=== PATIENT | female | born 1945 | race Caucasian/White ===

== ENCOUNTER 2024-06-22 12:31 | Emergency (ER) | payer MEDICARE, OTHER, SELFPAY ==
--- NOTE | 2024-06-22 12:54 | ECG_ITS ---
[facility] Test Date: 2024-06-22 Pat Name: Renee Atkins Department: Room: Gender: Female Design Engineering Manager: : 1945 Requested By: Ryan Mac Order Number: [id number] Zoe MD: Rikki Somers M.D. Measurements Intervals [place] Rate: 62 P: 73 WI: 129 QRS: 67 QRSD: 87 T: 76 QT: 397 QTc: 403 Interpretive Statements SINUS RHYTHM LOW QRS VOLTAGE IN PRECORDIAL LEADS [QRS DEFLECTION < 1.0 mV IN CHEST LEADS] No previous ECG available for comparison Electronically Signed On 06-23-2024 10:26:58 [employer] TECHNOLOGY TEACHER by Rikki Somers M.D. [email or web address]
[2024-06-22 12:55] VITALS: BP 141/78; PULSE 65; RESP 17; TEMP 36.4; O2SAT 100; BMI 37.9
--- NOTE | 2024-06-22 13:04 | XRR_ITS ---
PROCEDURE INFORMATION: Exam: XR Chest Exam date and time: 06/22/2024 1:17 PM Age: 79 years old Clinical indication: Chest wall pain; Prior surgery; Surgery date: 6+ months; Surgery type: Breast implants; Additional info: Chest pain TECHNIQUE: Imaging protocol: Radiologic exam of the chest. Views: 1 view. COMPARISON: No relevant prior studies available. FINDINGS: Lungs: Unremarkable. No consolidation or mass. Pleural spaces: Unremarkable. No pleural effusion. No pneumothorax. Heart/Mediastinum: Unremarkable. No cardiomegaly. Bones/joints: Unremarkable. XR/XR chest 1V portable [id number] IMPRESSION: No acute findings.
--- NOTE | 2024-06-22 13:22 | ED_ITS ---
HPI - Back Pain/Injury 2 General: Chief Complaint: Back Pain/Injury Stated Complaint: back pain UC sent Time Seen by Provider: 06/22/24 13:22 History of Present Illness: Patient presents to the ER with complaints of upper back pain and chest pain. She states she has been caring her home oxygen around on her side she thinks she may have strained something and this is causing her chest and back to hurt. She only experiences pain when she moving. She is chronically short of breath and chronically wears 2 L of oxygen at all times. She is not requiring any more oxygen now than she does at her baseline. Patient denies any nausea vomiting or diaphoresis. Related Data Home Medications Medication Instructions Recorded Confirmed alprazolam 0.5 mg tablet (Xanax) 0.5 mg PO BID 06/22/24 06/22/24 apixaban 5 mg tablet (Eliquis) 5 mg PO BID 06/22/24 06/22/24 citalopram 20 mg tablet 20 mg PO DAILY 06/22/24 06/22/24 cyclobenzaprine 10 mg tablet 10 mg PO TID 06/22/24 06/22/24 fluticasone fur. 100 mcg-umeclid 1 inh inhalation DAILY 06/22/24 06/22/24 62.5 mcg-vilant 25 mcg inhalat.powder (Trelegy Ellipta) furosemide 20 mg tablet (Lasix) 20 mg PO DAILY 06/22/24 06/22/24 metoprolol succinate 25 mg 25 mg PO BID 06/22/24 06/22/24 tablet,extended release 24 hr prednisone 10 mg tablet 10 mg PO BID 06/22/24 06/22/24 Allergies Allergy/AdvReac Type Severity Reaction Status Date / Time codeine Allergy ALGY-Hives Verified 06/22/24 12:59 Penicillins Allergy ALGY-Hives Verified 06/22/24 12:59 Sulfa (Sulfonamide Allergy hives Verified 06/22/24 11:43 Antibiotics) zolpidem [From Ambien] Allergy Unknown Verified 06/22/24 12:59 Review of Systems 2 General: Reports: 10 or more systems reviewed and unremarkable except in HPI and below PFSH ED 2 PFSH: Social History Smoking and tobacco/nicotine status: unknown if used tobacco/nicotine Physical Exam 2 Const: COMMON NORMALS: no acute distress, average body habitus, patient oriented x3, no limitations, healthy appearing, alert and well nourished HENMT: COMMON NORMALS: normocephalic, atraumatic, hearing grossly normal bilaterally, external ears normal, Normal external nose present and moist oral mucous membranes HEAD & SCALP: normocephalic and atraumatic NOSE: Normal external nose present EXTERNAL EAR: Yes external ears normal Neck/C-Spine: COMMON NORMALS: no JVD Chest: COMMONS NORMALS: normal inspection of the chest and normal palpation of entire chest wall Resp: COMMON NORMALS: normal respiratory effort, No retractions, No use of accessory muscles and clear to auscultation bilaterally AUSCULTATION: clear to auscultation bilaterally Cardio: COMMON NORMALS: no JVD, regular rate, regular rhythm, S1 normal heart sound present, S2 normal heart sound present, No gallops present (Cardio), No clicks present (Cardio), No murmurs present (Cardio) and No rub (Cardio) R ATE: regular rate RHYTHM: regular rhythm HEART SOUNDS: S1 normal heart sound present and S2 normal heart sound present GI: COMMON NORMALS: Normal to inspection, nondistended, normoactive bowel sounds present, Soft to palpation, non-tender, No hepatosplenomegaly present and no masses PALPATION: Yes Soft to palpation and Yes No hepatosplenomegaly present Neuro: COMMON NORMALS: patient oriented x3 SENSORIUM/ORIENTATION: Yes alert Course 2 Vital Signs: Vital signs: Vital Signs Temperature 97.5 F L 06/22/24 12:55 Pulse Rate 65 06/22/24 16:36 Respiratory Rate 17 06/22/24 12:55 Blood Pressure 147/89 06/22/24 16:36 Pulse Oximetry 99 06/22/24 16:36 Oxygen Delivery Me thod Room Air 06/22/24 15:35 Oxygen Flow Rate 2 06/22/24 12:55 MDM - Back Pain/Injury Medical Decision Making Patient had serial EKGs, serial cardiac enzymes, chest x-ray all of which was essentially benign. Patient will be discharged home. Medical Records I reviewed the patient's medical records. Labs I reviewed the patient's lab results. 06/22/24 13:20 06/22/24 13:20 Radiology Impressions Chest X-Ray 06/22/24 13:04 IMPRESSION: No acute findings. Laboratory Results WBC 12.26 10^3/uL (3.29-11.43) H 06/22/24 13:20 RBC 4.79 10^6/uL (3.85-5.65) 06/22/24 13:20 Hgb 16.20 g/dL (11.27-16.99) 06/22/24 13:20 Hct 50.9 % (36-47) H 06/22/24 13:20 MCV 106.3 fl (85-98) H 06/22/24 13:20 MCH 33.8 pg (27-33) H 06/22/24 13:20 MCHC 31.8 g/dL (30-55) 06/22/24 13:20 RDW 13.2 % (12.1-15.1) 06/22/24 13:20 Plt Count 308 10^3/cmm (157-399) 06/22/24 13:20 MPV 8.9 fL (7.4-10.4) 06/22/24 13:20 Neut % (Auto) 71.6 % 06/22/24 13:20 Lymph % (Auto) 15.2 % 06/22/24 13:20 [place] % (Auto) 6.3 % 06/22/24 13:20 Eos % (Auto) 0.2 % 06/22/24 13:20 Baso % (Auto) 0.3 % 06/22/24 13:20 Neut # (Auto) 8.77 10^3/uL (1.8-7.7) H 06/22/24 13:20 Lymph # (Auto) 1.9 10^3/uL (0.8-4.8) 06/22/24 13:20 [place] # (Auto) 0.8 10^3/uL (0.2-0.9) 06/22/24 13:20 Eos # (Auto) 0.0 10^3/uL (0.0-0.8) 06/22/24 13:20 Baso # (Auto) 0.0 10^3/uL (0.0-0.1) 06/22/24 13:20 Nucleated RBC % (auto) 0.3 % 06/22/24 13:20 Nucleated RBCs # 0.0 /100WBC 06/22/24 13:20 Sodium 140 mmol/L (136-145) 06/22/24 13:20 Potassium 4.8 mmol/L (3.5-5.1) 06/22/24 13:20 Chloride 101 mmol/L (98-107) 06/22/24 13:20 Carbon Dioxide 26 mmol/L (22-29) 06/22/24 13:20 Anion Gap 17.8 (5-19) 06/22/24 13:20 BUN 14 mg/dL (8-23) 06/22/24 13:20 Creatinine 0.8 mg/dL (0.5-0.9) 06/22/24 13:20 GFR Calculation Not Reportable 06/22/24 13:20 Glucose 126 mg/dL (65-115) H 06/22/24 13:20 Calculated Osmolality 292 mOsm/kg (285-295) 06/22/24 13:20 Calcium 9.6 mg/dL (8.5-10.5) 06/22/24 13:20 Total Bilirubin 0.5 mg/dL (0.15-1.2) 06/22/24 13:20 AST 81 U/L (0-32) H 06/22/24 13:20 ALT 145 U/L (0-33) H 06/22/24 13:20 Alkaline Phosphatase 123 U/L (35-105) H 06/22/24 13:20 Troponin T Baseline 13 ng/L (0-10) H 06/22/24 13:20 Troponin T 120 Minute 10.98 ng/L (0-10) H 06/22/24 15:43 Delta Troponin T -2.02 ABS# (0-10) L 06/22/24 15:43 NT-Pro-B Natriuret Pep 145 pg/mL (0-450) 06/22/24 13:20 Total Protein 6.6 g/dL (6.6-8.7) 06/22/24 13:20 Albumin 4.1 g/dL (3.5-5.2) 06/22/24 13:20 Globulin 2.5 g/dL (1.3-4.6) 06/22/24 13:20 All radiology interpretation(s) finalized by discharge Discharge Plan Discharge Patient Disposition: Home Clinical Impression: Thoracic back pain Qualifiers: Chronicity: acute Back pain laterality: left Qualified Code(s): M54.6 - Pain in thoracic spine Chest pain Qualifiers: Chest pain type: unspecified Qualified Code(s): R07.9 - Chest pain, unspecified Condition: Stable Prescriptions: No Action alprazolam [Xanax] 0.5 mg tablet 0.5 mg PO BID metoprolol succinate 25 mg tablet extended release 24 hr 25 mg PO BID cyclobenzaprine 10 mg tablet 10 mg PO TID citalopram 20 mg tablet 20 mg PO DAILY Trelegy Ellipta 100-62.5-25 mcg blister with device 1 inh inhalation DAILY Eliquis 5 mg tablet 5 mg PO BID furosemide [Lasix] 20 mg tablet 20 mg PO DAILY prednisone 10 mg tablet 10 mg PO BID Discharge Orders: Discharge ED (Routine); Ordered 06/22/24 Ordered By: Rodrigue Richards Referrals: Farhad Marquez MD [Primary Care Provider] - 1 week Patient Instructions: Musculoskeletal Pain (ED) Activity Restrictions/Additional Instructions: All of your evaluation in the ER was negative for any acute cardiac cause of your pain. It is thought to be musculoskeletal in nature. Please follow-up with your family practice physician in the next 7 days as needed. If your pain worsens or changes please feel free to return to the ER. Coding Level of Care Code ED Work Order Clerk for Alee Weaver
--- NOTE | 2024-06-22 13:29 | PC.PHAR ---
patient was seen at walk in earlier this morning and was told to come here last reconciled then.. patient confirms everything is the same
[2024-06-22 13:40] VITALS: BP 147/80; PULSE 67; O2SAT 98
[2024-06-22 13:47] LABS: Basophils % 0.3 %; Eosinophils % 0.2 %; Hematocrit 50.9 % (36-47); Lymphocytes # 1.9 10^3/uL (0.8-4.8); Lymphocytes % 15.2 %; Mean Corpuscular HGB Conc 31.8 g/dL (30-55); Mean Corpuscular Hemoglobin 33.8 pg (27-33); Mean Corpuscular Volume 106.3 fl (85-98); Mean Platelet Volume 8.9 fL (7.4-10.4); Monocytes # 0.8 10^3/uL (0.2-0.9); Monocytes % 6.3 %; Neutrophils # 8.77 10^3/uL (1.8-7.7); Neutrophils % 71.6 %; Nucleated Red Blood Cells % 0.3 %; Platelet Count 308 10^3/cmm (157-399); Red Blood Count 4.79 10^6/uL (3.85-5.65); Red Cell Distribution Width 13.2 % (12.1-15.1); White Blood Count 12.26 10^3/uL (3.29-11.43)
[2024-06-22 14:06] LABS: Troponin(5th) Baseline 13 ng/L (0-10)
[2024-06-22 14:14] LABS: NT Pro B Type Natriuretic Pept 145 pg/mL (0-450)
[2024-06-22 14:22] LABS: Anion Gap 17.8 (5-19); Blood Urea Nitrogen 14 mg/dL (8-23); Carbon Dioxide 26 mmol/L (22-29); Chloride 101 mmol/L (98-107); Potassium 4.8 mmol/L (3.5-5.1); Sodium 140 mmol/L (136-145)
[2024-06-22 14:23] LABS: Alanine Aminotransferase 145 U/L (0-33); Albumin Level 4.1 g/dL (3.5-5.2); Alkaline Phosphatase 123 U/L (35-105); Aspartate Amino Transferase 81 U/L (0-32); Calcium 9.6 mg/dL (8.5-10.5); Creatinine Clr Calc Pharmacy 70.2543; Globulin 2.5 g/dL (1.3-4.6); Glucose 126 mg/dL (65-115); Osmolality Calculated 292 mOsm/kg (285-295); Total Bilirubin 0.5 mg/dL (0.15-1.2); Total Protein 6.6 g/dL (6.6-8.7)
[2024-06-22 15:35] VITALS: BP 147/89; PULSE 67; O2SAT 98
[2024-06-22 16:09] LABS: Troponin 5 2HR 10.98 ng/L (0-10)
[2024-06-22 16:10] LABS: Troponin 5 2HR Delta -2.02 ABS# (0-10)
--- NOTE | 2024-06-22 16:12 | ECG_ITS ---
[facility] Date: 2024-06-22 Pat Name: Renee Atkins Department: Room: Gender: Female Meter Supervisor: : 1945 Requested By: Libertad Parham Order Number: [id number] Enriquez MD: Rikki Somers M.D. Measurements Intervals [place] Rate: 65 P: 68 NE: 134 QRS: 60 QRSD: 86 T: 95 QT: 404 QTc: 423 Interpretive Statements SINUS RHYTHM LOW QRS VOLTAGE IN PRECORDIAL LEADS [QRS DEFLECTION < 1.0 mV IN CHEST LEADS] MODERATE ST DEPRESSION [0.05+ mV ST DEPRESSION] Compared to ECG 06/22/2024 12:54:12 ST (T wave) deviation now present Electronically Signed On 06-24-2024 19:10:09 ORE ROASTER by Rikki Somers M.D. [id number]
[2024-06-22 16:36] VITALS: BP 147/89; PULSE 65; O2SAT 99
== END 2024-06-22 16:45 | disposition home or self-care (01) ==
PROVIDERS: Physician Assistant; Emergency Provider Emergency Medicine; PCP Family Medicine
DX: M54.6 Pain in thoracic spine (principal); R07.9 Chest pain, unspecified; Z79.01 Long term (current) use of anticoagulants; Z99.81 Dependence on supplemental oxygen
CPT/HCPCS: 36415; 71045; 80053; 83880; 84484; 85025; 93005; 99285

== ENCOUNTER → 2024-08-13 14:56 | Outpatient (BNVA) | payer MEDICARE, OTHER, SELFPAY | PROVIDERS: PCP Family Medicine; Visit Provider Family Medicine | DX: Z13.6 Encounter for screening for cardiovascular disorders (principal); R00.0 Tachycardia, unspecified; Z90.710 Acquired absence of both cervix and uterus; Z90.49 Acquired absence of other specified parts of digestive tract; Z90.13 Acquired absence of bilateral breasts and nipples; Z98.890 Other specified postprocedural states | CPT/HCPCS: 80053; 80061; 84439; 84443; 85007; 85025 ==

== ENCOUNTER → 2024-09-14 13:45 | Outpatient (BNVA) | payer MEDICARE, OTHER, SELFPAY | PROVIDERS: PCP Family Medicine; Visit Provider Emergency Medicine | DX: Z13.6 Encounter for screening for cardiovascular disorders (principal); R00.0 Tachycardia, unspecified; R60.0 Localized edema | CPT/HCPCS: 71046; 80053; 85025 ==

== ENCOUNTER 2024-09-18 19:23 | Inpatient (IN) | payer MEDICARE, OTHER, SELFPAY ==
[2024-09-18 19:26] VITALS: BP 142/65; PULSE 127; RESP 20; TEMP 36.7; O2SAT 94; BMI 40.4
--- NOTE | 2024-09-18 19:27 | CTR_ITS ---
PROCEDURE INFORMATION: Exam: CT Chest Without Contrast; Diagnostic Exam date and time: 09/18/2024 8:44 PM Age: 79 years old Clinical indication: Injury or trauma; Fall; Blunt trauma (contusions or hematomas); Additional info: Traumatic chest pain TECHNIQUE: Imaging protocol: Diagnostic computed tomography of the chest without contrast. Radiation optimization: All CT scans at this facility use at least one of these dose optimization techniques: automated exposure control; mA and/or kV adjustment per patient size (includes targeted exams where dose is matched to clinical indication); or iterative reconstruction. COMPARISON: CR (CHEST, ) 09/18/2024 8:27 PM RADIATION DOSE METRICS: Total DLP (mGy-cm): 622.3 FINDINGS: Lungs: Emphysema. Calcified granuloma within left lower lobe. Mild bibasilar reticular opacities. Pleural spaces: Unremarkable. No pneumothorax. No pleural effusion. Heart: Unremarkable. No cardiomegaly. No pericardial effusion. Lymph nodes: Calcified mediastinal lymph nodes. Vasculature: Unremarkable. No aortic aneurysm. Diaphragm: Small hiatal hernia. Liver: Diffusely hypodense hepatic parenchyma. Gallbladder and biliary ducts: Status post cholecystectomy. Spleen: Calcified granulomas within the spleen. Bones/joints: Unremarkable. No acute fracture. Soft tissues: Unremarkable. CT/CT chest wo con [id number] IMPRESSION: 1. No acute intrathoracic findings. No fracture. 2. Emphysema. 3. Small hiatal hernia. 4. Hepatic steatosis. 5. Sequela of prior healed granulomatous disease. 6. Status post cholecystectomy. COMMENTS: The presence of pulmonary emphysema on CT is an independent risk factor for lung cancer. In the absence of a history or active diagnosis of lung cancer, it is recommended that this patient with emphysema be evaluated for enrollment in a low dose CT lung cancer screening program.
--- NOTE | 2024-09-18 19:27 | CTR_ITS ---
PROCEDURE INFORMATION: Exam: CT Cervical Spine Without Contrast Exam date and time: 09/18/2024 8:44 PM Age: 79 years old Clinical indication: Injury or trauma; Fall; Blunt trauma; Additional info: Fall, neck pain TECHNIQUE: Imaging protocol: Computed tomography of the cervical spine without contrast. Radiation optimization: All CT scans at this facility use at least one of these dose optimization techniques: automated exposure control; mA and/or kV adjustment per patient size (includes targeted exams where dose is matched to clinical indication); or iterative reconstruction. COMPARISON: CR (CHEST, ) 09/18/2024 8:27 PM RADIATION DOSE METRICS: Total DLP (mGy-cm): 302.1 FINDINGS: Bones/joints: Mid to lower cervical spine moderate severe disc space narrowing and productive degenerative endplate changes throughout the spine. C2-C3: No significant disc bulge or herniation. No severe spinal canal stenosis. No significant neural foraminal narrowing. C3-C4: No significant disc bulge or herniation. No severe spinal canal stenosis. No significant neural foraminal narrowing. C4-C5: No significant disc bulge or herniation. No severe spinal canal stenosis. No significant neural foraminal narrowing. C5-C6: No significant disc bulge or herniation. No severe spinal canal stenosis. No significant neural foraminal narrowing. C6-C7: No significant disc bulge or herniation. No severe spinal canal stenosis. No significant neural foraminal narrowing. C7-T1: No significant disc bulge or herniation. No severe spinal canal stenosis. No significant neural foraminal narrowing. Lungs: Emphysematous changes. Biapical pleural-parenchymal fibrosis. Vasculature: Carotid artery atherosclerotic calcification. Soft tissues: Unremarkable. CT/CT cervical spin wo con* [id number] IMPRESSION: 1. Negative for fracture or dislocation. 2. Mid to lower cervical spine moderate severe disc space narrowing and productive degenerative endplate changes throughout the spine. 3. Carotid artery atherosclerotic calcification. 4. Emphysematous changes. 5. Biapical pleural-parenchymal fibrosis.
--- NOTE | 2024-09-18 19:27 | CTR_ITS ---
PROCEDURE INFORMATION: Exam: CT Thoracic Spine Without Contrast Exam date and time: 09/18/2024 8:44 PM Age: 79 years old Clinical indication: Injury or trauma; Fall; Blunt trauma (contusions or hematomas); Additional info: Traumatic upper back pain TECHNIQUE: Imaging protocol: Computed tomography of the thoracic spine without contrast. Radiation optimization: All CT scans at this facility use at least one of these dose optimization techniques: automated exposure control; mA and/or kV adjustment per patient size (includes targeted exams where dose is matched to clinical indication); or iterative reconstruction. COMPARISON: CR (CHEST, ) 09/18/2024 8:27 PM RADIATION DOSE METRICS: Total DLP (mGy-cm): 1290.1 FINDINGS: Bones/joints: No compression deformity or traumatic subluxation. Mild multilevel degenerative changes with mild anterior osteophyte formation. No aggressive osseous lesions. Soft tissues: Unremarkable. Lungs: Partially included lungs demonstrate advanced emphysema. Other findings: Hiatal hernia. CT/CT thoracic spin wo con* [id number] IMPRESSION: 1. No compression deformity or traumatic subluxation within thoracic spine. 2. Emphysema. Hiatal hernia.
--- NOTE | 2024-09-18 19:27 | CTR_ITS ---
PROCEDURE INFORMATION: Exam: CT Head Without Contrast Exam date and time: 09/18/2024 8:44 PM Age: 79 years old Clinical indication: Injury or trauma; Fall; Blunt trauma (contusions or hematomas); Consciousness not specified; Additional info: Fall, head injury TECHNIQUE: Imaging protocol: Computed tomography of the head without contrast. Radiation optimization: All CT scans at this facility use at least one of these dose optimization techniques: automated exposure control; mA and/or kV adjustment per patient size (includes targeted exams where dose is matched to clinical indication); or iterative reconstruction. COMPARISON: CT cervical spin wo con* [id number] 09/18/2024 8:44 PM RADIATION DOSE METRICS: Total DLP (mGy-cm): 1143.2 FINDINGS: Brain: Moderate diffuse white matter disease likely reflecting chronic microvascular ischemic changes. Cerebral ventricles: No ventriculomegaly. Paranasal sinuses: Visualized sinuses are unremarkable. No fluid levels. Mastoid air cells: Visualized mastoid air cells are well aerated. Bones: Unremarkable. No acute fracture. Soft tissues: Unremarkable. CT/CT head wo con* [id number] IMPRESSION: Negative for intracranial hemorrhage or mass effect.
--- NOTE | 2024-09-18 19:28 | XRR_ITS ---
PROCEDURE INFORMATION: Exam: XR Chest Exam date and time: 09/18/2024 8:27 PM Age: 79 years old Clinical indication: Shortness of breath TECHNIQUE: Imaging protocol: Radiologic exam of the chest. Views: 1 view. COMPARISON: CR XR chest 2V* [id number] 09/14/2024 1:48 PM FINDINGS: Lungs: Unremarkable. No consolidation. Pleural spaces: Unremarkable. No pleural effusion. No pneumothorax. Heart/Mediastinum: Unremarkable. No cardiomegaly. Bones/joints: Unremarkable. XR/XR chest 1V portable [id number] IMPRESSION: No acute findings.
--- NOTE | 2024-09-18 19:33 | W.ED.SOB ---
HPI - SOB/Dyspnea General: Chief Complaint: Shortness of Breath/Dyspnea Stated Complaint: resp distress Time Seen by Provider: 09/18/24 19:24 History of Present Illness: HPI Narrative: 79-year-old female with a history of COPD, chronic hypoxemic respiratory failure on 2 L nasal cannula at all times, tobacco dependence in remission for 8 years, history of pulmonary embolism on chronic anticoagulation with Eliquis, anxiety, who presents to the emergency room with worsening shortness of breath. This been going on for few days now. She has had increased oxygen requirements currently requiring 4 L nasal cannula. She says she has not had any cough. She has swelling in her legs but this is baseline she says. She has had multiple recent falls. She said she lost her balance and fell backwards and hit her head. She then fell while she was on her walker. She is having some right rib pain. No loss of consciousness. These falls were couple of days ago. She did not seek medical attention even though she is on Eliquis. Related Data Previous Rx's ?Medication ?Instructions ?Recorded Supplemental Oxygen @ 2-4l/m via #1 ea 07/12/24 nasal canula alprazolam 0.5 mg tablet (Xanax) 0.5 mg PO BID #60 tabs 08/13/24 citalopram 20 mg tablet 20 mg PO DAILY #90 tabs 08/13/24 cyclobenzaprine 10 mg tablet 10 mg PO DAILY #90 tabs 08/13/24 fluticasone fur. 100 mcg-umeclid 1 inh inhalation DAILY #60 ea 08/13/24 62.5 mcg-vilant 25 mcg inhalat.powder (Trelegy Ellipta) furosemide 20 mg tablet (Lasix) 20 mg PO DAILY #90 tabs 08/13/24 metoprolol tartrate 25 mg tablet 25 mg PO BID #90 tabs 08/13/24 potassium chloride 10 mEq 10 meq PO DAILY #90 tabs 08/13/24 tablet,extended release prednisone 5 mg tablet See Rx Instructions PO BID #77 tabs 08/13/24 albuterol sulfate 90 mcg/actuation 1 inh inhalation QID PRN shortness 09/14/24 aerosol inhaler of breath or wheezing #8.5 grams apixaban 5 mg tablet 5 mg PO BID #180 tabs 09/14/24 Allergies Allergy/AdvReac Type Severity Reaction Status Date / Time codeine Allergy ALGY-Hives Verified 09/18/24 19:33 Penicillins Allergy ALGY-Hives Verified 09/18/24 19:33 Sulfa (Sulfonamide Allergy hives Verified 09/18/24 19:33 Antibiotics) zolpidem (From Ambien) Allergy Unknown Verified 09/18/24 19:33 Review of Systems Narrative: Constitutional symptoms: Negative except as documented in HPI. Skin symptoms: Negative except as documented in HPI. Eye symptoms: Negative except as documented in HPI. ENMT symptoms: Negative except as documented in HPI. Respiratory symptoms: Negative except as documented in HPI. Cardiovascular symptoms: Negative except as documented in HPI. Gastrointestinal symptoms: Negative except as documented in HPI. Genitourinary symptoms: Negative except as documented in HPI. Musculoskeletal symptoms: Negative except as documented in HPI. Neurologic symptoms: Negative except as documented in HPI. Psychiatric symptoms: Negative except as documented in HPI. Endocrine symptoms: Negative except as documented in HPI. PFSH ED PFSH: Medical History (Updated 09/18/24 @ 21:47 by Liset Torrez MD) Anxiety Chronic steroid use Hx of pulmonary embolus Tachyarrhythmia COPD (chronic obstructive pulmonary disease) Surgical History (Updated 08/13/24 @ 14:50 by Farhad Marquez MD) History of bilateral mastectomy History of breast reconstruction History of cholecystectomy History of appendectomy History of hysterectomy History of back surgery History of repair of rectocele History of bladder repair surgery History of foot surgery Family History Grandfather Arrhythmia Father Colon cancer Grandmother Breast cancer Mother Diabetes mellitus, type 2 Social History (Updated 08/13/24 @ 14:14 by Breann Gomez LPN) Smoking and tobacco/nicotine status: former use of tobacco/nicotine Alcohol intake: never Substance/Drug Use: never Physical Exam Narrative: EXAM NARRATIVE: General: Alert, no acute distress. Skin: Warm, dry. Head: Normocephalic, atraumatic. Neck: Supple, trachea midline. Eye: Extraocular movements are intact. Ears, nose, mouth and throat: Oral mucosa moist. Cardiovascular: Regular rate and rhythm, Normal peripheral perfusion. Respiratory: coarse, scattered wheeze, mild increased wob. tachypnea, breath sounds are equal, Symmetrical chest wall expansion. Gastrointestinal: Soft, Nontender, Non distended, Normal bowel sounds. Musculoskeletal: Normal ROM, no deformity. Neurological: Alert and oriented to person, place, time, and situation, No focal neurological deficit observed. Psychiatric: Cooperative, appropriate mood & affect. Course Vital Signs: Vital signs: Vital Signs Temperature 98.0 F 09/18/24 19:26 Pulse Rate 118 H 09/18/24 20:58 Respiratory Rate 22 H 09/18/24 20:58 Blood Pressure 142/65 09/18/24 20:30 Pulse Oximetry 95 09/18/24 20:58 Oxygen Delivery Me thod Nasal Cannula 09/18/24 20:58 Oxygen Flow Rate 4 09/18/24 20:58 MDM - SOB/Dyspnea Medical Decision Making Differential diagnosis for patient with shortness of breath includes but is not limited to and based on the above HPI, review of systems and physical exam: Pneumonia. Bronchitis. Asthma or COPD with acute exacerbation. Acute coronary syndrome / LA. Pulmonary embolism. Anxiety. Congestive heart failure. Viral infections including influenza and Covid-19. Atrial fibrillation. Anxiety. Pleural effusion. Pneumothorax. Orders placed to evaluate differential diagnosis based on the above differential, HPI and physical exam EKG: Time 2000. Rate 119. Sinus tachycardia, No ST-T changes, no ectopy, normal SD & QRS intervals, This was reviewed and interpreted by myself the ER physician at 2004 Chest x-ray: No acute process. No infiltrate. No pneumothorax. This was reviewed and interpreted by myself the emergency room physician. I also reviewed the radiology report. CT of the chest without contrast: No acute findings. No fractures. She has emphysema. A hiatal hernia. Granulomatous disease. This was reviewed and interpreted by myself the emergency room physician. I also reviewed the radiology report. CT of the abdomen without contrast: No acute process. This was reviewed and interpreted by myself the emergency room physician. I also reviewed the radiology report. CT head: No acute intracranial process. no intracranial hemorrhage, no evidence of infarct. no evidence of acute fracture.This was reviewed and interpreted by myself the ER physician. CT of the cervical spine: No fracture. Good alignment. No step-offs. This was reviewed and interpreted by myself the emergency room physician. I also reviewed the radiologist report. Lab Review: Laboratory results were reviewed and interpreted by myself the emergency room physician. No leukocytosis. No anemia. No renal failure. Patient is COVID-positive. With her swelling and matting of proBNP. She is tachycardic and has increased hypoxemia. Chest x-ray and CT do not show any causes. She has been taking her Eliquis so this is unlikely recurrent pulmonary embolism. I reviewed the patient's medical record. Reexamination: Patient still with quite a bit of wheeze and mild increased work of breathing. Increased oxygen requirements. Balance issues. Also of note she has a large skin tear on her right elbow. Some redness around this. Could be a possible source of sepsis. Consultation: I spoke with Dr. Dos Santos who is on-call for the hospitalist service who agrees to admission. Assessment and plan: COVID-19 COPD with acute exacerbation Acute on chronic hypoxemic respiratory failure Possible sepsis Chronic anticoagulation on Eliquis Multiple falls Head injury Skin tears to arm ?Increased oxygen requirements. 4 to 5 L over her home 2 L. Sats are in the low 90s on this. ?IV steroids. Multiple updrafts. ?Patient has COVID but have concern for secondary infection. She has a Pro-Don of 95 and a lactate of 3.5. Also a bit tachycardic which may be secondary to albuterol. -1 L normal saline bolus. Limited fluid resuscitation secondary to worsening lower extremity swelling and concern for heart failure. -Broad-spectrum antibiotics were administered. Zyvox and cefepime -Sepsis quality measures. -Lactic acid with a reflex was ordered. -Blood cultures were ordered. -I discussed the patient with the hospitalist on-call who is admitting the patient. - Discussed findings and plan with patient. Answered any questions. - All laboratory values were reviewed and interpreted personally by myself, the ER physician - All imaging was reviewed and interpreted personally by myself, the ER physician. - Evaluation and treatment of this problem were appropriate in the emergency setting Critical care -I spent a total of >35 minutes of critical care time managing the patient, independent of any other practitioner. -The time involved in the performance of separately reportable procedures was not counted towards critical care time. Lab Data 09/18/24 19:22 09/18/24 19:22 Labs/Radiology: Radiology Impressions Cervical Spine CT 09/18/24 19:27 IMPRESSION: 1. Negative for fracture or dislocation. 2. Mid to lower cervical spine moderate severe disc space narrowing and productive degenerative endplate changes throughout the spine. 3. Carotid artery atherosclerotic calcification. 4. Emphysematous changes. 5. Biapical pleural-parenchymal fibrosis. Chest CT 09/18/24 19: IMPRESSION: 1. No acute intrathoracic findings. No fracture. 2. Emphysema. 3. Small hiatal hernia. 4. Hepatic steatosis. 5. Sequela of prior healed granulomatous disease. 6. Status post cholecystectomy. COMMENTS: The presence of pulmonary emphysema on CT is an independent risk factor for lung cancer. In the absence of a history or active diagnosis of lung cancer, it is recommended that this patient with emphysema be evaluated for enrollment in a low dose CT lung cancer screening program. Head CT 09/18/24 19: IMPRESSION: Negative for intracranial hemorrhage or mass effect. Thoracic Spine CT 09/18/24: IMPRESSION: 1. No compression deformity or traumatic subluxation within thoracic spine. 2. Emphysema. Hiatal hernia. Chest X-Ray 09/18/24 19: IMPRESSION: No acute findings. Laboratory Results WBC 7.50 10^3/uL (3.29-11.43) 09/18/24 19:22 RBC 4.46 10^6/uL (3.85-5.65) 09/18/24 19:22 Hgb 15.20 g/dL (11.27-16.99) 09/18/24 19:22 Hct 45.8 % (36-47) 09/18/24 19:22 MCV 102.7 fl (85-98) H 09/18/24 19:22 MCH 34.1 pg (27-33) H 09/18/24 19:22 MCHC 33.2 g/dL (30-55) 09/18/24 19:22 RDW 13.6 % (12.1-15.1) 09/18/24 19:22 Plt Count 255 10^3/cmm (157-399) 09/18/24 19:22 MPV 9.2 fL (7.4-10.4) 09/18/24 19:22 Neut % (Auto) 69.0 % 09/18/24 19:22 Lymph % (Auto) 21.3 % 09/18/24 19:22 [place] % (Auto) 7.6 % 09/18/24 19:22 Eos % (Auto) 0.1 % 02/25/25 19:22 Baso % (Auto) 0.3 % 09/18/24 19:22 Neut # (Auto) 5.17 10^3/uL (1.8-7.7) 09/18/24 19:22 Lymph # (Auto) 1.6 10^3/uL (0.8-4.8) 09/18/24 19:22 [place] # (Auto) 0.6 10^3/uL (0.2-0.9) 09/18/24 19:22 Eos # (Auto) 0.0 10^3/uL (0.0-0.8) 09/18/24 19:22 Baso # (Auto) 0.0 10^3/uL (0.0-0.1) 09/18/24 19: Nucleated RBC % (auto) 0.3 % 09/18/24: Nucleated RBCs # 0.0 /100WBC 09/18/24 19:22 Specimen Type Arterial 09/18/24 21:02 Sample Site Radial, right 09/18/24 21:02 ABG pH 7.39 (7.35-7.45) 09/18/24 21:02 ABG pCO2 35.7 mmHg (35-45) 09/18/24 21:02 ABG pO2 81.1 mmHg (80.0-100.0) 09/18/24 21:02 ABG HCO3 21.5 mmol/L (22-26) L 09/18/24 21:02 ABG O2 Saturation 96.2 09/18/24 21:02 ABG Base Excess -2.9 mmol/L (-2.0-2.0) L 09/18/24 21:02 Nathaniel Test Pos 09/18/24 21:02 A-a O2 Gradient 2.9 mmHg (5-10) L 09/18/24 21:02 Hematocrit 47.8 % (37-47) H 09/18/24 21:02 Hgb O2 Saturation 94.4 % (95-100) L 09/18/24 21:02 Carboxyhemoglobin 1.0 %THgb (0.4-20.1) 09/18/24 21:02 Methemoglobin 0.9 % (0.4-1.5) 09/18/24 21:02 Total Hemoglobin 15.6 g/dL (12-16) 09/18/24 21:02 Sodium 136.0 mmol/L (131-143) 09/18/24 21:02 Potassium 3.1 mmol/L (3.5-5.0) L 09/18/24 21:02 Glucose 166.0 mg/dL (70-115) H 09/18/24 21:02 Ionized Calcium 1.1 mmol/L (1.1-1.4) 09/18/24 21:02 O2 Delivery Device Nc 09/18/24 21:02 O2 Liters/Min 4.0 % 09/18/24 21:02 Experimental Machining Lab Manager ID Busja 09/18/24 21:02 Sodium 134 mmol/L (136-145) L 09/18/24 19:22 Potassium 3.3 mmol/L (3.5-5.1) L 09/18/24 19:22 Chloride 96 mmol/L (98-107) L 09/18/24 19:22 Carbon Dioxide 20 mmol/L (22-29) L 09/18/24 19:22 Anion Gap 21.3 (5-19) H 09/18/24 19:22 BUN 10 mg/dL (8-23) 09/18/24 19:22 Creatinine 0.9 mg/dL (0.5-0.9) 09/18/24 19:22 GFR Calculation Not Reportable 09/18/24 19:22 Glucose 138 mg/dL (65-115) H 09/18/24 19:22 Calculated Osmolality 279 mOsm/kg (285-295) L 09/18/24 19:22 Lactic Acid 3.5 mmol/L (0.5-2.2) H 09/18/24 19:22 Calcium 8.7 mg/dL (8.5-10.5) 09/18/24 19:22 Total Bilirubin 0.8 mg/dL (0.15-1.2) 09/18/24 19:22 AST 294 U/L (0-32) H 09/18/24 19:22 ALT 198 U/L (0-33) H 09/18/24 19:22 Alkaline Phosphatase 261 U/L (35-105) H 09/18/24 19:22 Troponin T Baseline 28 ng/L (0-10) H 09/18/24 19:22 C-Reactive Protein 162.9 mg/L (0.0-4.9) H 09/18/24 19: Total Protein 5.9 g/dL (6.6-8.7) L 09/18/24: Albumin 3.6 g/dL (3.5-5.2) 09/18/24: Globulin 2.3 g/dL (1.3-4.6) 09/18/24: Procalcitonin 97.35 ng/mL (0-0.5) H 09/18/24 19: Urine Color Yellow (Yellow) 09/18/24: Urine Appearance Clear (CLEAR) 09/18/24: Urine pH 6.5 (5-7) 09/18/24: Ur Specific [place] 1.022 (1.005-1.030) 09/18/24: Urine Protein 1+ (Negative) A 09/18/24 Urine Glucose (UA) Negative (Normal) 09/18/24 Urine Ketones 2+ (Negative) H 09/18/24: Urine Blood Negative (Negative) 09/18/24: Urine Nitrate Negative (Negative) 09/18/24: Urine Bilirubin Negative (Negative) 09/18/24: Urine Urobilinogen 1.0 mg/dL (Negative) 09/18/24: Ur Leukocyte Esterase 1+ (Negative) A 09/18/24 20: Urine RBC 0-4 /hpf (0-2) H 09/18/24 20: Urine WBC 5-10 /hpf (0-5) H 09/18/24 20: Ur Squamous Epith Cells 15-25 /hpf (0-5) H 09/18/24 20: Amorphous Sediment Not Reportable 09/18/24: Urine Bacteria Trace /hpf (NONE) 09/18/24 20: Influenza A (PCR) Negative (Negative) 09/18/24: Influenza Type B (PCR) Negative (Negative) 09/18/24: RSV (PCR) Negative (Negative) 09/18/24 SARS-CoV-2 (PCR) Positive (Negative) A 09/18/24 All radiology interpretation(s) finalized by discharge Discharge Plan Discharge Patient Disposition: Admitted As Inpatient Clinical Impression: COVID-19, COPD with acute exacerbation, Acute on chronic hypoxic respiratory failure, Multiple falls, Sinus tachycardia, Edema, Sepsis Condition: Stable Coding Level of Care Code ED Rod Greaser for Alee Weaver
[2024-09-18] MEDS: methylPREDNISolone sod succ 125 mg/2 mL INJ IVP (19:37)
[2024-09-18 19:38] VITALS: BP 142/65; PULSE 126; RESP 20; O2SAT 95
--- NOTE | 2024-09-18 20:01 | ECG_ITS ---
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
[2024-09-18 20:08] LABS: Basophils % 0.3 %; Eosinophils % 0.1 %; Hematocrit 45.8 % (36-47); Lymphocytes # 1.6 10^3/uL (0.8-4.8); Lymphocytes % 21.3 %; Mean Corpuscular HGB Conc 33.2 g/dL (30-55); Mean Corpuscular Hemoglobin 34.1 pg (27-33); Mean Corpuscular Volume 102.7 fl (85-98); Mean Platelet Volume 9.2 fL (7.4-10.4); Monocytes # 0.6 10^3/uL (0.2-0.9); Monocytes % 7.6 %; Neutrophils # 5.17 10^3/uL (1.8-7.7); Nucleated Red Blood Cells % 0.3 %; Platelet Count 255 10^3/cmm (157-399); Red Blood Count 4.46 10^6/uL (3.85-5.65); Red Cell Distribution Width 13.6 % (12.1-15.1)
[2024-09-18 20:15] LABS: Lactic Sepsis W/Reflex 3.5 mmol/L (0.5-2.2); Troponin(5th) Baseline 28 ng/L (0-10)
[2024-09-18 20:21] LABS: Alanine Aminotransferase 198 U/L (0-33); Albumin Level 3.6 g/dL (3.5-5.2); Alkaline Phosphatase 261 U/L (35-105); Anion Gap 21.3 (5-19); Aspartate Amino Transferase 294 U/L (0-32); Blood Urea Nitrogen 10 mg/dL (8-23); C Reactive Protein 162.9 mg/L (0.0-4.9); Calcium 8.7 mg/dL (8.5-10.5); Carbon Dioxide 20 mmol/L (22-29); Chloride 96 mmol/L (98-107); Creatinine Clr Calc Pharmacy 64.6973; Globulin 2.3 g/dL (1.3-4.6); Glucose 138 mg/dL (65-115); Osmolality Calculated 279 mOsm/kg (285-295); Potassium 3.3 mmol/L (3.5-5.1); Sodium 134 mmol/L (136-145); Total Bilirubin 0.8 mg/dL (0.15-1.2); Total Protein 5.9 g/dL (6.6-8.7)
[2024-09-18 20:27] LABS: Procalcitonin 97.35 ng/mL (0-0.5)
[2024-09-18 20:30] VITALS: BP 142/65; RESP 22; O2SAT 91
[2024-09-18 20:36] LABS: Bilirubin Urine Negative (Negative); Blood Urine Negative (Negative); Glucose Urine UA Negative (Normal); Ketones Urine 2+ (Negative); Leukocyte Esterase Urine 1+ (Negative); Nitrate Urine Negative (Negative); Protein Urine 1+ (Negative); Specific Gravity, Urine 1.022 (1.005-1.030); Urine Appearance Clear (CLEAR); Urine Color Yellow (Yellow); pH Urine 6.5 (5-7)
[2024-09-18 20:36] LABS: Influenza A NEGATIVE (Negative); Influenza B NEGATIVE (Negative); Respiratory Syncytial Virus Ce NEGATIVE (Negative)
[2024-09-18 20:44] LABS: SARS-CoV-2 PCR Positive (Negative)
[2024-09-18] MEDS: albuterol 2.5 mg/3 mL Neb INHALATION (20:57)
[2024-09-18 20:58] VITALS: PULSE 118; RESP 22; O2SAT 95
[2024-09-18 20:58] LABS: RBC Urine 0-4 /hpf (0-2); Squamous Epithelial Cell Urine 15-25 /hpf (0-5)
[2024-09-18 20:59] LABS: Add Urine Culture? No; Bacteria Urine TRACE /hpf
[2024-09-18 21:14] LABS: ABG PCO2 35.7 mmHg (35-45); ABG PH Result 7.39 (7.35-7.45); Alveolar-Arterial Oxygen Gradi 2.9 mmHg (5-10); Arterial Blood Gas Hematocrit 47.8 % (37-47); Base Excess ABG -2.9 mmol/L (-2.0-2.0); Blood Gas Allen Test Pos; Blood Gas Operator Identificat BUSJA; Blood Gas Sample Site Radial, right; Blood Gas Sample Type Arterial; HCO3 ABG 21.5 mmol/L (22-26); HGB O2 Sat 94.4 % (95-100); Ionized Calcium Level - ABG 1.1 mmol/L (1.1-1.4); Methemoglobin 0.9 % (0.4-1.5); Oxygen Device NC; Oxygen Saturation ABG 96.2; PO2 ABG 81.1 mmHg (80.0-100.0); Potassium Level - ABG 3.1 mmol/L (3.5-5.0); Total Hemoglobin 15.6 g/dL (12-16)
[2024-09-18 21:37] LABS: Reflex Lactate Order REFLEX LACTIC ORDERD
--- NOTE | 2024-09-18 21:59 | P.HP_ITS ---
Providers/Chief Complaint 2 Primary Care Provider: Farhad Marquez MD Chief Complaint: resp distress History of Present Illness Renee Atkins is a 79 year old female with chronic hypoxia uses 2 L at baseline, lives alone, uses a walker occasionally, presented with recurrent falls and syncope. In the ER workup consistent with COVID-19, concern for sepsis with superimposed bacterial pneumonia patient has been given antibiotics, not a candidate for septic bolus secondary to active congestive heart failure signs and symptoms. Currently patient is on 4 L nasal cannula, patient is not endorsing any signs of chest pain nausea, vomiting but endorsing diarrhea for last few days with shortness of breath. Patient is stating that she is on Lasix but she has never been told about her congestive heart failure in the past. I do not have any previous echo to look for her EF. Patient denies previous history of AK or coronary disease. She does have history of COPD uses oxygen at baseline. Patient is stating that she has gained significant amount of weight and recently stopped taking her prednisone. Patient is stating that she had syncopal event on Tuesday, she regained consciousness quickly after falling on the ground, on Tuesday she had a fall secondary to extreme weakness and lethargy, she is presented today to get evaluated for worsening of her symptoms, she is endorsing subjective fevers, chills and rigors. She is denying signs of UTI. Endorsing diarrhea Patient takes Eliquis for history of PE/DVT Patient not a candidate for septic bolus secondary to acute CHF exacerbation/anasarca Review of Systems 2 Const: Reports: fever(s) and chills Eyes: Denies: change in vision ENMT: Denies: throat pain Card: Reports: swelling of feet/ankles; Denies: chest pain Resp: Reports: dyspnea GI: Reports: nausea and diarrhea : Denies: flank pain Musc: Denies: neck pain Medications/Allergies Home Medications ?Medication ?Instructions ?Recorded ?Confirmed ?Last Taken ?Type Supplemental Oxygen @ 2-4l/m via #1 ea 07/12/24 Unknown Rx nasal canula alprazolam 0.5 mg tablet (Xanax) 0.5 mg PO BID #60 tab s 08/13/24 09/14/24 Unknown Rx citalopram 20 mg tablet 20 mg PO DAILY #90 tabs 07/2609/14/24 Unknown Rx cyclobenzaprine 10 mg tablet 10 mg PO DAILY #90 tabs 0 08/13/24 09/14/24 Unknown Rx fluticasone fur. 100 mcg-umeclid 1 inh inhalation COOKIE Y #60 ea 08/13/24 09/14/24 Unknown Rx 62.5 mcg-vilant 25 mcg inhalat.powder (Trelegy Ellipta) furosemide 20 mg tablet (Lasix) 20 mg PO DAILY #90 tab s 08/13/24 09/14/24 Unknown Rx metoprolol tartrate 25 mg tablet 25 mg PO BID #90 tabs 08/13/24 09/14/24 Unknown Rx potassium chloride 10 mEq 10 meq PO DAILY #90 tabs 09/14/24 Unknown Rx tablet,extended release prednisone 5 mg tablet See Rx Instructions PO BID # 77 tabs 08/13/24 09/14/24 Unknown Rx albuterol sulfate 90 mcg/actuation 1 inh inhalation QI D PRN shortness 09/14/24 Unknown Rx aerosol inhaler of breath or wheezing #8.5 g zackary apixaban 5 mg tablet 5 mg PO BID #180 tabs Unknown Rx Allergies Allergy/AdvReac Type Severity Reaction Status Date / Time codeine Allergy ALGY-Hives Verified 09/18/24 19:33 Penicillins Allergy ALGY-Hives Verified 09/18/24 19:33 Sulfa (Sulfonamide Allergy hives Verified 09/18/24 19:33 Antibiotics) zolpidem (From Ambien) Allergy Unknown Verified 09/18/24 19:33 PFSH Acute 2 PFSH: Medical History (Updated 09/18/24 @ 23:16 by Terri Dos Santos MD) Anxiety Chronic steroid use Recently tapered off 09/16 Hx of pulmonary embolus Tachyarrhythmia COPD (chronic obstructive pulmonary disease) Surgical History History of bilateral mastectomy History of breast reconstruction History of cholecystectomy History of appendectomy History of hysterectomy History of back surgery History of repair of rectocele History of bladder repair surgery History of foot surgery Family History Grandfather Arrhythmia Father Colon cancer Grandmother Breast cancer Mother Diabetes mellitus, type 2 Social History Smoking and tobacco/nicotine status: former use of tobacco/nicotine Alcohol intake: never Substance/Drug Use: never Vitals/I&O/Wt Last Vital Signs Temp 98.0 F 09/18/24 19:26 Pulse 118 H 09/18/24 20:58 Resp 22 H 09/18/24 20:58 BP 142/65 09/18/24 20:30 Pulse Ox 95 09/18/24 20:58 O2 Del Method Nasal Cannula 09/18/24 20:58 O2 Flow Rate 4 09/18/24 20:58 09/18/24 09/18/24 09/18/24 06:59 14:59 22:59 Intake Total 0 / 0 Balance 0 / 0 Weight last 48 hrs Weight 110.223 kg Physical Exam 2 Narrative: Signs of fluid overload Morbidly obese Anasarca Currently on 4 L Bilateral breath sounds with rhonchi Diminished breath sound bilaterally at the bases No active chest pain GCS 15 3+ edema of legs Abdomen distended nontender Pleasant and cooperative NIH 0 Nonfocal neuroexam S1, S2 tachycardia Sepsis: Is patient septic: Yes Focused sepsis exam performed: Yes F ocused sepsis exam: No skin mottling Awake and alert Peripheral pulses intact Tachycardia heart rate 118 Saturating well 95% on 4 L Date exam was performed: 09/18/24 Time exam was performed: 23:17 Data 09/18/24 19:22 09/18/24 19:22 Micro: Microbiology 09/18/24 20:20 Blood Culture - Preliminary Blood SPECIMEN COLLECTED 09/18/24 20:15 Blood Culture - Preliminary Blood SPECIMEN COLLECTED A&P Assessment and plan (1) Sepsis: (2) COVID-19: (3) COPD (chronic obstructive pulmonary disease): (4) Acute on chronic hypoxic respiratory failure: (5) Lower extremity edema: (6) Multiple falls: (7) Edema: (8) New onset of congestive heart failure: (9) Sinus tachycardia: Plan Sepsis with acute on chronic hypoxia COVID-19 Patient started getting sick around Tuesday with diarrhea COPD exacerbation Currently on 4 L, at baseline uses 2 L at home Procalcitonin extremely high Tachycardia tachypnea high lactic acid with endorgan damage meet sepsis criteria Not a candidate for septic bolus secondary to anasarca I will keep patient on ceftriaxone and azithromycin Concern for superimposed bacterial pneumonia Check MRSA PCR For COVID-19 will keep patient on Decadron and remdesivir New onset CHF Request BNP Patient has anasarca I do not have previous echo to compare her EF however patient is endorsing taking Lasix No history of AK or CHF as per the patient EKG is showing ST depression V3 V4 with sinus tachycardia Delta troponin not significant requested echo Echo requested Patient recently finished steroid taper History of PE/DVT: Continue Eliquis for now If creatinine worsens Eliquis dose needs to be readjusted Patient endorsing history of sinus tachycardia that is why she is on metoprolol She is not endorsing history of A-fib DNR/DNI discussed with the patient goals of care in detail Cardiac diet DVT prophylaxis covered with Eliquis Will request physical therapy PDMP PDMP Reviewed: Not Reviewed Attestations 2 Medical Necessity Statement*: More than 2 midnights anticipated Coding Level of Care Code Acute Code for [facility] Fwd Diagnoses Sepsis A41.9 COVID-19 U07.1 COPD (chronic obstructive pulmonary disease) J44.9 Acute on chronic hypoxic respiratory failure J96.21 Lower extremity edema R60.0 Multiple falls R29.6 Edema R60.9 New onset of congestive heart failure I50.9 Sinus tachycardia R00.0
[2024-09-18 22:14] LABS: Troponin 5 2HR 28.05 ng/L (0-10); Troponin 5 2HR Delta 0.05 ABS# (0-10)
[2024-09-18 22:15] LABS: Lactic Acid level (Lactate) 3.2 mmol/L (0.5-2.2)
[2024-09-18 22:26] LABS: NT Pro B Type Natriuretic Pept 102 pg/mL (0-450)
[2024-09-18] MEDS: FUROsemide 10 mg/mL SDV 10mL 40 MG IVP (22:47)
[2024-09-18] MEDS: cefepime 2,000 mg SDV 2000 MG IVP (22:51)
[2024-09-18 22:55] VITALS: BP 153/84; PULSE 114; RESP 20; O2SAT 93
[2024-09-18] MEDS: linezolid premix 600 MG/300 ML PREMIX 300 MG IV (22:55)
[2024-09-19] VITALS (13 sets, daily range): BP systolic 120–165; BP diastolic 56–100; PULSE 96–116; RESP 15–20; TEMP 36.6–36.7; O2SAT 89–94; BMI 38.9
[2024-09-19 00:13] LABS: Vitamin B12 > 2000 pg/mL (232-1245)
[2024-09-19] MEDS: remdesivir 200 MG in sodium chloride 0.9% (100 ml) 60 ML 100 MG IV (01:04)
--- NOTE | 2024-09-19 01:28 | ECG_ITS ---
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 Measurements Intervals [place] Rate: 101 P: 77 TX: 140 QRS: 38 QRSD: 88 T: 50 QT: 384 QTc: 499 Interpretive Statements SINUS TACHYCARDIA LOW QRS VOLTAGE IN PRECORDIAL LEADS [QRS DEFLECTION < 1.0 mV IN CHEST LEADS] NONSPECIFIC ST & T-WAVE ABNORMALITY ABNORMAL RHYTHM ECG Compared to ECG 09/18/2024 20:01:55 T-wave abnormality now present ST (T wave) deviation no longer present Electronically Signed On 09-22-2024 08:29:46 LINDERMAN OPERATOR by Rikki Somers M.D. [email or web address] [id number]
[2024-09-19 02:24] LABS: Basophils % 0.2 %; Eosinophils % 0.2 %; Hematocrit 42.9 % (36-47); Lymphocytes # 0.5 10^3/uL (0.8-4.8); Lymphocytes % 9.8 %; Mean Corpuscular HGB Conc 32.9 g/dL (30-55); Mean Corpuscular Hemoglobin 34.1 pg (27-33); Mean Corpuscular Volume 103.9 fl (85-98); Monocytes # 0.1 10^3/uL (0.2-0.9); Monocytes % 1.8 %; Neutrophils # 4.77 10^3/uL (1.8-7.7); Neutrophils % 86.2 %; Nucleated Red Blood Cells % 0.4 %; Platelet Count 220 10^3/cmm (157-399); Red Blood Count 4.13 10^6/uL (3.85-5.65); Red Cell Distribution Width 13.8 % (12.1-15.1); White Blood Count 5.53 10^3/uL (3.29-11.43)
[2024-09-19 02:44] LABS: Troponin 5 6HR 20.78 ng/L (0-10)
[2024-09-19 02:46] LABS: Blood Urea Nitrogen 12 mg/dL (8-23); C Reactive Protein 164.8 mg/L (0.0-4.9); Calcium 8.1 mg/dL (8.5-10.5); Carbon Dioxide 17 mmol/L (22-29); Chloride 94 mmol/L (98-107); Creatinine Clr Calc Pharmacy 58.2276; Glucose 397 mg/dL (65-115); Magnesium 1.7 mg/dL (1.7-2.3); Osmolality Calculated 300 mOsm/kg (285-295); Phosphorus 4.3 mg/dL (2.5-4.5); Sodium 137 mmol/L (136-145); Troponin 5 6HR Delta -7.22 ng/L (0-12)
[2024-09-19 02:50] LABS: Anion Gap 29.8 (5-19); Potassium 3.8 mmol/L (3.5-5.1)
[2024-09-19 06:29] LABS: MRSA PCR OZH (swab) NOT DETECTED (Not Detecte)
[2024-09-19] MEDS: ipratropium-albuterol 3 mL Neb INHALATION (08:54)
[2024-09-19] MEDS: dexamethasone 4 mg Tablet 6 MG PO (10:32)
[2024-09-19] MEDS: potassium chloride ER 10 mEq Tablet PO (10:32)
[2024-09-19] MEDS: metoprolol tartrate 25 mg Tablet PO ×2 (10:32→17:07)
[2024-09-19] MEDS: apixaban 5 mg Tablet PO ×2 (10:33→17:07)
[2024-09-19] MEDS: azithromycin 250 mg Tablet 500 MG PO (10:33)
[2024-09-19] MEDS: cefTRIAXone 2,000 mg SDV 1000 MG IVP (10:33)
--- NOTE | 2024-09-19 12:09 | P.PN_ITS ---
Subjective 2 Subjective: Patient reports ongoing shortness of breath, fatigue and malaise. We discussed plan of care and patient is in agreement. Medications: Reviewed: Yes Vitals/I&O/Wt Last Vital Signs Temp 98.0 F 09/18/24 19:26 Pulse 116 H 09/19/24 10:55 Resp 20 H 09/19/24 08:53 BP 151/78 09/19/24 10:55 Pulse Ox 92 09/19/24 10:55 O2 Del Method Nasal Cannula 09/19/24 10:55 O2 Flow Rate 3 09/19/24 10:55 09/18/24 09/19/24 09/19/24 22:59 06:59 14:59 Intake Total 0 / 0 400 / 400 Output Total 1200 / 1200 Balance 0 / 0 -800 / -800 Weight last 48 hrs Weight 110.223 kg Physical Exam 2 Narrative: General: Patient is awake. Ill appearing. Head: Normocephalic. Atraumatic. Neck: No JVD. Cardiovascular: RRR. No gallops. No murmurs. 2+ bilateral lower extremity edema. Lungs: Breath sounds are diminished in bases. Dependent crackles. Increased work of breathing. Conversational dyspnea. Skin: No jaundice. No rashes. Abdomen: Normal bowel sounds, abdomen soft and nontender. Extremities: No cyanosis or clubbing. Musculoskeletal: No swollen or erythematous joints. Neurological: Moves all 4 extremities. No myoclonus. Data 09/19/24 02:13 09/19/24 02:13 Micro: Microbiology 09/18/24 20:20 Blood Culture - Preliminary Blood SPECIMEN COLLECTED 09/18/24 20:15 Blood Culture - Preliminary Blood SPECIMEN COLLECTED A&P Assessment and plan (1) Sepsis: (2) COVID-19: (3) COPD (chronic obstructive pulmonary disease): (4) Acute on chronic hypoxic respiratory failure: (5) Lower extremity edema: (6) Multiple falls: (7) Edema: (8) New onset of congestive heart failure: (9) Sinus tachycardia: Plan Sepsis Metabolic acidosis Following cultures Fluid overloaded, avoid further IV fluids if possible Continue ceftriaxone and azithromycin (09/18-p) Acute on chronic hypoxic respiratory failure Baseline oxygen requirement of 2L Continue treating underlying sepsis, COVID, and CHF Wean oxygen as tolerated Encourage pulmonary toilet New onset acute CHF, unspecified type w/ anasarca Echo pending Strict I&O Daily weights Acute COPD exacerbation Continue systemic steroids Breathing treatments COVID 19 infection Continue dexamethasone History of PE/DVT Continue Eliquis Hx of sinus tach Continue home BB Hyperglycemia May be steroid induced Monitor glucose level, may need ssi DNR/DNI DVT ppx: Apixaban PDMP PDMP Reviewed: Not Reviewed Attestations 2 Medical Necessity Statement*: Pt requires ongoing hospitalization for IV antibiotics, sepsis treatment, culture following, echocardiogram, cardiac work up and supportive care. Coding Level of Care Code Acute Code for Chg Fwd Diagnoses Sepsis A41.9 COVID-19 U07.1 COPD (chronic obstructive pulmonary disease) J44.9 Acute on chronic hypoxic respiratory failure J96.21 Lower extremity edema R60.0 Multiple falls R29.6 Edema R60.9 New onset of congestive heart failure I50.9 Sinus tachycardia R00.0
[2024-09-19] MEDS: FUROsemide 10 mg/mL SDV 4mL 40 MG IVP (17:07)
[2024-09-19] MEDS: ALPRAZolam 0.5 mg Tablet PO (20:53)
--- NOTE | 2024-09-19 22:03 | USCV_ITS ---
Renee Atkins Age: 79 Gender: F : 1945 Exam Date: 09/19/2024 04:07 Ordering Phys: Terri Dos Santos MD Technologist: ALBERT [place] [facility] [place]ication: chf ex, tobacco dependence, COPD, chronic hypoxia O2-dependent 4L, chronic BLE edema. COVID POSITIVE isolation BP: 142 / 65 HR: 102 Rhythm: Sinus implants MEASUREMENTS (Male / Female) Normal Values 2D ECHO LV Diastolic Diameter PLAX 3.8 cm 4.2 - 5.9 / 3.9 - 5.3 cm IVS Diastolic Thickness 1.3 cm 0.6 - 1.0 / 0.6 - 0.9 cm IVS Systolic Thickness 1.6 cm LVPW Diastolic Thickness 1.2 cm 0.6 - 1.0 / 0.6 - 0.9 cm LVPW Systolic Thickness 1.7 cm LVOT Diameter 1.4 cm LV Ejection Fraction 2D Teich 60.8 % LV Ejection Fraction MOD 4C 35.1 % LV Ejection Fraction MOD 2C 65.5 % LV Ejection Fraction 2C AL 65.2 % LA Diameter 2.0 cm Aorta at Sinotubular Diameter 2.0 cm IVC Diameter 1.5 cm DOPPLER AV Peak Velocity 121.0 cm/s LVOT Peak Velocity 137.0 cm/s AV Area Cont Eq vti 1.6 cm squared AV Area Cont Eq pk 1.8 cm squared TV Peak E Velocity 46.0 cm/s FINDINGS Left Ventricle Technically limited quality echocardiogram because of poor ultrasonic windows. LV systolic function is normal with EF 55 to 60%. No regional wall motion abnormalities are seen. Right Ventricle Normal in size and function Right Atrium Normal in size Left Atrium Normal in size Mitral Valve Grossly normal. Aortic Valve Grossly normal. No significant stenosis. Tricuspid Valve Grossly normal Pulmonic Valve Not visualized Pericardium Normal Aorta Normal in size IVC Grossly normal CONCLUSIONS Technically limited quality echocardiogram because of poor ultrasonic windows. LV systolic function is normal with EF 55 to 60%. No gross valvular abnormalities. Rikki Somers MD (Electronically Signed) Final Date: 20 September 2024 09:08 S
[2024-09-20] VITALS (7 sets, daily range): BP systolic 122–144; BP diastolic 70–85; PULSE 83–109; RESP 15–18; TEMP 36.4–37.2; O2SAT 90–96
[2024-09-20] MEDS: ALPRAZolam 0.5 mg Tablet 0.25 MG PO ×2 (00:35→22:07)
[2024-09-20 04:41] LABS: Basophils % 0.1 %; Eosinophils % 0.1 %; Hematocrit 39.2 % (36-47); Lymphocytes # 1.3 10^3/uL (0.8-4.8); Lymphocytes % 9.7 %; Mean Corpuscular HGB Conc 33.7 g/dL (30-55); Mean Corpuscular Hemoglobin 34.2 pg (27-33); Mean Corpuscular Volume 101.6 fl (85-98); Monocytes # 0.8 10^3/uL (0.2-0.9); Monocytes % 5.8 %; Neutrophils # 11.48 10^3/uL (1.8-7.7); Neutrophils % 83.3 %; Nucleated Red Blood Cells % 0.1 %; Platelet Count 270 10^3/cmm (157-399); Red Blood Count 3.86 10^6/uL (3.85-5.65); Red Cell Distribution Width 13.3 % (12.1-15.1); White Blood Count 13.78 10^3/uL (3.29-11.43)
[2024-09-20 05:00] LABS: Alanine Aminotransferase 124 U/L (0-33); Albumin Level 2.9 g/dL (3.5-5.2); Alkaline Phosphatase 221 U/L (35-105); Anion Gap 15.5 (5-19); Aspartate Amino Transferase 93 U/L (0-32); Blood Urea Nitrogen 26 mg/dL (8-23); Calcium 8.8 mg/dL (8.5-10.5); Carbon Dioxide 27 mmol/L (22-29); Chloride 101 mmol/L (98-107); Creatinine Clr Calc Pharmacy 51.1581; Glucose 258 mg/dL (65-115); Magnesium 2.2 mg/dL (1.7-2.3); Osmolality Calculated 304 mOsm/kg (285-295); Phosphorus 2.6 mg/dL (2.5-4.5); Potassium 3.5 mmol/L (3.5-5.1); Sodium 140 mmol/L (136-145); Total Bilirubin 0.4 mg/dL (0.15-1.2); Total Protein 5.9 g/dL (6.6-8.7)
[2024-09-20 05:11] LABS: Procalcitonin 48.07 ng/mL (0-0.5)
[2024-09-20] MEDS: citalopram 20 mg Tablet PO (09:31)
[2024-09-20] MEDS: cyclobenzaprine 10 mg Tablet PO (09:31)
[2024-09-20] MEDS: potassium chloride ER 10 mEq Tablet PO (09:31)
[2024-09-20] MEDS: apixaban 5 mg Tablet PO ×2 (09:31→16:58)
[2024-09-20] MEDS: metoprolol tartrate 25 mg Tablet PO ×2 (09:31→16:58)
[2024-09-20] MEDS: dexamethasone 4 mg Tablet 6 MG PO (09:32)
[2024-09-20] MEDS: cefTRIAXone 2,000 mg SDV 1000 MG IVP (09:32)
[2024-09-20] MEDS: azithromycin 250 mg Tablet 500 MG PO (09:48)
--- NOTE | 2024-09-20 11:43 | PM.PN ---
Subjective Subjective: Patient reports overall she is feeling better today. Breathing is improved. She is on 0.5 L of oxygen beginning assessment. Her baseline is 2 L. She endorses generalized malaise and fatigue. She states that she had a horrible night last night. She attributes her poor night secondary to her Xanax dose not matching her home dose. She otherwise denies other new complaints. Discussed plan of care. Medications: Reviewed: Yes Vitals/I&O/Wt Last Vital Signs Temp 97.6 F 09/20/24 11:32 Pulse 109 H 09/20/24 11:32 Resp 17 09/20/24 11:32 BP 141/73 09/20/24 11:32 Pulse Ox 94 09/20/24 11:32 O2 Del Method Nasal Cannula 09/20/24 11:32 O2 Flow Rate 1 09/20/24 07:41 09/19/24 09/20/24 09/20/24 22:59 06:59 14:59 Intake Total 240 / 240 360 / 600 360 / 360 Balance 240 / 240 360 / 600 360 / 360 Weight last 48 hrs Weight 69.264 kg Weight 106.141 kg Weight 110.223 kg Physical Exam Narrative: General: Patient is awake. Alert. Less ill-appearing than yesterday. Pleasant. Head: Normocephalic. Atraumatic. Neck: No JVD. Cardiovascular: RRR. No gallops. No murmurs. Persistent lower extremity edema. Lungs: Breath sounds are diminished in bases. Better air movement than yesterday's exam. On supplemental oxygen support. Skin: No jaundice. No rashes. Abdomen: Normal bowel sounds, abdomen soft and nontender. Extremities: No cyanosis or clubbing. Musculoskeletal: No swollen or erythematous joints. Neurological: Moves all 4 extremities. No myoclonus. Data 09/20/24 04:12 09/20/24 04:12 Micro: Microbiology 09/18/24 20:20 Blood Culture - Preliminary Blood NEGATIVE TO DATE 09/18/24 20:15 Blood Culture - Preliminary Blood NEGATIVE TO DATE A&P Assessment and plan (1) Sepsis: (2) COVID-19: (3) COPD (chronic obstructive pulmonary disease): (4) Acute on chronic hypoxic respiratory failure: (5) Lower extremity edema: (6) Multiple falls: (7) Edema: (8) New onset of congestive heart failure: (9) Sinus tachycardia: Plan Sepsis Following cultures Continue ceftriaxone and azithromycin (09/18-p) Acute on chronic hypoxic respiratory failure Baseline oxygen requirement of 2L, patient is now at baseline requirements Continue treating underlying sepsis, COVID, and CHF Wean oxygen as tolerated Encourage pulmonary toilet Heart failure with preserved EF exacerbation Lasix IV once today Strict I&O Daily weights Acute COPD exacerbation Continue systemic steroids Breathing treatments COVID 19 infection Continue dexamethasone History of PE/DVT Continue Eliquis Hx of sinus tach Continue home BB Hyperglycemia May be steroid induced Monitor glucose level, may need ssi Metabolic acidosis, resolved Code status: DNR/DNI DVT ppx: Apixaban PDMP PDMP Reviewed: Not Reviewed Attestations Medical Necessity Statement*: Pt requires ongoing hospitalization for IV antibiotics, sepsis treatment, culture following, IV diuresis, and supportive care. Coding Level of Care Code Acute Code for [facility] Fwd Diagnoses Sepsis A41.9 COVID-19 U07.1 COPD (chronic obstructive pulmonary disease) J44.9 Acute on chronic hypoxic respiratory failure J96.21 Lower extremity edema R60.0 Multiple falls R29.6 Edema R60.9 New onset of congestive heart failure I50.9 Sinus tachycardia R00.0
[2024-09-20] MEDS: FUROsemide 10 mg/mL SDV 2mL 20 MG IVP (12:49)
[2024-09-20] MEDS: ALPRAZolam 0.5 mg Tablet PO (22:07)
[2024-09-21] VITALS: BP 144/79; PULSE 118; RESP 22; TEMP 36.4; O2SAT 94
[2024-09-21 04:00] VITALS: BP 140/63; PULSE 86; RESP 14; TEMP 36.6; O2SAT 95
[2024-09-21 05:45] LABS: Basophils # 0.1 10^3/uL (0.0-0.1); Basophils % 0.5 %; Eosinophils % 0.1 %; Hematocrit 41.5 % (36-47); Lymphocytes # 1.1 10^3/uL (0.8-4.8); Lymphocytes % 9.7 %; Mean Corpuscular Hemoglobin 33.9 pg (27-33); Mean Corpuscular Volume 102.7 fl (85-98); Monocytes # 0.9 10^3/uL (0.2-0.9); Monocytes % 7.4 %; Neutrophils # 9.07 10^3/uL (1.8-7.7); Neutrophils % 78.2 %; Nucleated Red Blood Cells % 0.2 %; Platelet Count 292 10^3/cmm (157-399); Red Blood Count 4.04 10^6/uL (3.85-5.65); Red Cell Distribution Width 13.3 % (12.1-15.1)
[2024-09-21 06:00] VITALS: BMI 25.4
[2024-09-21 06:18] LABS: Anion Gap 16.6 (5-19); Blood Urea Nitrogen 27 mg/dL (8-23); Calcium 9.5 mg/dL (8.5-10.5); Carbon Dioxide 25 mmol/L (22-29); Chloride 99 mmol/L (98-107); Creatinine Clr Calc Pharmacy 57.6139; Glucose 277 mg/dL (65-115); Magnesium 2.2 mg/dL (1.7-2.3); Phosphorus 2.7 mg/dL (2.5-4.5); Potassium 3.6 mmol/L (3.5-5.1); Sodium 137 mmol/L (136-145)
[2024-09-21 06:25] LABS: Procalcitonin 19.08 ng/mL (0-0.5)
[2024-09-21 08:07] VITALS: BP 132/81; PULSE 93; RESP 18; TEMP 36.6; O2SAT 95
--- NOTE | 2024-09-21 08:55 | PM.DCS ---
Discharge Providers Date of Admission: 09/18/24 22:54 Date of Discharge: September 21, 2024 Attending Provider at Admission: Terri Dos Santos MD Attending Provider at Discharge: Sanju Tavera MD Primary Care Provider: Farhad Marquez MD Diagnoses at Discharge Discharge Diagnosis (1) Sepsis: Status: Acute (2) COVID-19: Status: Acute (3) COPD (chronic obstructive pulmonary disease): Status: Acute (4) Acute on chronic hypoxic respiratory failure: Status: Acute (5) Lower extremity edema: Status: Acute (6) Multiple falls: Status: Acute (7) Edema: Status: Acute (8) New onset of congestive heart failure: Status: Acute (9) Sinus tachycardia: Status: Acute Reason for Visit Reason for Visit: resp distress Hospital Course Hospital Course Renee Atkins is a 79-year-old female with a past medical history significant for chronic hypoxic respiratory failure was on 2 L baseline oxygen, anxiety, pulmonary embolism on DOAC, COPD, and multiple other comorbidities who presented the emergency department with generalized weakness, found to have severe sepsis with endorgan damage being acute on chronic hypoxic respiratory failure with source being COVID-19 and suspected bacterial infection due to severely elevated procalcitonin. Pneumonia was considered but not observed on CT scan. Patient also found to have acute COPD exacerbation secondary to acute infection. Suspect bacterial component of the sepsis is from bronchitis given her shortness of breath and cough. Presentation was concerning for fluid overloaded state consistent with newly diagnosed heart failure with preserved ejection fraction. Echo showed preserved EF without other acute findings although the quality of the echo was very poor. She will see cardiology to establish care next week from referral through her PCP. She was ultimately treated with broad-spectrum antibiotics with ceftriaxone and azithromycin. Her procalcitonin appropriately responded. Sepsis resolved. Her oxygen status returned to baseline. COVID-19 infection was treated with dexamethasone. Overall, her symptoms improved. She was noted to have hyperglycemia although patient is on steroids. Recommend PCP obtain routine A1c at follow-up. Her symptomatology significantly proved. She discharged home in stable condition on oral dexamethasone, cefdinir and azithromycin. She is to follow-up with PCP within 1 week. She will also see cardiology as scheduled next week. Physical Exam Narrative: General: Patient is awake. Alert. Pleasant. No acute distress. Head: Normocephalic. Atraumatic. Neck: No JVD. Cardiovascular: RRR. No gallops. No murmurs. Lungs: Breath sounds are mildly diminished in bases. Adequate air movement. On supplemental oxygen support. Skin: No jaundice. No rashes. Abdomen: Normal bowel sounds, abdomen soft and nontender. Extremities: No cyanosis or clubbing. Musculoskeletal: No swollen or erythematous joints. Neurological: Moves all 4 extremities. No myoclonus. Discharge Data Studies Completed and Pending Completed Studies During Hospitalization Category Date Time Status CT cervical spin wo con* [id number] Stat Cat Scan 09/18/24 19:[address] chest wo con [id number] Stat Cat Scan 09/18/24 19:[address] head wo con* [id number] Stat Cat Scan 09/18/24 19:[address] thoracic spin wo con* [id number] Stat Cat Scan 09/18/24 19:27 Completed XR chest 1V portable [id number] Stat Exams 09/18/24 19:28 Completed CV. echo complete* [id number] Routine Ultrasound 09/19/24 22:03 Completed Pending at discharge Category Date Time Status Blood Culture Stat Lab 09/18/24 20:20 Results Radiology Impressions Cervical Spine CT 09/18/24 19:27 IMPRESSION: 1. Negative for fracture or dislocation. 2. Mid to lower cervical spine moderate severe disc space narrowing and productive degenerative endplate changes throughout the spine. 3. Carotid artery atherosclerotic calcification. 4. Emphysematous changes. 5. Biapical pleural-parenchymal fibrosis. Chest CT 09/18/24 19:27 IMPRESSION: 1. No acute intrathoracic findings. No fracture. 2. Emphysema. 3. Small hiatal hernia. 4. Hepatic steatosis. 5. Sequela of prior healed granulomatous disease. 6. Status post cholecystectomy. COMMENTS: The presence of pulmonary emphysema on CT is an independent risk factor for lung cancer. In the absence of a history or active diagnosis of lung cancer, it is recommended that this patient with emphysema be evaluated for enrollment in a low dose CT lung cancer screening program. Head CT 09/18/24 19:27 IMPRESSION: Negative for intracranial hemorrhage or mass effect. Thoracic Spine CT 09/18/24 19:27 IMPRESSION: 1. No compression deformity or traumatic subluxation within thoracic spine. 2. Emphysema. Hiatal hernia. Chest X-Ray 09/18/24 19:28 IMPRESSION: No acute findings. Laboratory Results WBC 11.60 10^3/uL (3.29-11.43) H 09/21/24 05:37 RBC 4.04 10^6/uL (3.85-5.65) 09/21/24 05:37 Hgb 13.70 g/dL (11.27-16.99) 09/21/24 05:37 Hct 41.5 % (36-47) 09/21/24 05:37 MCV 102.7 fl (85-98) H 09/21/24 05:37 MCH 33.9 pg (27-33) H 09/21/24 05:37 MCHC 33.0 g/dL (30-55) 09/21/24 05:37 RDW 13.3 % (12.1-15.1) 09/21/24 05:37 Plt Count 292 10^3/cmm (157-399) 09/21/24 05:37 MPV 9.0 fL (7.4-10.4) 09/21/24 05:37 Neut % (Auto) 78.2 % 09/21/24 05:37 Lymph % (Auto) 9.7 % 09/21/24 05:37 Hanson % (Auto) 7.4 % 09/21/24 05:37 Eos % (Auto) 0.1 % 09/21/24 05:37 Baso % (Auto) 0.5 % 09/21/24 05:37 Neut # (Auto) 9.07 10^3/uL (1.8-7.7) H 09/21/24 05:37 Lymph # (Auto) 1.1 10^3/uL (0.8-4.8) 09/21/24 05:37 Hanson # (Auto) 0.9 10^3/uL (0.2-0.9) 09/21/24 05:37 Eos # (Auto) 0.0 10^3/uL (0.0-0.8) 09/21/24 05:37 Baso # (Auto) 0.1 10^3/uL (0.0-0.1) 09/21/24 05:37 Nucleated RBC % (auto) 0.2 % 09/21/24 05:37 Nucleated RBCs # 0.0 /100WBC 09/21/24 05:37 Specimen Type Arterial 09/18/24 21:02 Sample Site Radial, right 09/18/24 21:02 ABG pH 7.39 (7.35-7.45) 09/18/24 21:02 ABG pCO2 35.7 mmHg (35-45) 09/18/24 21:02 ABG pO2 81.1 mmHg (80.0-100.0) 09/18/24 21:02 ABG HCO3 21.5 mmol/L (22-26) L 09/18/24 21:02 ABG O2 Saturation 96.2 09/18/24 21:02 ABG Base Excess -2.9 mmol/L (-2.0-2.0) L 09/18/24 21:02 Nathaniel Test Pos 09/18/24 21:02 A-a O2 Gradient 2.9 mmHg (5-10) L 09/18/24 21:02 Hematocrit 47.8 % (37-47) H 09/18/24 21:02 Hgb O2 Saturation 94.4 % (95-100) L 09/18/24 21:02 Carboxyhemoglobin 1.0 %THgb (0.4-20.1) 09/18/24 21:02 Methemoglobin 0.9 % (0.4-1.5) 09/18/24 21:02 Total Hemoglobin 15.6 g/dL (12-16) 09/18/24 21:02 Sodium 136.0 mmol/L (131-143) 09/18/24 21:02 Potassium 3.1 mmol/L (3.5-5.0) L 09/18/24 21:02 Glucose 166.0 mg/dL (70-115) H 09/18/24 21:02 Ionized Calcium 1.1 mmol/L (1.1-1.4) 09/18/24 21:02 O2 Delivery Device Nc 09/18/24 21:02 O2 Liters/Min 4.0 % 09/18/24 21:02 Lithographic Retoucher Apprentice ID Busja 09/18/24 21:02 Sodium 137 mmol/L (136-145) 09/21/24 05:37 Potassium 3.6 mmol/L (3.5-5.1) 09/21/24 05:37 Chloride 99 mmol/L (98-107) 09/21/24 05:37 Carbon Dioxide 25 mmol/L (22-29) 09/21/24 05:37 Anion Gap 16.6 (5-19) 09/21/24 05:37 BUN 27 mg/dL (8-23) H 09/21/24 05:37 Creatinine 0.8 mg/dL (0.5-0.9) 09/21/24 05:37 GFR Calculation Not Reportable 09/21/24 05:37 Glucose 277 mg/dL (65-115) H 09/21/24 05:37 Calculated Osmolality 304 mOsm/kg (285-295) H 09/20/24 04:12 Lactic Acid 3.5 mmol/L (0.5-2.2) H 09/18/24 19:22 Lactic Acid (Sepsis) 3.2 mmol/L (0.5-2.2) H 09/18/24 21:40 Calcium 9.5 mg/dL (8.5-10.5) 09/21/24 05:37 Phosphorus 2.7 mg/dL (2.5-4.5) 09/21/24 05:37 Magnesium 2.2 mg/dL (1.7-2.3) 09/21/24 05:37 Total Bilirubin 0.4 mg/dL (0.15-1.2) 09/20/24 04:12 AST 93 U/L (0-32) H 09/20/24 04:12 ALT 124 U/L (0-33) H 09/20/24 04:12 Alkaline Phosphatase 221 U/L (35-105) H 09/20/24 04:12 Troponin T Baseline 28 ng/L (0-10) H 09/18/24 19:22 Troponin T 120 Minute 28.05 ng/L (0-10) H 09/18/24 21:40 Delta Troponin T 0.05 ABS# (0-10) 09/18/24 21:40 Troponin T Hi Sens 6Hr 20.78 ng/L (0-10) H 09/19/24 02:13 Troponin T Hi Sens 6Hr Delta -7.22 ng/L (0-12) L 09/19/24 02:13 C-Reactive Protein 164.8 mg/L (0.0-4.9) H 09/19/24 02:13 NT-Pro-B Natriuret Pep 102 pg/mL (0-450) 09/18/24 21:40 Total Protein 5.9 g/dL (6.6-8.7) L 09/20/24 04:12 Albumin 3.0 g/dL (3.5-5.2) L 09/21/24 05:37 Globulin 3.0 g/dL (1.3-4.6) 09/20/24 04:12 Vitamin B12 > 2000 pg/mL (232-1245) H 09/18/24 19:22 Procalcitonin 19.08 ng/mL (0-0.5) H 09/21/24 05:37 Urine Color Yellow (Yellow) 09/18/24 20: Urine Appearance Clear (CLEAR) 09/18/24 20: Urine pH 6.5 (5-7) 09/18/24 20: Ur Specific [place] 1.022 (1.005-1.030) 09/18/24 20: Urine Protein 1+ (Negative) A 09/18/24 20: Urine Glucose (UA) Negative (Normal) 09/18/24 20: Urine Ketones 2+ (Negative) H 09/18/24 20: Urine Blood Negative (Negative) 09/18/24 20: Urine Nitrate Negative (Negative) 09/18/24 20: Urine Bilirubin Negative (Negative) 09/18/24 20: Urine Urobilinogen 1.0 mg/dL (Negative) 09/18/24 20: Ur Leukocyte Esterase 1+ (Negative) A 09/18/24 20:26 Urine RBC 0-4 /hpf (0-2) H 09/18/24 20:26 Urine WBC 5-10 /hpf (0-5) H 09/18/24 20:26 Ur Squamous Epith Cells 15-25 /hpf (0-5) H 09/18/24 20: Amorphous Sediment Not Reportable 09/18/24 20: Urine Bacteria Trace /hpf (NONE) 09/18/24 20: Nasal MRSA (PCR) Not detected (Not Detecte) 09/19/24 04:58 Influenza A (PCR) Negative (Negative) 09/18/24 19: Influenza Type B (PCR) Negative (Negative) 09/18/24 19: RSV (PCR) Negative (Negative) 09/18/24: SARS-CoV-2 (PCR) Positive (Negative) A 09/18/24 19:27 Vitals Last Vital Signs Temp 98 F 09/21/24 08:07 Pulse 93 09/21/24 08:07 Resp 18 09/21/24 08:07 BP 132/81 09/21/24 08:07 Pulse Ox 95 09/21/24 08:07 O2 Del Method Nasal Cannula 09/21/24 08:07 O2 Flow Rate 2 09/20/24 20:00 Discharge Plan Discharge Patient Disposition: Home Health Service Condition: Stable Prescriptions: New spironolactone [Aldactone] 25 mg tablet 25 mg PO DAILY Qty: 30 0RF dexamethasone 6 mg tablet 6 mg PO DAILY Qty: 5 0RF cefdinir 300 mg capsule 300 mg PO BID 7 Days Qty: 14 0RF azithromycin 250 mg Tablet 500 mg PO DAILY 3 Days Qty: 3 0RF Continued furosemide [Lasix] 20 mg tablet 20 mg PO DAILY Qty: 90 1RF potassium chloride 10 mEq tablet extended release 10 meq PO DAILY Qty: 90 1RF alprazolam [Xanax] 0.5 mg tablet 0.5 mg PO BID Qty: 60 3RF citalopram 20 mg tablet 20 mg PO DAILY Qty: 90 2RF metoprolol tartrate 25 mg tablet 25 mg PO BID Qty: 90 2RF Trelegy Ellipta 100-62.5-25 mcg blister with device 1 inh inhalation DAILY Qty: 60 2RF cyclobenzaprine 10 mg tablet 10 mg PO DAILY Qty: 90 0RF (DME) Supplemental Oxygen @ 2-4l/m via nasal canula See Rx Instructions .Route .MEDSUPPLY Qty: 1 0RF Rx Instructions: As directed apixaban 5 mg tablet 5 mg PO BID Qty: 180 0RF albuterol sulfate 90 mcg/actuation HFA aerosol inhaler 1 inh inhalation QID PRN (Reason: shortness of breath or wheezing) Qty: 8.5 0RF Discharge Orders: Discharge Order (Routine); Ordered 09/21/24 Ordered By: Sanju Tavera Other Ambulatory Orders: DME: Oxygen (Order) Location: None Selected Ordered By: Sanju Tavera DME: Walker (Order) Location: None Selected Ordered By: Sanju Tavera Referrals: [facility] ([facility]) [Outside] Farhad Marquez MD [Primary Care Provider] - 10/10/24 1:45 pm (ALSO HAS APPOINTMENT OCTOBER 23 AT 9:30) Discharge Diet: Advance as tolerated and Usual diet Discharge Activity: Resume usual activity and Increase activity as tolerated Patient Instructions: Spironolactone (By mouth), Azithromycin (By mouth), Dexamethasone (By mouth), Cefdinir (By mouth), Heart Failure (DC), COPD (Chronic Obstructive Pulmonary Disease) (DC), CHF Stoplight, COPD Stoplight, Opioid Safety Discharge Attestations Time Spent in Discharge Care*: greater than 30 min Quality Metrics Clinical Quality Measures [ No reported AMI, CVA or VTE this stay] Coding Level of Care Code Acute Code for Chg Fwd Diagnoses Sepsis A41.9 COVID-19 U07.1 COPD (chronic obstructive pulmonary disease) J44.9 Acute on chronic hypoxic respiratory failure J96.21 Lower extremity edema R60.0 Multiple falls R29.6 Edema R60.9 New onset of congestive heart failure I50.9 Sinus tachycardia R00.0
[2024-09-21 09:17] VITALS: PULSE 113; RESP 20; O2SAT 88; O2SAT 93
--- NOTE | 2024-09-21 10:19 | PC.SOCIAL ---
IMM Update pg 2 of IMM Updated and reviewed w/ patient. Copy provided and copy dated, initialed and placed in chart.
[2024-09-21] MEDS: citalopram 20 mg Tablet PO (10:20)
[2024-09-21] MEDS: apixaban 5 mg Tablet PO (10:20)
[2024-09-21] MEDS: potassium chloride ER 10 mEq Tablet PO (10:20)
[2024-09-21] MEDS: cyclobenzaprine 10 mg Tablet PO (10:20)
[2024-09-21] MEDS: metoprolol tartrate 25 mg Tablet PO (10:20)
[2024-09-21] MEDS: azithromycin 250 mg Tablet 500 MG PO (10:21)
[2024-09-21 11:52] VITALS: BP 141/68; PULSE 111; RESP 16; TEMP 36.7; O2SAT 92
== END 2024-09-21 13:40 | disposition home health service (06) | DRG 871 ==
LOC: ER 23:35 → ER IP 23:39 → MEDSURG 09-19 12:23
PROVIDERS: Admitting Provider Internal Medicine; Emergency Provider Emergency Medicine; PCP Family Medicine; Visit Provider Internal Medicine
DX: A41.9 Sepsis, unspecified organism (principal); I50.33 Acute on chronic diastolic (congestive) heart failure; J96.21 Acute and chronic respiratory failure with hypoxia; U07.1 COVID-19; J44.1 Chronic obstructive pulmonary disease with (acute) exacerbation; E87.20 Acidosis, unspecified; R29.6 Repeated falls; R19.7 Diarrhea, unspecified; R00.0 Tachycardia, unspecified; R65.20 Severe sepsis without septic shock; Z66 Do not resuscitate; F41.9 Anxiety disorder, unspecified; R73.9 Hyperglycemia, unspecified; F17.201 Nicotine dependence, unspecified, in remission; Z79.01 Long term (current) use of anticoagulants; Z79.899 Other long term (current) drug therapy; Z88.5 Allergy status to narcotic agent; Z88.2 Allergy status to sulfonamides; Z88.8 Allergy status to other drugs, medicaments and biological substances; Z88.0 Allergy status to penicillin; Z90.13 Acquired absence of bilateral breasts and nipples; Z90.710 Acquired absence of both cervix and uterus; Z90.49 Acquired absence of other specified parts of digestive tract; Z99.81 Dependence on supplemental oxygen; Z86.711 Personal history of pulmonary embolism; Z86.718 Personal history of other venous thrombosis and embolism
CPT/HCPCS: 36415; 36600; 70450; 71045; 71250; 72125; 72128; 80048; 80051; 80053; 80069; 81001; 82330; 82607; 82805; 83605; 83735; 83880; 84100; 84145; 84484; 85025; 86140; 87040; 87637; 93005; 93306; 94640; 94760; 96365; 96367; 96375; 97110; 97116; 97161; 99285; J0248; J0692; J0696; J1940; J2020; J2919; J7613; J8540; Q0144

== ENCOUNTER 2024-09-24 11:03 | Inpatient (IN) | payer MEDICARE, OTHER, SELFPAY ==
[2024-09-24] VITALS (9 sets, daily range): BP systolic 152–189; BP diastolic 76–108; PULSE 80–126; RESP 18–20; TEMP 36.6; O2SAT 91–98; BMI 36.5
--- NOTE | 2024-09-24 11:07 | CT_ITS ---
WS: [id number] CT HEAD NONCONTRAST HISTORY: trauma TECHNIQUE: Contiguous axial imaging performed through the brain. Bone and soft tissue windows. Sagittal and coronal reformats reviewed. All CT scans at [facility] use at least one of these dose optimization techniques: automated exposure control; mA and/or kV adjustment per patient size (includes targeted exams where dose is matched to clinical indication); or iterative reconstruction. DLP: 1415.61 mGy.cm COMPARISON: 09/18/2024 Mild bilateral frontal lobe atrophy with moderate small vessel disease. No prior infarct. No hemorrhage or mass effect. No edema. No inferior displacement of the cerebellar tonsils. Ventricles: Normal size with no hydrocephalus. Paranasal sinuses: As visualized are clear. Mastoid air cells: Well pneumatized. Calvarium and scalp: Skull is intact with no soft tissue edema or swelling. CT/CT head wo con* [id number] IMPRESSION: 1. No acute intracranial hemorrhage or edema. 2. Mild bilateral frontal lobe atrophy with moderate small vessel disease. 3. No fracture.
--- NOTE | 2024-09-24 11:07 | CT_ITS ---
WS: [id number] CT CERVICAL SPINE HISTORY: trauma TECHNIQUE: Contiguous 2.0 mm axial imaging performed through the entire cervical spine. Sagittal and coronal reformats also performed. All CT scans at [facility] use at least one of these dose optimization techniques: automated exposure control; mA and/or kV adjustment per patient size (includes targeted exams where dose is matched to clinical indication); or iterative reconstruction. DLP: 1415.61 mGy.cm COMPARISON: 09/18/2024 Straightening of the normal cervical lordosis. Quality of imaging is degraded by motion artifact and body habitus. Disc spaces are narrowed. No acute fracture. Lateral masses of C1 and C2 are aligned. Normal craniocervical junction. Facet joint alignment is similar to 09/18/2024. C2-C3: Marked RIGHT facet arthritis and RIGHT vertebral osteophyte resulting in moderate RIGHT foraminal stenosis. C3-C4: Bilateral osteophytic ridging and facet arthritis. Mild RIGHT foraminal stenosis. C4-C5: Mild facet arthritis, LEFT greater than RIGHT. Mild LEFT foraminal stenosis. C5-C6: Osteophytic ridging and facet arthritis. Mild central with moderate foraminal stenosis. C6-C7: Osteophytic ridging. Moderate bilateral foraminal stenosis. C7-T1: No stenosis. Biapical pleural thickening and scarring. CT/CT cervical spin wo con* [id number] IMPRESSION: 1. No acute cervical spine fracture identified. Image quality is degraded by b delmi habitus. 2. Multilevel areas of foraminal stenosis and facet arthritis as above.
--- NOTE | 2024-09-24 11:07 | ECG_ITS ---
[employer] Test Date: 2024-09-24 Pat Name: Renee Atkins Department: Room: Gender: Female Chief Of Field Operations: : 1945 Requested By: Ryan Mac Order Number: [id number] Zoe MD: Rikki Somers M.D. Measurements Intervals [place] Rate: 98 P: -15 [place]: 132 QRS: -7 QRSD: 97 T: 239 QT: 370 QTc: 474 Interpretive Statements SINUS RHYTHM NONSPECIFIC ST & T-WAVE ABNORMALITY Compared to ECG 09/19/2024 03:32:42 Sinus tachycardia no longer present T-wave abnormality still present Electronically Signed On 09-29-2024 18:17:38 [employer]ILROAD TRACK REPAIR SUPERVISOR by Rikki Somers M.D. [email or web address]
--- NOTE | 2024-09-24 11:07 | XR_ITS ---
WS: [id number] XR chest 1V portable [id number] REASON FOR EXAM: dyspnea/cough FINDINGS: No acute or subacute chest abnormality is identified on this examination. Retrospectively on the previous examination of 09/18/2024 there were interstitial lung opacities in both lower lungs which essentially have resolved. There are no new findings. XR/XR chest 1V portable [id number] IMPRESSION: Probable radiographically resolved pneumonitis.
--- NOTE | 2024-09-24 11:21 | W.ED.FALL ---
HPI - Fall General: Chief Complaint: ER Hold Stated Complaint: fall, swelling to C spine Time Seen by Provider: 09/24/24 11:07 History of Present Illness: 79-year-old female presents emergency room after a fall at home. She was recently hospitalized and discharged home for pneumonia she is on cefdinir and dexamethasone. Medicine seem to have made her little dizzy. She had gotten up using her walker low to the bathroom she slipped and fell and hit her head on the edge of the toilet no loss of consciousness. Associated symptoms-after fall: Denies abdominal pain, chest pain or neck pain Related Data Home Medications ?Medication ?Instructions ?Recorded ?Confirmed alprazolam 0.5 mg tablet (Xanax) See Rx Instructions .Route .COMPLEX 09/24/24 09/24/24 apixaban 5 mg tablet 2.5 mg PO BID 09/24/24 09/24/24 furosemide 20 mg tablet (Lasix) 20 mg PO QAM 09/24/24 09/24/24 Previous Rx's ?Medication ?Instructions ?Recorded Supplemental Oxygen @ 2-4l/m via #1 ea 07/12/24 nasal canula citalopram 20 mg tablet 20 mg PO DAILY #90 tabs 08/13/24 cyclobenzaprine 10 mg tablet 10 mg PO DAILY #90 tabs 08/13/24 fluticasone fur. 100 mcg-umeclid 1 inh inhalation DAILY #60 ea 08/13/24 62.5 mcg-vilant 25 mcg inhalat.powder (Trelegy Ellipta) metoprolol tartrate 25 mg tablet 25 mg PO BID #90 tabs 08/13/24 potassium chloride 10 mEq 10 meq PO DAILY #90 tabs 08/13/24 tablet,extended release albuterol sulfate 90 mcg/actuation 1 inh inhalation QID PRN shortness 09/14/24 aerosol inhaler of breath or wheezing #8.5 grams cefdinir 300 mg capsule 300 mg PO BID 7 days #14 caps 09/21/24 dexamethasone 6 mg tablet 6 mg PO DAILY #5 tabs 09/21/24 spironolactone 25 mg tablet 25 mg PO DAILY #30 tabs 09/21/24 (Aldactone) Allergies Allergy/AdvReac Type Severity Reaction Status Date / Time codeine Allergy ALGY-Hives Verified 02/25/25 19:33 Penicillins Allergy ALGY-Hives Verified 09/18/24 19:33 Sulfa (Sulfonamide Allergy hives Verified 09/18/24 19:33 Antibiotics) zolpidem (From Ambien) Allergy Unknown Verified 09/18/24 19:33 Review of Systems Const: Denies: fever(s) or chills Card: Denies: chest pain Resp: Denies: dyspnea GI: Denies: abdominal pain : Denies: dysuria, urinary frequency or urinary urgency Musc: Denies: neck pain or back pain Skin/Breast: Denies: rash PFSH ED PFSH: Medical History Sinus tachycardia New onset of congestive heart failure Edema Multiple falls Anxiety Chronic steroid use Recently tapered off 09/16 Hx of pulmonary embolus Tachyarrhythmia COPD (chronic obstructive pulmonary disease) Surgical History History of bilateral mastectomy History of breast reconstruction History of cholecystectomy History of appendectomy History of hysterectomy History of back surgery History of repair of rectocele History of bladder repair surgery History of foot surgery Family History Grandfather Arrhythmia Father Colon cancer Grandmother Breast cancer Mother Diabetes mellitus, type 2 Social History Smoking and tobacco/nicotine status: unknown if used tobacco/nicotine Alcohol intake: never Substance/Drug Use: never Physical Exam Const: GENERAL APPEARANCE: cooperative ORIENTATION/CONSCIOUSNESS: Yes awake, Yes oriented to person, Yes oriented to place and Yes oriented to time HENMT: COMMON NORMALS: normocephalic, atraumatic and hearing grossly normal bilaterally HEAD & SCALP: normocephalic and atraumatic Resp: AUSCULTATION: rhonchi and wheezes Cardio: COMMON NORMALS: regular rate, regular rhythm and No murmurs present (Cardio) RATE: regular rate RHYTHM: regular rhythm GI: COMMON NORMALS: Soft to palpation and No hepatosplenomegaly present AUSCULTATION: Yes normoactive bowel sounds PALPATION: Yes Soft to palpation, No Tenderness to palpation present (GI), No Guarding due to palpation present (GI) and Yes No hepatosplenomegaly present Extremity: COMMON NORMALS: normal to inspection, capillary refill normal, no clubbing, cyanosis or edema, no calf tenderness and no pedal edema Neuro: SENSORIUM/ORIENTATION: Yes oriented to person, Yes oriented to place and Yes oriented to time Skin: COMMON NORMALS: no rashes or lesions noted GENERAL SKIN EXAM: no rashes or lesions noted Course Vital Signs: Vital signs: Vital Signs Temperature 97.9 F 09/28/24 05:16 Pulse Rate 105 H 09/28/24 11:14 Respiratory Rate 20 H 09/28/24 11:14 Blood Pressure 154/77 09/28/24 10:00 Pulse Oximetry 89 L 09/28/24 11:14 Oxygen Delivery Me thod Heated High Flow 09/28/24 11:14 Oxygen Flow Rate 30 09/28/24 11:14 Fraction of Inspir ed Oxygen 42 09/28/24 11:14 MDM - Fall Medical Decision Making No findings from trauma however patient does have COVID pneumonitis reviewed with Dr. Cornejo will admit to the hospitalist service. Orders written. Imaging from fall knees elbows neck head all negative. Lab Data 09/28/24 05:12 09/28/24 05:12 Radiology Impressions Cervical Spine CT 09/24/24 11:07 IMPRESSION: 1. No acute cervical spine fracture identified. Image quality is degraded by body habitus. 2. Multilevel areas of foraminal stenosis and facet arthritis as above. Head CT 09/24/24 11:07 IMPRESSION: 1. No acute intracranial hemorrhage or edema. 2. Mild bilateral frontal lobe atrophy with moderate small vessel disease. 3. No fracture. Neck CT 09/24/24 13:14 IMPRESSION: Unremarkable neck CT. No mass or edema along the posterior neck. Knee X-Ray 09/24/24 14:31 IMPRESSION: No acute abnormality. Chest CTA 09/24/24 17:06 IMPRESSION: 1. No acute central or segmental pulmonary embolism. No acute findings. 2. Severe emphysema. 3. Hepatic steatosis. COMMENTS: The presence of pulmonary emphysema on CT is an independent risk factor for lung cancer. In the absence of a history or active diagnosis of lung cancer, it is recommended that this patient with emphysema be evaluated for enrollment in a low dose CT lung cancer screening program. Abdomen Ultrasound 09/24/24 17:25 IMPRESSION: 1. Limited assessment due to habitus. 2. Hepatic steatosis. 3. Cholecystectomy. KUB X-Ray 09/27/24 14:10 IMPRESSION: No acute pathology evident. Chest X-Ray 09/28/24 07:00 IMPRESSION: Mild cardiomegaly with vascular congestion. Laboratory Results WBC 16.35 10^3/uL (3.29-11.43) H 09/24/24 11:15 Corrected WBC 15.4 10^3/cmm (4.8-10.8) H 09/24/24 11:15 RBC 4.07 10^6/uL (3.85-5.65) 09/24/24 11:15 Hgb 13.80 g/dL (11.27-16.99) 09/24/24 11:15 Hct 42.0 % (36-47) 09/24/24 11:15 MCV 103.2 fl (85-98) H 09/24/24 11:15 MCH 33.9 pg (27-33) H 09/24/24 11:15 MCHC 32.9 g/dL (30-55) 09/24/24 11:15 RDW 13.1 % (12.1-15.1) 09/24/24 11:15 Plt Count 617 10^3/cmm (157-399) H 09/24/24 11:15 MPV 8.9 fL (7.4-10.4) 09/24/24 11:15 Lymph % (Auto) Not Reportable 09/24/24 11:15 [place] % (Auto) Not Reportable 09/24/24 11:15 Lymph # (Auto) Not Reportable 09/24/24 11:15 [place] # (Auto) Not Reportable 09/24/24 11:15 Total Counted 100 (0-100) 09/24/24 11:15 Atypical Lymphs % 0.0 % (0-5) 09/24/24 11:15 Absolute Neutrophils 14.4 10^3/cmm (1.4-6.5) H 09/24/24 11:15 Segmented Neutrophils 80 % 09/24/24 11:15 Band Neutrophils 8.0 % 09/24/24 11:15 Absolute Lymphocytes 0.8 10^3/cmm (1.2-3.4) L 09/24/24 11:15 Lymphocytes (Manual) 5 % 09/24/24 11:15 Monocytes (Manual) 4.0 % 09/24/24 11:15 Absolute Monocytes 0.7 10^3/cmm (0.1-0.6) H 09/24/24 11:15 Eosinophils (Manual) 0 % 09/24/24 11:15 Absolute Eosinophils 0.0 10^3/cmm (0.0-0.7) 09/24/24 11:15 Basophils (Manual) 0.0 % 09/24/24 11:15 Absolute Basophils 0.0 10^3/cmm (0.0-0.2) 09/24/24 11:15 Metamyelocytes 2.0 % 09/24/24 11:15 Myelocytes 1.0 % 09/24/24 11:15 Nucleated RBCs 6.0 /100WBC (0-1) H 09/24/24 11:15 Platelet Estimate Increased (Normal) H 09/24/24 11:15 Polychromasia Trace 09/24/24 11:15 Macrocytosis 1+ H 09/24/24 11:15 Sodium 137 mmol/L (136-145) 09/24/24 11:15 Potassium 3.8 mmol/L (3.5-5.1) 09/24/24 11:15 Chloride 97 mmol/L (98-107) L 09/24/24 11:15 Carbon Dioxide 24 mmol/L (22-29) 09/24/24 11:15 Anion Gap 19.8 (5-19) H 09/24/24 11:15 BUN 17 mg/dL (8-23) 09/24/24 11:15 Creatinine 1.0 mg/dL (0.5-0.9) H 09/24/24 11:15 GFR Calculation Not Reportable 09/24/24 11:15 Glucose 400 mg/dL (65-115) H 09/24/24 11:15 Calculated Osmolality 302 mOsm/kg (285-295) H 09/24/24 11:15 Calcium 9.8 mg/dL (8.5-10.5) 09/24/24 11:15 Total Bilirubin 0.9 mg/dL (0.15-1.2) 09/24/24 11:15 AST 100 U/L (0-32) H 09/24/24 11:15 ALT 131 U/L (0-33) H 09/24/24 11:15 Alkaline Phosphatase 277 U/L (35-105) H 09/24/24 11:15 Total Protein 6.3 g/dL (6.6-8.7) L 09/24/24 11:15 Albumin 3.4 g/dL (3.5-5.2) L 09/24/24 11:15 Globulin 2.9 g/dL (1.3-4.6) 09/24/24 11:15 Urine Color Yellow (Yellow) 09/24/24 12:00 Urine Appearance Clear (CLEAR) 09/24/24 12:00 Urine pH 5.5 (5-7) 09/24/24 12:00 Ur Specific [place] 1.041 (1.005-1.030) H 09/24/24 12:00 Urine Protein Trace (Negative) A 09/24/24 12:00 Urine Glucose (UA) 3+ (Normal) H 09/24/24 12:00 Urine Ketones Trace (Negative) 09/24/24 12:00 Urine Blood Negative (Negative) 09/24/24 12:00 Urine Nitrate Negative (Negative) 09/24/24 12:00 Urine Bilirubin Negative (Negative) 09/24/24 12:00 Urine Urobilinogen 0.2 mg/dL (Negative) 09/24/24 12:00 Ur Leukocyte Esterase Negative (Negative) 09/24/24 12:00 Urine RBC None /hpf (0-2) 09/24/24 12:00 Urine WBC 0-4 /hpf (0-5) H 09/24/24 12:00 Ur Squamous Epith Cells 5-10 /hpf (0-5) H 09/24/24 12:00 Amorphous Sediment Not Reportable 09/24/24 12:00 Urine Bacteria Trace /hpf (NONE) 09/24/24 12:00 Urine Yeast Trace /hpf 09/24/24 12:00 All radiology interpretation(s) finalized by discharge Discharge Plan Discharge Patient Disposition: Admitted As Inpatient Admit Provider: Nico Milligan Clinical Impression: Fall, COVID-19, COPD (chronic obstructive pulmonary disease), Weakness Condition: Stable Coding Level of Care Code ED Lighthouse Keeper for Alee Weaver
[2024-09-24 11:23] LABS: Mean Corpuscular HGB Conc 32.9 g/dL (30-55); Mean Corpuscular Hemoglobin 33.9 pg (27-33); Mean Corpuscular Volume 103.2 fl (85-98); Mean Platelet Volume 8.9 fL (7.4-10.4); Platelet Count 617 10^3/cmm (157-399); Red Blood Count 4.07 10^6/uL (3.85-5.65); Red Cell Distribution Width 13.1 % (12.1-15.1); White Blood Count 16.35 10^3/uL (3.29-11.43)
[2024-09-24 11:36] LABS: Alanine Aminotransferase 131 U/L (0-33); Albumin Level 3.4 g/dL (3.5-5.2); Alkaline Phosphatase 277 U/L (35-105); Anion Gap 19.8 (5-19); Aspartate Amino Transferase 100 U/L (0-32); Blood Urea Nitrogen 17 mg/dL (8-23); Calcium 9.8 mg/dL (8.5-10.5); Carbon Dioxide 24 mmol/L (22-29); Chloride 97 mmol/L (98-107); Creatinine Clr Calc Pharmacy 58.9309; Globulin 2.9 g/dL (1.3-4.6); Glucose 400 mg/dL (65-115); Osmolality Calculated 302 mOsm/kg (285-295); Potassium 3.8 mmol/L (3.5-5.1); Sodium 137 mmol/L (136-145); Total Bilirubin 0.9 mg/dL (0.15-1.2); Total Protein 6.3 g/dL (6.6-8.7)
[2024-09-24 11:37] LABS: Slide Review Slide Review Perform
[2024-09-24 11:40] LABS: Absolute Segmented Neutrophil 13.1 10/cmm (1.6-7.1); Band Neutrophils Absolute 1.3 10^3/cmm (0.0-1.2); Corrected White Blood Count 15.4 10^3/cmm (4.8-10.8); Lymphocytes 5 %; Monocytes Absolute 0.7 10^3/cmm (0.1-0.6); Segmented Neutrophils 80 %; Total Cells Counted 100 (0-100)
[2024-09-24 11:41] LABS: Absolute Neutrophil 14.4 10^3/cmm (1.4-6.5); Macrocytosis 1+; Platelet Estimate Increased (Normal); Polychromasia Trace
[2024-09-24 11:42] LABS: Eosinophils 0 %; Lymphocytes Absolute 0.8 10^3/cmm (1.2-3.4)
[2024-09-24 12:23] LABS: Bilirubin Urine Negative (Negative); Blood Urine Negative (Negative); Glucose Urine UA 3+ (Normal); Ketones Urine Trace (Negative); Leukocyte Esterase Urine Negative (Negative); Nitrate Urine Negative (Negative); Protein Urine Trace (Negative); Urine Appearance Clear (CLEAR); Urine Color Yellow (Yellow); Urobilinogen Urine 0.2 mg/dL (Negative); pH Urine 5.5 (5-7)
[2024-09-24 12:37] LABS: Specific Gravity, Urine 1.041 (1.005-1.030); UA Manual Slide Review YES
[2024-09-24 12:42] LABS: Add Urine Culture? No; Add Urine Microscopic? YES; Bacteria Urine TRACE /hpf; WBC Urine 0-4 /hpf (0-5)
--- NOTE | 2024-09-24 13:14 | CT_ITS ---
WS: [id number] CT NECK WITH CONTRAST HISTORY: Swelling TECHNIQUE: Contiguous 2 mm axial images are performed through the neck with intravenous contrast. Sagittal and coronal reformats are also submitted. All CT scans at [facility] use at least one of these dose optimization techniques: automated exposure control; mA and/or kV adjustment per patient size (includes targeted exams where dose is matched to clinical indication); or iterative reconstruction. CONTRAST: CONTRAST: Omnipaque 350; 100 mL IV. DLP: 421.55 mGy.cm COMPARISON: Cervical spine CT 09/24/2024 Nasopharynx, oropharynx, hypopharynx and larynx are unremarkable. No soft tissue masses or abnormal enhancement. Torus tubarius and fossa of Rosenmuller and parapharyngeal fat are normal. No significant lymphadenopathy is identified. Thyroid gland and salivary glands are normally enhancing with no masses. No osseous abnormalities. Visualized portions of the skull base demonstrate no abnormalities. Orbits and globes are within normal limits. No soft tissue masses. Visualized paranasal sinuses and mastoid air cells are normal. Severe emphysematous changes at the lung apices. Atherosclerosis within the visualized aortic arch. Carotid arteries are patent. Vertebral arteries are patent. No hematoma or fluid collection along the posterior neck. CT/CT neck w con* [id number] IMPRESSION: Unremarkable neck CT. No mass or edema along the posterior neck.
--- NOTE | 2024-09-24 14:31 | XR_ITS ---
WS: [id number] XR knee RT 3V* [id number] REASON FOR EXAM: Pain FINDINGS: No fracture identified. Patella and tibial plateaus intact. Mild narrowing of the medial knee joint space with mild subchondral sclerosis. No focal soft tissue abnormality. XR/XR knee RT 3V* [id number] IMPRESSION: No acute abnormality.
--- NOTE | 2024-09-24 14:31 | XR_ITS ---
WS: [id number] XR knee LT 3V* [id number] REASON FOR EXAM: Pain FINDINGS: No fracture identified. Patella and tibial plateaus intact. There is mild narrowing of the medial knee joint space with mild subchondral sclerosis. No focal soft tissue abnormality. XR/XR knee LT 3V* [id number] IMPRESSION: No acute abnormality identified.
--- NOTE | 2024-09-24 15:49 | PC.SOCIAL ---
Pt needs a SNF Pt lives at home alone. She is seen by Dr Marquez & fills her meds at [facility]. She drives to her appointments. She wears 2lnc of O2 from HOME. She has a w/c & 2 canes at home if needed. She was just started on HH & they were supposed to come out today for the 1st time., but pt was here. Pt has a HCD. Copy requested. Pt said she needs rehab at a snf for multiple falls. 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 She said she prefers 1) [facility], 2) [facility] & 3) [facility]. A choice letter signed & placed in chart. Discussed with pt that since she was Covid positive on 09/18, [facility] may be the only option, that [facility] & [facility] will only take pt's once they are 10 days post positive covid test. She said okay. Faxed referral to all three facilities. [id number] completed & signed by Dr Galeas. CODE # [id number]
--- NOTE | 2024-09-24 16:59 | PC.NURSE ---
Spoke with Case Management. Pt has been accepted at [facility] first thing tomorrow morning. Will contact family to care for pt tonight.
--- NOTE | 2024-09-24 17:06 | CTR_ITS ---
PROCEDURE INFORMATION: Exam: CTA Chest With Contrast Exam date and time: 09/24/2024 6:27 PM Age: 79 years old Clinical indication: Other: Hypoxia; Additional info: Hypoxia post covid TECHNIQUE: Imaging protocol: Computed tomographic angiography of the chest with contrast. Exam focused on the arteries. 3D rendering (Not supervised by radiologist): MIP and/or 3D reconstructed images were created by the technologist. Radiation optimization: All CT scans at this facility use at least one of these dose optimization techniques: automated exposure control; mA and/or kV adjustment per patient size (includes targeted exams where dose is matched to clinical indication); or iterative reconstruction. Contrast material: OMNIPAQUE 350; Contrast volume: 100 ml; Contrast route: INTRAVENOUS (IV); COMPARISON: CT chest [facility] [id number] 09/18/2024 8:44 PM RADIATION DOSE METRICS: Total DLP (mGy-cm): 803.73 FINDINGS: Limitations: The superior most aspect of the lung apices are cut off/not included within the field of view. Pulmonary arteries: No acute central or segmental pulmonary embolism. Aorta: No aortic aneurysm. Mild aortic atherosclerosis. Lungs: Severe centrilobular emphysema. No pulmonary mass or consolidation. Minimal dependent right lower lobe atelectasis. Pleural spaces: Biapical pleural-parenchymal scarring. No pleural effusion or pneumothorax. Heart: No cardiomegaly. No pericardial effusion. Coronary arteries: Mild multivessel coronary artery calcification. Lymph nodes: Calcified lymph nodes are present, consistent with sequela of prior granulomatous disease. Liver: Hepatic steatosis. Gallbladder and biliary ducts: Cholecystectomy. Kidneys: Small right superior renal pole calculus. Bones/joints: No acute fracture. No aggressive osseous lesions. Soft tissues: Bilateral breast implants. CT/CT angio chest PE protcl [id number] IMPRESSION: 1. No acute central or segmental pulmonary embolism. No acute findings. 2. Severe emphysema. 3. Hepatic steatosis. COMMENTS: The presence of pulmonary emphysema on CT is an independent risk factor for lung cancer. In the absence of a history or active diagnosis of lung cancer, it is recommended that this patient with emphysema be evaluated for enrollment in a low dose CT lung cancer screening program.
--- NOTE | 2024-09-24 17:11 | ECG_ITS ---
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 Measurements Intervals [place] Rate: 112 P: 74 [place]: 129 QRS: 65 QRSD: 85 T: 123 QT: 286 QTc: 392 Interpretive Statements SINUS TACHYCARDIA WITH FREQUENT VENTRICULAR PREMATURE COMPLEXES ST DEVIATION AND MODERATE T-WAVE ABNORMALITY, CONSIDER LATERAL ISCHEMIA [-0.1+ mV T-WAVE IN I/aVL/V5/V6] ST DEVIATION AND MODERATE T-WAVE ABNORMALITY, CONSIDER INFERIOR ISCHEMIA [-0.1+ mV T-WAVE IN II/aVF] Compared to ECG 09/24/2024 11:24:29 Ventricular premature complex(es) now present Possible ischemia now present Sinus rhythm no longer present T-wave abnormality still present Electronically Signed On 09-29-2024 18:15:56 GUITAR REPAIRER by Rikki Somers M.D. [email or web address]
--- NOTE | 2024-09-24 17:13 | PM.HP ---
Providers/Chief Complaint Primary Care Provider: Farhad Marquez MD Chief Complaint: fall, swelling to C spine History of Present Illness Renee Atkins is a 79 year old with a past medical history of COPD, obesity, CHF, chronic respiratory failure, on 2 L, pulm embolism on DOAC, COPD, who presents [facility] due to weakness, fatigue, dizziness, fall. Currently patient alert oriented x 3, following all commands, does report diffuse muscle aches and pains, she tells me that today she was getting up going to the bathroom when she turned her wheeled walker was locked but she lost her balance and fell. Does report hitting her head and denies loss of consciousness, she does report intermittent weakness, fatigue, dizziness, since being discharged from the hospital. She is taking all her medications as prescribed, she is also been worried about her blood pressure has been high, her blood sugars have been high, she has been really thirsty she tells me. Denies any urinary continence no bowel incontinence no saddle anesthesia. Denies any any facial droop, slurring of words, no focal weakness reports more generalized weakness, does report intermittent dizziness, intermittent blurry vision but she thinks it is associate with her elevated blood sugars. She also reports bilateral extremity edema increased shortness of breath with exertion, no chest pain, palpitations Review of Systems Const: Reports: fatigue and malaise Card: Reports: palpitations; Denies: chest pain Resp: Reports: dyspnea GI: Denies: abdominal pain : Denies: flank pain Skin/Breast: Denies: rash Neuro: Denies: headache(s) Medications/Allergies Home Medications ?Medication ?Instructions ?Recorded ?Confirmed ?Last Taken ?Type Supplemental Oxygen @ 2-4l/m via #1 ea 07/12/24 09/24/24 Unknown Rx nasal canula citalopram 20 mg tablet 20 mg PO DAILY #90 tabs 08/13/24 09/24/24 09/23/24 Rx cyclobenzaprine 10 mg tablet 10 mg PO DAILY #90 tabs 08/13/24 09/24/24 09/23/24 Rx fluticasone fur. 100 mcg-umeclid 1 inh inhalation DAILY #60 ea 08/13/24 09/24/24 09/23/24 Rx 62.5 mcg-vilant 25 mcg inhalat.powder (Trelegy Ellipta) metoprolol tartrate 25 mg tablet 25 mg PO BID #90 tabs 08/13/24 09/24/24 09/23/24 Rx potassium chloride 10 mEq 10 meq PO DAILY #90 tabs 08/13/24 09/24/24 09/23/24 Rx tablet,extended release albuterol sulfate 90 mcg/actuation 1 inh inhalation QID PRN shortness 09/14/24 09/24/24 Unknown Rx aerosol inhaler of breath or wheezing #8.5 grams cefdinir 300 mg capsule 300 mg PO BID 7 days #14 caps 09/21/24 09/24/24 09/23/24 Rx dexamethasone 6 mg tablet 6 mg PO DAILY #5 tabs 09/21/24 09/24/24 09/23/24 Rx spironolactone 25 mg tablet 25 mg PO DAILY #30 tabs 09/21/24 09/24/24 09/23/24 Rx (Aldactone) alprazolam 0.5 mg tablet (Xanax) See Rx Instructions .Route .COMPLEX 09/24/24 09/24/24 09/23/24 History apixaban 5 mg tablet 2.5 mg PO BID 09/24/24 09/24/24 09/23/24 History furosemide 20 mg tablet (Lasix) 20 mg PO QAM 09/24/24 09/24/24 09/23/24 History Allergies Allergy/AdvReac Type Severity Reaction Status Date / Time codeine Allergy ALGY-Hives Verified 09/18/24 19:33 Penicillins Allergy ALGY-Hives Verified 09/18/24 19:33 Sulfa (Sulfonamide Allergy hives Verified 09/18/24 19:33 Antibiotics) zolpidem (From Ambien) Allergy Unknown Verified 09/18/24 19:33 PFSH Acute PFSH: Medical History (Updated 09/24/24 @ 17:56 by Nico Milligan MD) Sinus tachycardia New onset of congestive heart failure Edema Multiple falls Anxiety Chronic steroid use Recently tapered off 09/16 Hx of pulmonary embolus Tachyarrhythmia COPD (chronic obstructive pulmonary disease) Surgical History History of bilateral mastectomy History of breast reconstruction History of cholecystectomy History of appendectomy History of hysterectomy History of back surgery History of repair of rectocele History of bladder repair surgery History of foot surgery Family History Grandfather Arrhythmia Father Colon cancer Grandmother Breast cancer Mother Diabetes mellitus, type 2 Social History Smoking and tobacco/nicotine status: former use of tobacco/nicotine Alcohol intake: never Substance/Drug Use: never Vitals/I&O/Wt Last Vital Signs Temp 97.9 F 09/24/24 11:03 Pulse 87 09/24/24 15:11 Resp 20 H 09/24/24 12:32 BP 189/97 09/24/24 15:11 Pulse Ox 91 09/24/24 15:10 O2 Del Method Nasal Cannula 09/24/24 12:32 O2 Flow Rate 4 09/24/24 12:32 Weight last 48 hrs Weight 105.687 kg Physical Exam Const: COMMON NORMALS: no acute distress and patient oriented x3 HENMT: COMMON NORMALS: normocephalic Eye: COMMON NORMALS: Equal, round and reactive pupils present Resp: COMMON NORMALS: normal respiratory effort, No retractions, No use of accessory muscles and clear to auscultation bilaterally AUSCULTATION: crackles Cardio: COMMON NORMALS: no JVD, regular rate, regular rhythm, S1 normal heart sound present and S2 normal heart sound present RATE: regular rate RHYTHM: regular rhythm HEART SOUNDS: S1 normal heart sound present and S2 normal heart sound present GI: COMMON NORMALS: Normal to inspection, nondistended, normoactive bowel sounds present, Soft to palpation and non-tender Extremity: COMMON NORMALS: no pedal edema Neuro: COMMON NORMALS: patient oriented x3, CN's II-XII intact bilaterally and moves all extremities Psych: COMMON NORMALS: mental status grossly normal Skin: NARRATIVE SKIN EXAM: Multiple bruising bilateral arms, bilateral legs Data 09/24/24 11:15 09/24/24 11:15 A&P Assessment and plan (1) Fall: (2) Shortness of breath: (3) COPD (chronic obstructive pulmonary disease): (4) CHF (congestive heart failure): (5) Dizziness: (6) Hyperglycemia: (7) Hypertensive urgency: (8) Sinus tachycardia: Plan Hyperglycemia -Potentially effective steroid -Check A1c -Low-dose sliding scale Fall -CT head no acute findings -CT neck no acute findings -PT OT Weakness -PT OT Fatigue, monitor Dizziness -PT OT -No focal neurologic deficits -Carotid ultrasound -Continue Eliquis Hypertensive urgency -Resume metoprolol -Further medications based on clinical progress Sinus tachycardia, metoprolol Shortness of breath -Does not appear to be fluid overloaded, Lasix 40 mg IV -BnP, troponin series -CT angiogram of the chest ordered -Rocephin, Zithromycin Full code Eliquis for DVT prophylaxis PDMP PDMP Reviewed: Not Reviewed Attestations Medical Necessity Statement*: Patient requires hospitalization for dizziness, fall, hyperglycemia, shortness of breath, weakness, fatigue, inpatient, greater than 2 midnights Diagnoses Fall W19.XXXA Shortness of breath R06.02 COPD (chronic obstructive pulmonary disease) J44.9 CHF (congestive heart failure) I50.9 Dizziness R42 Hyperglycemia R73.9 Hypertensive urgency I16.0 Sinus tachycardia R00.0
[2024-09-24] MEDS: insulin regular-human 100 units/1 mL 16 UNIT IVP (17:14)
--- NOTE | 2024-09-24 17:25 | USR_ITS ---
PROCEDURE INFORMATION: Exam: US Abdomen, Limited; Right Upper Quadrant Exam date and time: 09/24/2024 5:41 PM Age: 79 years old Clinical indication: Abdominal pain; Generalized; Additional info: Ruq, liver and galbladder TECHNIQUE: Imaging protocol: Real time ultrasound of the abdomen with image documentation. Limited exam focused on the right upper quadrant. COMPARISON: CT chest wo con [id number] 09/18/2024 8:44 PM FINDINGS: Liver: Hyperechoic liver. Loss of normal portal triad fat. Gallbladder: Status post cholecystectomy. Biliary ducts: Normal. No stones. No dilation. Pancreas: Visualized pancreas is unremarkable. Right kidney: Normal. No mass. No hydronephrosis. Soft tissues: Limited exam due to patient habitus. US/US abdomen limited [id number] IMPRESSION: 1. Limited assessment due to habitus. 2. Hepatic steatosis. 3. Cholecystectomy.
--- NOTE | 2024-09-24 17:55 | USCV_ITS ---
Renee Atkins Age: 79 Gender: F : 1945 Exam Date: 09/24/2024 21:13 Ordering Phys: Nico Milligan MD Technologist: ALBERT Exam Location: [facility] [place] Indication: dizziness, long-term smoker, trying to quit x 1yr. DM2 Risk Factors: dizziness, long-term smoker, trying to quit x 1yr. DM2 Previous Vascular Surgery: None Right Brachial BP: 148 / 88 Left Brachial BP: / Right Left Velocity (cm/s) Spectral Plaque Velocity (cm/s) Spectral Plaque Syst/Diast Broadening Syst/Diast Broadening 81.70/ 10.30 Min Homo Prox CCA 112.30/ 14.30 Min Homo 68.70/ 7.70 Min Homo Mid CCA 74.20 / 10.70 Min Homo 80.90/ 12.70 Min Hetro Distal CCA 85.10 / 10.70 Min Hetro 53.90/ 11.40 Min Hetro Prox ICA 65.10 / 10.70 Min Hetro 60.30/ 17.90 Min Homo Mid ICA 116.30/ 23.40 Min Homo 83.50/ 23.50 Min Homo Distal ICA 98.70 / 23.00 Min Homo 86.00 Mod Homo ECA 76.00 Min Homo 1.00 ICA/CCA 1.40 Antegrade Vertebral Antegrade 58.90/ 15.20 cm/s 37.90/ 7.10 cm/s Tri Subclavian Tri 166.9 103.2 0 0 FINDINGS Comparison: none available. No significant elevation of systolic or diastolic velocities. Waveforms are normal. Mixture of calcified and noncalcified plaque in the bifurcations. CONCLUSIONS Bilateral ICA stenosis less than 50%. Dr. Catrachita Solano DO (Electronically Signed) Final Date: 25 September 2024 14:06 S
[2024-09-24] MEDS: metoprolol tartrate 25 mg Tablet PO (18:11)
[2024-09-24] MEDS: FUROsemide 10 mg/mL SDV 4mL 40 MG IVP (18:11)
[2024-09-24] MEDS: pantoprazole 40 mg SDV IVP (18:12)
[2024-09-24] MEDS: iohexol 350 mg/mL 500 mL Btl (per mL) IV (18:35)
[2024-09-24] MEDS: AZITHROMYCIN ADD-Vantage 500 MG in 0.9% NaCl ADD-Vantage 250 ML 250 MG IV (18:43)
[2024-09-24] MEDS: cefTRIAXone 1,000 mg SDV 1000 MG IVP (18:43)
[2024-09-24 18:56] LABS: Troponin(5th) Baseline 23 ng/L (0-10)
[2024-09-24 19:01] LABS: Lactic Sepsis W/Reflex 4.6 mmol/L (0.5-2.2)
[2024-09-24 19:16] LABS: NT Pro B Type Natriuretic Pept 254 pg/mL (0-450); Procalcitonin 1.83 ng/mL (0-0.5)
[2024-09-24 19:28] LABS: C Reactive Protein 9.3 mg/L (0.0-4.9); Chol HDL Ratio 4.62 mg/dL (0.0-4.40); Cholesterol 208 mg/dL (0-200); HDL Cholesterol 45 mg/dL (60-100); LDL Cholesterol Calculated 88 mg/dL (50-129); LDL HDL Ratio 1.96 RATIO (0.00-3.22); Lipase 26 U/L (13-60); Triglycerides 374 mg/dL (0-150)
[2024-09-24 19:29] LABS: Gamma Glutamyl Transferase 2477 U/L (5-36)
[2024-09-24 20:16] LABS: Reflex Lactate Order REFLEX LACTIC ORDERD
[2024-09-24] MEDS: ipratropium-albuterol 3 mL Neb INHALATION (21:06)
[2024-09-24] MEDS: budesonide 0.5 mg/2 mL Neb INHALATION (21:06)
[2024-09-24 22:09] LABS: Estmated Average Glucose 174; Hemoglobin A1C 7.7 % (4.0-6.0)
[2024-09-24 22:15] LABS: Troponin 5 2HR 28.09 ng/L (0-10); Troponin 5 2HR Delta 5.09 ABS# (0-10)
[2024-09-24 22:17] LABS: Lactic Acid level (Lactate) 3.5 mmol/L (0.5-2.2)
[2024-09-24] MEDS: ALPRAZolam 0.5 mg Tablet 0.75 MG PO (23:00)
[2024-09-24] MEDS: apixaban 5 mg Tablet PO (23:01)
--- NOTE | 2024-09-24 23:11 | ECG_ITS ---
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 Measurements Intervals [place] Rate: 84 P: -21 AL: 133 QRS: -8 QRSD: 91 T: -7 QT: 386 QTc: 459 Interpretive Statements SINUS RHYTHM LEFT VENTRICULAR HYPERTROPHY AND ST-T CHANGE [VOLTAGE CRITERIA PLUS ST/T ABNORMALITY] Compared to ECG 09/25/2024 06:21:57 No significant changes Electronically Signed On 09-29-2024 19:46:45 SKEIN STRAIGHTENER by Rikki Somers M.D. [email or web address]
[2024-09-25] VITALS (66 sets, daily range): BP systolic 131–164; BP diastolic 67–112; PULSE 76–121; RESP 15–27; TEMP 36.5–36.8; O2SAT 86–98
[2024-09-25] MEDS: insulin lispro 100 unit/1 mL 10 UNIT SUBCUT (00:34)
[2024-09-25 01:31] LABS: Troponin 5 6HR 26.21 ng/L (0-10); Troponin 5 6HR Delta 3.21 ng/L (0-12)
[2024-09-25 03:31] LABS: Basophils # 0.2 10^3/uL (0.0-0.1); Basophils % 1.2 %; Hematocrit 40.5 % (36-47); Lymphocytes # 1.3 10^3/uL (0.8-4.8); Lymphocytes % 8.5 %; Mean Corpuscular HGB Conc 32.8 g/dL (30-55); Mean Corpuscular Hemoglobin 34.5 pg (27-33); Mean Corpuscular Volume 104.9 fl (85-98); Mean Platelet Volume 9.2 fL (7.4-10.4); Monocytes # 0.7 10^3/uL (0.2-0.9); Monocytes % 4.3 %; Neutrophils # 11.11 10^3/uL (1.8-7.7); Neutrophils % 72.9 %; Nucleated Red Blood Cells # 0.8 /100WBC; Nucleated Red Blood Cells % 5.1 %; Platelet Count 521 10^3/cmm (157-399); Red Blood Count 3.86 10^6/uL (3.85-5.65); Red Cell Distribution Width 13.4 % (12.1-15.1); White Blood Count 15.25 10^3/uL (3.29-11.43)
[2024-09-25 03:56] LABS: Slide Review Slide Review Perform
[2024-09-25 04:39] LABS: Albumin Level 3.7 g/dL (3.5-5.2); Alkaline Phosphatase 275 U/L (35-105); Anion Gap 16.6 (5-19); Aspartate Amino Transferase 165 U/L (0-32); Blood Urea Nitrogen 19 mg/dL (8-23); Carbon Dioxide 33 mmol/L (22-29); Chloride 95 mmol/L (98-107); Creatinine Clr Calc Pharmacy 53.5735; Globulin 2.7 g/dL (1.3-4.6); Glucose 225 mg/dL (65-115); Magnesium 2.4 mg/dL (1.7-2.3); Osmolality Calculated 301 mOsm/kg (285-295); Phosphorus 3.7 mg/dL (2.5-4.5); Potassium 3.6 mmol/L (3.5-5.1); Sodium 141 mmol/L (136-145); Total Bilirubin 0.7 mg/dL (0.15-1.2); Total Protein 6.4 g/dL (6.6-8.7)
[2024-09-25 04:49] LABS: Alanine Aminotransferase 160 U/L (0-33)
--- NOTE | 2024-09-25 07:24 | PC.NURSE ---
THIS NURSE ASSUMED CARE @ 0700.
[2024-09-25] MEDS: ipratropium-albuterol 3 mL Neb INHALATION ×3 (08:06→20:03)
[2024-09-25] MEDS: budesonide 0.5 mg/2 mL Neb INHALATION ×2 (08:06→20:03)
[2024-09-25] MEDS: apixaban 5 mg Tablet PO ×2 (08:36→17:53)
[2024-09-25] MEDS: citalopram 20 mg Tablet PO (08:36)
[2024-09-25] MEDS: metoprolol tartrate 25 mg Tablet PO ×2 (08:36→17:53)
[2024-09-25] MEDS: insulin lispro 100 unit/1 mL SUBCUT ×3 (08:40→17:52)
[2024-09-25] MEDS: acetaminophen 325 mg Tablet 650 MG PO (11:47)
--- NOTE | 2024-09-25 14:25 | PC.NURSE ---
this rn assumes care of pt at 8415
--- NOTE | 2024-09-25 15:38 | P.PN_ITS ---
Vitals/I&O/Wt Last Vital Signs Temp 98.2 F 09/25/24 14:00 Pulse 103 H 09/25/24 14:00 Resp 20 H 09/25/24 14:00 BP 147/81 09/25/24 14:00 Pulse Ox 92 09/25/24 14:00 O2 Del Method Nasal Cannula 09/25/24 14:00 O2 Flow Rate 4 09/25/24 11:05 09/25/24 09/25/24 09/25/24 06:59 14:59 22:59 Intake Total 250 / 250 120 / 120 Output Total 200 / 200 Balance 250 / 250 -80 / -80 Weight last 48 hrs Weight 105.687 kg Weight 105.687 kg Physical Exam 2 Const: COMMON NORMALS: no acute distress and patient oriented x3 Resp: COMMON NORMALS: normal respiratory effort, No retractions, No use of accessory muscles and clear to auscultation bilaterally AUSCULTATION: clear to auscultation bilaterally Cardio: COMMON NORMALS: regular rate, regular rhythm, S1 normal heart sound present and S2 normal heart sound present RATE: regular rate RHYTHM: r egular rhythm HEART SOUNDS: S1 normal heart sound present and S2 normal heart sound present GI: COMMON NORMALS: Normal to inspection, nondistended, normoactive bowel sounds present and non-tender Extremity: COMMON NORMALS: no pedal edema Neuro: COMMON NORMALS: patient oriented x3 Psych: COMMON NORMALS: mental status grossly normal Data 09/25/24 03:07 09/25/24 04:12 Micro: Microbiology 09/24/24 18:14 Blood Culture - Preliminary Blood SPECIMEN COLLECTED 09/24/24 18:10 Blood Culture - Preliminary Blood SPECIMEN COLLECTED A&P Assessment and plan (1) Fall: (2) Shortness of breath: (3) COPD (chronic obstructive pulmonary disease): (4) CHF (congestive heart failure): (5) Dizziness: (6) Hyperglycemia: (7) Hypertensive urgency: (8) Sinus tachycardia: (9) Transaminitis: Plan Hyperglycemia, type 2 diabetes -Potentially effective steroid -Check A1c 7.7 -Low-dose sliding scale Transaminitis -Right upper quadrant ultrasound -GGT is over 2000 -Acute hep panel Fall -CT head no acute findings -CT neck no acute findings -PT OT Weakness -PT OT Fatigue, monitor Dizziness -PT OT -No focal neurologic deficits -Carotid ultrasound WNL -Continue Eliquis Hypertensive urgency -Resume metoprolol -Further medications based on clinical progress Sinus tachycardia, metoprolol Shortness of breath -Does have 1+ pitting edema, 40 mg IV push Lasix -BnP, troponin series -CT angiogram of the chest Pulmonary arteries: No acute central or segmental pulmonary embolism. Aorta: No aortic aneurysm. Mild aortic atherosclerosis. Lungs: Severe centrilobular emphysema. No pulmonary mass or consolidation. Minimal dependent right lower lobe atelectasis. Pleural spaces: Biapical pleural-parenchymal scarring. No pleural effusion or pneumothorax. Heart: No cardiomegaly. No pericardial effusion. Coronary arteries: Mild multivessel coronary artery calcification. Lymph nodes: Calcified lymph nodes are present, consistent with sequela of prior granulomatous disease. Liver: Hepatic steatosis. Gallbladder and biliary ducts: Cholecystectomy. Kidneys: Small right superior renal pole calculus. Bones/joints: No acute fracture. No aggressive osseous lesions. -Given leukocytosis, cough, we will treat her for pneumonia -Rocephin, Zithromycin Full code Eliquis for DVT prophylaxis PDMP PDMP Reviewed: Not Reviewed Attestations 2 Medical Necessity Statement*: Patient requires hospitalization for shortness of breath, lower extremity edema, hyperglycemia, hypertensive urgency, transaminitis Diagnoses Fall W19.XXXA Shortness of breath R06.02 COPD (chronic obstructive pulmonary disease) J44.9 CHF (congestive heart failure) I50.9 Dizziness R42 Hyperglycemia R73.9 Hypertensive urgency I16.0 Sinus tachycardia R00.0 Transaminitis R74.01
[2024-09-25 16:22] LABS: Hepatitis A Antibody IgM Non-Reactive (Nonreactive); Hepatitis B Core IgM Non-Reactive (Nonreactive); Hepatitis B Surface Antigen Non-Reactive (Nonreactive); Hepatitis C Virus Antibody Non-Reactive (Nonreactive)
[2024-09-25] MEDS: ALPRAZolam 0.5 mg Tablet 0.75 MG PO (17:52)
[2024-09-25] MEDS: pantoprazole 40 mg SDV IVP (17:52)
[2024-09-25] MEDS: cefTRIAXone 1,000 mg SDV 1000 MG IVP (17:52)
[2024-09-25] MEDS: FUROsemide 10 mg/mL SDV 4mL 40 MG IVP (17:52)
[2024-09-25] MEDS: AZITHROMYCIN ADD-Vantage 500 MG in 0.9% NaCl ADD-Vantage 250 ML 250 MG IV (17:54)
[2024-09-25 18:00] LABS: HIV 1 & 2 Antibody Non-Reactive (Non-Reactiv); HIV 1 & 2 Antigen Non-Reactive (Non-Reactiv)
--- NOTE | 2024-09-25 18:16 | PC.NURSE ---
Pt anxious. Tachypnea noted. Oxygenation wnl. Dr. Milligan ok'd to give bedtime dose of Xanax now.
[2024-09-25] MEDS: morphine 4 mg/mL SDV 1 mL 2 MG IVP (23:51)
--- NOTE | 2024-09-25 23:58 | PC.NURSE ---
This RN noticed pt HR on tele was in the 140s. This RN went to assess the pt and found the pt to be scooting towards the edge of the bed and stating I can't breathe This RN helped the pt into the chair and obtained the pt vitals. O2 was noted to be at 75%, this RN placed the pt on a simple mask and turned the oxygen to 8 L and instructed the pt to take deep breaths in through the nose and out the mouth. Pt oxygenation improved and this RN titrated the oxygen to 5L where pt was at 94%. This RN got the pt cleaned up and back in the bed. Pt requested IV morphine to help with her pain and to help her relax. RN gave morphine as ordered and placed the pt on continuous pulse ox. Pt was resting in bed comfortably when this RN left the room. Pt HR is now 109 and O2 is 94% on 5L simple mask.
[2024-09-26] VITALS (13 sets, daily range): BP systolic 124–156; BP diastolic 76–95; PULSE 88–127; RESP 14–20; TEMP 36.1–37.2; O2SAT 89–98
--- OUTSIDE RECORDS SUMMARY | 2024-09-26 05:38 | XMS_ITS | Encounter Summary ---
Author Organization [facility] Address [address] [place] [address] Care Team Providers Care Compliance Nurse Name Role Phone Unavailable Primary Care Provider Unavailabl e Encounter Details Date Type Department Care Team (Latest Contact Info) Description 02/23/2001 Outpatient Historical [facility] Pepe Ellison MD [address] [place] [phone] Urinary tract infection, site not specified (Primary Dx); Unspecified urinary incontinence Social History Tobacco Use Types Packs/Day Years Used Date Smoking Tobacco: Never Assessed Comments Unknown Sex and Gender Information Value Date Recorded Sex Assigned at Not on file Legal Sex Female 4:23 AM FUND 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
--- OUTSIDE RECORDS SUMMARY | 2024-09-26 05:38 | XMS_ITS | Encounter Summary ---
Author Organization [facility] Address [address] [place] [address] Care Team Providers Care Roll Sheeting Cutter Name Role Phone Unavailable Primary Care Provider Unavailabl e Encounter Details Date Type Department Care Team (Latest Contact Info) Description 10/01/2003 Outpatient Historical [facility] Rheumatology- [facility] [place] [address] [place] [address] Milton Albright MD NO ADDRESS ON FILE RHEUMATISM NOS (Primary Dx) Social History Tobacco Use Types Packs/Day Years Used Date Smoking Tobacco: Never Assessed Comments Unknown Sex and Gender Information Value Date Recorded Sex Assigned at Not on file Legal Sex Female 4:23 AM ACTUARIAL CLERK Gender Identity Not on file Sexual Orientation Not on file documented as of this encounter Plan of Treatment Not on file documented as of this encounter Visit Diagnoses Diagnosis Rheumatism, unspecified and fibrositis- Primary documented in this encounter
--- OUTSIDE RECORDS SUMMARY | 2024-09-26 05:38 | XMS_ITS | Encounter Summary ---
Author Organization [facility] Address [address] Gao: [place] [address] Care Team Providers Care Baling Press Operator Name Role Phone Unavailable Primary Care Provider Unavailabl e Encounter Details Date Type Department Care Team (Late st Contact Info) Description 05/04/2002 Outpatient Historical Justin Valenzuela MD NO ADDRESS ON FILE Social History Tobacco Use Types Packs/Day Years Used Date Smoking Tobacco: Never Assessed Comments Unknown Sex and Gender Information Value Date Recorded Sex Assigned at Not on file Legal Sex Female 4:23 AM ROUTE CARRIER Gender Identity Not on file Sexual Orientation Not on file documented as of this encounter Plan of Treatment Not on file documented as of this encounter Visit Diagnoses Not on filedocumented in this encounter
--- OUTSIDE RECORDS SUMMARY | 2024-09-26 05:38 | XMS_ITS | Encounter Summary ---
Author Organization [facility] Address [address] [place] [address] Care Team Providers Care University Teacher Name Role Phone Unavailable Primary Care Provider Unavailabl e Encounter Details Date Type Department Care Team (Latest Contact Info) Description 10/29/2003 Outpatient Historical [facility] Rheumatology- 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
--- OUTSIDE RECORDS SUMMARY | 2024-09-26 05:38 | XMS_ITS | Encounter Summary ---
Author Organization [facility] Address [address] [place] [address] Care Team Providers Care Licensing Director Name Role Phone Unavailable Primary Care Provider Unavailabl e Encounter Details Date Type Department Care Team (Latest Contact Info) Description 03/18/1998 Outpatient Historical [facility] Dermatology- [address] [place] [address] Nathan Dye MD [address] [facility] [address] [place], [place] [id number] Lichenification (Primary Dx) Social History Tobacco Use Types Packs/Day Years Used Date Smoking Tobacco: Never Assessed Comments Unknown Sex and Gender Information Value Date Recorded Sex Assigned at Not on file Legal Sex Female 4:23 AM RN ORTHOPEDIC Gender Identity Not on file Sexual Orientation Not on file documented as of this encounter Plan of Treatment Not on file documented as of this encounter Visit Diagnoses Diagnosis Lichenification- Primary Lichenification and lichen simplex chronicus documented in this encounter
--- OUTSIDE RECORDS SUMMARY | 2024-09-26 05:38 | XMS_ITS | Encounter Summary ---
Author Organization [facility] Address [address] [place] [address] Care Team Providers Care Automobile Club Travel Counselor Name Role Phone Unavailable Primary Care Provider Unavailabl e Encounter Details Date Type Department Care Team (Late st Contact Info) Description 05/01/2002 Outpatient Historical [facility] [address] 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
--- OUTSIDE RECORDS SUMMARY | 2024-09-26 05:38 | XMS_ITS | Encounter Summary ---
Author Organization [facility] Address [address] [place] [address] Care Team Providers Care Investor Relations Manager Name Role Phone Unavailable Primary Care Provider Unavailabl e Encounter Details Date Type Department Care Team (Latest Contact Info) Description 05/23/2002 Outpatient Historical [facility] Spec S[facility] [place] [address] [place] [address] Justin Valenzuela MD NO ADDRESS ON FILE CHOLELITH W CHOLECYS NEC (Primary Dx); SURGERY FOLLOWUP, UNSPEC Social History Tobacco Use Types Packs/Day Years Used Date Smoking Tobacco: Never Assessed Comments Unknown Sex and Gender Information Value Date Recorded Sex Assigned at Not on file Legal Sex Female 4:23 AM MECHANICAL HANDYMAN Gender Identity Not on file Sexual Orientation Not on file documented as of this encounter Plan of Treatment Not on file documented as of this encounter Visit Diagnoses Diagnosis Calculus of gallbladder with other cholecystitis, without mention of obstruction- Primary Follow-up examination, following unspecified surgery documented in this encounter
--- OUTSIDE RECORDS SUMMARY | 2024-09-26 05:38 | XMS_ITS | Encounter Summary ---
Author Organization [facility] [employer] [facility] Address [address] [place] [address] Care Team Providers Care Channel Business Manager Name Role Phone Unavailable Primary Care Provider Unavailabl e Encounter Details Date Type Department Care Team (Latest Contact Info) Description 10/10/2000 Outpatient Historical [facility] Pepe Ellison MD [address] [place] [phone] Insomnia, unspecified (Primary Dx); Depressive disorder, not elsewhere classified Social History Tobacco Use Types Packs/Day Years Used Date Smoking Tobacco: Never Assessed Comments Unknown Sex and Gender Information Value Date Recorded Sex Assigned at Not on file Legal Sex Female 4:23 AM CLIENT DEVELOPMENT CONSULTANT Gender Identity Not on file Sexual Orientation Not on file documented as of this encounter Plan of Treatment Not on file documented as of this encounter Visit Diagnoses Diagnosis Insomnia, unspecified- Primary Depressive disorder, not elsewhere classified documented in this encounter
--- OUTSIDE RECORDS SUMMARY | 2024-09-26 05:38 | XMS_ITS | Encounter Summary ---
Author Organization [facility] Address [address] [place] [address] Care Team Providers Care Staff Services Manager Name Role Phone Unavailable Primary Care Provider Unavailabl e Encounter Details Date Type Department Care Team (Late st Contact Info) Description 03/02/2004 Outpatient Historical [facility] [address] [place] [address] Cyndee Wang MD NO ADDRESS ON FILE MYALGIA AND MYOSITIS NOS (Primary Dx); URIN TRACT INFECTION NOS; HYPERLIPIDEMIA NEC/NOS; OTHER MALAISE AND FATIGUE Social History Tobacco Use Types Packs/Day Years Used Date Smoking Tobacco: Never Assessed Comments Unknown Sex and Gender Information Value Date Recorded Sex Assigned at Not on file Legal Sex Female 4:23 AM FINANCIAL HEALTH COUNSELOR Gender Identity Not on file Sexual Orientation Not on file documented as of this encounter Plan of Treatment Not on file documented as of this encounter Visit Diagnoses Diagnosis Myalgia and myositis, unspecified- Primary Mylagia and myositis, unspecified Urinary tract infection, site not specified Other and unspecified hyperlipidemia Other malaise and fatigue documented in this encounter
--- OUTSIDE RECORDS SUMMARY | 2024-09-26 05:38 | XMS_ITS | Encounter Summary ---
Author Organization [facility] Address [address] [place] [address] Care Team Providers Care Research Physiologist Name Role Phone Unavailable Primary Care Provider Unavailabl e Encounter Details Date Type Department Care Team (Latest Contact Info) Description 07/28/[address] [facility] Rheumatology- [facility] [place] [address] [place] [address] Milton Albright MD NO ADDRESS ON FILE RHEUMATISM NOS (Primary Dx) Social History Tobacco Use Types Packs/Day Years Used Date Smoking Tobacco: Never Assessed Comments Unknown Sex and Gender Information Value Date Recorded Sex Assigned at Not on file Legal Sex Female 4:23 AM CASING WRINGER OPERATOR Gender Identity Not on file Sexual Orientation Not on file documented as of this encounter Plan of Treatment Not on file documented as of this encounter Visit Diagnoses Diagnosis Rheumatism, unspecified and fibrositis- Primary documented in this encounter
--- OUTSIDE RECORDS SUMMARY | 2024-09-26 05:38 | XMS_ITS | Encounter Summary ---
Author Organization [facility] Address [address] Gao: [place] [address] Care Team Providers Care Machine Cell Tuber Name Role Phone Unavailable Primary Care Provider Unavailabl e Encounter Details Date Type Department Care Team (Late st Contact Info) Description 05/15/2002 Outpatient Historical Justin Valenzuela MD NO ADDRESS ON FILE Social History Tobacco Use Types Packs/Day Years Used Date Smoking Tobacco: Never Assessed Comments Unknown Sex and Gender Information Value Date Recorded Sex Assigned at Not on file Legal Sex Female 4:23 AM COTTON CANDY MAKER Gender Identity Not on file Sexual Orientation Not on file documented as of this encounter Plan of Treatment Not on file documented as of this encounter Visit Diagnoses Not on filedocumented in this encounter
--- OUTSIDE RECORDS SUMMARY | 2024-09-26 05:38 | XMS_ITS | Encounter Summary ---
Author Organization [employer] [facility] Address [address] [place] [address] Care Team Providers Care Technical Staff Engineer Name Role Phone Unavailable Primary Care Provider Unavailabl e Encounter Details Date Type Department Care Team (Latest Contact Info) Description 04/26/2000 Outpatient Historical [facility] Pepe Ellison MD [address] [place] [phone] Acute sinusitis, unspecified (Primary Dx) Social History Tobacco Use Types Packs/Day Years Used Date Smoking Tobacco: Never Assessed Comments Unknown Sex and Gender Information Value Date Recorded Sex Assigned at Not on file Legal Sex Female 4:23 AM CONFERENCE PLANNING MANAGER Gender Identity Not on file Sexual Orientation Not on file documented as of this encounter Plan of Treatment Not on file documented as of this encounter Visit Diagnoses Diagnosis Acute sinusitis, unspecified- Primary documented in this encounter
--- OUTSIDE RECORDS SUMMARY | 2024-09-26 05:38 | XMS_ITS | Encounter Summary ---
Author Organization [facility] Address [address] [place] [address] Care Team Providers Care Library Services Dean Name Role Phone Unavailable Primary Care Provider Unavailabl e Encounter Details Date Type Department Care Team (Latest Contact Info) Description 03/31/2004 Outpatient Historical [facility] Rheumatology- [facility] [place] [address] [place] [address] Milton Albright MD NO ADDRESS ON FILE RHEUMATISM NOS (Primary Dx) Social History Tobacco Use Types Packs/Day Years Used Date Smoking Tobacco: Never Assessed Comments Unknown Sex and Gender Information Value Date Recorded Sex Assigned at Not on file Legal Sex Female 4:23 AM JOB PUTTER UP AND TICKET PREPARER Gender Identity Not on file Sexual Orientation Not on file documented as of this encounter Plan of Treatment Not on file documented as of this encounter Visit Diagnoses Diagnosis Rheumatism, unspecified and fibrositis- Primary documented in this encounter
--- OUTSIDE RECORDS SUMMARY | 2024-09-26 05:38 | XMS_ITS | Encounter Summary ---
Author Organization [facility] [employer] [facility] Address [address] [place] [address] Care Team Providers Care Tmr Teacher Name Role Phone Unavailable Primary Care Provider Unavailabl e Encounter Details Date Type Department Care Team (Latest Contact Info) Description 12/06/2000 Outpatient Historical [facility] Pepe Ellison MD [address] [place] [phone] Acute upper respiratory infections of unspecified site (Primary Dx); Acute gastritis Social History Tobacco Use Types Packs/Day Years Used Date Smoking Tobacco: Never Assessed Comments Unknown Sex and Gender Information Value Date Recorded Sex Assigned at Not on file Legal Sex Female 4:23 AM IBM BPM DEVELOPER Gender Identity Not on file Sexual Orientation Not on file documented as of this encounter Plan of Treatment Not on file documented as of this encounter Visit Diagnoses Diagnosis Acute upper respiratory infections of unspecified site- Primary Acute gastritis Acute gastritis without mention of hemorrhage documented in this encounter
--- OUTSIDE RECORDS SUMMARY | 2024-09-26 05:38 | XMS_ITS | Encounter Summary ---
Author Organization [employer] [facility] Address [address] [place] [address] Care Team Providers Care Fresh Work Inspector Name Role Phone Unavailable Primary Care Provider Unavailabl e Encounter Details Date Type Department Care Team (Latest Contact Info) Description 02/01/2000 Outpatient Historical [facility] Pepe Ellison MD [address] [place] [phone] Depressive disorder, not elsewhere classified (Primary Dx); Insomnia, unspecified; General symptoms NEC Social History Tobacco Use Types Packs/Day Years Used Date Smoking Tobacco: Never Assessed Comments Unknown Sex and Gender Information Value Date Recorded Sex Assigned at Not on file Legal Sex Female 4:23 AM SCOUT EXECUTIVE Gender Identity Not on file Sexual Orientation Not on file documented as of this encounter Plan of Treatment Not on file documented as of this encounter Visit Diagnoses Diagnosis Depressive disorder, not elsewhere classified- Primary Insomnia, unspecified General symptoms NEC Other general symptoms documented in this encounter
--- OUTSIDE RECORDS SUMMARY | 2024-09-26 05:38 | XMS_ITS | Encounter Summary ---
Author Organization [employer] [facility] Address [address] [place] [address] Care Team Providers Care Pressure Washer Name Role Phone Unavailable Primary Care Provider Unavailabl e Encounter Details Date Type Department Care Team (Latest Contact Info) Description 05/24/2000 Outpatient Historical [facility] Pepe Ellison MD [address] [place] [phone] Sciatica (Primary Dx) Social History Tobacco Use Types Packs/Day Years Used Date Smoking Tobacco: Never Assessed Comments Unknown Sex and Gender Information Value Date Recorded Sex Assigned at Not on file Legal Sex Female 4:23 AM PRINCIPAL CONSULTANT Gender Identity Not on file Sexual Orientation Not on file documented as of this encounter Plan of Treatment Not on file documented as of this encounter Visit Diagnoses Diagnosis Sciatica- Primary documented in this encounter
--- OUTSIDE RECORDS SUMMARY | 2024-09-26 05:38 | XMS_ITS | Encounter Summary ---
Author Organization [facility] Address [address] [place] [address] Care Team Providers Care Rib Matcher And Fitter Name Role Phone Unavailable Primary Care Provider Unavailabl e Encounter Details Date Type Department Care Team (Late st Contact Info) Description 03/13/2001 Outpatient Historical [facility] Social History Tobacco Use Types Packs/Day Years Used Date Smoking Tobacco: Never Assessed Comments Unknown Sex and Gender Information Value Date Recorded Sex Assigned at Not on file Legal Sex Female 4:23 AM DIRECTOR HRIS Gender Identity Not on file Sexual Orientation Not on file documented as of this encounter Plan of Treatment Not on file documented as of this encounter Visit Diagnoses Not on filedocumented in this encounter
--- OUTSIDE RECORDS SUMMARY | 2024-09-26 05:38 | XMS_ITS | Encounter Summary ---
Author Organization [facility] Address [address] [place] [address] Care Team Providers Care Road Repairer Name Role Phone Unavailable Primary Care Provider Unavailabl e Encounter Details Date Type Department Care Team (Latest Contact Info) Description 07/11/2003 Outpatient Historical [facility] Family Medicine [address] [place] [phone] Cyndee Wang MD NO ADDRESS ON FILE HYPERTENSION NOS (Primary Dx); HYPERLIPIDEMIA NEC/NOS; MYALGIA AND MYOSITIS NOS; DEPRESSIVE DISORDER NEC Social History Tobacco Use Types Packs/Day Years Used Date Smoking Tobacco: Never Assessed Comments Unknown Sex and Gender Information Value Date Recorded Sex Assigned at Not on file Legal Sex Female 4:23 AM UNIX ADMINISTRATOR Gender Identity Not on file Sexual Orientation Not on file documented as of this encounter Plan of Treatment Not on file documented as of this encounter Visit Diagnoses Diagnosis Unspecified essential hypertension- Primary Other and unspecified hyperlipidemia Myalgia and myositis, unspecified Mylagia and myositis, unspecified Depressive disorder, not elsewhere classified documented in this encounter
--- OUTSIDE RECORDS SUMMARY | 2024-09-26 05:38 | XMS_ITS | Encounter Summary ---
Author Organization [facility] Address [address] [place] [address] Care Team Providers Care Manager Asset Management Name Role Phone Unavailable Primary Care Provider Unavailabl e Encounter Details Date Type Department Care Team (Late st Contact Info) Description 10/01/2003 Outpatient Historical [facility] Family Medicine [address] [place] [phone] Cyndee Wang MD NO ADDRESS ON FILE MYALGIA AND MYOSITIS NOS (Primary Dx); URIN TRACT INFECTION NOS Social History Tobacco Use Types Packs/Day Years Used Date Smoking Tobacco: Never Assessed Comments Unknown Sex and Gender Information Value Date Recorded Sex Assigned at Not on file Legal Sex Female 4:23 AM RAIL SETTER Gender Identity Not on file Sexual Orientation Not on file documented as of this encounter Plan of Treatment Not on file documented as of this encounter Visit Diagnoses Diagnosis Myalgia and myositis, unspecified- Primary Mylagia and myositis, unspecified Urinary tract infection, site not specified documented in this encounter
--- OUTSIDE RECORDS SUMMARY | 2024-09-26 05:38 | XMS_ITS | Encounter Summary ---
Author Organization [facility] Address [address] [place] [address] Care Team Providers Care Exploration Geologist Name Role Phone Unavailable Primary Care Provider Unavailabl e Encounter Details Date Type Department Care Team (Latest Contact Info) Description 08/01/2003 Outpatient Historical [facility] Rheumatology- [facility] [address] [place] [address] Milton Albright MD NO ADDRESS ON FILE RHEUMATISM NOS (Primary Dx) Social History Tobacco Use Types Packs/Day Years Used Date Smoking Tobacco: Never Assessed Comments Unknown Sex and Gender Information Value Date Recorded Sex Assigned at Not on file Legal Sex Female 4:23 AM MEDICAL INSURANCE CLAIMS SPECIALIST Gender Identity Not on file Sexual Orientation Not on file documented as of this encounter Plan of Treatment Not on file documented as of this encounter Visit Diagnoses Diagnosis Rheumatism, unspecified and fibrositis- Primary documented in this encounter
--- OUTSIDE RECORDS SUMMARY | 2024-09-26 05:38 | XMS_ITS | Encounter Summary ---
Author Organization [facility] Address [address] [place] [address] Care Team Providers Care Lead Manufacturing Engineering Tech Name Role Phone Unavailable Primary Care Provider Unavailabl e Encounter Details Date Type Department Care Team (Latest Contact Info) Description 05/04/2002 Outpatient Historical [facility] [address] [place] [phone] Justin Valenzuela MD NO ADDRESS ON FILE CHOLELITHIASIS NOS (Primary Dx) Social History Tobacco Use Types Packs/Day Years Used Date Smoking Tobacco: Never Assessed Comments Unknown Sex and Gender Information Value Date Recorded Sex Assigned at Not on file Legal Sex Female 4:23 AM IRRIGATION FLUME LAYER Gender Identity Not on file Sexual Orientation Not on file documented as of this encounter Plan of Treatment Not on file documented as of this encounter Visit Diagnoses Diagnosis Calculus of gallbladder without mention of cholecystitis or obstruction- Primary documented in this encounter
--- OUTSIDE RECORDS SUMMARY | 2024-09-26 05:38 | XMS_ITS | Encounter Summary ---
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
--- OUTSIDE RECORDS SUMMARY | 2024-09-26 05:38 | XMS_ITS | Encounter Summary ---
Author Organization [facility] Address [address] [place] [address] Care Team Providers Care Instructor Of Sociology Name Role Phone Unavailable Primary Care Provider Unavailabl e Encounter Details Date Type Department Care Team (Late st Contact Info) Description 04/30/2003 Outpatient Historical [facility] Family [facility] [address] [place] [phone] Cyndee Wang MD NO ADDRESS ON FILE MYALGIA AND MYOSITIS NOS (Primary Dx); HYPERLIPIDEMIA NEC/NOS Social History Tobacco Use Types Packs/Day Years Used Date Smoking Tobacco: Never Assessed Comments Unknown Sex and Gender Information Value Date Recorded Sex Assigned at Not on file Legal Sex Female 4:23 AM SUPERVISOR [employer]ODU[employer] Gender Identity Not on file Sexual Orientation Not on file documented as of this encounter Plan of Treatment Not on file documented as of this encounter Visit Diagnoses Diagnosis Myalgia and myositis, unspecified- Primary Mylagia and myositis, unspecified Other and unspecified hyperlipidemia documented in this encounter
--- OUTSIDE RECORDS SUMMARY | 2024-09-26 05:38 | XMS_ITS | Encounter Summary ---
Author Organization [facility] Address [address] [place] [address] Care Team Providers Care Tax Examining Technician Name Role Phone Unavailable Primary Care Provider Unavailabl e Encounter Details Date Type Department Care Team (Late st Contact Info) Description 06/01/2002 Outpatient Historical [facility] Family Medicine [address] [place] [phone] Cyndee Wang MD NO ADDRESS ON FILE ABDOMINAL PAIN UNSPEC SITE (Primary Dx); TOBACCO USE DISORDER Social History Tobacco Use Types Packs/Day Years Used Date Smoking Tobacco: Never Assessed Comments Unknown Sex and Gender Information Value Date Recorded Sex Assigned at Not on file Legal Sex Female 4:23 AM PROFESSOR OF ENGLISH Gender Identity Not on file Sexual Orientation Not on file documented as of this encounter Plan of Treatment Not on file documented as of this encounter Visit Diagnoses Diagnosis Abdominal pain, unspecified site- Primary Tobacco use disorder documented in this encounter
--- OUTSIDE RECORDS SUMMARY | 2024-09-26 05:38 | XMS_ITS | Encounter Summary ---
Author Organization [facility] Address [address] [place] [address] Care Team Providers Care Truss Puller Helper Name Role Phone Unavailable Primary Care Provider Unavailabl e Encounter Details Date Type Department Care Team (Latest Contact Info) Description 12/26/2003 Outpatient Historical [facility] Rheumatology- [facility] [place] [address] [place] [address] Milton Albright MD NO ADDRESS ON FILE RHEUMATISM NOS (Primary Dx) Social History Tobacco Use Types Packs/Day Years Used Date Smoking Tobacco: Never Assessed Comments Unknown Sex and Gender Information Value Date Recorded Sex Assigned at Not on file Legal Sex Female 4:23 AM SPIKE MACHINE HEATER Gender Identity Not on file Sexual Orientation Not on file documented as of this encounter Plan of Treatment Not on file documented as of this encounter Visit Diagnoses Diagnosis Rheumatism, unspecified and fibrositis- Primary documented in this encounter
--- OUTSIDE RECORDS SUMMARY | 2024-09-26 05:38 | XMS_ITS | Encounter Summary ---
Author Organization [employer] [facility] Address [address] [place] [address] Care Team Providers Care Etl Informatica Architect Name Role Phone Unavailable Primary Care Provider Unavailabl e Encounter Details Date Type Department Care Team (Latest Contact Info) Description 02/08/2000 Outpatient Historical HIS [facility] Pepe Ellison MD [address] [place] [phone] Observation for unspecified suspected condition (Primary Dx) Social History Tobacco Use Types Packs/Day Years Used Date Smoking Tobacco: Never Assessed Comments Unknown Sex and Gender Information Value Date Recorded Sex Assigned at Not on file Legal Sex Female 4:23 AM CANDY MIXER Gender Identity Not on file Sexual Orientation Not on file documented as of this encounter Plan of Treatment Not on file documented as of this encounter Visit Diagnoses Diagnosis Observation for unspecified suspected condition- Primary documented in this encounter
--- OUTSIDE RECORDS SUMMARY | 2024-09-26 05:38 | XMS_ITS | Encounter Summary ---
Author Organization [email or web address] [facility] Address [address] [place] [address] Care Team Providers Care Administration Physician Name Role Phone Unavailable Primary Care Provider Unavailabl e Encounter Details Date Type Department Care Team (Late st Contact Info) Description 06/02/2006 Outpatient Historical [facility] [address], [address] [place] [phone] Mando Vergara MD [address] [place] [phone] Unspecified Myalgia and Myositis (Primary Dx) Social History Tobacco Use Types Packs/Day Years Used Date Smoking Tobacco: Never Assessed Comments Unknown Sex and Gender Information Value Date Recorded Sex Assigned at Not on file Legal Sex Female 4:23 AM OPHTHALMIC PATHOLOGIST Gender Identity Not on file Sexual Orientation Not on file documented as of this encounter Plan of Treatment Not on file documented as of this encounter Visit Diagnoses Diagnosis Myalgia and myositis, unspecified- Primary Mylagia and myositis, unspecified documented in this encounter
--- OUTSIDE RECORDS SUMMARY | 2024-09-26 05:38 | XMS_ITS | Encounter Summary ---
Author Organization [employer] [facility] Address [address] [place] [address] Care Team Providers Care Continuous Improvement Manager Name Role Phone Unavailable Primary Care Provider Unavailabl e Encounter Details Date Type Department Care Team (Latest Contact Info) Description 03/16/2001 Outpatient Historical [facility] Jon Sandoval MD NO ADDRESS ON FILE Other specified disorder of breast (Primary Dx); Mastodynia; Scar condition and fibrosis of skin Social History Tobacco Use Types Packs/Day Years Used Date Smoking Tobacco: Never Assessed Comments Unknown Sex and Gender Information Value Date Recorded Sex Assigned at Not on file Legal Sex Female 4:23 AM MEDICAID ELIGIBILITY SPECIALIST Gender Identity Not on file Sexual Orientation Not on file documented as of this encounter Plan of Treatment Not on file documented as of this encounter Visit Diagnoses Diagnosis Other specified disorder of breast- Primary Mastodynia Scar condition and fibrosis of skin documented in this encounter
--- OUTSIDE RECORDS SUMMARY | 2024-09-26 05:38 | XMS_ITS | Encounter Summary ---
Author Organization [facility] Address [address] [place] [address] Care Team Providers Care Basket Turner Name Role Phone Unavailable Primary Care Provider Unavailabl e Encounter Details Date Type Department Care Team (Latest Contact Info) Description 11/16/[address] [facility] Rheumatology- [facility] [address] [place] [address] Milton Albright MD NO ADDRESS ON FILE RHEUMATISM NOS (Primary Dx) Social History Tobacco Use Types Packs/Day Years Used Date Smoking Tobacco: Never Assessed Comments Unknown Sex and Gender Information Value Date Recorded Sex Assigned at Not on file Legal Sex Female 4:23 AM YARN COMBER Gender Identity Not on file Sexual Orientation Not on file documented as of this encounter Plan of Treatment Not on file documented as of this encounter Visit Diagnoses Diagnosis Rheumatism, unspecified and fibrositis- Primary documented in this encounter
--- OUTSIDE RECORDS SUMMARY | 2024-09-26 05:38 | XMS_ITS | Encounter Summary ---
Author Organization [employer] [facility] Address [address] [place] [address] Care Team Providers Care Sheet Metal Helper Name Role Phone Unavailable Primary Care Provider Unavailabl e Encounter Details Date Type Department Care Team (Latest Contact Info) Description 03/17/2000 Outpatient Historical HIS [facility] Pepe Ellison MD [address] [place] [phone] Nonallopathic lesion of cervical region, not elsewhere classified (Primary Dx); Nonallopathic lesion of thoracic region, not elsewhere classified; Sprain of unspecified site of back; Depressive disorder, not elsewhere classified Social History Tobacco Use Types Packs/Day Years Used Date Smoking Tobacco: Never Assessed Comments Unknown Sex and Gender Information Value Date Recorded Sex Assigned at Not on file Legal Sex Female 4:23 AM KIOSK SALES REPRESENTATIVE Gender Identity Not on file Sexual Orientation Not on file documented as of this encounter Plan of Treatment Not on file documented as of this encounter Visit Diagnoses Diagnosis Nonallopathic lesion of cervical region, not elsewhere classified- Primary Nonallopathic lesion of thoracic region, not elsewhere classified Sprain of unspecified site of back Depressive disorder, not elsewhere classified documented in this encounter
--- OUTSIDE RECORDS SUMMARY | 2024-09-26 05:38 | XMS_ITS | Encounter Summary ---
Author Organization [facility] Address [address] [place] [address] Care Team Providers Care Maintenance Porter Name Role Phone Unavailable Primary Care Provider Unavailabl e Encounter Details Date Type Department Care Team (Late st Contact Info) Description 06/02/2006 Outpatient Historical [facility] [address] [place] [address] [place] [phone] Social History Tobacco Use Types Packs/Day Years Used Date Smoking Tobacco: Never Assessed Comments Unknown Sex and Gender Information Value Date Recorded Sex Assigned at Not on file Legal Sex Female 4:23 AM ATHLETIC TEAM PHYSICIAN Gender Identity Not on file Sexual Orientation Not on file documented as of this encounter Plan of Treatment Not on file documented as of this encounter Visit Diagnoses Not on filedocumented in this encounter
--- OUTSIDE RECORDS SUMMARY | 2024-09-26 05:38 | XMS_ITS | Clinical Summary ---
Author Organization [facility] Address [address] Gao: Epic Prelude ADT [place] [address] Care Team Providers Care Ribbon Hand Name Role Phone Unavailable Primary Care Provider Unavailabl e Social History Tobacco Use Types Packs/Day Years Used Date Smoking Tobacco: Never Assessed Comments Unknown Sex and Gender Information Value Date Recorded Sex Assigned at Not on file Legal Sex Female 4:23 AM HUMAN PROJECTILE Gender Identity Not on file Sexual Orientation Not on file Plan of Treatment Health Maintenance Due Date Last Done Comments DTAP/TDAP/TD VACCINES (1 - Tdap) 1966 PNEUMOCOCCAL VACCINE 50+ YEARS (1 of 1 - PCV) 04/16/19 97 ZOSTER VACCINE (1 of 2) 1997 OSTEOPOROSIS SCREENING 2012 RSV VACCINE (60+ or ) (1 - 1-dose 75+ series) 2022 INFLUENZA VACCINE (#1) 2024
--- OUTSIDE RECORDS SUMMARY | 2024-09-26 05:38 | XMS_ITS | Encounter Summary ---
Author Organization [employer] [facility] Address [address] [place] [address] Care Team Providers Care Transportation Operations Manager Name Role Phone Unavailable Primary Care Provider Unavailabl e Encounter Details Date Type Department Care Team (Latest Contact Info) Description 06/06/2000 Outpatient Historical [facility] Pepe Ellison MD [address] [place] [phone] Lumbago (Primary Dx) Social History Tobacco Use Types Packs/Day Years Used Date Smoking Tobacco: Never Assessed Comments Unknown Sex and Gender Information Value Date Recorded Sex Assigned at Not on file Legal Sex Female 4:23 AM STOCK CLIPPER Gender Identity Not on file Sexual Orientation Not on file documented as of this encounter Plan of Treatment Not on file documented as of this encounter Visit Diagnoses Diagnosis Lumbago- Primary documented in this encounter
--- OUTSIDE RECORDS SUMMARY | 2024-09-26 05:38 | XMS_ITS | Encounter Summary ---
Author Organization [employer] [facility] Address [address] [place] [address] Care Team Providers Care Surveyor Oil Well Directional Name Role Phone Unavailable Primary Care Provider Unavailabl e Encounter Details Date Type Department Care Team (Latest Contact Info) Description 06/21/2001 Outpatient Historical HIS [facility] Pepe Ellison MD [address] [place] [phone] ACUTE SINUSITIS NOS (Primary Dx) Social History Tobacco Use Types Packs/Day Years Used Date Smoking Tobacco: Never Assessed Comments Unknown Sex and Gender Information Value Date Recorded Sex Assigned at Not on file Legal Sex Female 4:23 AM BUGGY OPERATOR Gender Identity Not on file Sexual Orientation Not on file documented as of this encounter Plan of Treatment Not on file documented as of this encounter Visit Diagnoses Diagnosis Acute sinusitis, unspecified- Primary documented in this encounter
--- OUTSIDE RECORDS SUMMARY | 2024-09-26 05:39 | XMS_ITS | Encounter Summary ---
Author Organization [employer] [facility] Address [address] [place] [address] Care Team Providers Care Instruction Assistant Principal Name Role Phone Unavailable Primary Care Provider Unavailabl e Encounter Details Date Type Department Care Team (Latest Contact Info) Description 09/18/2001 Outpatient Historical [facility] Pepe Ellison MD [address] [place] [phone] CHRONIC AIRWAY OBSTRUCTION NEC (CMS/HCC) (Primary Dx); MENOPAUSAL DISORDER NEC; SACROILIITIS NEC; DEPRESSIVE DISORDER NEC Social History Tobacco Use Types Packs/Day Years Used Date Smoking Tobacco: Never Assessed Comments Unknown Sex and Gender Information Value Date Recorded Sex Assigned at Not on file Legal Sex Female 4:23 AM SHEET CUTTER Gender Identity Not on file Sexual Orientation Not on file documented as of this encounter Plan of Treatment Not on file documented as of this encounter Visit Diagnoses Diagnosis Chronic airway obstruction, not elsewhere classified (CMS/HCC)- Primary Chronic airway obstruction, not elsewhere classified Other specified menopausal and postmenopausal disorder Sacroiliitis, not elsewhere classified Depressive disorder, not elsewhere classified documented in this encounter
--- OUTSIDE RECORDS SUMMARY | 2024-09-26 05:39 | XMS_ITS | Encounter Summary ---
Author Organization [employer] [facility] Address [address] [place] [address] Care Team Providers Care Gusset Folder Name Role Phone Unavailable Primary Care Provider Unavailabl e Encounter Details Date Type Department Care Team (Latest Contact Info) Description 04/20/2002 Outpatient Historical [facility] Pepe Ellison MD [address] [place] [phone] LUMBAGO (Primary Dx); STOMACH FUNCTION DIS NEC; SACROILIITIS NEC Social History Tobacco Use Types Packs/Day Years Used Date Smoking Tobacco: Never Assessed Comments Unknown Sex and Gender Information Value Date Recorded Sex Assigned at Not on file Legal Sex Female 4:23 AM WINDOW SYSTEMS ADMINISTRATOR Gender Identity Not on file Sexual Orientation Not on file documented as of this encounter Plan of Treatment Not on file documented as of this encounter Visit Diagnoses Diagnosis Lumbago- Primary Dyspepsia and other specified disorders of function of stomach Sacroiliitis, not elsewhere classified documented in this encounter
--- OUTSIDE RECORDS SUMMARY | 2024-09-26 05:39 | XMS_ITS | Encounter Summary ---
Author Organization [employer] [facility] Address [address] [place] [address] Care Team Providers Care Medical Auditor Name Role Phone Unavailable Primary Care Provider Unavailabl e Encounter Details Date Type Department Care Team (Latest Contact Info) Description 07/14/2001 Outpatient Historical HIS [facility] Pepe Ellison MD [address] [place] [phone] ACUTE SINUSITIS NOS (Primary Dx); BRONCHITIS NOS Social History Tobacco Use Types Packs/Day Years Used Date Smoking Tobacco: Never Assessed Comments Unknown Sex and Gender Information Value Date Recorded Sex Assigned at Not on file Legal Sex Female 4:23 AM PIPING DESIGN SPECIALIST Gender Identity Not on file Sexual Orientation Not on file documented as of this encounter Plan of Treatment Not on file documented as of this encounter Visit Diagnoses Diagnosis Acute sinusitis, unspecified- Primary Bronchitis, not specified as acute or chronic documented in this encounter
--- OUTSIDE RECORDS SUMMARY | 2024-09-26 05:39 | XMS_ITS | Encounter Summary ---
Author Organization [employer] [facility] Address [address] [place] [address] Care Team Providers Care Physician Coder Name Role Phone Unavailable Primary Care Provider Unavailabl e Encounter Details Date Type Department Care Team (Latest Contact Info) Description 01/04/2002 Outpatient Historical HIS [facility] Pepe Ellison MD [address] [place] [phone] URIN TRACT INFECTION NOS (Primary Dx); TOBACCO USE DISORDER Social History Tobacco Use Types Packs/Day Years Used Date Smoking Tobacco: Never Assessed Comments Unknown Sex and Gender Information Value Date Recorded Sex Assigned at Not on file Legal Sex Female 4:23 AM STEEL WELDER Gender Identity Not on file Sexual Orientation Not on file documented as of this encounter Plan of Treatment Not on file documented as of this encounter Visit Diagnoses Diagnosis Urinary tract infection, site not specified- Primary Tobacco use disorder documented in this encounter
--- OUTSIDE RECORDS SUMMARY | 2024-09-26 05:39 | XMS_ITS | Encounter Summary ---
Author Organization [facility] Address [address] [place] [address] Care Team Providers Care Fire Marshal Refinery Name Role Phone Unavailable Primary Care Provider Unavailabl e Encounter Details Date Type Department Care Team (Latest Contact Info) Description 08/25/2005 Outpatient Historical [facility] Rheumatology- [facility] [place] [address] [place] [address] Milton Albright MD NO ADDRESS ON FILE RHEUMATISM NOS (Primary Dx) Social History Tobacco Use Types Packs/Day Years Used Date Smoking Tobacco: Never Assessed Comments Unknown Sex and Gender Information Value Date Recorded Sex Assigned at Not on file Legal Sex Female 4:23 AM PERSONAL FITNESS TRAINER Gender Identity Not on file Sexual Orientation Not on file documented as of this encounter Plan of Treatment Not on file documented as of this encounter Visit Diagnoses Diagnosis Rheumatism, unspecified and fibrositis- Primary documented in this encounter
[2024-09-26 06:06] LABS: Hematocrit 42.4 % (36-47); Mean Corpuscular HGB Conc 32.1 g/dL (30-55); Mean Corpuscular Hemoglobin 34.8 pg (27-33); Mean Corpuscular Volume 108.4 fl (85-98); Mean Platelet Volume 9.2 fL (7.4-10.4); Platelet Count 360 10^3/cmm (157-399); Red Blood Count 3.91 10^6/uL (3.85-5.65); Red Cell Distribution Width 13.8 % (12.1-15.1); White Blood Count 10.46 10^3/uL (3.29-11.43)
--- OUTSIDE RECORDS SUMMARY | 2024-09-26 06:20 | XMS_ITS | Encounter Summary ---
Author Organization [facility] Address [address] [place] [address] Care Team Providers Care Velvet Weaver Name Role Phone Unavailable Primary Care Provider Unavailabl e Encounter Details Date Type Department Care Team (Late st Contact Info) Description 10/01/2003 Outpatient Historical [facility] Family Medicine [address] [place] [phone] Cyndee Wang MD NO ADDRESS ON FILE MYALGIA AND MYOSITIS NOS (Primary Dx); URIN TRACT INFECTION NOS Social History Tobacco Use Types Packs/Day Years Used Date Smoking Tobacco: Never Assessed Comments Unknown Sex and Gender Information Value Date Recorded Sex Assigned at Not on file Legal Sex Female 4:23 AM TELEVISION ENGINEER Gender Identity Not on file Sexual Orientation Not on file documented as of this encounter Plan of Treatment Not on file documented as of this encounter Visit Diagnoses Diagnosis Myalgia and myositis, unspecified- Primary Mylagia and myositis, unspecified Urinary tract infection, site not specified documented in this encounter
--- OUTSIDE RECORDS SUMMARY | 2024-09-26 06:20 | XMS_ITS | Encounter Summary ---
Author Organization [employer] [facility] Address [address] [place] [address] Care Team Providers Care Staff Nuclear Medicine Technologist Name Role Phone Unavailable Primary Care Provider Unavailabl e Encounter Details Date Type Department Care Team (Latest Contact Info) Description 01/04/2002 Outpatient Historical HIS [facility] Pepe Ellison MD [address] [place] [phone] URIN TRACT INFECTION NOS (Primary Dx); TOBACCO USE DISORDER Social History Tobacco Use Types Packs/Day Years Used Date Smoking Tobacco: Never Assessed Comments Unknown Sex and Gender Information Value Date Recorded Sex Assigned at Not on file Legal Sex Female 4:23 AM INVENTORY CONTROL COORDINATOR Gender Identity Not on file Sexual Orientation Not on file documented as of this encounter Plan of Treatment Not on file documented as of this encounter Visit Diagnoses Diagnosis Urinary tract infection, site not specified- Primary Tobacco use disorder documented in this encounter
--- OUTSIDE RECORDS SUMMARY | 2024-09-26 06:20 | XMS_ITS | Encounter Summary ---
Author Organization [facility] Address [address] [place] [address] Care Team Providers Care Medical File Clerk Name Role Phone Unavailable Primary Care Provider Unavailabl e Encounter Details Date Type Department Care Team (Latest Contact Info) Description 07/28/2004 Outpatient Historical [facility] Rhe[facility]ology- [facility] [place] [address] [place] [address] Milton Albright MD NO ADDRESS ON FILE RHEUMATISM NOS (Primary Dx) Social History Tobacco Use Types Packs/Day Years Used Date Smoking Tobacco: Never Assessed Comments Unknown Sex and Gender Information Value Date Recorded Sex Assigned at Not on file Legal Sex Female 4:23 AM SYSTEMS TESTING LABORATORY TECHNICIAN Gender Identity Not on file Sexual Orientation Not on file documented as of this encounter Plan of Treatment Not on file documented as of this encounter Visit Diagnoses Diagnosis Rheumatism, unspecified and fibrositis- Primary documented in this encounter
--- OUTSIDE RECORDS SUMMARY | 2024-09-26 06:20 | XMS_ITS | Encounter Summary ---
Author Organization [employer] [facility] Address [address] [place] [address] Care Team Providers Care Residential Subcontractor Name Role Phone Unavailable Primary Care Provider Unavailabl e Encounter Details Date Type Department Care Team (Latest Contact Info) Description 06/06/2000 Outpatient Historical HIS [facility] Pepe Ellison MD [address] [place] [phone] Lumbago (Primary Dx) Social History Tobacco Use Types Packs/Day Years Used Date Smoking Tobacco: Never Assessed Comments Unknown Sex and Gender Information Value Date Recorded Sex Assigned at Not on file Legal Sex Female 4:23 AM HAND II CUTTER Gender Identity Not on file Sexual Orientation Not on file documented as of this encounter Plan of Treatment Not on file documented as of this encounter Visit Diagnoses Diagnosis Lumbago- Primary documented in this encounter
--- OUTSIDE RECORDS SUMMARY | 2024-09-26 06:20 | XMS_ITS | Encounter Summary ---
Author Organization [facility] Address [address] [place] [address] Care Team Providers Care Bean Weigher Name Role Phone Unavailable Primary Care Provider Unavailabl e Encounter Details Date Type Department Care Team (Late st Contact Info) Description 03/13/2001 Outpatient Historical HIS [facility] Social History Tobacco Use Types Packs/Day Years Used Date Smoking Tobacco: Never Assessed Comments Unknown Sex and Gender Information Value Date Recorded Sex Assigned at Not on file Legal Sex Female 4:23 AM FILM PROJECTOR OPERATOR Gender Identity Not on file Sexual Orientation Not on file documented as of this encounter Plan of Treatment Not on file documented as of this encounter Visit Diagnoses Not on filedocumented in this encounter
--- OUTSIDE RECORDS SUMMARY | 2024-09-26 06:20 | XMS_ITS | Encounter Summary ---
Author Organization [facility] Address [address] [place] [address] Care Team Providers Care Sisal Picker Name Role Phone Unavailable Primary Care Provider Unavailabl e Encounter Details Date Type Department Care Team (Latest Contact Info) Description 05/04/2002 Outpatient Historical [facility] Gen Spec [facility] [place] [address] [place] [phone] Justin Valenzuela MD NO ADDRESS ON FILE CHOLELITHIASIS NOS (Primary Dx) Social History Tobacco Use Types Packs/Day Years Used Date Smoking Tobacco: Never Assessed Comments Unknown Sex and Gender Information Value Date Recorded Sex Assigned at Not on file Legal Sex Female 4:23 AM SURVEYOR HYDROGRAPHIC Gender Identity Not on file Sexual Orientation Not on file documented as of this encounter Plan of Treatment Not on file documented as of this encounter Visit Diagnoses Diagnosis Calculus of gallbladder without mention of cholecystitis or obstruction- Primary documented in this encounter
--- OUTSIDE RECORDS SUMMARY | 2024-09-26 06:20 | XMS_ITS | Encounter Summary ---
Author Organization [facility] Address [address] [place] [address] Care Team Providers Care Fruit Harvester Name Role Phone Unavailable Primary Care Provider Unavailabl e Encounter Details Date Type Department Care Team (Latest Contact Info) Description 03/31/2004 Outpatient Historical [facility] Rheumatology- [facility] [place] [address] [place] [address] Milton Albright MD NO ADDRESS ON FILE RHEUMATISM NOS (Primary Dx) Social History Tobacco Use Types Packs/Day Years Used Date Smoking Tobacco: Never Assessed Comments Unknown Sex and Gender Information Value Date Recorded Sex Assigned at Not on file Legal Sex Female 4:23 AM BLOW MOLD OPERATOR Gender Identity Not on file Sexual Orientation Not on file documented as of this encounter Plan of Treatment Not on file documented as of this encounter Visit Diagnoses Diagnosis Rheumatism, unspecified and fibrositis- Primary documented in this encounter
--- OUTSIDE RECORDS SUMMARY | 2024-09-26 06:20 | XMS_ITS | Encounter Summary ---
Author Organization [facility] Address [address] [place] [address] Care Team Providers Care Design Agent Name Role Phone Unavailable Primary Care Provider Unavailabl e Encounter Details Date Type Department Care Team (Late st Contact Info) Description 06/01/2002 Outpatient Historical [facility] Family Medicine [address] [place] [phone] Cyndee Wang MD NO ADDRESS ON FILE ABDOMINAL PAIN UNSPEC SITE (Primary Dx); TOBACCO USE DISORDER Social History Tobacco Use Types Packs/Day Years Used Date Smoking Tobacco: Never Assessed Comments Unknown Sex and Gender Information Value Date Recorded Sex Assigned at Not on file Legal Sex Female 4:23 AM AMMUNITION ASSEMBLY II LABORER Gender Identity Not on file Sexual Orientation Not on file documented as of this encounter Plan of Treatment Not on file documented as of this encounter Visit Diagnoses Diagnosis Abdominal pain, unspecified site- Primary Tobacco use disorder documented in this encounter
--- OUTSIDE RECORDS SUMMARY | 2024-09-26 06:20 | XMS_ITS | Encounter Summary ---
Author Organization [employer] [facility] Address [address] [place] [address] Care Team Providers Care Tax Assistant Name Role Phone Unavailable Primary Care Provider [...] on file Legal Sex Female 4:23 AM OPERATIONS STAFF SPECIALIST SECURITY Gender Identity Not on file Sexual Orientation Not on file documented as of this encounter Plan of Treatment Not on file documented as of this encounter Visit Diagnoses Diagnosis Other specified disorder of breast- Primary Mastodynia Scar condition and fibrosis of skin documented in this encounter
--- OUTSIDE RECORDS SUMMARY | 2024-09-26 06:20 | XMS_ITS | Encounter Summary ---
Author Organization [employer] [facility] Address [address] [place] [address] Care Team Providers Care Central Supply Technician Supervisor Name Role Phone Unavailable Primary Care Provider Unavailabl e Encounter Details Date Type Department Care Team (Latest Contact Info) Description 02/08/2000 Outpatient Historical HIS [facility] Pepe Ellison MD [address] [place] [phone] Observation for unspecified suspected condition (Primary Dx) Social History Tobacco Use Types Packs/Day Years Used Date Smoking Tobacco: Never Assessed Comments Unknown Sex and Gender Information Value Date Recorded Sex Assigned at Not on file Legal Sex Female 4:23 AM PLANT TAXONOMIST Gender Identity Not on file Sexual Orientation Not on file documented as of this encounter Plan of Treatment Not on file documented as of this encounter Visit Diagnoses Diagnosis Observation for unspecified suspected condition- Primary documented in this encounter
--- OUTSIDE RECORDS SUMMARY | 2024-09-26 06:20 | XMS_ITS | Encounter Summary ---
Author Organization [facility] Address [address] [place] [address] Care Team Providers Care Field Ironworker Name Role Phone Unavailable Primary Care Provider Unavailabl e Encounter Details Date Type Department Care Team (Latest Contact Info) Description 11/16/2004 Outpatient Historical [facility] Rheumatology- [facility] [address] [place] [address] Milton Albright MD NO ADDRESS ON FILE RHEUMATISM NOS (Primary Dx) Social History Tobacco Use Types Packs/Day Years Used Date Smoking Tobacco: Never Assessed Comments Unknown Sex and Gender Information Value Date Recorded Sex Assigned at Not on file Legal Sex Female 4:23 AM FERRY TERMINAL SUPERVISOR Gender Identity Not on file Sexual Orientation Not on file documented as of this encounter Plan of Treatment Not on file documented as of this encounter Visit Diagnoses Diagnosis Rheumatism, unspecified and fibrositis- Primary documented in this encounter
--- OUTSIDE RECORDS SUMMARY | 2024-09-26 06:20 | XMS_ITS | Encounter Summary ---
Author Organization [facility] Address [address] [place] [address] Care Team Providers Care Cook Apprentice Name Role Phone Unavailable Primary Care Provider Unavailabl e Encounter Details Date Type Department Care Team (Latest Contact Info) Description 10/01/2003 Outpatient Historical [facility] Rheumatology- [facility] [address] [place] [address] Milton Albright MD NO ADDRESS ON FILE RHEUMATISM NOS (Primary Dx) Social History Tobacco Use Types Packs/Day Years Used Date Smoking Tobacco: Never Assessed Comments Unknown Sex and Gender Information Value Date Recorded Sex Assigned at Not on file Legal Sex Female 4:23 AM LACQUER SIZER Gender Identity Not on file Sexual Orientation Not on file documented as of this encounter Plan of Treatment Not on file documented as of this encounter Visit Diagnoses Diagnosis Rheumatism, unspecified and fibrositis- Primary documented in this encounter
--- OUTSIDE RECORDS SUMMARY | 2024-09-26 06:20 | XMS_ITS | Encounter Summary ---
Author Organization [facility] Address [address] [place] [address] Care Team Providers Care Director Experimental Medicine Name Role Phone Unavailable Primary Care Provider Unavailabl e Encounter Details Date Type Department Care Team (Latest Contact Info) Description 08/01/2003 Outpatient Historical [facility] Rheumatology- [facility] [place] [address] [place] [address] Milton Albright MD NO ADDRESS ON FILE RHEUMATISM NOS (Primary Dx) Social History Tobacco Use Types Packs/Day Years Used Date Smoking Tobacco: Never Assessed Comments Unknown Sex and Gender Information Value Date Recorded Sex Assigned at Not on file Legal Sex Female 4:23 AM FAIRMONT GOLD ATTENDANT Gender Identity Not on file Sexual Orientation Not on file documented as of this encounter Plan of Treatment Not on file documented as of this encounter Visit Diagnoses Diagnosis Rheumatism, unspecified and fibrositis- Primary documented in this encounter
--- OUTSIDE RECORDS SUMMARY | 2024-09-26 06:20 | XMS_ITS | Encounter Summary ---
Author Organization [employer] [facility] Address [address] [place] [address] Care Team Providers Care Asic Design Engineer Name Role Phone Unavailable Primary Care Provider Unavailabl e Encounter Details Date Type Department Care Team (Late st Contact Info) Description 06/02/2006 Outpatient Historical [facility] Neurology [address], [address] [place] [address] Mando Vergara MD [address] [place] [phone] Unspecified Myalgia and Myositis (Primary Dx) Social History Tobacco Use Types Packs/Day Years Used Date Smoking Tobacco: Never Assessed Comments Unknown Sex and Gender Information Value Date Recorded Sex Assigned at Not on file Legal Sex Female 4:23 AM SUPERVISOR AUDIT CLERKS Gender Identity Not on file Sexual Orientation Not on file documented as of this encounter Plan of Treatment Not on file documented as of this encounter Visit Diagnoses Diagnosis Myalgia and myositis, unspecified- Primary Mylagia and myositis, unspecified documented in this encounter
--- OUTSIDE RECORDS SUMMARY | 2024-09-26 06:20 | XMS_ITS | Encounter Summary ---
Author Organization [facility] Address [address] [place] [address] Care Team Providers Care Money Market Dealer Name Role Phone Unavailable Primary Care Provider Unavailabl e Encounter Details Date Type Department Care Team (Latest Contact Info) Description 12/26/2003 Outpatient Historical [facility] Rheumatology- [facility] [place] [address] [place] [address] Milton Albright MD NO ADDRESS ON FILE RHEUMATISM NOS (Primary Dx) Social History Tobacco Use Types Packs/Day Years Used Date Smoking Tobacco: Never Assessed Comments Unknown Sex and Gender Information Value Date Recorded Sex Assigned at Not on file Legal Sex Female 4:23 AM ESTABLISHMENT GUIDE Gender Identity Not on file Sexual Orientation Not on file documented as of this encounter Plan of Treatment Not on file documented as of this encounter Visit Diagnoses Diagnosis Rheumatism, unspecified and fibrositis- Primary documented in this encounter
--- OUTSIDE RECORDS SUMMARY | 2024-09-26 06:20 | XMS_ITS | Encounter Summary ---
Author Organization [employer] [facility] Address [address] [place] [address] Care Team Providers Care Superintendent Commissary Name Role Phone Unavailable Primary Care Provider Unavailabl e Encounter Details Date Type Department Care Team (Latest Contact Info) Description 05/24/2000 Outpatient Historical HIS [facility] Pepe Ellison MD [address] [place] [phone] Sciatica (Primary Dx) Social History Tobacco Use Types Packs/Day Years Used Date Smoking Tobacco: Never Assessed Comments Unknown Sex and Gender Information Value Date Recorded Sex Assigned at Not on file Legal Sex Female 4:23 AM SILK SCREEN PRINTING RACKER Gender Identity Not on file Sexual Orientation Not on file documented as of this encounter Plan of Treatment Not on file documented as of this encounter Visit Diagnoses Diagnosis Sciatica- Primary documented in this encounter
--- OUTSIDE RECORDS SUMMARY | 2024-09-26 06:20 | XMS_ITS | Encounter Summary ---
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
--- OUTSIDE RECORDS SUMMARY | 2024-09-26 06:20 | XMS_ITS | Encounter Summary ---
Author Organization [facility] Address [address] [place]ao: [place] [address] Care Team Providers Care Grill Attendant Name Role Phone Unavailable Primary Care Provider [...] on file Legal Sex Female 4:23 AM BELLHOP Gender Identity Not on file Sexual Orientation Not on file documented as of this encounter Plan of Treatment Not on file documented as of this encounter Visit Diagnoses Not on filedocumented in this encounter
--- OUTSIDE RECORDS SUMMARY | 2024-09-26 06:20 | XMS_ITS | Encounter Summary ---
Author Organization [facility] Address [address] [place] [address] Care Team Providers Care Feather Separator Name Role Phone Unavailable Primary Care Provider Unavailabl e Encounter Details Date Type Department Care Team (Latest Contact Info) Description 05/23/[address] [facility] Gen Spec Surg [place] [address] [place] [phone] Justin Valenzuela MD NO ADDRESS ON FILE CHOLELITH W CHOLECYS NEC (Primary Dx); SURGERY FOLLOWUP, UNSPEC Social History Tobacco Use Types Packs/Day Years Used Date Smoking Tobacco: Never Assessed Comments Unknown Sex and Gender Information Value Date Recorded Sex Assigned at Not on file Legal Sex Female 4:23 AM SHEET METAL ERECTOR Gender Identity Not on file Sexual Orientation Not on file documented as of this encounter Plan of Treatment Not on file documented as of this encounter Visit Diagnoses Diagnosis Calculus of gallbladder with other cholecystitis, without mention of obstruction- Primary Follow-up examination, following unspecified surgery documented in this encounter
--- OUTSIDE RECORDS SUMMARY | 2024-09-26 06:20 | XMS_ITS | Clinical Summary ---
Author Organization [facility] Address [address] Gao: Epic Prelude ADT [place] [address] Care Team Providers Care Buttonhole Maker Name Role Phone Unavailable Primary Care Provider Unavailabl e Social History Tobacco Use Types Packs/Day Years Used Date Smoking Tobacco: Never Assessed Comments Unknown Sex and Gender Information Value Date Recorded Sex Assigned at Not on file Legal Sex Female 4:23 AM HOSPITAL CHIEF FINANCIAL OFFICER Gender Identity Not on file Sexual Orientation [...]
--- OUTSIDE RECORDS SUMMARY | 2024-09-26 06:20 | XMS_ITS | Encounter Summary ---
Author Organization [employer]pany [email or web address] [facility] Address [address] [place] [address] Care Team Providers Care Store Stocker Name Role Phone Unavailable Primary Care Provider Unavailabl e Encounter Details Date Type Department Care Team (Latest Contact Info) Description 02/23/2001 Outpatient Historical [facility] Pepe Ellison MD [address] [place] [address] Urinary tract infection, site not specified (Primary Dx); Unspecified urinary incontinence Social History Tobacco Use Types Packs/Day Years Used Date Smoking Tobacco: Never Assessed Comments Unknown Sex and Gender Information Value Date Recorded Sex Assigned at Not on file Legal Sex Female 4:23 AM DUCO POLISHER Gender Identity Not on file Sexual Orientation Not on file documented as of this encounter Plan of Treatment Not on file documented as of this encounter Visit Diagnoses Diagnosis Urinary tract infection, site not specified- Primary Unspecified urinary incontinence documented in this encounter
--- OUTSIDE RECORDS SUMMARY | 2024-09-26 06:20 | XMS_ITS | Encounter Summary ---
Author Organization Interview [employer] [facility] Address [address] [place] [address] Care Team Providers Care Cone Baker Machine Name Role Phone Unavailable Primary Care Provider Unavailabl e Encounter Details Date Type Department Care Team (Latest Contact Info) Description 07/14/2001 Outpatient Historical HIS [facility] Pepe Ellison MD [address] [place] [phone] ACUTE SINUSITIS NOS (Primary Dx); BRONCHITIS NOS Social History Tobacco Use Types Packs/Day Years Used Date Smoking Tobacco: Never Assessed Comments Unknown Sex and Gender Information Value Date Recorded Sex Assigned at Not on file Legal Sex Female 4:23 AM MEDICATION TECHNICIAN Gender Identity Not on file Sexual Orientation Not on file documented as of this encounter Plan of Treatment Not on file documented as of this encounter Visit Diagnoses Diagnosis Acute sinusitis, unspecified- Primary Bronchitis, not specified as acute or chronic documented in this encounter
--- OUTSIDE RECORDS SUMMARY | 2024-09-26 06:20 | XMS_ITS | Encounter Summary ---
Author Organization [facility] Address [address] [place] [address] Care Team Providers Care Pari Mutuel Ticket Cashier Name Role Phone Unavailable Primary Care Provider Unavailabl e Encounter Details Date Type Department Care Team (Latest Contact Info) Description 07/11/2003 Outpatient Historical [facility] Family Medicine [address] [place] [phone] Cyndee Wang MD NO ADDRESS ON FILE HYPERTENSION NOS (Primary Dx); HYPERLIPIDEMIA NEC/NOS; MYALGIA AND MYOSITIS NOS; DEPRESSIVE DISORDER NEC Social History Tobacco Use Types Packs/Day Years Used Date Smoking Tobacco: Never Assessed Comments Unknown Sex and Gender Information Value Date Recorded Sex Assigned at Not on file Legal Sex Female 4:23 AM ANIMAL LABORATORY HELPER Gender Identity Not on file Sexual Orientation Not on file documented as of this encounter Plan of Treatment Not on file documented as of this encounter Visit Diagnoses Diagnosis Unspecified essential hypertension- Primary Other and unspecified hyperlipidemia Myalgia and myositis, unspecified Mylagia and myositis, unspecified Depressive disorder, not elsewhere classified documented in this encounter
--- OUTSIDE RECORDS SUMMARY | 2024-09-26 06:20 | XMS_ITS | Encounter Summary ---
Author Organization [employer] [facility] Address [address] [place] [address] Care Team Providers Care Radio Division Captain Name Role Phone Unavailable Primary Care Provider Unavailabl e Encounter Details Date Type Department Care Team (Latest Contact Info) Description 03/17/2000 Outpatient Historical HIS [facility] Pepe Ellison MD [address] [place] [phone] Nonallopathic lesion of cervical region, not elsewhere classified (Primary Dx); Nonallopathic lesion of thoracic region, not elsewhere classified; Sprain of unspecified site of back; Depressive disorder, not elsewhere classified Social History Tobacco Use Types Packs/Day Years Used Date Smoking Tobacco: Never Assessed Comments Unknown Sex and Gender Information Value Date Recorded Sex Assigned at Not on file Legal Sex Female 4:23 AM MC KAY STITCHER Gender Identity Not on file Sexual Orientation [...]
--- OUTSIDE RECORDS SUMMARY | 2024-09-26 06:20 | XMS_ITS | Encounter Summary ---
Author Organization [employer] [facility] Address [address] [place] [address] Care Team Providers Care Hood Maker Name Role Phone Unavailable Primary Care Provider Unavailabl e Encounter Details Date Type Department Care Team (Latest Contact Info) Description 09/18/2001 Outpatient Historical HIS [facility] Pepe Ellison MD [address] [place] [phone] CHRONIC AIRWAY OBSTRUCTION NEC (CMS/HCC) (Primary Dx); MENOPAUSAL DISORDER NEC; SACROILIITIS NEC; DEPRESSIVE DISORDER NEC Social History Tobacco Use Types Packs/Day Years Used Date Smoking Tobacco: Never Assessed Comments Unknown Sex and Gender Information Value Date Recorded Sex Assigned at Not on file Legal Sex Female 4:23 AM SAW MAN Gender Identity Not on file Sexual Orientation [...]
--- OUTSIDE RECORDS SUMMARY | 2024-09-26 06:20 | XMS_ITS | Encounter Summary ---
Author Organization [employer] [facility] Address [address] [place] [address] Care Team Providers Care Office Clinician Name Role Phone Unavailable Primary Care Provider Unavailabl e Encounter Details Date Type Department Care Team (Latest Contact Info) Description 04/26/2000 Outpatient Historical HIS [facility] Pepe Ellison MD [address] [place] [phone] Acute sinusitis, unspecified (Primary Dx) Social History Tobacco Use Types Packs/Day Years Used Date Smoking Tobacco: Never Assessed Comments Unknown Sex and Gender Information Value Date Recorded Sex Assigned at Not on file Legal Sex Female 4:23 AM PIANO MECHANIC APPRENTICE Gender Identity Not on file Sexual Orientation Not on file documented as of this encounter Plan of Treatment Not on file documented as of this encounter Visit Diagnoses Diagnosis Acute sinusitis, unspecified- Primary documented in this encounter
--- OUTSIDE RECORDS SUMMARY | 2024-09-26 06:20 | XMS_ITS | Encounter Summary ---
Author Organization [facility] [facility] Address [address] Gao: [place] [address] Care Team Providers Care Therapeutic Recreation Leader Name Role Phone Unavailable Primary Care Provider [...] on file Legal Sex Female 4:23 AM BUTTON BUTTONHOLE MARKER Gender Identity Not on file Sexual Orientation Not on file documented as of this encounter Plan of Treatment Not on file documented as of this encounter Visit Diagnoses Not on filedocumented in this encounter
--- OUTSIDE RECORDS SUMMARY | 2024-09-26 06:20 | XMS_ITS | Encounter Summary ---
Author Organization [employer] [facility] Address [address] [place] [address] Care Team Providers Care Hide Handler Name Role Phone Unavailable Primary Care Provider Unavailabl e Encounter Details Date Type Department Care Team (Latest Contact Info) Description 04/20/2002 Outpatient Historical HIS [facility] Pepe Ellison MD [address] [place] [phone] LUMBAGO (Primary Dx); STOMACH FUNCTION DIS NEC; SACROILIITIS NEC Social History Tobacco Use Types Packs/Day Years Used Date Smoking Tobacco: Never Assessed Comments Unknown Sex and Gender Information Value Date Recorded Sex Assigned at Not on file Legal Sex Female 4:23 AM DIRECTOR AUTO Gender Identity Not on file Sexual Orientation Not on file documented as of this encounter Plan of Treatment Not on file documented as of this encounter Visit Diagnoses Diagnosis Lumbago- Primary Dyspepsia and other specified disorders of function of stomach Sacroiliitis, not elsewhere classified documented in this encounter
--- OUTSIDE RECORDS SUMMARY | 2024-09-26 06:20 | XMS_ITS | Encounter Summary ---
Author Organization [facility] Address [address] [place] [address] Care Team Providers Care Manager Social Work Name Role Phone Unavailable Primary Care Provider Unavailabl e Encounter Details Date Type Department Care Team (Late st Contact Info) Description 04/30/2003 Outpatient Historical [facility] Family Medicine [address] 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
--- OUTSIDE RECORDS SUMMARY | 2024-09-26 06:20 | XMS_ITS | Encounter Summary ---
Author Organization [facility] Address [address] [place] [address] Care Team Providers Care Disease Intervention Specialist Name Role Phone Unavailable Primary Care Provider Unavailabl e Encounter Details Date Type Department Care Team (Latest Contact Info) Description 10/29/2003 Outpatient Historical [facility] Rheumatology- [facility] [address] [address] [place] [address] Milton Albright MD NO ADDRESS ON FILE RHEUMATISM NOS (Primary Dx); DEPRESSIVE DISORDER NEC Social History Tobacco Use Types Packs/Day Years Used Date Smoking Tobacco: Never Assessed Comments Unknown Sex and Gender Information Value Date Recorded Sex Assigned at Not on file Legal Sex Female 4:23 AM UTILITY PIPE LAYER Gender Identity Not on file Sexual Orientation Not on file documented as of this encounter Plan of Treatment Not on file documented as of this encounter Visit Diagnoses Diagnosis Rheumatism, unspecified and fibrositis- Primary Depressive disorder, not elsewhere classified documented in this encounter
--- OUTSIDE RECORDS SUMMARY | 2024-09-26 06:20 | XMS_ITS | Encounter Summary ---
Author Organization [employer] [facility] Address [address] [place] [address] Care Team Providers Care Operator And Truck Driver Name Role Phone Unavailable Primary Care Provider Unavailabl e Encounter Details Date Type Department Care Team (Latest Contact Info) Description 12/06/2000 Outpatient Historical HIS [facility] Pepe Ellison MD [address] [place] [phone] Acute upper respiratory infections of unspecified site (Primary Dx); Acute gastritis Social History Tobacco Use Types Packs/Day Years Used Date Smoking Tobacco: Never Assessed Comments Unknown Sex and Gender Information Value Date Recorded Sex Assigned at Not on file Legal Sex Female 4:23 AM HAND TOOL LAPPER Gender Identity Not on file Sexual Orientation Not on file documented as of this encounter Plan of Treatment Not on file documented as of this encounter Visit Diagnoses Diagnosis Acute upper respiratory infections of unspecified site- Primary Acute gastritis Acute gastritis without mention of hemorrhage documented in this encounter
--- OUTSIDE RECORDS SUMMARY | 2024-09-26 06:20 | XMS_ITS | Encounter Summary ---
Author Organization [email or web address] [facility] Address [address] [place] [address] Care Team Providers Care Master Glazier Name Role Phone Unavailable Primary Care Provider Unavailabl e Encounter Details Date Type Department Care Team (Latest Contact Info) Description 10/10/2000 Outpatient Historical HIS [facility] Pepe Ellison MD [address] [place] [phone] Insomnia, unspecified (Primary Dx); Depressive disorder, not elsewhere classified Social History Tobacco Use Types Packs/Day Years Used Date Smoking Tobacco: Never Assessed Comments Unknown Sex and Gender Information Value Date Recorded Sex Assigned at Not on file Legal Sex Female 4:23 AM OUTREACH AND EDUCATION SOCIAL WORKER Gender Identity Not on file Sexual Orientation Not on file documented as of this encounter Plan of Treatment Not on file documented as of this encounter Visit Diagnoses Diagnosis Insomnia, unspecified- Primary Depressive disorder, not elsewhere classified documented in this encounter
--- OUTSIDE RECORDS SUMMARY | 2024-09-26 06:20 | XMS_ITS | Encounter Summary ---
Author Organization [facility] Address [address] [place] [address] Care Team Providers Care Upsetting Machine Operator Name Role Phone Unavailable Primary Care Provider Unavailabl e Encounter Details Date Type Department Care Team (Late st Contact Info) Description 03/02/2004 Outpatient Historical [facility] Family [facility] [address] 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
--- OUTSIDE RECORDS SUMMARY | 2024-09-26 06:20 | XMS_ITS | Encounter Summary ---
Author Organization [facility] Address [address] [place] [address] Care Team Providers Care Laster Hand Name Role Phone Unavailable Primary Care Provider Unavailabl e Encounter Details Date Type Department Care Team (Latest Contact Info) Description 03/18/1998 Outpatient Historical [facility] Dermatology- [address] [place] [phone] Nathan Dye MD [address] [facility] [address] [place], [place] [phone] Lichenification (Primary Dx) Social History Tobacco Use Types Packs/Day Years Used Date Smoking Tobacco: Never Assessed Comments Unknown Sex and Gender Information Value Date Recorded Sex Assigned at Not on file Legal Sex Female 4:23 AM RAILCAR CARPENTER Gender Identity Not on file Sexual Orientation Not on file documented as of this encounter Plan of Treatment Not on file documented as of this encounter Visit Diagnoses Diagnosis Lichenification- Primary Lichenification and lichen simplex chronicus documented in this encounter
--- OUTSIDE RECORDS SUMMARY | 2024-09-26 06:20 | XMS_ITS | Encounter Summary ---
Author Organization [facility] Address [address] [place] [address] Care Team Providers Care Piano Stringer Name Role Phone Unavailable Primary Care Provider Unavailabl e Encounter Details Date Type Department Care Team (Latest Contact Info) Description 08/25/2005 Outpatient Historical [facility] Rheumatology- [facility] [place] [address] [place] [address] Milton Albright MD NO ADDRESS ON FILE RHEUMATISM NOS (Primary Dx) Social History Tobacco Use Types Packs/Day Years Used Date Smoking Tobacco: Never Assessed Comments Unknown Sex and Gender Information Value Date Recorded Sex Assigned at Not on file Legal Sex Female 4:23 AM PROJECT MANAGEMENT ADVISOR Gender Identity Not on file Sexual Orientation Not on file documented as of this encounter Plan of Treatment Not on file documented as of this encounter Visit Diagnoses Diagnosis Rheumatism, unspecified and fibrositis- Primary documented in this encounter
--- OUTSIDE RECORDS SUMMARY | 2024-09-26 06:20 | XMS_ITS | Encounter Summary ---
Author Organization [facility] Address [address] [place] [address] Care Team Providers Care Customs Guard Name Role Phone Unavailable Primary Care Provider Unavailabl e Encounter Details Date Type Department Care Team (Late st Contact Info) Description 06/02/2006 Outpatient Historical [facility] [address] [place] [phone] Social History Tobacco Use Types Packs/Day Years Used Date Smoking Tobacco: Never Assessed Comments Unknown Sex and Gender Information Value Date Recorded Sex Assigned at Not on file Legal Sex Female 4:23 AM TEXTILE SCRAP SALVAGER Gender Identity Not on file Sexual Orientation Not on file documented as of this encounter Plan of Treatment Not on file documented as of this encounter Visit Diagnoses Not on filedocumented in this encounter
--- OUTSIDE RECORDS SUMMARY | 2024-09-26 06:20 | XMS_ITS | Encounter Summary ---
Author Organization [employer] [facility] Address [address] [place] [address] Care Team Providers Care Atmospheric Chemist Name Role Phone Unavailable Primary Care Provider Unavailabl e Encounter Details Date Type Department Care Team (Latest Contact Info) Description 02/01/2000 Outpatient Historical HIS [facility] Pepe Ellison MD [address] [place] [phone] Depressive disorder, not elsewhere classified (Primary Dx); Insomnia, unspecified; General symptoms NEC Social History Tobacco Use Types Packs/Day Years Used Date Smoking Tobacco: Never Assessed Comments Unknown Sex and Gender Information Value Date Recorded Sex Assigned at Not on file Legal Sex Female 4:23 AM GAS MAKER Gender Identity Not on file Sexual Orientation Not on file documented as of this encounter Plan of Treatment Not on file documented as of this encounter Visit Diagnoses Diagnosis Depressive disorder, not elsewhere classified- Primary Insomnia, unspecified General symptoms NEC Other general symptoms documented in this encounter
--- OUTSIDE RECORDS SUMMARY | 2024-09-26 06:20 | XMS_ITS | Encounter Summary ---
Author Organization [employer] [facility] Address [address] [place] [address] Care Team Providers Care Airplane Tube Builder Name Role Phone Unavailable Primary Care Provider Unavailabl e Encounter Details Date Type Department Care Team (Latest Contact Info) Description 06/21/2001 Outpatient Historical HIS [facility] Pepe Ellison MD [address] [place] [phone] ACUTE SINUSITIS NOS (Primary Dx) Social History Tobacco Use Types Packs/Day Years Used Date Smoking Tobacco: Never Assessed Comments Unknown Sex and Gender Information Value Date Recorded Sex Assigned at Not on file Legal Sex Female 4:23 AM PEDIGREE RESEARCHER Gender Identity Not on file Sexual Orientation Not on file documented as of this encounter Plan of Treatment Not on file documented as of this encounter Visit Diagnoses Diagnosis Acute sinusitis, unspecified- Primary documented in this encounter
--- OUTSIDE RECORDS SUMMARY | 2024-09-26 06:20 | XMS_ITS | Encounter Summary ---
Author Organization [facility] Address [address] [place] [address] Care Team Providers Care Sheep Or Calf Grader Name Role Phone Unavailable Primary Care Provider Unavailabl e Encounter Details Date Type Department Care Team (Late st Contact Info) Description 05/01/2002 Outpatient Historical [facility] Family Medicine [address] [place] [address] Cyndee Wang MD NO ADDRESS ON FILE REFLUX ESOPHAGITIS (Primary Dx); Cholecystitis uns Social History Tobacco Use Types Packs/Day Years Used Date Smoking Tobacco: Never Assessed Comments Unknown Sex and Gender Information Value Date Recorded Sex Assigned at Not on file Legal Sex Female 4:23 AM ANIMAL DAYCARE PROVIDER Gender Identity Not on file Sexual Orientation Not on file documented as of this encounter Plan of Treatment Not on file documented as of this encounter Visit Diagnoses Diagnosis Reflux esophagitis- Primary Cholecystitis uns Cholecystitis, unspecified documented in this encounter
[2024-09-26 06:31] LABS: Alanine Aminotransferase 150 U/L (0-33); Albumin Level 3.3 g/dL (3.5-5.2); Alkaline Phosphatase 266 U/L (35-105); Anion Gap 19.5 (5-19); Aspartate Amino Transferase 129 U/L (0-32); Blood Urea Nitrogen 16 mg/dL (8-23); Calcium 9.2 mg/dL (8.5-10.5); Carbon Dioxide 32 mmol/L (22-29); Chloride 95 mmol/L (98-107); Creatinine Clr Calc Pharmacy 65.8087; Globulin 2.9 g/dL (1.3-4.6); Glucose 199 mg/dL (65-115); Magnesium 2.1 mg/dL (1.7-2.3); Osmolality Calculated 303 mOsm/kg (285-295); Phosphorus 4.5 mg/dL (2.5-4.5); Potassium 3.5 mmol/L (3.5-5.1); Sodium 143 mmol/L (136-145); Total Bilirubin 0.6 mg/dL (0.15-1.2); Total Protein 6.2 g/dL (6.6-8.7)
[2024-09-26 07:42] LABS: Slide Review Slide Review Perform
[2024-09-26 07:43] LABS: Absolute Neutrophil 7.4 10^3/cmm (1.4-6.5); Absolute Segmented Neutrophil 7.1 10/cmm (1.6-7.1); Band Neutrophils Absolute 0.3 10^3/cmm (0.0-1.2); Eosinophils 0 %; Lymphocytes 16 %; Lymphocytes Absolute 1.7 10^3/cmm (1.2-3.4); Monocytes Absolute 0.5 10^3/cmm (0.1-0.6); Platelet Estimate Normal (Normal); Segmented Neutrophils 68 %; Total Cells Counted 100 (0-100)
[2024-09-26 07:44] LABS: Anisocytosis Trace; Macrocytosis 1+
[2024-09-26] MEDS: budesonide 0.5 mg/2 mL Neb INHALATION ×2 (07:53→21:14)
[2024-09-26] MEDS: ipratropium-albuterol 3 mL Neb INHALATION ×4 (07:53→21:14)
[2024-09-26] MEDS: fenofibrate 145 mg Tablet PO (08:59)
[2024-09-26] MEDS: insulin lispro 100 unit/1 mL SUBCUT ×3 (08:59→18:19)
[2024-09-26] MEDS: citalopram 20 mg Tablet PO (08:59)
[2024-09-26] MEDS: FUROsemide 10 mg/mL SDV 4mL 40 MG IVP ×2 (08:59→16:24)
[2024-09-26] MEDS: metoprolol tartrate 25 mg Tablet PO ×2 (08:59→18:20)
[2024-09-26] MEDS: apixaban 5 mg Tablet PO ×2 (08:59→18:20)
[2024-09-26] MEDS: potassium chloride ER 20 mEq Tablet PO (08:59)
[2024-09-26 09:11] LABS: Glucose Point of Care 192 mg/dL (70-110)
--- NOTE | 2024-09-26 09:16 | PC.NURSE ---
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 She states she can't live like this. If it were up to here she would start morphine now, but her children would not let her give up. Will monitor closely for any changes respiratory and notify physician of statements.
[2024-09-26 09:29] LABS: Gamma Glutamyl Transferase 2581 U/L (5-36)
--- NOTE | 2024-09-26 09:54 | XR_ITS ---
WS: [id number] XR chest 1V portable [id number] REASON FOR EXAM: sob FINDINGS: Compared to the examination of 09/24/2024, reticular interstitial and groundglass opacities have developed in the right lower lung field. There may be similar but more subtle change in the left lower lung. The minor fissure is accentuated which may indicate a small amount of fluid. There is parabronchial cuffing. Chest is otherwise unchanged. The heart is at the upper limits of normal in size. XR/XR chest 1V portable [id number] IMPRESSION: Interval development of right lower lung abnormality as above. Early CHF versus a pneumonitis.
--- NOTE | 2024-09-26 10:06 | PC.SOCIAL ---
IMM Updated Updated pt on IMM. No questions voiced. Provided pt a copy. Initialed, dated, & timed a copy & placed in chart.
[2024-09-26] MEDS: metOLazone 5 MG Tablet PO (10:08)
[2024-09-26 10:09] LABS: ABG PH Result 7.45 (7.35-7.45); Arterial Blood Gas Hematocrit 45.7 % (37-47); Base Excess ABG 9.1 mmol/L (-2.0-2.0); Blood Gas Allen Test Pos; Blood Gas Operator Identificat WALCI; Blood Gas Sample Site Radial, right; Blood Gas Sample Type Arterial; Oxygen Device OXY MASK; PO2 ABG 70.1 mmHg (80.0-100.0)
[2024-09-26] MEDS: ALPRAZolam 0.5 mg Tablet PO (10:09)
[2024-09-26] MEDS: morphine 4 mg/mL SDV 1 mL 2 MG IVP ×2 (10:09→23:41)
[2024-09-26 11:16] LABS: Ferritin 1199 ng/mL (15-150)
[2024-09-26 11:24] LABS: Glucose Point of Care 234 mg/dL (70-110)
--- NOTE | 2024-09-26 13:51 | P.PN_ITS ---
Subjective 2 Subjective: Patient was seen this morning, she complains of shortness of breath, is requiring up to 7 L, respiratory rate 20, wheezing in all lung loya, she tells me that she also has lower extreme edema abdominal tightness, no chest pain, palpitations no cough, she tells me that she is tired of living like this, she denies any suicidal ideation, no homicidal nation but she tells me that she is tired of feeling this short of breath, discussed ordering ABG, chest x-ray giving her dose of Lasix and metolazone will give her Xanax as needed for anxiety and continue to monitor her, after that she is more in agreement, and I think that her increased lower abdominal tightness is from fluid in her bladder will place in a Griffiths catheter -Patient was reexamined daughters at bed side, she is resting comfortably on 7 L, 2+ pitting edema, crackles in all lung loya no evidence of respiratory distress -Discussed with the daughter ABG finding s, with evidence of acute respiratory failure, pCO2 is elevated at 51 but not significant enough to cause metabolic acidosis will monitor closely she might need BiPAP, she put on a liter since Lasix was given, she is on IV antibiotics holding off on steroid due to hyperglycemia discussed with daughter patient's hospitalizations for acute respiratory failure likely secondary to fluid overload, we will watch her kidney function closely continue to diurese, continue IV antibiotics as she does have consolidation right lower lobe, discussed her underlying emphysema, recent history of COVID-19, discussed her underlying lung disease, CT scan findings, she voiced understanding all questions answered Vitals/I&O/Wt Last Vital Signs Temp 97.0 F L 09/26/24 12:00 Pulse 100 09/26/24 12:00 Resp 16 09/26/24 12:00 BP 146/95 09/26/24 12:00 Pulse Ox 92 09/26/24 12:00 O2 Del Method Oxymask 09/26/24 12:00 O2 Flow Rate 7 09/26/24 11:22 09/25/24 09/26/24 09/26/24 22:59 06:59 14:59 Intake Total 1230.000 / 1350.000 800 / 2150.000 600 / 600 Balance 1230.000 / 1150.000 800 / 1950.000 600 / 600 Weight last 48 hrs Weight 106.685 kg Weight 105.687 kg Physical Exam 2 Const: COMMON NORMALS: no acute distress and patient oriented x3 Resp: COMMON NORMALS: normal respiratory effort, No retractions and No use of accessory muscles AUSCULTATION: crackles and wheezes Cardio: COMMON NORMALS: regular rate, regular rhythm, S1 normal heart sound present and S2 normal heart sound present RATE: regular rate RHYTHM: r egular rhythm HEART SOUNDS: S1 normal heart sound present and S2 normal heart sound present GI: COMMON NORMALS: Normal to inspection, nondistended, normoactive bowel sounds present and non-tender Extremity: NARRATIVE EXTREMITY EXAM: 2+ edema Neuro: COMMON NORMALS: patient oriented x3 Urinary Catheter Management: Griffiths: Cath Placed During This Visit: yes Urinary Catheter Date of Insertion: 09/26/24 Urinary Catheter Time of Insertion: 11:15 Data 09/26/24 05:36 09/26/24 05:36 Micro: Microbiology 09/24/24 18:14 Blood Culture - Preliminary Blood NEGATIVE TO DATE 09/24/24 18:10 Blood Culture - Preliminary Blood NEGATIVE TO DATE A&P Assessment and plan (1) Fall: (2) Shortness of breath: (3) COPD (chronic obstructive pulmonary disease): (4) CHF (congestive heart failure): (5) Dizziness: (6) Hyperglycemia: (7) Hypertensive urgency: (8) Sinus tachycardia: (9) Transaminitis: Plan Hyperglycemia, type 2 diabetes -Potentially effective steroid -Check A1c 7.7 -Low-dose sliding scale Transaminitis -Right upper quadrant ultrasound no acute findings -GGT is over 2000, ferritin 1119 -Acute hep panel within normal limits Fall -CT head no acute findings -CT neck no acute findings -PT OT Weakness -PT OT Fatigue, monitor Dizziness -PT OT -No focal neurologic deficits -Carotid ultrasound WNL -Continue Eliquis Hypertensive urgency, history of mat -Resume metoprolol -Further medications based on clinical progress Sinus tachycardia, metoprolol Acute hypoxic respiratory failure -2+ pitting edema, crackles in all lung loya -CT angiogram of the chest Pulmonary arteries: No acute central or segmental pulmonary embolism. Aorta: No aortic aneurysm. Mild aortic atherosclerosis. Lungs: Severe centrilobular emphysema. No pulmonary mass or consolidation. Minimal dependent right lower lobe atelectasis. Pleural spaces: Biapical pleural-parenchymal scarring. No pleural effusion or pneumothorax. Heart: No cardiomegaly. No pericardial effusion. Coronary arteries: Mild multivessel coronary artery calcification. Lymph nodes: Calcified lymph nodes are present, consistent with sequela of prior granulomatous disease. Liver: Hepatic steatosis. Gallbladder and biliary ducts: Cholecystectomy. Kidneys: Small right superior renal pole calculus. Bones/joints: No acute fracture. No aggressive osseous lesions. -Given leukocytosis, cough, we will treat her for pneumonia -Rocephin, Zithromycin -Lasix 40 IV twice daily, Griffiths catheter placed, Full code Eliquis for DVT prophylaxis Plan for today monitor respiratory status closely will consider BiPAP based on clinical progress Lasix 40 IV twice daily continue IV antibiotics, Xanax as needed for anxiety PDMP PDMP Reviewed: Not Reviewed Attestations 2 Medical Necessity Statement*: Patient requires hospitalization for acute hypoxic respiratory failure secondary to CHF, pneumonia, sinus tachycardia, hypertensive urgency, required IV diuresis Diagnoses Fall W19.XXXA Shortness of breath R06.02 COPD (chronic obstructive pulmonary disease) J44.9 CHF (congestive heart failure) I50.9 Dizziness R42 Hyperglycemia R73.9 Hypertensive urgency I16.0 Sinus tachycardia R00.0 Transaminitis R74.01
[2024-09-26 14:14] LABS: Iron 62 ug/dL (37-145); NT Pro B Type Natriuretic Pept 108 pg/mL (0-450); Percent Saturation 19.6 % (20-50); Total Iron Binding Capacity 316 mcg/dl; Unsaturated Iron Binding 254 ug/dL (112-347)
[2024-09-26 17:08] LABS: Glucose Point of Care 215 mg/dL (70-110)
[2024-09-26] MEDS: pantoprazole 40 mg SDV IVP (18:19)
[2024-09-26] MEDS: cefTRIAXone 1,000 mg SDV 1000 MG IVP (18:19)
[2024-09-26] MEDS: AZITHROMYCIN ADD-Vantage 500 MG in 0.9% NaCl ADD-Vantage 250 ML 250 MG IV (18:20)
[2024-09-26 20:47] LABS: Glucose Point of Care 213 mg/dL (70-110)
[2024-09-26] MEDS: ALPRAZolam 0.5 mg Tablet 0.75 MG PO (20:49)
[2024-09-27] VITALS (44 sets, daily range): BP systolic 48–151; BP diastolic 33–100; PULSE 79–114; RESP 16–25; TEMP 36.1–37.1; O2SAT 91–97
[2024-09-27] MEDS: FUROsemide 10 mg/mL SDV 4mL 40 MG IVP ×2 (04:15→16:22)
[2024-09-27] MEDS: morphine 4 mg/mL SDV 1 mL 2 MG IVP (04:16)
[2024-09-27 05:40] LABS: Basophils # 0.2 10^3/uL (0.0-0.1); Basophils % 1.2 %; Eosinophils # 0.1 10^3/uL (0.0-0.8); Eosinophils % 0.5 %; Hematocrit 43.9 % (36-47); Lymphocytes # 1.3 10^3/uL (0.8-4.8); Lymphocytes % 9.8 %; Mean Corpuscular HGB Conc 33.3 g/dL (30-55); Mean Corpuscular Hemoglobin 35.3 pg (27-33); Mean Platelet Volume 9.4 fL (7.4-10.4); Monocytes # 0.3 10^3/uL (0.2-0.9); Monocytes % 2.4 %; Neutrophils # 10.42 10^3/uL (1.8-7.7); Neutrophils % 76.6 %; Nucleated Red Blood Cells # 0.5 /100WBC; Nucleated Red Blood Cells % 3.4 %; Platelet Count 383 10^3/cmm (157-399); Red Blood Count 4.14 10^6/uL (3.85-5.65); White Blood Count 13.63 10^3/uL (3.29-11.43)
[2024-09-27 06:11] LABS: Slide Review Slide Review Perform
[2024-09-27 06:12] LABS: Alanine Aminotransferase 131 U/L (0-33); Albumin Level 3.4 g/dL (3.5-5.2); Alkaline Phosphatase 274 U/L (35-105); Anion Gap 22.1 (5-19); Aspartate Amino Transferase 111 U/L (0-32); Blood Urea Nitrogen 12 mg/dL (8-23); Calcium 9.7 mg/dL (8.5-10.5); Carbon Dioxide 31 mmol/L (22-29); Chloride 86 mmol/L (98-107); Creatinine Clr Calc Pharmacy 66.0486; Globulin 3.4 g/dL (1.3-4.6); Glucose 239 mg/dL (65-115); Osmolality Calculated 290 mOsm/kg (285-295); Phosphorus 3.4 mg/dL (2.5-4.5); Potassium 3.1 mmol/L (3.5-5.1); Sodium 136 mmol/L (136-145); Total Protein 6.8 g/dL (6.6-8.7)
[2024-09-27 06:34] LABS: Glucose Point of Care 271 mg/dL (70-110)
[2024-09-27] MEDS: insulin lispro 100 unit/1 mL SUBCUT ×3 (08:34→18:22)
[2024-09-27] MEDS: fenofibrate 145 mg Tablet PO (08:35)
[2024-09-27] MEDS: metoprolol tartrate 25 mg Tablet PO ×2 (08:35→18:20)
[2024-09-27] MEDS: metOLazone 5 MG Tablet PO (08:35)
[2024-09-27] MEDS: citalopram 20 mg Tablet PO (08:35)
[2024-09-27] MEDS: apixaban 5 mg Tablet PO ×2 (08:35→18:20)
[2024-09-27] MEDS: potassium chloride ER 20 mEq Tablet 40 MEQ PO (08:35)
[2024-09-27] MEDS: budesonide 0.5 mg/2 mL Neb INHALATION ×2 (08:51→20:13)
[2024-09-27] MEDS: ipratropium-albuterol 3 mL Neb INHALATION ×4 (08:51→20:13)
--- NOTE | 2024-09-27 09:37 | XRR_ITS ---
PROCEDURE INFORMATION: Exam: XR Chest Exam date and time: 09/27/2024 10:33 AM Age: 79 years old Clinical indication: Shortness of breath; Additional info: SOB TECHNIQUE: Imaging protocol: Radiologic exam of the chest. Views: 1 view. COMPARISON: CR XR chest 1V portable [id number] 09/26/2024 10:58 AM FINDINGS: Lungs: Unremarkable. No consolidation. Pleural spaces: Unremarkable. No pleural effusion. No pneumothorax. Heart/Mediastinum: Unremarkable. No cardiomegaly. Bones/joints: Unremarkable. XR/XR chest 1V portable [id number] IMPRESSION: No acute findings.
[2024-09-27 10:05] LABS: ABG PCO2 57.7 mmHg (35-45); ABG PH Result 7.46 (7.35-7.45); Arterial Blood Gas Hematocrit 44.2 % (37-47); Base Excess ABG 14.5 mmol/L (-2.0-2.0); Blood Gas Allen Test Pos; Blood Gas Operator Identificat WALCI; Blood Gas Sample Site Radial, right; Blood Gas Sample Type Arterial; HCO3 ABG 41.2 mmol/L (22-26); Oxygen Device NC; PO2 FiO2 Ratio Arterial Blood 163
[2024-09-27 10:11] LABS: Procalcitonin 0.95 ng/mL (0-0.5)
--- NOTE | 2024-09-27 10:25 | PHA.VACGOAL ---
Vancomycin Goal - Goal Vancomycin Goal:: 15-20 mg/L Vancomycin Indication:: Pneumonia - Therapy Current therapy:: Meropenem Day of therpy:: Day []of [] . Actual body weight (kg): 107.411 kg - Data Labs: WBC 13.63 10^3/uL (3.29-11.43) H 09/27/24 05:08 Corrected WBC 10.0 10^3/cmm (4.8-10.8) 09/26/24 05:36 RBC 4.14 10^6/uL (3.85-5.65) 09/27/24 05:08 Hgb 14.60 g/dL (11.27-16.99) 09/27/24 05:08 Hct 43.9 % (36-47) 09/27/24 05:08 MCV 106.0 fl (85-98) H 09/27/24 05:08 MCH 35.3 pg (27-33) H 09/27/24 05:08 MCHC 33.3 g/dL (30-55) 09/27/24 05:08 RDW 14.0 % (12.1-15.1) 09/27/24 05:08 Sodium 136 mmol/L (136-145) 09/27/24 05:08 Potassium 3.1 mmol/L (3.5-5.1) L 09/27/24 05:08 Chloride 86 mmol/L (98-107) L 09/27/24 05:08 Carbon Dioxide 31 mmol/L (22-29) H 09/27/24 05:08 Anion Gap 22.1 (5-19) H 09/27/24 05:08 BUN 12 mg/dL (8-23) 09/27/24 05:08 Creatinine 0.9 mg/dL (0.5-0.9) 09/27/24 05:08 GFR Calculation Not Reportable 09/27/24 05:08 Treatment plan:: new consult Regimen:: New start vancomycin for Pneumonia. No prior vancomycin history found. Load dose of 3000 mg ordered. Patient started on maintenance dose of 1500 mg q12h based population based pharmacokinetic Nomogram.
[2024-09-27 11:13] LABS: C Reactive Protein 67.8 mg/L (0.0-4.9)
[2024-09-27 11:16] LABS: Lactate Dehydrogenase 605 U/L (135-214)
--- NOTE | 2024-09-27 11:34 | PC.NURSE ---
Pt transferred to ICU via bed with GREG Lee. Pt in ICU room 6
[2024-09-27] MEDS: vancomycin 3,000 MG/600 ML PIGGYBACK 200 MG IV (12:00)
--- NOTE | 2024-09-27 12:00 | PC.NURSE ---
Pt arrived to ICU from [facility]. labored breathing noted. Mottling noted on knees bilat. Pt has 22 gauge IV right had. New IV start to R AC, # 20, ultrasoud guided. Vanc and Remdesivir started.
[2024-09-27] MEDS: nystatin powder 15 gm Btl 1 APPLIC TOPICAL ×2 (12:01→18:22)
[2024-09-27 12:14] LABS: Glucose Point of Care 243 mg/dL (70-110)
[2024-09-27] MEDS: meropenem 1,000 mg SDV 1000 MG IVP ×2 (12:20→20:27)
[2024-09-27] MEDS: remdesivir 200 MG in sodium chloride 0.9% (100 ml) 60 ML 100 MG IV (12:37)
--- NOTE | 2024-09-27 14:10 | P.PN_ITS ---
Subjective 2 Subjective: Patient was seen this morning, she is alert to person, to place, not to time she follows commands does have episodes of confusion during the night, she does report shortness of breath, does have a cough, nursing staff do notice that she coughs with her pills, she was placed on heated high flow overnight, currently denying any chest pain, no palpitations, no nausea, no vomiting, she does complain of lower pelvic discomfort, she is not sure if she had a bowel movement yesterday, discussed with patient and daughter at bedside, given her increased oxygen requirements, concerns for potentially aspiration pneumonia, aspiration pneumonitis, will place her on dysphagia diet, aspiration precautions, have speech therapy see her. In addition with recent history of COVID and her increased ox requirements are mildly suspicious for her developing acute respiratory distress syndrome, discussed with underlying severe emphysema, will start her on remdesivir, will consider steroids based on clinical progress, she is on Rocephin azithromycin for antibiotic coverage will broaden her antibiotic coverage, plans on moving her down to ICU today for close monitoring, in terms of diuresis, she did diurese yesterday but had 2 L oral input, Vitals/I&O/Wt Last Vital Signs Temp 97 F L 09/27/24 12:15 Pulse 93 09/27/24 13:00 Resp 19 H 09/27/24 13:00 BP 111/59 09/27/24 13:00 Pulse Ox 95 09/27/24 13:00 O2 Del Method Heated High Flow 09/27/24 13:00 O2 Flow Rate 40 09/27/24 13:00 FiO2 56 09/27/24 13:00 09/26/24 09/27/24 09/27/24 22:59 06:59 14:59 Intake Total 370 / 1210 220 / 1430 Output Total 400 / 400 950 / 1350 725 / 725 Balance -30 / 810 -730 / 80 -725 / -725 Weight last 48 hrs Weight 107.411 kg Weight 106.685 kg Physical Exam 2 Const: COMMON NORMALS: no acute distress ORIENTATION/CONSCIOUSNESS: Yes awake, Yes oriented to person and Yes oriented to place; not oriented to time Resp: COMMON NORMALS: normal respiratory effort, No retractions and No use of accessory muscles AUSCULTATION: crackles and wheezes Cardio: COMMON NORMALS: regular rate, regular rhythm, S1 normal heart sound present and S2 normal heart sound present RATE: regular rate RHYTHM: r egular rhythm HEART SOUNDS: S1 normal heart sound present and S2 normal heart sound present GI: COMMON NORMALS: Normal to inspection, nondistended, normoactive bowel sounds present and non-tender Extremity: OTHER: 1+ edema Neuro: SENSORIUM/ORIENTATION: Yes oriented to person, Yes oriented to place and No oriented to time Urinary Catheter Management: Griffiths: Cath Placed During This Visit: yes Reason for Continuing Indwelling Catheter: Acute Urinary Retention or Obstruction Urinary Catheter Date of Insertion: 09/26/24 Urinary Catheter Time of Insertion: 11:15 Data 09/27/24 05:08 09/27/24 05:08 A&P Assessment and plan (1) Fall: (2) Shortness of breath: (3) COPD (chronic obstructive pulmonary disease): (4) CHF (congestive heart failure): (5) Dizziness: (6) Hyperglycemia: (7) Hypertensive urgency: (8) Sinus tachycardia: (9) Transaminitis: (10) COVID-19: (11) Emphysema/COPD: (12) Aspiration pneumonitis: (13) Aspiration pneumonia: (14) Secondary bacterial pneumonia: (15) Acute respiratory distress: (16) Acute hypoxic respiratory failure: (17) Type 2 diabetes mellitus: Plan Hyperglycemia, type 2 diabetes -Potentially effective steroid -Check A1c 7.7 -Low-dose sliding scale Transaminitis -Right upper quadrant ultrasound no acute findings -GGT is over 2000, ferritin 1119 -Acute hep panel within normal limits -Potentially related to COVID-19 Fall -CT head no acute findings -CT neck no acute findings -PT OT Weakness -PT OT Fatigue, monitor Dizziness -PT OT -No focal neurologic deficits -Carotid ultrasound WNL -Continue Eliquis Hypertensive urgency, history of mat -Resume metoprolol -Further medications based on clinical progress History of mat, monitor Sinus tachycardia, metoprolol Acute hypoxic respiratory failure -2+ pitting edema, crackles in all lung loya -CT angiogram of the chest Pulmonary arteries: No acute central or segmental pulmonary embolism. Aorta: No aortic aneurysm. Mild aortic atherosclerosis. Lungs: Severe centrilobular emphysema. No pulmonary mass or consolidation. Minimal dependent right lower lobe atelectasis. Pleural spaces: Biapical pleural-parenchymal scarring. No pleural effusion or pneumothorax. Heart: No cardiomegaly. No pericardial effusion. Coronary arteries: Mild multivessel coronary artery calcification. Lymph nodes: Calcified lymph nodes are present, consistent with sequela of prior granulomatous disease. Liver: Hepatic steatosis. Gallbladder and biliary ducts: Cholecystectomy. Kidneys: Small right superior renal pole calculus. Bones/joints: No acute fracture. No aggressive osseous lesions. -With history of severe centrilobular emphysema -With recent history of COVID-19 -Concerns for secondary bacterial pneumonia -With evidence of fluid overload concerns for diastolic dysfunction -With episodes of choking coughing, concerns for aspiration pneumonia, aspiration pneumonitis -Due to increased oxygen requirements, concerns for acute respiratory distress syndrome Plan -Start Solu-Medrol 40 mg IV every 12 hours -Start remdesivir for COVID-19 -Broaden antibiotic coverage to vancomycin -Meropenem -DuoNeb -Budesonide -Monitor respiratory status closely -IV diuresis Lasix 40 IV twice daily -Aspiration precautions, dysphagia level 5 diet, moderately thickened, speech therapy eval, Recent history of COVID-19, discharged 09/13/2024 Concerns for aspiration pneumonia, aspiration pneumonitis -Dysphagia diet -Speech therapy -Aspiration precautions Diastolic CHF, as above Full code Eliquis for DVT prophylaxis Plan for today monitor respiratory status closely, moved to ICU, start remdesivir for recent history of COVID-19, start steroids, broaden antibiotic coverage, IV diuresis, aspiration precautions, dysphagia level 4 diet PDMP PDMP Reviewed: Not Reviewed Attestations 2 Medical Necessity Statement*: Patient requires hospitalization, inpatient, greater than 2 midnights for acute hypoxic respiratory failure, COVID-19, secondary bacterial pneumonia, aspiration pneumonia, aspiration pneumonitis, transaminitis, diastolic CHF, underlying severe emphysema Diagnoses Fall W19.XXXA Shortness of breath R06.02 COPD (chronic obstructive pulmonary disease) J44.9 CHF (congestive heart failure) I50.9 Dizziness R42 Hyperglycemia R73.9 Hypertensive urgency I16.0 Sinus tachycardia R00.0 Transaminitis R74.01 COVID-19 U07.1 Emphysema/COPD J43.9 Aspiration pneumonitis J69.0 Aspiration pneumonia J69.0 Secondary bacterial pneumonia J15.9 Acute respiratory distress R06.03 Acute hypoxic respiratory failure J96.01 Type 2 diabetes mellitus E11.9
--- NOTE | 2024-09-27 14:10 | XRR_ITS ---
PROCEDURE INFORMATION: Exam: XR Abdomen Exam date and time: 09/27/2024 2:40 PM Age: 79 years old Clinical indication: Abdominal pain TECHNIQUE: Imaging protocol: Radiologic exam of the abdomen. Views: Frontal supine view of the abdomen. 1 View. COMPARISON: US abdomen limited [id number] 09/24/2024 5:41 PM FINDINGS: Gastrointestinal tract: Bowel-gas pattern is unremarkable. Intraperitoneal space: Right upper quadrant surgical clips noted. Bones/joints: Minimal levocurvature of the spine with degenerative change. Soft tissues: Vascular calcifications noted in the soft tissues. XR/XR KUB portable [id number] IMPRESSION: No acute pathology evident.
[2024-09-27] MEDS: nystatin 100,000 unit/mL UDC 5 mL 100000 UNIT PO ×2 (14:46→18:21)
[2024-09-27] MEDS: polyethylene glycol 3350 Pkt 17 gm PO (14:46)
[2024-09-27] MEDS: methylPREDNISolone sod succ 40 mg/mL INJ IVP (14:47)
[2024-09-27 17:53] LABS: Glucose Point of Care 283 mg/dL (70-110)
[2024-09-27] MEDS: pantoprazole 40 mg SDV IVP (18:22)
[2024-09-27] MEDS: ALPRAZolam 0.5 mg Tablet 0.75 MG PO (20:26)
[2024-09-27 21:21] LABS: Glucose Point of Care 425 mg/dL (70-110)
[2024-09-27 21:21] LABS: Glucose Point of Care 413 mg/dL (70-110)
[2024-09-27] MEDS: insulin lispro 100 unit/1 mL 20 UNIT SUBCUT (22:15)
[2024-09-28] VITALS (32 sets, daily range): BP systolic 102–154; BP diastolic 54–87; PULSE 71–113; RESP 14–33; TEMP 36.6; O2SAT 89–99
[2024-09-28] MEDS: methylPREDNISolone sod succ 40 mg/mL INJ IVP ×2 (02:50→14:20)
[2024-09-28] MEDS: meropenem 1,000 mg SDV 1000 MG IVP ×3 (04:20→20:42)
[2024-09-28] MEDS: vancomycin 1,500 MG/300 ML PIGGYBACK 200 MG IV ×2 (04:25→17:07)
[2024-09-28 04:33] LABS: ABG PH Result 7.49 (7.35-7.45); Arterial Blood Gas Hematocrit 41.4 % (37-47); Base Excess ABG 18.6 mmol/L (-2.0-2.0); Blood Gas Operator Identificat SAM; Blood Gas Sample Site Brachial, left; Blood Gas Sample Type Arterial; HCO3 ABG 45.4 mmol/L (22-26); Oxygen Device NC; PO2 ABG 81.2 mmHg (80.0-100.0); PO2 FiO2 Ratio Arterial Blood 147
[2024-09-28 04:35] LABS: ABG PCO2 60.1 mmHg (35-45)
[2024-09-28 05:47] LABS: Hematocrit 43.4 % (36-47); Mean Corpuscular HGB Conc 31.6 g/dL (30-55); Mean Corpuscular Hemoglobin 34.4 pg (27-33); Mean Platelet Volume 9.8 fL (7.4-10.4); Platelet Count 300 10^3/cmm (157-399); Red Blood Count 3.98 10^6/uL (3.85-5.65); Red Cell Distribution Width 13.6 % (12.1-15.1); White Blood Count 13.04 10^3/uL (3.29-11.43)
[2024-09-28 06:26] LABS: Lactate (Lactic Acid level) 2.4 mmol/L (0.5-2.2)
[2024-09-28 06:27] LABS: Alanine Aminotransferase 95 U/L (0-33); Albumin Level 2.6 g/dL (3.5-5.2); Alkaline Phosphatase 239 U/L (35-105); Blood Urea Nitrogen 18 mg/dL (8-23); C Reactive Protein 152.3 mg/L (0.0-4.9); Calcium 9.5 mg/dL (8.5-10.5); Carbon Dioxide 31 mmol/L (22-29); Chloride 87 mmol/L (98-107); Globulin 3.5 g/dL (1.3-4.6); Glucose 247 mg/dL (65-115); Magnesium 2.5 mg/dL (1.7-2.3); Osmolality Calculated 288 mOsm/kg (285-295); Phosphorus 2.9 mg/dL (2.5-4.5); Sodium 134 mmol/L (136-145); Total Bilirubin 0.8 mg/dL (0.15-1.2); Total Protein 6.1 g/dL (6.6-8.7)
[2024-09-28 06:41] LABS: Absolute Neutrophil 11.6 10^3/cmm (1.4-6.5); Band Neutrophils Absolute 0.7 10^3/cmm (0.0-1.2); Eosinophils 0 %; Lymphocytes 4 %; Lymphocytes Absolute 0.9 10^3/cmm (1.2-3.4); Monocytes Absolute 0.1 10^3/cmm (0.1-0.6); Platelet Estimate Normal (Normal); Segmented Neutrophils 84 %; Slide Review Slide Review Perform; Total Cells Counted 100 (0-100)
[2024-09-28 06:42] LABS: Anisocytosis Trace; Macrocytosis 1+; Polychromasia Trace; Toxic Vacuolation TRACE
[2024-09-28 06:43] LABS: Anion Gap 19.5 (5-19); Aspartate Amino Transferase 74 U/L (0-32); Potassium 3.5 mmol/L (3.5-5.1)
--- NOTE | 2024-09-28 07:00 | XRR_ITS ---
PROCEDURE INFORMATION: Exam: XR Chest Exam date and time: 09/28/2024 7:04 AM Age: 79 years old Clinical indication: Shortness of breath; Additional info: SOB TECHNIQUE: Imaging protocol: Radiologic exam of the chest. Views: 1 view. COMPARISON: CR XR chest 1V portable [id number] 09/27/2024 10:33 AM FINDINGS: Lungs: No infiltrate. Pleural spaces: Unremarkable. No pleural effusion. No pneumothorax. Heart/Mediastinum: There is mild cardiomegaly with vascular congestion. Bones/joints: Unremarkable. XR/XR chest 1V portable [id number] IMPRESSION: Mild cardiomegaly with vascular congestion.
[2024-09-28 07:33] LABS: Glucose Point of Care 235 mg/dL (70-110)
[2024-09-28 07:55] LABS: NT Pro B Type Natriuretic Pept 114 pg/mL (0-450); Procalcitonin 0.67 ng/mL (0-0.5)
[2024-09-28 08:06] LABS: Creatine Phosphokinase 130 U/L (26-192)
[2024-09-28] MEDS: ipratropium-albuterol 3 mL Neb INHALATION ×4 (08:10→19:59)
[2024-09-28] MEDS: budesonide 0.5 mg/2 mL Neb INHALATION ×2 (08:30→19:59)
--- NOTE | 2024-09-28 09:02 | PC.SOCIAL ---
IMM Update Pg. 2 of IMM updated. Initialed/dated copy in chart, additional copy provided at bedside.
[2024-09-28] MEDS: nystatin 100,000 unit/mL UDC 5 mL 100000 UNIT PO ×4 (09:05→21:04)
[2024-09-28] MEDS: polyethylene glycol 3350 Pkt 17 gm PO (09:06)
[2024-09-28] MEDS: metoprolol tartrate 25 mg Tablet PO ×2 (09:07→17:15)
[2024-09-28] MEDS: fenofibrate 145 mg Tablet PO (09:07)
[2024-09-28] MEDS: apixaban 5 mg Tablet PO ×2 (09:07→17:15)
[2024-09-28] MEDS: citalopram 20 mg Tablet PO (09:07)
[2024-09-28] MEDS: insulin lispro 100 unit/1 mL SUBCUT ×4 (09:07→20:30)
[2024-09-28] MEDS: nystatin powder 15 gm Btl 1 APPLIC TOPICAL ×2 (10:17→18:00)
[2024-09-28] MEDS: metOLazone 5 MG Tablet PO (10:55)
[2024-09-28] MEDS: lidocaine 1% 5 ML in potassium chloride premix 100 ML 52.5 ML IV (10:55)
[2024-09-28] MEDS: FUROsemide 10 mg/mL SDV 4mL 40 MG IVP ×2 (10:56→17:16)
[2024-09-28 11:12] LABS: Glucose Point of Care 310 mg/dL (70-110)
[2024-09-28] MEDS: remdesivir 100 MG in sodium chloride 0.9% (100 ml) 80 ML IV (13:11)
--- NOTE | 2024-09-28 14:00 | PC.NURSE ---
Pt has sat up in the chair from 1100. She has tolerated it well. She bore her weight well. Gait belt with 2 assist utilized for er safety. She was slightly unsteady. She exercised her legs while sitting up in chair She is now back in bed.
--- NOTE | 2024-09-28 15:39 | P.PN_ITS ---
Subjective 2 Subjective: Patient was seen this morning, she is alert to person, to place, not to time she follows commands, denies any fevers, does have a cough, no chills, no lightheadedness, no dizziness, she feels better this morning, patient was seen again earlier in the morning, with daughter at bedside, discussed patient's clinical progress, plans on diuresing her today monitor clinical status closely in ICU continue IV antibiotics, continue remdesivir, she does have acute hypoxic respiratory failure, will watch her over the weekend to see for her oxygen requirements improved, the concern is is if she still requires a significant amount of oxygen she might require placement to a long-term care facility such as [facility] in [place], but we will see how she does over the weekend and see her trajectory Vitals/I&O/Wt Last Vital Signs Temp 97.9 F 09/28/24 05:16 Pulse 104 H 09/28/24 14:00 Resp 24 H 09/28/24 14:00 BP 129/79 09/28/24 14:00 Pulse Ox 93 09/28/24 14:00 O2 Del Method Heated High Flow 09/28/24 14:00 O2 Flow Rate 30 09/28/24 14:00 FiO2 42 09/28/24 14:00 09/28/24 09/28/24 09/28/24 06:59 14:59 22:59 Intake Total 300 / 1240 450 / 450 Output Total 1200 / 2750 Balance -900 / -1510 450 / 450 Weight last 48 hrs Weight 100.289 kg Weight 107.411 kg Physical Exam 2 Const: COMMON NORMALS: no acute distress GENERAL APPEARANCE: ill appearing ORIENTATION/CONSCIOUSNESS: Yes awake, Yes oriented to person and Yes oriented to place; not oriented to time Resp: COMMON NORMALS: normal respiratory effort, No retractions and No use of accessory muscles AUSCULTATION: crackles and wheezes Cardio: COMMON NORMALS: regular rate, regular rhythm, S1 normal heart sound present and S2 normal heart sound present RATE: regular rate RHYTHM: r egular rhythm HEART SOUNDS: S1 normal heart sound present and S2 normal heart sound present GI: COMMON NORMALS: Normal to inspection, nondistended, normoactive bowel sounds present and non-tender Extremity: NARRATIVE EXTREMITY EXAM: 2+ pitting edema Neuro: SENSORIUM/ORIENTATION: Yes oriented to person, Yes oriented to place and No oriented to time Psych: COMMON NORMALS: mental status grossly normal Urinary Catheter Management: Griffiths: Cath Placed During This Visit: yes Reason for Continuing Indwelling Catheter: Accurate Measurement of Urinary Output in Critically Ill Patients Urinary Catheter Date of Insertion: 09/26/24 Urinary Catheter Time of Insertion: 11:15 Data 09/28/24 05:12 09/28/24 05:12 A&P Assessment and plan (1) Fall: (2) Shortness of breath: (3) COPD (chronic obstructive pulmonary disease): (4) CHF (congestive heart failure): (5) Dizziness: (6) Hyperglycemia: (7) Hypertensive urgency: (8) Sinus tachycardia: (9) Transaminitis: (10) COVID-19: (11) Emphysema/COPD: (12) Aspiration pneumonitis: (13) Aspiration pneumonia: (14) Secondary bacterial pneumonia: (15) Acute respiratory distress: (16) Acute hypoxic respiratory failure: (17) Type 2 diabetes mellitus: Plan Hyperglycemia, type 2 diabetes -Potentially effective steroid -Check A1c 7.7 -Low-dose sliding scale Transaminitis, improving -Right upper quadrant ultrasound no acute findings -GGT is over 2000, ferritin 1119 -Acute hep panel within normal limits -Potentially related to COVID-19 Fall -CT head no acute findings -CT neck no acute findings -PT OT Weakness -PT OT Fatigue, monitor Dizziness -PT OT -No focal neurologic deficits -Carotid ultrasound WNL -Continue Eliquis Hypertensive urgency, history of mat -Resume metoprolol -Further medications based on clinical progress History of mat, monitor Sinus tachycardia, metoprolol Acute hypoxic respiratory failure -2+ pitting edema, crackles in all lung loya -CT angiogram of the chest Pulmonary arteries: No acute central or segmental pulmonary embolism. Aorta: No aortic aneurysm. Mild aortic atherosclerosis. Lungs: Severe centrilobular emphysema. No pulmonary mass or consolidation. Minimal dependent right lower lobe atelectasis. Pleural spaces: Biapical pleural-parenchymal scarring. No pleural effusion or pneumothorax. Heart: No cardiomegaly. No pericardial effusion. Coronary arteries: Mild multivessel coronary artery calcification. Lymph nodes: Calcified lymph nodes are present, consistent with sequela of prior granulomatous disease. Liver: Hepatic steatosis. Gallbladder and biliary ducts: Cholecystectomy. Kidneys: Small right superior renal pole calculus. Bones/joints: No acute fracture. No aggressive osseous lesions. -With history of severe centrilobular emphysema -With recent history of COVID-19 -Concerns for secondary bacterial pneumonia -With evidence of fluid overload concerns for diastolic dysfunction -With episodes of choking coughing, concerns for aspiration pneumonia, aspiration pneumonitis -Due to increased oxygen requirements, concerns for acute respiratory distress syndrome Plan - Solu-Medrol 40 mg IV every 12 hours - remdesivir for COVID-19 -Broaden antibiotic coverage to vancomycin -Meropenem -DuoNeb -Budesonide -Monitor respiratory status closely -IV diuresis Lasix 40 IV twice daily -Aspiration precautions, dysphagia level 5 diet, moderately thickened, speech therapy eval, Recent history of COVID-19, discharged 09/13/2024 Concerns for aspiration pneumonia, aspiration pneumonitis -Dysphagia diet -Speech therapy -Aspiration precautions Diastolic CHF, as above History of COPD, severe centrilobular emphysema Fluid overload, echocardiogram during last hospitalization EF 55 to 60% Full code Eliquis for DVT prophylaxis Plan for today monitor respiratory status closely, continue IV diuresis, continue IV antibiotics, up to a chair, monitor respiratory status closely PDMP PDMP Reviewed: Not Reviewed Attestations 2 Medical Necessity Statement*: Patient requires hospitalization for acute hypoxic respiratory failure secondary to COVID-19, pneumonia, CHF, Diagnoses Fall W19.XXXA Shortness of breath R06.02 COPD (chronic obstructive pulmonary disease) J44.9 CHF (congestive heart failure) I50.9 Dizziness R42 Hyperglycemia R73.9 Hypertensive urgency I16.0 Sinus tachycardia R00.0 Transaminitis R74.01 COVID-19 U07.1 Emphysema/COPD J43.9 Aspiration pneumonitis J69.0 Aspiration pneumonia J69.0 Secondary bacterial pneumonia J15.9 Acute respiratory distress R06.03 Acute hypoxic respiratory failure J96.01 Type 2 diabetes mellitus E11.9
[2024-09-28] MEDS: pantoprazole 40 mg SDV IVP (17:09)
[2024-09-28] MEDS: potassium chloride ER 20 mEq Tablet PO (17:15)
[2024-09-28 17:28] LABS: Glucose Point of Care 433 mg/dL (70-110)
[2024-09-28 20:07] LABS: Glucose Point of Care 402 mg/dL (70-110)
[2024-09-28] MEDS: ALPRAZolam 0.5 mg Tablet 0.75 MG PO (20:27)
[2024-09-28] MEDS: nicotine 4 mg lozenge MUCOUS MEM (20:29)
--- NOTE | 2024-09-28 20:33 | PC.NURSE ---
Refusing Thickened Water: Pt is declining to drink thickened liquids and states she does not like the taste. Education on safe swallowing reinforced. Pt verbalized understanding and insist on drinking normal water.
[2024-09-29] VITALS (25 sets, daily range): BP systolic 91–157; BP diastolic 53–92; PULSE 67–107; RESP 12–22; TEMP 36.2; O2SAT 87–100
[2024-09-29] MEDS: methylPREDNISolone sod succ 40 mg/mL INJ IVP ×2 (02:15→13:34)
[2024-09-29 04:51] LABS: Arterial Blood Gas Hematocrit 39.3 % (37-47); Base Excess ABG 20.5 mmol/L (-2.0-2.0); Blood Gas Allen Test Pos; Blood Gas Operator Identificat JDB; Blood Gas Sample Site Radial, right; Blood Gas Sample Type Arterial; HCO3 ABG 47.3 mmol/L (22-26); Oxygen Device BIPAP; PO2 FiO2 Ratio Arterial Blood 191
[2024-09-29 04:52] LABS: ABG PCO2 61.5 mmHg (35-45)
[2024-09-29] MEDS: meropenem 1,000 mg SDV 1000 MG IVP ×3 (05:18→20:48)
[2024-09-29 06:12] LABS: Basophils # 0.1 10^3/uL (0.0-0.1); Basophils % 0.4 %; Hematocrit 41.3 % (36-47); Lymphocytes % 4.7 %; Mean Corpuscular HGB Conc 32.9 g/dL (30-55); Mean Corpuscular Hemoglobin 34.2 pg (27-33); Mean Corpuscular Volume 103.8 fl (85-98); Mean Platelet Volume 10.2 fL (7.4-10.4); Monocytes # 0.8 10^3/uL (0.2-0.9); Monocytes % 4.2 %; Neutrophils % 88.4 %; Nucleated Red Blood Cells # 0.1 /100WBC; Nucleated Red Blood Cells % 0.2 %; Platelet Count 292 10^3/cmm (157-399); Red Blood Count 3.98 10^6/uL (3.85-5.65); Red Cell Distribution Width 13.5 % (12.1-15.1); White Blood Count 20.14 10^3/uL (3.29-11.43)
[2024-09-29 06:46] LABS: NT Pro B Type Natriuretic Pept 164 pg/mL (0-450); Procalcitonin 0.67 ng/mL (0-0.5)
[2024-09-29 06:57] LABS: Alanine Aminotransferase 89 U/L (0-33); Albumin Level 3.3 g/dL (3.5-5.2); Alkaline Phosphatase 254 U/L (35-105); Aspartate Amino Transferase 64 U/L (0-32); Blood Urea Nitrogen 26 mg/dL (8-23); C Reactive Protein 99.1 mg/L (0.0-4.9); Calcium 10.3 mg/dL (8.5-10.5); Carbon Dioxide 39 mmol/L (22-29); Chloride 84 mmol/L (98-107); Creatine Phosphokinase 55 U/L (26-192); Creatinine Clr Calc Pharmacy 65.6288; Globulin 2.5 g/dL (1.3-4.6); Glucose 297 mg/dL (65-115); Magnesium 2.2 mg/dL (1.7-2.3); Osmolality Calculated 300 mOsm/kg (285-295); Phosphorus 3.7 mg/dL (2.5-4.5); Sodium 137 mmol/L (136-145); Total Bilirubin 0.7 mg/dL (0.15-1.2); Total Protein 5.8 g/dL (6.6-8.7)
[2024-09-29 07:01] LABS: Anion Gap 17.1 (5-19); Potassium 3.1 mmol/L (3.5-5.1)
[2024-09-29 07:52] LABS: Glucose Point of Care 294 mg/dL (70-110)
[2024-09-29] MEDS: budesonide 0.5 mg/2 mL Neb INHALATION ×2 (08:06→19:41)
[2024-09-29] MEDS: ipratropium-albuterol 3 mL Neb INHALATION ×4 (08:06→19:41)
[2024-09-29] MEDS: lidocaine 1% 5 ML in potassium chloride premix 100 ML 26.25 ML IV (09:03)
[2024-09-29] MEDS: insulin lispro 100 unit/1 mL SUBCUT ×4 (09:03→20:46)
[2024-09-29] MEDS: citalopram 20 mg Tablet PO (09:04)
[2024-09-29] MEDS: apixaban 5 mg Tablet PO ×2 (09:04→17:40)
[2024-09-29] MEDS: nystatin 100,000 unit/mL UDC 5 mL 100000 UNIT PO ×4 (09:04→20:45)
[2024-09-29] MEDS: metoprolol tartrate 25 mg Tablet PO ×2 (09:04→17:40)
[2024-09-29] MEDS: fenofibrate 145 mg Tablet PO (09:04)
[2024-09-29] MEDS: nystatin powder 15 gm Btl 1 APPLIC TOPICAL ×2 (09:05→17:41)
[2024-09-29] MEDS: polyethylene glycol 3350 Pkt 17 gm PO (09:05)
[2024-09-29] MEDS: insulin glargine 100 units/1 mL 10 UNIT SUBCUT (09:24)
[2024-09-29 11:22] LABS: Glucose Point of Care 359 mg/dL (70-110)
[2024-09-29 13:35] LABS: Adenovirus Not Detected (NOT DETECT); Chlamydia Pneumoniae Not Detected (NOT DETECT); Coronavirus 229E,HKU1,NL63,OC4 Not Detected (NOT DETECT); Human Metapneumovirus Not Detected (NOT DETECT); Human Rhinovirus/Enterovirus Not Detected (NOT DETECT); Influenza A Detected (NOT DETECT); Influenza A H1 Not Detected (NOT DETECT); Influenza A H1-2009 Not Detected (NOT DETECT); Influenza A H3 Detected (NOT DETECT); Influenza B Not Detected (NOT DETECT); Mycoplasma Pneumoniae Not Detected (NOT DETECT); Parainfluenza Virus Type 1 Not Detected (NOT DETECT); Parainfluenza Virus Type 2 Not Detected (NOT DETECT); Parainfluenza Virus Type 3 Not Detected (NOT DETECT); Parainfluenza Virus Type 4 Not Detected (NOT DETECT); Respiratory Syncytial Virus A Not Detected (NOT DETECT); Respiratory Syncytial Virus B Not Detected (NOT DETECT)
[2024-09-29] MEDS: remdesivir 100 MG in sodium chloride 0.9% (100 ml) 80 ML IV (13:35)
[2024-09-29 14:07] LABS: SARS-COV-2 Detected (NOT DETECT)
[2024-09-29 14:08] LABS: Influenza A Detected (NOT DETECT); Influenza A H1 Not Detected (NOT DETECT); Influenza A H1-2009 Not Detected (NOT DETECT); Influenza A H3 Detected (NOT DETECT); Influenza B Not Detected (NOT DETECT); Results from Genmark
--- NOTE | 2024-09-29 16:01 | P.PN_ITS ---
Subjective 2 Subjective: Patient was seen this morning, she is alert oriented x 3, following all commands she feels a lot better this morning she is on nasal cannula she tells her that she use the BiPAP during the night, she denies any was hard to get used to Vitals/I&O/Wt Last Vital Signs Temp 97.8 F 09/28/24 16:00 Pulse 79 09/29/24 15:53 Resp 12 09/29/24 15:45 BP 156/84 09/29/24 14:00 Pulse Ox 97 09/29/24 15:52 O2 Del Method BiPAP 09/29/24 15:45 O2 Flow Rate 6 09/29/24 12:00 FiO2 40 09/29/24 15:52 09/29/24 09/29/24 09/29/24 06:59 14:59 22:59 Intake Total 360 / 360 205 / 565 Output Total 1999 / 3249 Balance -1999 / 167 360 / 360 205 / 565 Weight last 48 hrs Weight 106.141 kg Weight 100.289 kg Physical Exam 2 Const: COMMON NORMALS: no acute distress and patient oriented x3 Resp: COMMON NORMALS: normal respiratory effort, No retractions and No use of accessory muscles AUSCULTATION: crackles and wheezes Cardio: COMMON NORMALS: regular rate, regular rhythm, S1 normal heart sound present and S2 normal heart sound present RATE: regular rate RHYTHM: r egular rhythm HEART SOUNDS: S1 normal heart sound present and S2 normal heart sound present GI: COMMON NORMALS: Normal to inspection, nondistended, normoactive bowel sounds present, non-tender and no bruits Extremity: COMMON NORMALS: no pedal edema Neuro: COMMON NORMALS: patient oriented x3 Psych: COMMON NORMALS: mental status grossly normal Urinary Catheter Management: Griffiths: Cath Placed During This Visit: yes Reason for Continuing Indwelling Catheter: Chronic Indwelling Urinary Catheter on Admission Urinary Catheter Date of Insertion: 09/26/24 Urinary Catheter Time of Insertion: 11:15 Data 09/29/24 05:50 09/29/24 05:50 A&P Assessment and plan (1) Fall: (2) Shortness of breath: (3) COPD (chronic obstructive pulmonary disease): (4) CHF (congestive heart failure): (5) Dizziness: (6) Hyperglycemia: (7) Hypertensive urgency: (8) Sinus tachycardia: (9) Transaminitis: (10) COVID-19: (11) Emphysema/COPD: (12) Aspiration pneumonitis: (13) Aspiration pneumonia: (14) Secondary bacterial pneumonia: (15) Acute respiratory distress: (16) Acute hypoxic respiratory failure: (17) Type 2 diabetes mellitus: (18) Influenza A: Plan Hyperglycemia, type 2 diabetes -Potentially effective steroid -Check A1c 7.7 -High-dose sliding scale, Lantus 10 units daily Transaminitis, improving -Right upper quadrant ultrasound no acute findings -GGT is over 2000, ferritin 1119 -Acute hep panel within normal limits -Potentially related to COVID-19 Fall -CT head no acute findings -CT neck no acute findings -PT OT Weakness -PT OT Fatigue, monitor Dizziness -PT OT -No focal neurologic deficits -Carotid ultrasound WNL -Continue Eliquis Hypertensive urgency, history of mat -Resume metoprolol -Further medications based on clinical progress History of mat, monitor Sinus tachycardia, metoprolol Acute hypoxic respiratory failure - multifactorial -concerns for secondary bacterial pneumonia, possible aspiration -COVID-19 -Fluid overload, diastolic CHF -Influenza A positive -With underlying COPD exacerbation, centrilobular emphysema Pulmonary arteries: No acute central or segmental pulmonary embolism. Aorta: No aortic aneurysm. Mild aortic atherosclerosis. Lungs: Severe centrilobular emphysema. No pulmonary mass or consolidation. Minimal dependent right lower lobe atelectasis. Pleural spaces: Biapical pleural-parenchymal scarring. No pleural effusion or pneumothorax. Heart: No cardiomegaly. No pericardial effusion. Coronary arteries: Mild multivessel coronary artery calcification. Lymph nodes: Calcified lymph nodes are present, consistent with sequela of prior granulomatous disease. Liver: Hepatic steatosis. Gallbladder and biliary ducts: Cholecystectomy. Kidneys: Small right superior renal pole calculus. Bones/joints: No acute fracture. No aggressive osseous lesions. -With history of severe centrilobular emphysema -With recent history of COVID-19 -Concerns for secondary bacterial pneumonia -With evidence of fluid overload concerns for diastolic dysfunction -With episodes of choking coughing, concerns for aspiration pneumonia, aspiration pneumonitis -Due to increased oxygen requirements, concerns for acute respiratory distress syndrome Plan - Solu-Medrol 40 mg IV every 12 hours - remdesivir for COVID-19 -Broaden antibiotic coverage to vancomycin, vancomycin currently on hold due to elevated Vanco trough -Meropenem -DuoNeb -Budesonide -Monitor respiratory status closely -IV diuresis Lasix 40 IV twice daily -Aspiration precautions, dysphagia level 5 diet, moderately thickened, speech therapy eval, Influenza A, patient tested positive for influenza A today, timeframe unknown, as her respiratory status has improved, will hold off on treating her with Tamiflu given that she is on Celexa, remdesivir there is increased risk of QT prolongation, if her shortness of breath worsens will consider starting her on Tamiflu Recent history of COVID-19, discharged 09/13/2024 Concerns for aspiration pneumonia, aspiration pneumonitis -Dysphagia diet -Speech therapy -Aspiration precautions Diastolic CHF, as above History of COPD, severe centrilobular emphysema Fluid overload, echocardiogram during last hospitalization EF 55 to 60% Full code Eliquis for DVT prophylaxis Plan for today monitor respiratory status closely, continue IV diuresis, continue IV antibiotics, up to a chair, monitor respiratory status closely IV diuresis IV antibiotics, remdesivir PDMP PDMP Reviewed: Not Reviewed Attestations 2 Medical Necessity Statement*: Patient requires hospitalization for acute hypoxic respiratory failure secondary to pneumonia, CHF, COPD, COVID-19, influenza A and High MDM includes number and complexity of problems actively addressed during encounter, amount and/or complexity of data reviewed/ordered and described risk of complication, morbidity or mortality of management as documented Diagnoses Fall W19.XXXA Shortness of breath R06.02 COPD (chronic obstructive pulmonary disease) J44.9 CHF (congestive heart failure) I50.9 Dizziness R42 Hyperglycemia R73.9 Hypertensive urgency I16.0 Sinus tachycardia R00.0 Transaminitis R74.01 COVID-19 U07.1 Emphysema/COPD J43.9 Aspiration pneumonitis J69.0 Aspiration pneumonia J69.0 Secondary bacterial pneumonia J15.9 Acute respiratory distress R06.03 Acute hypoxic respiratory failure J96.01 Type 2 diabetes mellitus E11.9 Influenza A J10.1
[2024-09-29 16:37] LABS: Vancomycin Random 23.4 ug/mL (20.0-40.0)
[2024-09-29 17:09] LABS: Glucose Point of Care 338 mg/dL (70-110)
[2024-09-29] MEDS: FUROsemide 10 mg/mL SDV 4mL 40 MG IVP (17:40)
[2024-09-29] MEDS: pantoprazole 40 mg SDV IVP (17:40)
[2024-09-29 20:33] LABS: Glucose Point of Care 427 mg/dL (70-110)
[2024-09-29] MEDS: ALPRAZolam 0.5 mg Tablet 0.75 MG PO (20:43)
[2024-09-30] VITALS (32 sets, daily range): BP systolic 89–168; BP diastolic 53–111; PULSE 70–102; RESP 10–24; TEMP 36.6–37; O2SAT 89–97; BMI 37.3
[2024-09-30] MEDS: methylPREDNISolone sod succ 40 mg/mL INJ IVP (03:20)
[2024-09-30 04:19] LABS: ABG PCO2 56.4 mmHg (35-45); ABG PH Result 7.55 (7.35-7.45); Arterial Blood Gas Hematocrit 44.2 % (37-47); Base Excess ABG 22.4 mmol/L (-2.0-2.0); Blood Gas Allen Test Pos; Blood Gas Sample Type Arterial; HCO3 ABG 48.7 mmol/L (22-26); PO2 ABG 65.8 mmHg (80.0-100.0)
[2024-09-30 04:20] LABS: Blood Gas Operator Identificat JDB; Blood Gas Sample Site Brachial, right; Oxygen Device NC
[2024-09-30] MEDS: meropenem 1,000 mg SDV 1000 MG IVP ×3 (05:38→21:51)
[2024-09-30 05:49] LABS: Basophils # 0.1 10^3/uL (0.0-0.1); Basophils % 0.6 %; Eosinophils % 0.1 %; Hematocrit 42.2 % (36-47); Mean Corpuscular HGB Conc 32.5 g/dL (30-55); Mean Corpuscular Hemoglobin 35.4 pg (27-33); Mean Platelet Volume 10.7 fL (7.4-10.4); Monocytes # 1.2 10^3/uL (0.2-0.9); Monocytes % 7.5 %; Neutrophils # 13.22 10^3/uL (1.8-7.7); Neutrophils % 83.5 %; Nucleated Red Blood Cells # 0.1 /100WBC; Nucleated Red Blood Cells % 0.3 %; Platelet Count 230 10^3/cmm (157-399); Red Blood Count 3.87 10^6/uL (3.85-5.65); Red Cell Distribution Width 13.7 % (12.1-15.1); White Blood Count 15.82 10^3/uL (3.29-11.43)
[2024-09-30 06:10] LABS: Lactate (Lactic Acid level) 2.1 mmol/L (0.5-2.2)
[2024-09-30 07:21] LABS: Glucose Point of Care 324 mg/dL (70-110)
[2024-09-30] MEDS: ipratropium-albuterol 3 mL Neb INHALATION ×4 (07:57→19:46)
[2024-09-30] MEDS: budesonide 0.5 mg/2 mL Neb INHALATION ×2 (07:57→19:46)
[2024-09-30] MEDS: fenofibrate 145 mg Tablet PO (08:23)
[2024-09-30] MEDS: citalopram 20 mg Tablet PO (08:23)
[2024-09-30] MEDS: nystatin 100,000 unit/mL UDC 5 mL 100000 UNIT PO ×4 (08:23→21:51)
[2024-09-30] MEDS: metoprolol tartrate 25 mg Tablet PO ×2 (08:23→18:21)
[2024-09-30] MEDS: apixaban 5 mg Tablet PO ×2 (08:24→18:21)
[2024-09-30] MEDS: insulin glargine 100 units/1 mL 10 UNIT SUBCUT ×2 (08:25→21:51)
[2024-09-30] MEDS: insulin lispro 100 unit/1 mL SUBCUT ×4 (08:26→22:07)
[2024-09-30 08:33] LABS: Vancomycin Trough 17.2 ug/mL (10-15)
--- NOTE | 2024-09-30 08:36 | PC.NURSE ---
Patient education provided on fluid restriction.
[2024-09-30 08:43] LABS: NT Pro B Type Natriuretic Pept 132 pg/mL (0-450); Procalcitonin 0.43 ng/mL (0-0.5)
[2024-09-30 08:54] LABS: Alanine Aminotransferase 82 U/L (0-33); Albumin Level 3.1 g/dL (3.5-5.2); Alkaline Phosphatase 241 U/L (35-105); Anion Gap 16.4 (5-19); Aspartate Amino Transferase 75 U/L (0-32); Blood Urea Nitrogen 33 mg/dL (8-23); C Reactive Protein 48.7 mg/L (0.0-4.9); Calcium 10.3 mg/dL (8.5-10.5); Chloride 81 mmol/L (98-107); Creatine Phosphokinase 29 U/L (26-192); Creatinine Clr Calc Pharmacy 59.0659; Glucose 313 mg/dL (65-115); Magnesium 2.1 mg/dL (1.7-2.3); Osmolality Calculated 299 mOsm/kg (285-295); Potassium 3.4 mmol/L (3.5-5.1); Sodium 135 mmol/L (136-145); Total Bilirubin 0.8 mg/dL (0.15-1.2); Total Protein 6.1 g/dL (6.6-8.7)
[2024-09-30 09:04] LABS: Carbon Dioxide 41 mmol/L (22-29)
[2024-09-30 11:18] LABS: Glucose Point of Care 345 mg/dL (70-110)
[2024-09-30] MEDS: remdesivir 100 MG in sodium chloride 0.9% (100 ml) 80 ML IV (12:36)
[2024-09-30] MEDS: FUROsemide 10 mg/mL SDV 4mL 40 MG IVP (12:37)
[2024-09-30] MEDS: potassium chloride ER 20 mEq Tablet 40 MEQ PO (12:38)
[2024-09-30] MEDS: nystatin powder 15 gm Btl 1 APPLIC TOPICAL ×2 (12:45→18:24)
--- NOTE | 2024-09-30 13:43 | P.PN_ITS ---
Subjective 2 Subjective: Patient was seen this morning, she is alert awake, following all commands, her breathing has significantly improved she sat in the chair yesterday she is on 6 L no lightheadedness, dizziness, no chest pain Vitals/I&O/Wt Last Vital Signs Temp 98.6 F 09/30/24 08:00 Pulse 72 09/30/24 11:18 Resp 20 H 09/30/24 11:09 BP 132/69 09/30/24 10:00 Pulse Ox 96 09/30/24 11:09 O2 Del Method Nasal Cannula 09/30/24 11:09 O2 Flow Rate 6 09/30/24 11:09 FiO2 40 09/29/24 19:43 09/29/24 09/30/24 09/30/24 22:59 07:59 14:59 Intake Total 565 / 1045 240 / 240 Output Total 650 / 650 1550 / 2200 Balance -85 / 395 -1550 / -1155 240 / 240 Weight last 48 hrs Weight 107.955 kg Weight 106.141 kg Physical Exam 2 Const: COMMON NORMALS: no acute distress and patient oriented x3 Resp: COMMON NORMALS: normal respiratory effort, No retractions, No use of accessory muscles and clear to auscultation bilaterally AUSCULTATION: clear to auscultation bilaterally Cardio: COMMON NORMALS: regular rate, regular rhythm, S1 normal heart sound present and S2 normal heart sound present RATE: regular rate RHYTHM: r egular rhythm HEART SOUNDS: S1 normal heart sound present and S2 normal heart sound present GI: COMMON NORMALS: Normal to inspection, nondistended, normoactive bowel sounds present and non-tender Extremity: COMMON NORMALS: no pedal edema Neuro: COMMON NORMALS: patient oriented x3 Psych: COMMON NORMALS: mental status grossly normal Urinary Catheter Management: Griffiths: Cath Placed During This Visit: yes Reason for Continuing Indwelling Catheter: Chronic Indwelling Urinary Catheter on Admission Urinary Catheter Date of Insertion: 09/26/24 Urinary Catheter Time of Insertion: 11:15 Data 09/30/24 05:10 09/30/24 08:10 Micro: Microbiology 09/24/24 18:14 Blood Culture - Final Blood NO GROWTH AFTER 5 DAYS 09/24/24 18:10 Blood Culture - Final Blood NO GROWTH AFTER 5 DAYS A&P Assessment and plan (1) Fall: (2) Shortness of breath: (3) COPD (chronic obstructive pulmonary disease): (4) CHF (congestive heart failure): (5) Dizziness: (6) Hyperglycemia: (7) Hypertensive urgency: (8) Sinus tachycardia: (9) Transaminitis: (10) COVID-19: (11) Emphysema/COPD: (12) Aspiration pneumonitis: (13) Aspiration pneumonia: (14) Secondary bacterial pneumonia: (15) Acute respiratory distress: (16) Acute hypoxic respiratory failure: (17) Type 2 diabetes mellitus: (18) Influenza A: Plan Hyperglycemia, type 2 diabetes -Potentially effective steroid -Check A1c 7.7 -High-dose sliding scale, Lantus 10 units twice daily Transaminitis, improving -Right upper quadrant ultrasound no acute findings -GGT is over 2000, ferritin 1119 -Acute hep panel within normal limits -Potentially related to COVID-19, influenza Fall -CT head no acute findings -CT neck no acute findings -PT OT Weakness -PT OT Fatigue, monitor Dizziness -PT OT -No focal neurologic deficits -Carotid ultrasound WNL -Continue Eliquis Hypertensive urgency, history of mat -Resume metoprolol -Further medications based on clinical progress History of mat, monitor Sinus tachycardia, metoprolol Acute hypoxic respiratory failure - multifactorial -concerns for secondary bacterial pneumonia, possible aspiration -COVID-19 -Fluid overload, diastolic CHF -Influenza A positive -With underlying COPD exacerbation, centrilobular emphysema Pulmonary arteries: No acute central or segmental pulmonary embolism. Aorta: No aortic aneurysm. Mild aortic atherosclerosis. Lungs: Severe centrilobular emphysema. No pulmonary mass or consolidation. Minimal dependent right lower lobe atelectasis. Pleural spaces: Biapical pleural-parenchymal scarring. No pleural effusion or pneumothorax. Heart: No cardiomegaly. No pericardial effusion. Coronary arteries: Mild multivessel coronary artery calcification. Lymph nodes: Calcified lymph nodes are present, consistent with sequela of prior granulomatous disease. Liver: Hepatic steatosis. Gallbladder and biliary ducts: Cholecystectomy. Kidneys: Small right superior renal pole calculus. Bones/joints: No acute fracture. No aggressive osseous lesions. -With history of severe centrilobular emphysema -With recent history of COVID-19 -Concerns for secondary bacterial pneumonia -With evidence of fluid overload concerns for diastolic dysfunction -With episodes of choking coughing, concerns for aspiration pneumonia, aspiration pneumonitis -Due to increased oxygen requirements, concerns for acute respiratory distress syndrome Plan - Solu-Medrol 40 mg IV every 12 hours - remdesivir for COVID-19 -Broaden antibiotic coverage to vancomycin, vancomycin currently on hold due to elevated Vanco trough -Meropenem -DuoNeb -Budesonide -Monitor respiratory status closely -IV diuresis Lasix 40 IV twice daily -Aspiration precautions, dysphagia level 5 diet, moderately thickened, speech therapy eval, Influenza A, patient tested positive for influenza A today, timeframe unknown, as her respiratory status has improved, will hold off on treating her with Tamiflu given that she is on Celexa, remdesivir there is increased risk of QT prolongation, if her shortness of breath worsens will consider starting her on Tamiflu Recent history of COVID-19, discharged 09/13/2024 Concerns for aspiration pneumonia, aspiration pneumonitis -Dysphagia diet -Speech therapy -Aspiration precautions Diastolic CHF, as above History of COPD, severe centrilobular emphysema Fluid overload, echocardiogram during last hospitalization EF 55 to 60% Full code Eliquis for DVT prophylaxis Plan for today de-escalate prednisone, increase Lantus to 10 units twice daily, IV diuresis, IV antibiotics, continue to monitor clinical status closely PDMP PDMP Reviewed: Not Reviewed Attestations 2 Medical Necessity Statement*: Patient requires hospitalization for acute hypoxic respiratory failure secondary COVID, flu, secondary bacterial pneumonia, fluid overload Diagnoses Fall W19.XXXA Shortness of breath R06.02 COPD (chronic obstructive pulmonary disease) J44.9 CHF (congestive heart failure) I50.9 Dizziness R42 Hyperglycemia R73.9 Hypertensive urgency I16.0 Sinus tachycardia R00.0 Transaminitis R74.01 COVID-19 U07.1 Emphysema/COPD J43.9 Aspiration pneumonitis J69.0 Aspiration pneumonia J69.0 Secondary bacterial pneumonia J15.9 Acute respiratory distress R06.03 Acute hypoxic respiratory failure J96.01 Type 2 diabetes mellitus E11.9 Influenza A J10.1
[2024-09-30] MEDS: VANCOMYCIN ADD-Vantage 750 MG in 0.9% NaCl ADD-Vantage 250 ML 250 MG IV (14:55)
[2024-09-30 16:32] LABS: MRSA PCR OZH (swab) NOT DETECTED (Not Detecte)
[2024-09-30 17:27] LABS: Glucose Point of Care 319 mg/dL (70-110)
[2024-09-30] MEDS: pantoprazole 40 mg SDV IVP (18:21)
--- NOTE | 2024-09-30 18:35 | PC.NURSE ---
All documentation and medication administration by student nurse Kristi observed by this nurse.
[2024-09-30 21:17] LABS: Glucose Point of Care 248 mg/dL (70-110)
[2024-09-30] MEDS: ALPRAZolam 0.5 mg Tablet 0.75 MG PO (21:51)
[2024-09-30] MEDS: acetaminophen 325 mg Tablet 650 MG PO (22:12)
[2024-10-01] VITALS (42 sets, daily range): BP systolic 91–149; BP diastolic 52–97; PULSE 71–128; RESP 14–24; TEMP 35.8–36.3; O2SAT 88–97
[2024-10-01] MEDS: VANCOMYCIN ADD-Vantage 750 MG in 0.9% NaCl ADD-Vantage 250 ML 250 MG IV (01:47)
[2024-10-01] MEDS: meropenem 1,000 mg SDV 1000 MG IVP ×3 (04:48→21:11)
[2024-10-01 04:54] LABS: Basophils # 0.1 10^3/uL (0.0-0.1); Basophils % 0.5 %; Eosinophils % 0.1 %; Hematocrit 44.8 % (36-47); Lymphocytes # 2.3 10^3/uL (0.8-4.8); Lymphocytes % 15.5 %; Mean Corpuscular HGB Conc 31.5 g/dL (30-55); Mean Corpuscular Hemoglobin 33.8 pg (27-33); Mean Corpuscular Volume 107.4 fl (85-98); Monocytes # 1.6 10^3/uL (0.2-0.9); Monocytes % 10.3 %; Neutrophils # 10.76 10^3/uL (1.8-7.7); Neutrophils % 71.3 %; Nucleated Red Blood Cells % 0.1 %; Platelet Count 297 10^3/cmm (157-399); Red Blood Count 4.17 10^6/uL (3.85-5.65); Red Cell Distribution Width 13.6 % (12.1-15.1); White Blood Count 15.09 10^3/uL (3.29-11.43)
[2024-10-01 05:21] LABS: NT Pro B Type Natriuretic Pept 119 pg/mL (0-450); Procalcitonin 0.41 ng/mL (0-0.5)
[2024-10-01 05:44] LABS: Alanine Aminotransferase 118 U/L (0-33); Albumin Level 3.1 g/dL (3.5-5.2); Alkaline Phosphatase 245 U/L (35-105); Anion Gap 11.9 (5-19); Aspartate Amino Transferase 204 U/L (0-32); Blood Urea Nitrogen 30 mg/dL (8-23); C Reactive Protein 34.6 mg/L (0.0-4.9); Calcium 10.5 mg/dL (8.5-10.5); Chloride 87 mmol/L (98-107); Creatinine Clr Calc Pharmacy 74.5576; Globulin 2.9 g/dL (1.3-4.6); Glucose 63 mg/dL (65-115); Magnesium 2.3 mg/dL (1.7-2.3); Osmolality Calculated 296 mOsm/kg (285-295); Phosphorus 2.9 mg/dL (2.5-4.5); Sodium 141 mmol/L (136-145); Total Bilirubin 0.8 mg/dL (0.15-1.2)
[2024-10-01 05:48] LABS: Carbon Dioxide 45 mmol/L (22-29); Potassium 2.9 mmol/L (3.5-5.1)
[2024-10-01] MEDS: lidocaine 1% 5 ML in potassium chloride premix 100 ML 26.25 ML IV (06:07)
[2024-10-01] MEDS: acetaminophen 325 mg Tablet 650 MG PO (06:39)
--- NOTE | 2024-10-01 07:00 | XRR_ITS ---
PROCEDURE INFORMATION: Exam: XR Chest Exam date and time: 10/01/2024 4:27 AM Age: 79 years old Clinical indication: Condition or disease; Lung condition and disease; Covid pneumonia. ; Additional info: SOB TECHNIQUE: Imaging protocol: Radiologic exam of the chest. Views: Portable semi upright AP chest x-ray, 1 view. COMPARISON: CR XR chest 1V portable [id number] 09/28/2024 7:04 AM FINDINGS: Tubes, catheters and devices: Monitor leads project over the chest. Lungs: No significant or acute abnormality. No consolidation. Redemonstrated small left midlung calcified granuloma. Pleural spaces: No significant costophrenic angle blunting. No pneumothorax. Heart/Mediastinum: Heart size is normal. Bones/joints: No acute osseous abnormality. Soft tissues: Large body habitus. XR/XR chest 1V portable [id number] IMPRESSION: No acute abnormality demonstrated.
[2024-10-01 07:13] LABS: Glucose Point of Care 58 mg/dL (70-110)
--- NOTE | 2024-10-01 07:19 | PC.NURSE ---
Addendum entered by Vivek Hayes RN 10/01/24 08:43: Patient blood sugar went up to 60 after 4 oz of orange juice. Another 4 oz of orange juice were given. Dr. Morataya was notified, he ordered to hold lantus insulin at this time. Original Note: Patient's blood sugar was 58 this morning. 4 oz of orange juice was given per hypoglycemic protocol.
[2024-10-01 08:07] LABS: Glucose Point of Care 60 mg/dL (70-110)
[2024-10-01] MEDS: budesonide 0.5 mg/2 mL Neb INHALATION ×2 (08:17→20:33)
[2024-10-01] MEDS: ipratropium-albuterol 3 mL Neb INHALATION ×3 (08:18→20:33)
[2024-10-01] MEDS: potassium chloride ER 20 mEq Tablet 40 MEQ PO (08:55)
[2024-10-01] MEDS: citalopram 20 mg Tablet PO (08:55)
[2024-10-01] MEDS: apixaban 5 mg Tablet PO ×2 (08:55→17:44)
[2024-10-01] MEDS: fenofibrate 145 mg Tablet PO (08:55)
[2024-10-01] MEDS: nystatin powder 15 gm Btl 1 APPLIC TOPICAL (08:55)
[2024-10-01] MEDS: metoprolol tartrate 25 mg Tablet PO ×2 (08:55→17:44)
[2024-10-01] MEDS: nystatin 100,000 unit/mL UDC 5 mL 100000 UNIT PO ×4 (08:55→21:11)
[2024-10-01] MEDS: predniSONE 20 mg Tablet 40 MG PO (08:55)
--- NOTE | 2024-10-01 10:12 | PC.SOCIAL ---
IMM Update pg 2 of IMM Updated and reviewed w/ patient. Copy provided and copy dated, initialed and placed in chart.
[2024-10-01 11:14] LABS: Glucose Point of Care 209 mg/dL (70-110)
[2024-10-01] MEDS: insulin lispro 100 unit/1 mL SUBCUT ×3 (11:58→21:07)
--- NOTE | 2024-10-01 12:41 | PC.NURSE ---
Report was given to Mary Jane GARZA in [facility] . Patient was transferred along with all of their belongings. Patient was stable during transfer.
--- NOTE | 2024-10-01 13:01 | P.PN_ITS ---
Subjective 2 Subjective: Patient was seen this morning, she feels tired this morning, denies any fevers, no chills, no nausea, no vomiting, her edema is improving she tells me her shortness of breath is improving, continues to have a cough Vitals/I&O/Wt Last Vital Signs Temp 96.5 F L 10/01/24 07:00 Pulse 90 10/01/24 11:02 Resp 16 10/01/24 11:02 BP 126/62 10/01/24 10:00 Pulse Ox 90 10/01/24 11:02 O2 Del Method Nasal Cannula 10/01/24 11:02 O2 Flow Rate 5 10/01/24 11:02 FiO2 40 09/30/24 23:14 09/30/24 10/01/24 10/01/24 22:59 06:59 14:59 Intake Total 370 / 950 266.625 / 1216.625 272 / 272 Output Total 600 / 950 300 / 1250 Balance -230 / 0 -33.375 / -33.375 272 / 272 Weight last 48 hrs Weight 108.091 kg Weight 107.955 kg Physical Exam 2 Const: COMMON NORMALS: no acute distress and patient oriented x3 Resp: COMMON NORMALS: normal respiratory effort, No retractions, No use of accessory muscles and clear to auscultation bilaterally AUSCULTATION: clear to auscultation bilaterally Cardio: COMMON NORMALS: regular rate, regular rhythm, S1 normal heart sound present and S2 normal heart sound present RATE: regular rate RHYTHM: r egular rhythm HEART SOUNDS: S1 normal heart sound present and S2 normal heart sound present GI: COMMON NORMALS: Normal to inspection, nondistended, normoactive bowel sounds present and non-tender Extremity: COMMON NORMALS: no pedal edema Neuro: COMMON NORMALS: patient oriented x3 Psych: COMMON NORMALS: mental status grossly normal Urinary Catheter Management: Griffiths: Cath Placed During This Visit: yes Reason for Continuing Indwelling Catheter: Accurate Measurement of Urinary Output in Critically Ill Patients Urinary Catheter Date of Insertion: 09/26/24 Urinary Catheter Time of Insertion: 11:15 Data 10/01/24 04:38 10/01/24 04:38 A&P Assessment and plan (1) Fall: (2) Shortness of breath: (3) COPD (chronic obstructive pulmonary disease): (4) CHF (congestive heart failure): (5) Dizziness: (6) Hyperglycemia: (7) Hypertensive urgency: (8) Sinus tachycardia: (9) Transaminitis: (10) COVID-19: (11) Emphysema/COPD: (12) Aspiration pneumonitis: (13) Aspiration pneumonia: (14) Secondary bacterial pneumonia: (15) Acute respiratory distress: (16) Acute hypoxic respiratory failure: (17) Type 2 diabetes mellitus: (18) Influenza A: Plan Hyperglycemia, type 2 diabetes -Potentially effective steroid -Check A1c 7.7 -Had episodes of hypoglycemia this morning, stop Lantus, switch to monitor on sliding scale Transaminitis, improving -Right upper quadrant ultrasound no acute findings -GGT is over 2000, ferritin 1119 -Acute hep panel within normal limits -Potentially related to COVID-19, influenza Fall -CT head no acute findings -CT neck no acute findings -PT OT Weakness -PT OT Fatigue, monitor Dizziness -PT OT -No focal neurologic deficits -Carotid ultrasound WNL -Continue Eliquis Hypertensive urgency, history of mat -Resume metoprolol -Further medications based on clinical progress History of mat, monitor Sinus tachycardia, metoprolol Acute hypoxic respiratory failure - multifactorial -concerns for secondary bacterial pneumonia, possible aspiration -COVID-19 -Fluid overload, diastolic CHF -Influenza A positive -With underlying COPD exacerbation, centrilobular emphysema Pulmonary arteries: No acute central or segmental pulmonary embolism. Aorta: No aortic aneurysm. Mild aortic atherosclerosis. Lungs: Severe centrilobular emphysema. No pulmonary mass or consolidation. Minimal dependent right lower lobe atelectasis. Pleural spaces: Biapical pleural-parenchymal scarring. No pleural effusion or pneumothorax. Heart: No cardiomegaly. No pericardial effusion. Coronary arteries: Mild multivessel coronary artery calcification. Lymph nodes: Calcified lymph nodes are present, consistent with sequela of prior granulomatous disease. Liver: Hepatic steatosis. Gallbladder and biliary ducts: Cholecystectomy. Kidneys: Small right superior renal pole calculus. Bones/joints: No acute fracture. No aggressive osseous lesions. -With history of severe centrilobular emphysema -With recent history of COVID-19 -Concerns for secondary bacterial pneumonia -With evidence of fluid overload concerns for diastolic dysfunction -With episodes of choking coughing, concerns for aspiration pneumonia, aspiration pneumonitis -Due to increased oxygen requirements, concerns for acute respiratory distress syndrome Plan -Was on 40 mg daily for 5 days - remdesivir for COVID-19 day 5 of 5 -Vancomycin stopped -Meropenem continued, -DuoNeb -Budesonide -Monitor respiratory status closely -Appears euvolemic hold IV diuresis for today -Aspiration precautions, dysphagia level 5 diet, moderately thickened, speech therapy eval, Influenza A, patient tested positive for influenza A today, timeframe unknown, as her respiratory status has improved, will hold off on treating her with Tamiflu given that she is on Celexa, remdesivir there is increased risk of QT prolongation, if her shortness of breath worsens will consider starting her on Tamiflu Recent history of COVID-19, discharged 09/13/2024 Concerns for aspiration pneumonia, aspiration pneumonitis -Dysphagia diet -Speech therapy -Aspiration precautions Diastolic CHF, as above History of COPD, severe centrilobular emphysema Fluid overload, echocardiogram during last hospitalization EF 55 to 60% Full code Eliquis for DVT prophylaxis Plan for today will moved to stepdown unit, continue remdesivir, meropenem, PT OT, up out of bed, work on discharging in the next 24 hours PDMP PDMP Reviewed: Not Reviewed Attestations 2 Medical Necessity Statement*: Patient requires hospitalization for acute hypoxic respiratory failure flu, COVID, respiratory failure, pneumonia Diagnoses Fall W19.XXXA Shortness of breath R06.02 COPD (chronic obstructive pulmonary disease) J44.9 CHF (congestive heart failure) I50.9 Dizziness R42 Hyperglycemia R73.9 Hypertensive urgency I16.0 Sinus tachycardia R00.0 Transaminitis R74.01 COVID-19 U07.1 Emphysema/COPD J43.9 Aspiration pneumonitis J69.0 Aspiration pneumonia J69.0 Secondary bacterial pneumonia J15.9 Acute respiratory distress R06.03 Acute hypoxic respiratory failure J96.01 Type 2 diabetes mellitus E11.9 Influenza A J10.1
[2024-10-01] MEDS: remdesivir 100 MG in sodium chloride 0.9% (100 ml) 80 ML IV (13:15)
[2024-10-01] MEDS: FUROsemide 10 mg/mL SDV 4mL 40 MG IVP (14:52)
[2024-10-01] MEDS: potassium chloride ER 20 mEq Tablet PO (14:53)
[2024-10-01 17:25] LABS: Glucose Point of Care 309 mg/dL (70-110)
[2024-10-01] MEDS: pantoprazole 40 mg SDV IVP (17:43)
[2024-10-01 20:29] LABS: Glucose Point of Care 356 mg/dL (70-110)
[2024-10-01] MEDS: ALPRAZolam 0.5 mg Tablet 0.75 MG PO (21:10)
[2024-10-02] VITALS (26 sets, daily range): BP systolic 91–127; BP diastolic 55–94; PULSE 69–99; RESP 15–27; TEMP 36.6–36.8; O2SAT 90–95
[2024-10-02 03:28] LABS: Basophils # 0.1 10^3/uL (0.0-0.1); Basophils % 0.4 %; Eosinophils % 0.1 %; Hematocrit 43.3 % (36-47); Lymphocytes # 2.6 10^3/uL (0.8-4.8); Mean Corpuscular HGB Conc 32.3 g/dL (30-55); Mean Corpuscular Hemoglobin 34.1 pg (27-33); Mean Corpuscular Volume 105.4 fl (85-98); Monocytes # 1.5 10^3/uL (0.2-0.9); Monocytes % 9.2 %; Neutrophils # 11.47 10^3/uL (1.8-7.7); Neutrophils % 70.3 %; Nucleated Red Blood Cells % 0 %; Platelet Count 290 10^3/cmm (157-399); Red Blood Count 4.11 10^6/uL (3.85-5.65); Red Cell Distribution Width 13.6 % (12.1-15.1); White Blood Count 16.33 10^3/uL (3.29-11.43)
[2024-10-02 03:55] LABS: Alanine Aminotransferase 119 U/L (0-33); Albumin Level 3.2 g/dL (3.5-5.2); Alkaline Phosphatase 269 U/L (35-105); Anion Gap 12.3 (5-19); Aspartate Amino Transferase 146 U/L (0-32); Blood Urea Nitrogen 30 mg/dL (8-23); C Reactive Protein 34.5 mg/L (0.0-4.9); Calcium 10.2 mg/dL (8.5-10.5); Chloride 89 mmol/L (98-107); Creatinine Clr Calc Pharmacy 59.6461; Globulin 2.6 g/dL (1.3-4.6); Glucose 69 mg/dL (65-115); Magnesium 2.3 mg/dL (1.7-2.3); Osmolality Calculated 299 mOsm/kg (285-295); Phosphorus 3.1 mg/dL (2.5-4.5); Potassium 3.3 mmol/L (3.5-5.1); Sodium 142 mmol/L (136-145); Total Bilirubin 0.8 mg/dL (0.15-1.2); Total Protein 5.8 g/dL (6.6-8.7)
[2024-10-02 04:05] LABS: Carbon Dioxide 44 mmol/L (22-29)
[2024-10-02 04:07] LABS: NT Pro B Type Natriuretic Pept 86 pg/mL (0-450); Procalcitonin 0.41 ng/mL (0-0.5)
[2024-10-02] MEDS: potassium chloride ER 20 mEq Tablet 40 MEQ PO (05:22)
[2024-10-02] MEDS: meropenem 1,000 mg SDV 1000 MG IVP ×2 (05:22→12:46)
[2024-10-02 05:51] LABS: Glucose Point of Care 99 mg/dL (70-110)
[2024-10-02 07:20] LABS: Glucose Point of Care 102 mg/dL (70-110)
[2024-10-02] MEDS: ipratropium-albuterol 3 mL Neb INHALATION ×3 (08:18→15:09)
[2024-10-02] MEDS: budesonide 0.5 mg/2 mL Neb INHALATION (08:18)
[2024-10-02] MEDS: apixaban 5 mg Tablet PO (08:31)
[2024-10-02] MEDS: fenofibrate 145 mg Tablet PO (08:31)
[2024-10-02] MEDS: predniSONE 20 mg Tablet 40 MG PO (08:32)
[2024-10-02] MEDS: citalopram 20 mg Tablet PO (08:32)
[2024-10-02] MEDS: spironolactone 25 mg Tablet PO (08:32)
--- NOTE | 2024-10-02 08:49 | PC.NURSE ---
Spoke with provider about patients hr and blood pressure an current metoprolol dosing Instructions to give 1 time dose of 12.5mg po and hold the 25 mg po dose this am re assess at next scheduled dose
[2024-10-02] MEDS: nystatin 100,000 unit/mL UDC 5 mL 100000 UNIT PO ×2 (09:31→12:47)
[2024-10-02] MEDS: metoprolol tartrate 25 mg Tablet 12.5 MG PO (09:31)
[2024-10-02] MEDS: polyethylene glycol 3350 Pkt 17 gm PO (09:31)
[2024-10-02] MEDS: nystatin powder 15 gm Btl 1 APPLIC TOPICAL (09:36)
[2024-10-02 11:42] LABS: Glucose Point of Care 255 mg/dL (70-110)
[2024-10-02] MEDS: insulin lispro 100 unit/1 mL SUBCUT (12:46)
--- NOTE | 2024-10-02 16:38 | PC.NURSE ---
report phoned to hayley at [place].[facility].
--- NOTE | 2024-10-02 18:15 | P.DS_ITS ---
Discharge Providers Date of Admission: 09/24/24 17:00 Date of Discharge: October 02, 2024 Attending Provider at Admission: Nico Milligan MD Attending Provider at Discharge: Eric Barragan Primary Care Provider: Farhad Marquez MD Diagnoses at Discharge Discharge Diagnosis (1) Fall: Status: Acute (2) Shortness of breath: Status: Acute (3) COPD (chronic obstructive pulmonary disease): Status: Acute (4) CHF (congestive heart failure): Status: Acute (5) Dizziness: Status: Acute (6) Hyperglycemia: Status: Acute (7) Hypertensive urgency: Status: Acute (8) Sinus tachycardia: Status: Acute (9) Transaminitis: Status: Acute (10) COVID-19: Status: Acute (11) Emphysema/COPD: Status: Acute (12) Aspiration pneumonitis: Status: Acute (13) Aspiration pneumonia: Status: Acute (14) Secondary bacterial pneumonia: Status: Acute (15) Acute respiratory distress: Status: Acute (16) Acute hypoxic respiratory failure: Status: Acute (17) Type 2 diabetes mellitus: Status: Acute (18) Influenza A: Status: Acute Reason for Visit Reason for Visit: fall, swelling to C spine Hospital Course Hospital Course Pleasant 79-year-old lady with history of congestive heart failure, PE, severe emphysema and COPD, anxiety, other medical problems, was admitted after presenting after a fall with generalized weakness, fatigue, dizziness, with diffuse muscle aches, lost her balance and fell walking to the bathroom prior to admission, during his position was recently hospitalized and treated for severe COVID-19 infection with remdesivir, corticosteroid. Received coverage with antibiotics with possible secondary bacterial pneumonia as well as acute decompensation of diastolic CHF with diuresis. With worsening condition during hospitalization required ICU admission heated high flow oxygen up to 60 L 60%, as well as requiring BiPAP during the nighttime. Condition gradually improved with treatment of COVID-19. Additionally was found to have influenza, however, oxygenation gradually improving and coming down to 5-6 L of oxygen support by nasal cannula. Additionally treated with IV diuretics for diastolic congestive heart failure exacerbation, with gradual volume optimization. Corticosteroids for COPD exacerbation. With severe deconditioning, slow recovery, at risk of further functional decline will be proceeding to rehabilitation at SNF prior to return home. Was maintained on dysphagia diet during respiratory failure, advanced to soft and bite sized diet with thin liquids. Continue aspiration precautions. Physical Exam Narrative: Accompanied by her granddaughter. Const: COMMON NORMALS: patient oriented x3 and alert GENERAL APPEARANCE: cooperative ORIENTATION/CONSCIOUSNESS: Yes awake HENMT: COMMON NORMALS: oropharynx normal Neck/C-Spine: COMMON NORMALS: no JVD Resp: COMMON NORMALS: normal respiratory effort and clear to auscultation bilaterally AUSCULTATION: clear to auscultation bilaterally Cardio: COMMON NORMALS: no JVD, regular rhythm, S1 normal heart sound present, S2 normal heart sound present and No murmurs present (Cardio) RHYTHM: regular rhythm HEART SOUNDS: S1 normal heart sound present and S2 normal heart sound present GI: COMMON NORMALS: Normal to inspection, nondistended, normoactive bowel sounds present, Soft to palpation and non-tender PALPATION: Yes Soft to palpation Extremity: COMMON NORMALS: no joint enlargement and no pedal edema Neuro: COMMON NORMALS: patient oriented x3 and moves all extremities SENSORIUM/ORIENTATION: Yes alert Skin: COMMON NORMALS: no rashes or lesions noted GENERAL SKIN EXAM: no rashes or lesions noted Urinary Catheter Management: Griffiths: Cath Placed During This Visit: yes, but has since been removed by the nurse Reason for Continuing Indwelling Catheter: Accurate Measurement of Urinary Output in Critically Ill Patients Urinary Catheter Date of Insertion: 09/26/24 Urinary Catheter Time of Insertion: 11:15 Date Urinary Catheter Removed: 10/02/24 Time Urinary Catheter Discontinued: 15:30 Discharge Data Studies Completed and Pending Completed Studies During Hospitalization Category Date Time Status CT angio chest PE protcl [id number] Stat Cat Scan 09/24/24 17:[address] cervical spin wo con* [id number] Stat Cat Scan 09/24/24 11:[address] head wo con* [id number] Stat Cat Scan 09/24/24 11:[address] neck w con* [id number] Stat Cat Scan 09/24/24 13:14 Completed XR KUB portable [id number] Routine Exams 09/27/24 14:10 Completed XR chest 1V portable [id number] Routine Exams 09/26/24 09:54 Completed XR chest 1V portable [id number] Routine Exams 09/27/24 09:37 Completed XR chest 1V portable [id number] Routine Exams 09/28/24 07:00 Completed XR chest 1V portable [id number] Routine Exams 10/01/24 07:00 Completed XR chest 1V portable [id number] Stat Exams 09/24/24 11:07 Completed XR knee LT 3V* [id number] Stat Exams 09/24/24 14:31 Completed XR knee RT 3V* [id number] Stat Exams 09/24/24 14:31 Completed CV carotid duplex BI* [id number] Stat Ultrasound 09/24/24 17:55 Completed US abdomen limited [id number] Stat Ultrasound 09/24/24 17:25 Completed Pending at discharge Category Date Time Status Aspergillus AG,EIA,Serum Stat Lab 09/27/24 11:48 Received BLASTOMYCES AG [MVista Blastomyces AG Quant] Routine Lab 09/27/24 11:48 Received Histoplasma Quantitative AG Routine Lab 09/27/24 11:48 Received Pneumocystis PCP [Pneumocystis jiroveci Qual PCR] Lab 09/27/24 09:37 Ordered Routine Radiology Impressions Cervical Spine CT 09/24/24 11:07 IMPRESSION: 1. No acute cervical spine fracture identified. Image quality is degraded by body habitus. 2. Multilevel areas of foraminal stenosis and facet arthritis as above. Head CT 09/24/24 11:07 IMPRESSION: 1. No acute intracranial hemorrhage or edema. 2. Mild bilateral frontal lobe atrophy with moderate small vessel disease. 3. No fracture. Neck CT 09/24/24 13:14 IMPRESSION: Unremarkable neck CT. No mass or edema along the posterior neck. Knee X-Ray 09/24/24 14:31 IMPRESSION: No acute abnormality. Chest CTA 09/24/24 17:06 IMPRESSION: 1. No acute central or segmental pulmonary embolism. No acute findings. 2. Severe emphysema. 3. Hepatic steatosis. COMMENTS: The presence of pulmonary emphysema on CT is an independent risk factor for lung cancer. In the absence of a history or active diagnosis of lung cancer, it is recommended that this patient with emphysema be evaluated for enrollment in a low dose CT lung cancer screening program. Abdomen Ultrasound 09/24/24 17:25 IMPRESSION: 1. Limited assessment due to habitus. 2. Hepatic steatosis. 3. Cholecystectomy. KUB X-Ray 09/27/24 14:10 IMPRESSION: No acute pathology evident. Chest X-Ray 10/01/24 07:00 IMPRESSION: No acute abnormality demonstrated. Laboratory Results WBC 16.33 10^3/uL (3.29-11.43) H 10/02/24 03:09 Corrected WBC 10.0 10^3/cmm (4.8-10.8) 09/26/24 05:36 RBC 4.11 10^6/uL (3.85-5.65) 10/02/24 03:09 Hgb 14.00 g/dL (11.27-16.99) 10/02/24 03:09 Hct 43.3 % (36-47) 10/02/24 03:09 MCV 105.4 fl (85-98) H 10/02/24 03:09 MCH 34.1 pg (27-33) H 10/02/24 03:09 MCHC 32.3 g/dL (30-55) 10/02/24 03:09 RDW 13.6 % (12.1-15.1) 10/02/24 03:09 Plt Count 290 10^3/cmm (157-399) 10/02/24 03:09 MPV 10.0 fL (7.4-10.4) 10/02/24 03:09 Neut % (Auto) 70.3 % 10/02/24 03:09 Lymph % (Auto) 16.0 % 10/02/24 03:09 Evans % (Auto) 9.2 % 10/02/24 03:09 Eos % (Auto) 0.1 % 10/02/24 03:09 Baso % (Auto) 0.4 % 10/02/24 03:09 Neut # (Auto) 11.47 10^3/uL (1.8-7.7) H 10/02/24 03:09 Lymph # (Auto) 2.6 10^3/uL (0.8-4.8) 10/02/24 03:09 Evans # (Auto) 1.5 10^3/uL (0.2-0.9) H 10/02/24 03:09 Eos # (Auto) 0.0 10^3/uL (0.0-0.8) 10/02/24 03:09 Baso # (Auto) 0.1 10^3/uL (0.0-0.1) 10/02/24 03:09 Nucleated RBC % (auto) 0 % 10/02/24 03:09 Total Counted 100 (0-100) 09/28/24 05:12 Atypical Lymphs % 3.0 % (0-5) 09/28/24 05:12 Absolute Neutrophils 11.6 10^3/cmm (1.4-6.5) H 09/28/24 05:12 Segmented Neutrophils 84 % 09/28/24 05:12 Band Neutrophils 5.0 % 09/28/24 05:12 Absolute Lymphocytes 0.9 10^3/cmm (1.2-3.4) L 09/28/24 05:12 Lymphocytes (Manual) 4 % 09/28/24 05:12 Monocytes (Manual) 1.0 % 09/28/24 05:12 Absolute Monocytes 0.1 10^3/cmm (0.1-0.6) 09/28/24 05:12 Eosinophils (Manual) 0 % 09/28/24 05:12 Absolute Eosinophils 0.0 10^3/cmm (0.0-0.7) 09/28/24 05:12 Basophils (Manual) 0.0 % 09/28/24 05:12 Absolute Basophils 0.0 10^3/cmm (0.0-0.2) 09/28/24 05:12 Metamyelocytes 1.0 % 09/28/24 05:12 Myelocytes 1.0 % 09/28/24 05:12 Nucleated RBCs 1.0 /100WBC (0-1) 09/28/24 05:12 Nucleated RBCs # 0.0 /100WBC 10/02/24 03:09 Toxic Vacuolation Trace 09/28/24 05:12 Platelet Estimate Normal (Normal) 09/28/24 05:12 Polychromasia Trace 09/28/24 05:12 Anisocytosis Trace 09/28/24 05:12 Macrocytosis 1+ H 09/28/24 05:12 Haptoglobin 230.0 mg/L (30-200) H 09/27/24 05:08 Specimen Type Arterial 09/30/24 04:08 Sample Site Brachial, right 09/30/24 04:08 ABG pH 7.55 (7.35-7.45) H 09/30/24 04:08 ABG pCO2 56.4 mmHg (35-45) H 09/30/24 04:08 ABG pO2 65.8 mmHg (80.0-100.0) L 09/30/24 04:08 ABG PO2/FiO2 Ratio 191 09/29/24 04:32 ABG HCO3 48.7 mmol/L (22-26) H 09/30/24 04:08 ABG Base Excess 22.4 mmol/L (-2.0-2.0) H 09/30/24 04:08 Nathaniel Test Pos 09/30/24 04:08 Hematocrit 44.2 % (37-47) 09/30/24 04:08 O2 Delivery Device Nc 09/30/24 04:08 O2 Liters/Min 6.0 % 09/30/24 04:08 FiO2 60.0 % 09/29/24 04:32 Parcel Post Delivery ID [email or web address] 09/30/24 04:08 Sodium 142 mmol/L (136-145) 10/02/24 03:09 Potassium 3.3 mmol/L (3.5-5.1) L 10/02/24 03:09 Chloride 89 mmol/L (98-107) L 10/02/24 03:09 Carbon Dioxide 44 mmol/L (22-29) H* 10/02/24 03:09 Anion Gap 12.3 (5-19) 10/02/24 03:09 BUN 30 mg/dL (8-23) H 10/02/24 03:09 Creatinine 1.0 mg/dL (0.5-0.9) H 10/02/24 03:09 GFR Calculation Not Reportable 10/02/24 03:09 Glucose 69 mg/dL (65-115) 10/02/24 03:09 POC Glucose 255 mg/dL (70-110) H 10/02/24 11:28 Estimat Average Glucose 174 09/24/24 18:10 Hemoglobin A1c 7.7 % (4.0-6.0) H 09/24/24 18:10 Calculated Osmolality 299 mOsm/kg (285-295) H 10/02/24 03:09 Lactic Acid 4.6 mmol/L (0.5-2.2) H* 09/24/24 18:10 Lactic Acid (Sepsis) 3.5 mmol/L (0.5-2.2) H 09/24/24 21:49 Lactate 2.1 mmol/L (0.5-2.2) 09/30/24 05:10 Calcium 10.2 mg/dL (8.5-10.5) 10/02/24 03:09 Phosphorus 3.1 mg/dL (2.5-4.5) 10/02/24 03:09 Magnesium 2.3 mg/dL (1.7-2.3) 10/02/24 03:09 Iron 62 ug/dL (37-145) 09/26/24 05:36 TIBC 316 mcg/dl 09/26/24 05:36 % Saturation 19.6 % (20-50) L 09/26/24 05:36 Unsat Iron Binding 254 ug/dL (112-347) 09/26/24 05:36 Ferritin 1199 ng/mL (15-150) H 09/26/24 05:36 Total Bilirubin 0.8 mg/dL (0.15-1.2) 10/02/24 03:09 GGT 2581 U/L (5-36) H 09/26/24 05:36 AST 146 U/L (0-32) H 10/02/24 03:09 ALT 119 U/L (0-33) H 10/02/24 03:09 Alkaline Phosphatase 269 U/L (35-105) H 10/02/24 03:09 Lactate Dehydrogenase 605 U/L (135-214) H 09/27/24 05:08 Creatine Kinase 29 U/L (26-192) 09/30/24 08:10 Troponin T Baseline 23 ng/L (0-10) H 09/24/24 18:10 Troponin T 120 Minute 28.09 ng/L (0-10) H 09/24/24 21:49 Delta Troponin T 5.09 ABS# (0-10) 09/24/24 21:49 Troponin T Hi Sens 6Hr 26.21 ng/L (0-10) H 09/25/24 00:34 Troponin T Hi Sens 6Hr Delta 3.21 ng/L (0-12) 09/25/24 00:34 C-Reactive Protein 34.5 mg/L (0.0-4.9) H 10/02/24 03:09 NT-Pro-B Natriuret Pep 86 pg/mL (0-450) 10/02/24 03:09 Total Protein 5.8 g/dL (6.6-8.7) L 10/02/24 03:09 Albumin 3.2 g/dL (3.5-5.2) L 10/02/24 03:09 Globulin 2.6 g/dL (1.3-4.6) 10/02/24 03:09 Triglycerides 374 mg/dL (0-150) H 09/24/24 18:10 Cholesterol 208 mg/dL (0-200) H 09/24/24 18:10 LDL Cholesterol, Calc 88 mg/dL (50-129) 09/24/24 18:10 HDL Cholesterol 45 mg/dL (60-100) L 09/24/24 18:10 LDL/HDL Ratio 1.96 RATIO (0.00-3.22) 09/24/24 18:10 Cholesterol/HDL Ratio 4.62 mg/dL (0.0-4.40) H 09/24/24 18:10 Lipase 26 U/L (13-60) 09/24/24 18:10 Procalcitonin 0.41 ng/mL (0-0.5) 10/02/24 03:09 TSH 0.20 uIU/mL (0.27-4.20) L 09/24/24 18:10 Urine Color Yellow (Yellow) 09/24/24 12:00 Urine Appearance Clear (CLEAR) 09/24/24 12:00 Urine pH 5.5 (5-7) 09/24/24 12:00 Ur Specific Dunn 1.041 (1.005-1.030) H 09/24/24 12:00 Urine Protein Trace (Negative) A 09/24/24 12:00 Urine Glucose (UA) 3+ (Normal) H 09/24/24 12:00 Urine Ketones Trace (Negative) 09/24/24 12:00 Urine Blood Negative (Negative) 09/24/24 12:00 Urine Nitrate Negative (Negative) 09/24/24 12:00 Urine Bilirubin Negative (Negative) 09/24/24 12:00 Urine Urobilinogen 0.2 mg/dL (Negative) 09/24/24 12:00 Ur Leukocyte Esterase Negative (Negative) 09/24/24 12:00 Urine RBC None /hpf (0-2) 09/24/24 12:00 Urine WBC 0-4 /hpf (0-5) H 09/24/24 12:00 Ur Squamous Epith Cells 5-10 /hpf (0-5) H 09/24/24 12:00 Amorphous Sediment Not Reportable 09/24/24 12:00 Urine Bacteria Trace /hpf (NONE) 09/24/24 12:00 Urine Yeast Trace /hpf 09/24/24 12:00 Nasal MRSA (PCR) Not detected (Not Detecte) 09/30/24 14:44 Vancomycin Trough 17.2 ug/mL (10-15) H 09/30/24 08:10 Random Vancomycin 23.4 ug/mL (20.0-40.0) 09/29/24 16:14 Coronavirus 229E (PCR) Not detected (NOT DETECT) 09/29/24 11:38 Hepatitis A IgM Ab Non-reactive (Nonreactive) 09/25/24 04:12 Hep Bs Antigen Non-reactive (Nonreactive) 09/25/24 04:12 Hep B Core IgM Ab Non-reactive (Nonreactive) 09/25/24 04:12 Hepatitis C Antibody Non-reactive (Nonreactive) 09/25/24 04:12 HIV 1&2 Ab & HIV 1 Ag Non-reactive (Non-Reactiv) 09/25/24 04:12 HIV 1&2 Antibody Non-reactive (Non-Reactiv) 09/25/24 04:12 Influenza A (H1) PCR Not detected (NOT DETECT) 09/29/24 14:07 Influ A (H1/09) PCR Not detected (NOT DETECT) 09/29/24 14:07 Influenza A (H3) PCR Detected (NOT DETECT) A 09/29/24 14:07 Influenza Type A (PCR) Detected (NOT DETECT) A 09/29/24 14:07 Influenza Type B (PCR) Not detected (NOT DETECT) 09/29/24 14:07 SARS-CoV-2 (PCR) Detected (NOT DETECT) A 09/29/24 11:38 Vitals Last Vital Signs Temp 97.9 F 10/02/24 15:41 Pulse 97 10/02/24 16:14 Resp 22 H 10/02/24 16:14 BP 125/94 10/02/24 16:14 Pulse Ox 91 10/02/24 16:14 O2 Del Method Nasal Cannula 10/02/24 15:41 O2 Flow Rate 6 10/02/24 15:00 FiO2 40 10/01/24 23:20 Discharge Plan Discharge Patient Disposition: Xfer SNF Condition: Stable Prescriptions: New fenofibrate nanocrystallized 145 mg Tablet 145 mg PO DAILY Qty: 90 0RF nystatin 100,000 unit/mL Suspension 100,000 unit PO QID 14 Days Qty: 56 0RF nystatin [Nystop] 100,000 unit/gram Powder 1 applic topical BID 14 Days Qty: 30 0RF nicotine (polacrilex) 4 mg Lozenge 4 mg mucous membrane Q4H PRN (Reason: Nicotine Cravings) Qty: 90 0RF polyethylene glycol 3350 17 gram Powder In Packet 17 g PO DAILY Qty: 90 0RF prednisone 20 mg Tablet 20 mg PO DAILY Qty: 4 0RF Continued potassium chloride 10 mEq tablet extended release 10 meq PO DAILY Qty: 90 1RF citalopram 20 mg tablet 20 mg PO DAILY Qty: 90 2RF metoprolol tartrate 25 mg tablet 25 mg PO BID Qty: 90 2RF Trelegy Ellipta 100-62.5-25 mcg blister with device 1 inh inhalation DAILY Qty: 60 2RF cyclobenzaprine 10 mg tablet 10 mg PO DAILY Qty: 90 0RF (DME) Supplemental Oxygen @ 2-4l/m via nasal canula See Rx Instructions .Route .MEDSUPPLY Qty: 1 0RF Rx Instructions: As directed albuterol sulfate 90 mcg/actuation HFA aerosol inhaler 1 inh inhalation QID PRN (Reason: shortness of breath or wheezing) Qty: 8.5 0RF spironolactone [Aldactone] 25 mg tablet 25 mg PO DAILY Qty: 30 0RF alprazolam [Xanax] 0.5 mg tablet See Rx Instructions .ROUTE .COMPLEX Rx Instructions: Take 1.5 tablets by mouth at bedtime. furosemide [Lasix] 20 mg tablet 20 mg PO QAM apixaban 5 mg tablet 2.5 mg PO BID Discontinued dexamethasone 6 mg tablet 6 mg PO DAILY Qty: 5 0RF cefdinir 300 mg capsule 300 mg PO BID 7 Days Qty: 14 0RF Discharge Orders: Discharge Order (Routine); Ordered 10/02/24 Ordered By: Eric Barragan Referrals: [facility] [Outside] Farhad Marquez MD [Primary Care Provider] - 4-7 days Discharge Activity: As per PT/OT instructions and Oxygen as instructed Patient Instructions: Prednisone (By mouth), Nicotine (Into the mouth) (Nicorette, Commit, [facility] Nicotine,..., Nystatin/Triamcinolone (On the skin), Fenofibrate (By mouth) (Tricor, Fenoglide, Antara, Lipofen), Polyethylene Glycol 3350 (By mouth), Heart Failure (DC), Influenza (DC), Aspiration Pneumonia (DC), Emphysema (DC), Pneumonia (DC), COVID-19 (Coronavirus Disease 2019) (DC), CHF Stoplight, COPD Stoplight, Opioid Safety, Pain Management, Pneumonia Stoplight Patient's Health Concerns: Continue to work with therapy to rebuild your strength, balance and regain full independence. Continue oxygen therapy, target oxygen saturation 92%, wean down as tolerating. Continue flutter valve while recovering if producing any sputum that is difficult to bring up. Long-term continue to limit fluid intake to less than 1 and 1/2 L/day. Please monitor blood pressure twice daily. Reduce metoprolol dose in case blood pressure is lower than 110/60. Discharge Attestations Time Spent in Discharge Care*: greater than 30 min Quality Metrics Clinical Quality Measures [ No reported AMI, CVA or VTE this stay] Coding Level of Care Code 97680 Total time (in minutes) for Discharge: 45 Diagnoses Fall W19.XXXA Shortness of breath R06.02 COPD (chronic obstructive pulmonary disease) J44.9 CHF (congestive heart failure) I50.9 Dizziness R42 Hyperglycemia R73.9 Hypertensive urgency I16.0 Sinus tachycardia R00.0 Transaminitis R74.01 COVID-19 U07.1 Emphysema/COPD J43.9 Aspiration pneumonitis J69.0 Aspiration pneumonia J69.0 Secondary bacterial pneumonia J15.9 Acute respiratory distress R06.03 Acute hypoxic respiratory failure J96.01 Type 2 diabetes mellitus E11.9 Influenza A J10.1
[2024-10-02 18:55] LABS: Aspergillus AG,EIA,Serum NOT DETECTED; Aspergillus Galactomannan Inde <0.50
[2024-10-03 17:33] LABS: Histoplasma Antigen (Quant) NONE DETECTED; Histoplasma Antigen Interpreta NEGATIVE; Histoplasma Antigen Specimen PLASMA
[2024-10-03 17:40] LABS: Blastomyces Antigen Interpret NEGATIVE; Blastomyces Antigen Result NONE DETECTED
== END 2024-10-02 16:39 | disposition skilled nursing facility (03) | DRG 177 ==
LOC: ER 18:43 → MEDSURG 09-26 05:34 → ICU 09-27 11:31 → CSU 10-01 12:02
PROVIDERS: Admitting Provider Family Medicine; Emergency Provider Family Medicine; PCP Family Medicine; Visit Provider Internal Medicine
DX: U07.1 COVID-19 (principal); I50.33 Acute on chronic diastolic (congestive) heart failure; J12.82 Pneumonia due to coronavirus disease 2019; J15.9 Unspecified bacterial pneumonia; J69.0 Pneumonitis due to inhalation of food and vomit; J10.00 Influenza due to other identified influenza virus with unspecified type of pneumonia; J96.21 Acute and chronic respiratory failure with hypoxia; I16.0 Hypertensive urgency; E66.9 Obesity, unspecified; E11.65 Type 2 diabetes mellitus with hyperglycemia; J43.9 Emphysema, unspecified; R00.0 Tachycardia, unspecified; R74.01 Elevation of levels of liver transaminase levels; W01.0XXA Fall on same level from slipping, tripping and stumbling without subsequent striking against object, initial encounter; Y92.009 Unspecified place in unspecified non-institutional (private) residence as the place of occurrence of the external cause; Z79.899 Other long term (current) drug therapy; Z79.01 Long term (current) use of anticoagulants; Z88.5 Allergy status to narcotic agent; Z88.0 Allergy status to penicillin; Z88.2 Allergy status to sulfonamides; Z99.81 Dependence on supplemental oxygen; Z88.8 Allergy status to other drugs, medicaments and biological substances; Z87.01 Personal history of pneumonia (recurrent); Z90.49 Acquired absence of other specified parts of digestive tract; Z90.13 Acquired absence of bilateral breasts and nipples; Z68.37 Body mass index [BMI] 37.0-37.9, adult; Z86.711 Personal history of pulmonary embolism; Z91.81 History of falling; Z87.891 Personal history of nicotine dependence
CPT/HCPCS: 36415; 36416; 36600; 51702; 70450; 70491; 71045; 71275; 72125; 73562; 74018; 76705; 80053; 80061; 80074; 80202; 81001; 82550; 82728; 82803; 82962; 82977; 83010; 83036; 83540; 83550; 83605; 83615; 83690; 83735; 83880; 84100; 84145; 84443; 84484; 85007; 85025; 86140; 87040; 87305; 87385; 87449; 87631; 87635; 87806; 92523; 92526; 92610; 93005; 93880; 94640; 94660; 96372; 96374; 96376; 97161; 97165; 97530; J0248; J0456; J0696; J1815; J1940; J2185; J2270; J2470; J2919; J3370; J3480; J7050; J7512; J7626; J9999

== ENCOUNTER 2024-10-21 11:37 | Inpatient (IN) | payer MEDICARE, OTHER, SELFPAY ==
[2024-10-21] VITALS (10 sets, daily range): BP systolic 103–150; BP diastolic 51–83; PULSE 81–100; RESP 18–20; TEMP 36.4–36.6; O2SAT 91–96; BMI 34.4
--- NOTE | 2024-10-21 11:48 | XRR_ITS ---
PROCEDURE INFORMATION: Exam: XR Chest Exam date and time: 10/21/2024 11:59 AM Age: 79 years old Clinical indication: Shortness of breath; Hypoxia; Fluid retention; SOB; Copd; Weakness TECHNIQUE: Imaging protocol: Radiologic exam of the chest. Views: 1 view. COMPARISON: CR XR chest 1V portable [id number] 10/01/2024 4:27 AM FINDINGS: Lungs: Mild bibasilar atelectasis/infiltrate. No focal lung consolidation. Pleural spaces: No pleural effusion. No pneumothorax. Heart/Mediastinum: No cardiomegaly. Bones/joints: No acute bony abnormality. XR/XR chest 1V portable [id number] IMPRESSION: Mild bibasilar atelectasis/infiltrate.
--- NOTE | 2024-10-21 12:27 | W.ED.FEMALGU ---
HPI - Female Genitourinary General: Chief complaint: Urogenital-Female Stated complaint: decreased urine output Time Seen by Provider: 10/21/24 11:48 History of Present Illness: Patient presents to the ER by from [facility] with decreased urine output. longterm stated patient has not had any urine output for 24 hours so they placed a Griffiths catheter then he only received 250 mL out. He said the doctor wanted her brought to the ER to be checked out further. He also said patient gained 9 pounds of weight in the last 4 days. Patient complains of feeling weak shortness of breath. Patient wears 2 L of oxygen at all times. Upon arrival here patient's wearing 3 L of oxygen with O2 saturation of only 91%. Related Data Home Medications ?Medication ?Instructions ?Recorded ?Confirmed alprazolam 0.5 mg tablet (Xanax) 7.5 mg PO BEDTIME 09/24/24 10/21/24 acetaminophen 325 mg tablet 650 mg PO Q4H PRN general 10/21/24 10/21/24 discomfort albuterol sulfate 2.5 mg/3 mL 2.5 mg inhalation Q6H PRN 10/21/24 10/21/24 (0.083 %) solution for nebulization Shortness Of Breath apixaban 2.5 mg tablet (Eliquis) 2.5 mg PO BID 10/21/24 10/21/24 insulin lispro 100 unit/mL See Rx Instructions .Route .COMPLEX 10/21/24 10/21/24 subcutaneous pen (Humalog KwikPen (U-100) Insulin) nystatin 100,000 unit/gram topical 1 applic topical BID candidiasis 10/21/24 10/21/24 powder of skin/nail Previous Rx's ?Medication ?Instructions ?Recorded Supplemental Oxygen @ 2-4l/m via #1 ea 07/12/24 nasal canula citalopram 20 mg tablet 20 mg PO DAILY #90 tabs 08/13/24 fluticasone fur. 100 mcg-umeclid 1 inh inhalation DAILY #60 ea 08/13/24 62.5 mcg-vilant 25 mcg inhalat.powder (Trelegy Ellipta) metoprolol tartrate 25 mg tablet 25 mg PO BID #90 tabs 08/13/24 potassium chloride 10 mEq 10 meq PO DAILY #90 tabs 08/13/24 tablet,extended release albuterol sulfate 90 mcg/actuation 1 inh inhalation QID PRN shortness 09/14/24 aerosol inhaler of breath or wheezing #8.5 grams spironolactone 25 mg tablet 25 mg PO DAILY #30 tabs 09/21/24 (Aldactone) nicotine (polacrilex) 4 mg buccal 4 mg mucous membrane Q4H PRN 10/02/24 lozenge Nicotine Cravings #90 ea polyethylene glycol 3350 17 gram 17 g PO DAILY #90 ea 10/02/24 oral powder packet Allergies Allergy/AdvReac Type Severity Reaction Status Date / Time codeine Allergy ALGY-Hives Verified 09/18/24 19:33 Penicillins Allergy ALGY-Hives Verified 09/18/24 19:33 Sulfa (Sulfonamide Allergy hives Verified 09/18/24 19:33 Antibiotics) zolpidem (From Ambien) Allergy Unknown Verified 09/18/24 19:33 Review of Systems General: Reports: 10 or more systems reviewed and unremarkable except in HPI and below PFSH ED PFSH: Medical History Sinus tachycardia New onset of congestive heart failure Edema Multiple falls Anxiety Chronic steroid use Recently tapered off 09/16 Hx of pulmonary embolus Tachyarrhythmia COPD (chronic obstructive pulmonary disease) Surgical History History of bilateral mastectomy History of breast reconstruction History of cholecystectomy History of appendectomy History of hysterectomy History of back surgery History of repair of rectocele History of bladder repair surgery History of foot surgery Family History Grandfather Arrhythmia Father Colon cancer Grandmother Breast cancer Mother Diabetes mellitus, type 2 Social History Smoking and tobacco/nicotine status: unknown if used tobacco/nicotine Alcohol intake: never Substance/Drug Use: never Physical Exam Const: COMMON NORMALS: no acute distress, average body habitus, patient oriented x3, no limitations, healthy appearing, alert and well nourished HENMT: COMMON NORMALS: normocephalic, atraumatic, hearing grossly normal bilaterally, external ears normal, Normal external nose present, moist oral mucous membranes and oropharynx normal HEAD & SCALP: normocephalic and atraumatic NOSE: Normal external nose present EXTERNAL EAR: Yes external ears normal Neck/C-Spine: COMMON NORMALS: no JVD Chest: COMMONS NORMALS: normal inspection of the chest and normal palpation of entire chest wall Resp: COMMON NORMALS: normal respiratory effort, No retractions, No use of accessory muscles and clear to auscultation bilaterally AUSCULTATION: clear to auscultation bilaterally Cardio: COMMON NORMALS: no JVD, regular rate, regular rhythm, S1 normal heart sound present, S2 normal heart sound present, No gallops present (Cardio), No clicks present (Cardio), No murmurs present (Cardio) and No rub (Cardio) RATE: regular rate RHYTHM: regular rhythm HEART SOUNDS: S1 normal heart sound present and S2 normal heart sound present GI: COMMON NORMALS: Normal to inspection, nondistended, normoactive bowel sounds present, Soft to palpation, non-tender, No hepatosplenomegaly present and no masses PALPATION: Yes Soft to palpation and Yes No hepatosplenomegaly present Extremity: NARRATIVE EXTREMITY EXAM: 2+ pitting edema bilateral lower extremities Neuro: COMMON NORMALS: patient oriented x3 SENSORIUM/ORIENTATION: Yes alert Course Vital Signs: Vital signs: Vital Signs Temperature 97.6 F 10/21/24 11:38 Pulse Rate 90 10/21/24 11:38 Respiratory Rate 19 H 10/21/24 11:38 Blood Pressure 121/78 10/21/24 11:38 Pulse Oximetry 91 10/21/24 11:38 Oxygen Delivery Me thod Nasal Cannula 10/21/24 11:38 Oxygen Flow Rate 3 10/21/24 11:38 MDM - Female Medical Decision Making Chest x-ray showed mild bibasilar atelectasis/infiltrate, laboratory work was for the most part improved white count is now normal however lactic acid is still slightly elevated at 3.2, urine showed greater than 100 red cells greater than 100 white cells 2+ leukocyte Estrace. Cultures were drawn. Patient was given 1 dose of Zosyn in ER. This case was discussed with Dr. Arciniega who accepted for observation for IV antibiotics and gentle fluid hydration. Medical Records I reviewed the patient's medical records. Lab Data I reviewed the patient's lab results. 10/21/24 12:06 10/21/24 12:06 Radiology Impressions Chest X-Ray 10/21/24 11:48 IMPRESSION: Mild bibasilar atelectasis/infiltrate. Laboratory Results WBC 6.84 10^3/uL (3.29-11.43) 10/21/24 12:06 RBC 4.13 10^6/uL (3.85-5.65) 10/21/24 12:06 Hgb 14.30 g/dL (11.27-16.99) 10/21/24 12:06 Hct 41.2 % (36-47) 10/21/24 12:06 MCV 99.8 fl (85-98) H 10/21/24 12:06 MCH 34.6 pg (27-33) H 10/21/24 12:06 MCHC 34.7 g/dL (30-55) 10/21/24 12:06 RDW 13.3 % (12.1-15.1) 10/21/24 12:06 Plt Count 340 10^3/cmm (157-399) 10/21/24 12:06 MPV 8.7 fL (7.4-10.4) 10/21/24 12:06 Neut % (Auto) 50.2 % 10/21/24 12:06 Lymph % (Auto) 30.4 % 10/21/24 12:06 [place] % (Auto) 10.1 % 10/21/24 12:06 Eos % (Auto) 5.6 % 10/21/24 12:06 Baso % (Auto) 1.9 % 10/21/24 12:06 Neut # (Auto) 3.44 10^3/uL (1.8-7.7) 10/21/24 12:06 Lymph # (Auto) 2.1 10^3/uL (0.8-4.8) 10/21/24 12:06 [place] # (Auto) 0.7 10^3/uL (0.2-0.9) 10/21/24 12:06 Eos # (Auto) 0.4 10^3/uL (0.0-0.8) 10/21/24 12:06 Baso # (Auto) 0.1 10^3/uL (0.0-0.1) 10/21/24 12:06 Nucleated RBC % (auto) 0 % 10/21/24 12:06 Nucleated RBCs # 0.0 /100WBC 10/21/24 12:06 Sodium 137 mmol/L (136-145) 10/21/24 12:06 Potassium 3.2 mmol/L (3.5-5.1) L 10/21/24 12:06 Chloride 95 mmol/L (98-107) L 10/21/24 12:06 Carbon Dioxide 28 mmol/L (22-29) 10/21/24 12:06 Anion Gap 17.2 (5-19) 10/21/24 12:06 BUN 7 mg/dL (8-23) L 10/21/24 12:06 Creatinine 0.9 mg/dL (0.5-0.9) 10/21/24 12:06 GFR Calculation Not Reportable 10/21/24 12:06 Glucose 159 mg/dL (65-115) H 10/21/24 12:06 Calculated Osmolality 285 mOsm/kg (285-295) 10/21/24 12:06 Lactic Acid 3.2 mmol/L (0.5-2.2) H 10/21/24 12:06 Calcium 9.2 mg/dL (8.5-10.5) 10/21/24 12:06 Phosphorus 2.8 mg/dL (2.5-4.5) 10/21/24 12:06 Magnesium 1.7 mg/dL (1.7-2.3) 10/21/24 12:06 Total Bilirubin 0.7 mg/dL (0.15-1.2) 10/21/24 12:06 AST 78 U/L (0-32) H 10/21/24 12:06 ALT 54 U/L (0-33) H 10/21/24 12:06 Alkaline Phosphatase 150 U/L (35-105) H 10/21/24 12:06 NT-Pro-B Natriuret Pep 126 pg/mL (0-450) 10/21/24 12:06 Total Protein 6.7 g/dL (6.6-8.7) 10/21/24 12:06 Albumin 3.2 g/dL (3.5-5.2) L 10/21/24 12:06 Globulin 3.5 g/dL (1.3-4.6) 10/21/24 12:06 Urine Color Yellow (Yellow) 10/21/24 12:06 Urine Appearance Turbid (CLEAR) A 10/21/24 12:06 Urine pH 5 (5-7) 10/21/24 12:06 Ur Specific [place] 1.030 (1.005-1.030) 10/21/24 12:06 Urine Protein 2+ (Negative) H 10/21/24 12:06 Urine Glucose (UA) Trace (Normal) H 10/21/24 12:06 Urine Ketones 1+ (Negative) H 10/21/24 12:06 Urine Blood 3+ (Negative) H 10/21/24 12:06 Urine Nitrate Negative (Negative) 10/21/24 12:06 Urine Bilirubin 1+ (Negative) H 10/21/24 12:06 Urine Urobilinogen 4 mg/dL (Negative) H 10/21/24 12:06 Ur Leukocyte Esterase 2+ (Negative) H 10/21/24 12:06 Urine RBC >100 /hpf (0-2) H 10/21/24 12:06 Urine WBC >100 /hpf (0-5) H 10/21/24 12:06 Ur Squamous Epith Cells 5-10 /hpf (0-5) H 10/21/24 12:06 Amorphous Sediment Not Reportable 10/21/24 12:06 Urine Bacteria 1+ /hpf (NONE) H 10/21/24 12:06 Hyaline Casts 5-10 /lpf H 10/21/24 12:06 All radiology interpretation(s) finalized by discharge Discharge Plan Discharge Patient Disposition: Placed in Observation Clinical Impression: Elevated lactic acid level Urinary tract infection Qualifiers: Urinary tract infection type: acute cystitis Hematuria presence: with hematuria Qualified Code(s): N30.01 - Acute cystitis with hematuria Pneumonia Qualifiers: Pneumonia type: due to unspecified organism Laterality: bilateral Lung location: lower lobe of lung Qualified Code(s): J18.9 - Pneumonia, unspecified organism Coding Level of Care Code ED Home Worker for Alee Weaver
[2024-10-21 12:43] LABS: Blood Urine 3+ (Negative); Glucose Urine UA Trace (Normal); Ketones Urine 1+ (Negative); Nitrate Urine Negative (Negative); Protein Urine 2+ (Negative); Urine Appearance Turbid (CLEAR); Urine Color Yellow (Yellow); pH Urine 5 (5-7)
[2024-10-21 12:44] LABS: Add Urine Culture? Yes; Add Urine Microscopic? YES; Bacteria Urine 1+ /hpf; Bilirubin Urine 1+ (Negative); RBC Urine >100 /hpf (0-2); UA Manual Slide Review YES; Urobilinogen Urine 4 mg/dL (Negative); WBC Urine >100 /hpf (0-5)
[2024-10-21 12:47] LABS: Alanine Aminotransferase 54 U/L (0-33); Albumin Level 3.2 g/dL (3.5-5.2); Alkaline Phosphatase 150 U/L (35-105); Anion Gap 17.2 (5-19); Aspartate Amino Transferase 78 U/L (0-32); Basophils # 0.1 10^3/uL (0.0-0.1); Basophils % 1.9 %; Blood Urea Nitrogen 7 mg/dL (8-23); Calcium 9.2 mg/dL (8.5-10.5); Carbon Dioxide 28 mmol/L (22-29); Chloride 95 mmol/L (98-107); Creatinine Clr Calc Pharmacy 63.5295; Eosinophils # 0.4 10^3/uL (0.0-0.8); Eosinophils % 5.6 %; Globulin 3.5 g/dL (1.3-4.6); Glucose 159 mg/dL (65-115); Hematocrit 41.2 % (36-47); Lymphocytes # 2.1 10^3/uL (0.8-4.8); Lymphocytes % 30.4 %; Magnesium 1.7 mg/dL (1.7-2.3); Mean Corpuscular HGB Conc 34.7 g/dL (30-55); Mean Corpuscular Hemoglobin 34.6 pg (27-33); Mean Corpuscular Volume 99.8 fl (85-98); Mean Platelet Volume 8.7 fL (7.4-10.4); Monocytes # 0.7 10^3/uL (0.2-0.9); Monocytes % 10.1 %; Neutrophils # 3.44 10^3/uL (1.8-7.7); Neutrophils % 50.2 %; Nucleated Red Blood Cells % 0 %; Osmolality Calculated 285 mOsm/kg (285-295); Phosphorus 2.8 mg/dL (2.5-4.5); Platelet Count 340 10^3/cmm (157-399); Potassium 3.2 mmol/L (3.5-5.1); Red Blood Count 4.13 10^6/uL (3.85-5.65); Red Cell Distribution Width 13.3 % (12.1-15.1); Sodium 137 mmol/L (136-145); Total Bilirubin 0.7 mg/dL (0.15-1.2); Total Protein 6.7 g/dL (6.6-8.7); White Blood Count 6.84 10^3/uL (3.29-11.43)
[2024-10-21 12:49] LABS: Leukocyte Esterase Urine 2+ (Negative)
--- NOTE | 2024-10-21 12:51 | PC.PHAR ---
Pt is from [facility]
[2024-10-21 13:09] LABS: NT Pro B Type Natriuretic Pept 126 pg/mL (0-450)
[2024-10-21 14:02] LABS: Lactic Sepsis W/Reflex 3.2 mmol/L (0.5-2.2)
--- NOTE | 2024-10-21 14:25 | P.HP_ITS ---
Providers/Chief Complaint 2 Primary Care Provider: Farhad Marquez MD Chief Complaint: decreased urine output History of Present Illness 79-year-old female with a past medical history of COVID-19, influenza, chronic respiratory failure with hypoxemia, chronic obstructive pulmonary disease, and congestive heart failure with preserved EF who presents with an inability to urinate and increasing lower extremity swelling. Patient was recently discharged from the hospital on 10/02/2024 after treatment for respiratory failure due to COPD treated with steroids, heart failure treated with IV Lasix and possible infection to [facility] [place]. Patient reported difficulty urinating since 10/19/2024. She noted one urination Tuesday morning, then no further urination for the rest of the day and night. Similar pattern on 10/20/2024, with one urination around 11:00 AM and no further output. This morning, patient was unable to urinate at all. She denies burning sensation with urination. No reported fever, chills, nausea, or vomiting. Breathing difficulties are attributed to underlying COPD. Patient reports worsening dyspnea with movement or when her head is lowered. She denies recent worsening of respiratory symptoms or productive cough. Patient notes persistent lower extremity swelling in both legs and feet. She reports swelling initially improved after discharge from the hospital, but worsened after discontinuation of Lasix at the long-term. She has not sure of why her Lasix was discontinued however thinks it might be due to the fact that she was told she had renal failure. Patient fell twice at [facility]. Details of the falls are unclear, but she mentions difficulty walking and feeling unwell when asked to ambulate. She also reports that long-term staff encouraged her to walk despite her expressing that she did not feel well. Initial evaluation in the ER revealed: - Laboratory Findings: Hemoglobin within normal range, potassium slightly low at 3.2, creatinine 0.9. - Urinalysis: Leukocyte esterase 2+, WBCs >100, 1+ bacteria. - Chest X-ray: Showed some infiltrates in the lower lung loya. In emergency room she was given IV Zosyn and admitted to the hospital. Patient has expressed her wishes to find alternative post-acute care placement as well. Review of Systems 2 General: Reports: 10 or more systems reviewed and unremarkable except in HPI and below Medications/Allergies Home Medications ?Medication ?Instructions ?Recorded ?Confirmed ?Last Taken ?Type Supplemental Oxygen @ 2-4l/m via #1 ea 07/12/24 Unknown Rx nasal canula citalopram 20 mg tablet 20 mg PO DAILY #90 tabs 07/2610/21/24 10/21/24 Rx fluticasone fur. 100 mcg-umeclid 1 inh inhalation COOKIE Y #60 ea 08/13/24 10/21/24 10/21/24 Rx 62.5 mcg-vilant 25 mcg inhalat.powder (Trelegy Ellipta) metoprolol tartrate 25 mg tablet 25 mg PO BID #90 tabs 08/13/24 10/21/24 10/21/24 Rx potassium chloride 10 mEq 10 meq PO DAILY #90 tabs 10/21/24 10/21/24 Rx tablet,extended release albuterol sulfate 90 mcg/actuation 1 inh inhalation QI D PRN shortness 09/14/24 10/21/24 Unknown Rx aerosol inhaler of breath or wheezing #8.5 g zackary spironolactone 25 mg tablet 25 mg PO DAILY #30 tabs 10/21/24 10/21/24 Rx (Aldactone) alprazolam 0.5 mg tablet (Xanax) 7.5 mg PO BEDTIME 10/1610/21/24 10/20/24 History nicotine (polacrilex) 4 mg buccal 4 mg mucous membrane Q4H PRN 10/02/24 10/21/24 Unknown Rx lozenge Nicotine Cravings #90 ea polyethylene glycol 3350 17 gram 17 g PO DAILY #90 ea 10/02/24 10/21/24 10/21/24 Rx oral powder packet acetaminophen 325 mg tablet 650 mg PO Q4H PRN general 10/21/24 10/21/24 Unknown History discomfort albuterol sulfate 2.5 mg/3 mL 2.5 mg inhalation Q6H W[place] N 10/21/24 10/21/24 Unknown History (0.083 %) solution for nebulization Shortness Of Breat h apixaban 2.5 mg tablet (Eliquis) 2.5 mg PO BID 5 10/21/24 10/21/24 History insulin lispro 100 unit/mL See Rx Instructions .Route .COMPLEX 10/21/24 10/21/24 10/21/24 History subcutaneous pen (Humalog KwikPen (U-100) Insulin) nystatin 100,000 unit/gram topical 1 applic topical BI D candidiasis 10/21/24 10/21/24 10/21/24 History powder of skin/nail Allergies Allergy/AdvReac Type Severity Reaction Status Date / Time codeine Allergy ALGY-Hives Verified 09/18/24 19:33 Penicillins Allergy ALGY-Hives Verified 09/18/24 19:33 Sulfa (Sulfonamide Allergy hives Verified 09/18/24 19:33 Antibiotics) zolpidem (From Ambien) Allergy Unknown Verified 09/18/24 19:33 PFSH Acute 2 PFSH: Medical History Sinus tachycardia New onset of congestive heart failure Edema Multiple falls Anxiety Chronic steroid use Recently tapered off 09/16 Hx of pulmonary embolus Tachyarrhythmia COPD (chronic obstructive pulmonary disease) Surgical History History of bilateral mastectomy History of breast reconstruction History of cholecystectomy History of appendectomy History of hysterectomy History of back surgery History of repair of rectocele History of bladder repair surgery History of foot surgery Family History Grandfather Arrhythmia Father Colon cancer Grandmother Breast cancer Mother Diabetes mellitus, type 2 Social History Smoking and tobacco/nicotine status: unknown if used tobacco/nicotine Alcohol intake: never Substance/Drug Use: never Vitals/I&O/Wt Last Vital Signs Temp 97.6 F 10/21/24 11:38 Pulse 90 10/21/24 11:38 Resp 19 H 10/21/24 11:38 BP 121/78 10/21/24 11:38 Pulse Ox 91 10/21/24 11:38 O2 Del Method Nasal Cannula 10/21/24 11:38 O2 Flow Rate 3 10/21/24 11:38 Weight last 48 hrs Weight 99.79 kg Physical Exam 2 Narrative: General; Alert, awake, NAD HEENT Grossly unremarkabl e Lungs: Decreased breath sounds bilaterally with no expiratory wheezes. on 3 L via NC CVS: RRR, NO M/R/G Extremities: Bilateral lower extremity edema. Neuro: No gross deficits. Data 10/21/24 12:06 10/21/24 12:06 Micro: Microbiology 10/21/24 14:00 Blood Culture - Preliminary Blood SPECIMEN COLLECTED 10/21/24 14:04 Blood Culture - Preliminary Blood SPECIMEN COLLECTED A&P Assessment and plan (1) Fall: (2) COPD (chronic obstructive pulmonary disease): (3) CHF (congestive heart failure): Plan Acute Urinary Retention with Urinary Tract Infection - Patient presents with inability to urinate for approximately 48 hours. - Urinalysis is suggestive of a urinary tract infection. - Griffiths catheter placed at [facility] with initial output of 250 mL. Plan: 1. Continue Griffiths catheter and monitor urine output. 2. Obtain urine culture and sensitivity. 3. Start Rocephine based on urinalysis results. 4. Monitor renal function and electrolytes. Acute on Chronic HFpEF with increasing LE Edema - Noted bilateral lower extremity edema. - History of diuretic use (Lasix) which was reportedly discontinued at the long-term. - 9-pound weight gain since 10/17/2024. Plan: 1. Lasix 20 mg IV x1 now 2. Reassess in AM for additional IV or restart in home. 3. Monitor daily weights and intake and output. Chronic Obstructive Pulmonary Disease - Baseline oxygen requirement 3 L/min. - Reports dyspnea with movement, consistent with known COPD. Plan: 1. Continue current oxygen therapy. 2. DuoNeb ordered 3. Unfortubately Trelegy not on formulary or LABA Recent COVID-19 and Influenza Infection - Recently treated for COVID-19 and influenza. - Current chest x-ray shows some lower lung infiltrates. Plan: 1. Monitor for any signs of respiratory deterioration. 2. Continue current oxygen therapy. 3. Repeat chest x-ray if respiratory status worsens. Falls at [facility] - Patient reports two falls at the long-term. Plan: 1. Assess gait and balance. 2. Physical therapy evaluation for strengthening and fall prevention strategies. Discharge Planning - Patient and family express desire to change nursing facilities. Plan: 1. Case management consultation to explore alternative facility options. 2. Assess Medicare coverage for potential facility transfer. PDMP PDMP Reviewed: Not Reviewed Attestations 2 Medical Necessity Statement*: Anticipate over 2 midnight stay in hospital for evaluation and treatment. Coding Level of Care Code Acute Code for [facility] Fwd Diagnoses Fall W19.XXXA COPD (chronic obstructive pulmonary disease) J44.9 CHF (congestive heart failure) I50.9
[2024-10-21 14:45] LABS: Procalcitonin 0.17 ng/mL (0-0.5)
[2024-10-21] MEDS: piperacillin-tazobactam 3.375 GM in sodium chloride 0.9% (plus) 50 ML IV (15:05)
[2024-10-21] MEDS: enoxaparin 40 mg/0.4 mL Syringe SUBCUT (15:06)
[2024-10-21 15:37] LABS: Reflex Lactate Order REFLEX LACTIC ORDERD
[2024-10-21 16:42] LABS: Lactic Acid level (Lactate) 1.9 mmol/L (0.5-2.2)
[2024-10-21 17:15] LABS: Glucose Point of Care 110 mg/dL (70-110)
[2024-10-21] MEDS: FUROsemide 10 mg/mL SDV 2mL 20 MG IVP (20:13)
[2024-10-21] MEDS: cefTRIAXone 1,000 mg SDV 1000 MG IVP (20:13)
[2024-10-21] MEDS: ALPRAZolam 0.5 mg Tablet PO (20:13)
[2024-10-21] MEDS: potassium chloride ER 20 mEq Tablet PO (20:14)
[2024-10-21] MEDS: metoprolol tartrate 25 mg Tablet PO (20:14)
[2024-10-21] MEDS: apixaban 5 mg Tablet 2.5 MG PO (20:14)
[2024-10-21] MEDS: ondansetron 2 mg/ML SDV 2 mL 4 MG IVP (20:59)
[2024-10-21 21:03] LABS: Glucose Point of Care 187 mg/dL (70-110)
[2024-10-22] VITALS (7 sets, daily range): BP systolic 102–126; BP diastolic 49–66; PULSE 89–112; RESP 15–20; TEMP 36.3–36.9; O2SAT 90–96
[2024-10-22 03:22] LABS: Basophils # 0.1 10^3/uL (0.0-0.1); Basophils % 1.2 %; Eosinophils # 0.3 10^3/uL (0.0-0.8); Eosinophils % 4.8 %; Hematocrit 39.2 % (36-47); Lymphocytes # 1.9 10^3/uL (0.8-4.8); Lymphocytes % 28.8 %; Mean Corpuscular HGB Conc 31.6 g/dL (30-55); Mean Corpuscular Hemoglobin 33.8 pg (27-33); Mean Corpuscular Volume 106.8 fl (85-98); Mean Platelet Volume 8.6 fL (7.4-10.4); Monocytes # 0.8 10^3/uL (0.2-0.9); Monocytes % 12.4 %; Neutrophils # 3.29 10^3/uL (1.8-7.7); Neutrophils % 51.1 %; Nucleated Red Blood Cells % 0 %; Platelet Count 271 10^3/cmm (157-399); Red Blood Count 3.67 10^6/uL (3.85-5.65); Red Cell Distribution Width 13.5 % (12.1-15.1); White Blood Count 6.45 10^3/uL (3.29-11.43)
[2024-10-22 03:42] LABS: Anion Gap 14.6 (5-19); Blood Urea Nitrogen 8 mg/dL (8-23); Calcium 8.8 mg/dL (8.5-10.5); Carbon Dioxide 30 mmol/L (22-29); Chloride 96 mmol/L (98-107); Creatinine Clr Calc Pharmacy 47.6471; Glucose 126 mg/dL (65-115); Osmolality Calculated 284 mOsm/kg (285-295); Potassium 3.6 mmol/L (3.5-5.1); Sodium 137 mmol/L (136-145)
[2024-10-22 03:49] LABS: Lactic Sepsis W/Reflex 2.1 mmol/L (0.5-2.2)
[2024-10-22 05:06] LABS: Reflex Lactate Order REFLEX LACTIC ORDERD
[2024-10-22 06:26] LABS: Glucose Point of Care 110 mg/dL (70-110)
[2024-10-22 06:52] LABS: Lactic Acid level (Lactate) 1.7 mmol/L (0.5-2.2)
[2024-10-22] MEDS: apixaban 5 mg Tablet 2.5 MG PO ×2 (08:13→17:05)
[2024-10-22] MEDS: citalopram 20 mg Tablet PO (08:13)
[2024-10-22] MEDS: spironolactone 25 mg Tablet PO (08:13)
[2024-10-22] MEDS: ipratropium-albuterol 3 mL Neb INHALATION (10:52)
--- NOTE | 2024-10-22 11:34 | P.PN_ITS ---
Subjective 2 Subjective: 79-year-old female with a past medical h istory of COVID-19, influenza, chronic respiratory failure with hypoxemia, chronic obstructive pulmonary disease, and congestive heart failure with preserved EF who presents with an inability to urinate and increasing lower extremity swelling. Patient was recently discharged from the hospital on 10/02/2024 after treatment for respiratory failure due to COPD treated with steroids, heart failure treated with IV Las[place] [facility] [place] reported difficulty urinating since 10/19/2024. She noted one urination Tuesday morning, then no further urination for the rest of the day and night. Similar pattern on 10/20/2024, with one urination around 11:00 AM and no further output. This morning, patient was unable to urinate at all. She denies burning sensation with urination. No reported fever, chills, nausea, or vomiting.Breathing difficulties are attributed to underlying COPD. Patient reports worsening dyspnea with movement or when her head is lowered. She denies recent worsening of respiratory symptoms or productive cough.Patient notes persistent lower extremity swelling in both legs and feet. She reports swelling initially improved after discharge from the hospital, but worsened after discontinuation of Lasix at the senior living. She has not sure of why her Lasix was discontinued however thinks it might be due to the fact that she was told she had renal failure.Patient fell twice at [facility]. Details of the falls are unclear, but she mentions difficulty walking and feeling unwell when asked to ambulate. She also reports that senior living staff encouraged her to walk despite her expressing that she did not feel well. Initial evaluation in the ER revealed: - Laboratory Findings: Hemoglobin within normal range, potassium slightly low at 3.2, creatinine 0.9. - Urinalysis: Leukocyte esterase 2+, WBC s >100, 1+ bacteria. - Chest X-ray: Showed some infiltrates i n the lower lung loya. In emergency room she was given IV Zosyn and admitted to the hospital. Patient has expressed her wishes to find alternative post-acute care placement as well. Upon admission she was transitioned to Rocephin 1 g daily. Her respiratory status remained stable. She was given Lasix 40 mg x 1. She did not have any new complaints. Medications: Reviewed: Yes Vitals/I&O/Wt Last Vital Signs Temp 98.2 F 10/22/24 07:39 Pulse 89 10/22/24 10:00 Resp 18 10/22/24 10:00 BP 102/49 10/22/24 07:39 Pulse Ox 96 10/22/24 10:00 O2 Del Method Nasal Cannula 10/22/24 10:00 O2 Flow Rate 3 10/22/24 10:00 10/21/24 10/22/24 10/22/24 22:59 06:59 14:59 Intake Total 50 / 50 480 / 530 60 / 60 Output Total 800 / 800 Balance 50 / 50 -320 / -270 60 / 60 Weight last 48 hrs Weight 104.916 kg Weight 99.79 kg Weight 99.79 kg Physical Exam 2 Narrative: General; Alert, awake, NAD HEENT Grossly unremarkabl e Lungs: Decreased breath sounds bilaterally with no expiratory wheezes. on 2 L via NC CVS: RRR, NO M/R/G Extremities: Bilateral lower extremity edema. Neuro: No gross deficits. Data 10/22/24 03:09 10/22/24 03:09 Micro: Microbiology 10/21/24 12:06 Urine Culture - Preliminary Urine,Clean Catch Yeast species 10/21/24 14:00 Blood Culture - Preliminary Blood SPECIMEN COLLECTED 10/21/24 14:04 Blood Culture - Preliminary Blood SPECIMEN COLLECTED A&P Assessment and plan (1) Fall: (2) COPD (chronic obstructive pulmonary disease): (3) CHF (congestive heart failure): Plan Acute Urinary Retention with Urinary Tract Infection - Patient presents with inability to urinate for approximately 48 hours. - Urinalysis is suggestive of a urinary tract infection. - Griffiths catheter placed at [facility] with initial output of 250 mL. Plan: 1. Continue Griffiths catheter and monitor urine output. 2. Follow up on culture results 3. Continue on Rocephin for now 4. Monitor renal function and electrolytes. Acute on Chronic HFpEF with increasing LE Edema - Noted bilateral lower extremity edema. - History of diuretic use (Lasix) which was reportedly discontinued at the senior living. - 9-pound weight gain since 10/17/2024. Plan: 1. Lasix 20 mg IV x1 on . Currently soft pressures 2. Will start Lasix 20 mg daily 3. Monitor daily weights and intake and output. Chronic Obstructive Pulmonary Disease - Baseline oxygen requirement 3 L/min. - Reports dyspnea with movement, consistent with known COPD. Plan: 1. Continue current oxygen therapy. 2. DuoNeb ordered 3. Unfortunately Trelegy not on formulary or LABA Recent COVID-19 and Influenza Infection - Recently treated for COVID-19 and influenza. - Current chest x-ray shows some lower lung infiltrates. Plan: 1. Monitor for any signs of respiratory deterioration. 2. Continue current oxygen therapy. 3. Repeat chest x-ray if respiratory status worsens. Falls at Long Term - Patient reports two falls at the senior living. Plan: 1. Assess gait and balance. 2. Physical therapy evaluation for strengthening and fall prevention strategies. Discharge Planning - Patient and family express desire to change nursing facilities. Plan: 1. D/w CM. working on alternative placement options. PDMP PDMP Reviewed: Not Reviewed Attestations 2 Medical Necessity Statement*: Anticipate over 2 midnight stay in hospital for evaluation and treatment. Coding Level of Care Code Acute Code for [facility] Fwd Diagnoses Fall W19.XXXA COPD (chronic obstructive pulmonary disease) J44.9 CHF (congestive heart failure) I50.9
[2024-10-22 12:03] LABS: Glucose Point of Care 136 mg/dL (70-110)
[2024-10-22 16:44] LABS: SARS Covid-2 Antigen Negative (Negative)
[2024-10-22 16:48] LABS: Glucose Point of Care 175 mg/dL (70-110)
[2024-10-22] MEDS: insulin lispro 100 unit/1 mL SUBCUT (17:05)
[2024-10-22] MEDS: cefTRIAXone 1,000 mg SDV 1000 MG IVP (20:04)
[2024-10-22] MEDS: ALPRAZolam 0.5 mg Tablet PO (20:04)
[2024-10-22 21:02] LABS: Glucose Point of Care 137 mg/dL (70-110)
[2024-10-23] VITALS (8 sets, daily range): BP systolic 100–152; BP diastolic 59–80; PULSE 84–117; RESP 1–19; TEMP 36.7–36.9; O2SAT 90–94
[2024-10-23 05:32] LABS: Basophils # 0.1 10^3/uL (0.0-0.1); Basophils % 1.1 %; Eosinophils # 0.3 10^3/uL (0.0-0.8); Eosinophils % 5.5 %; Hematocrit 37.5 % (36-47); Lymphocytes # 1.9 10^3/uL (0.8-4.8); Lymphocytes % 33.2 %; Mean Corpuscular HGB Conc 31.5 g/dL (30-55); Mean Corpuscular Hemoglobin 33.5 pg (27-33); Mean Corpuscular Volume 106.5 fl (85-98); Mean Platelet Volume 8.8 fL (7.4-10.4); Monocytes # 0.7 10^3/uL (0.2-0.9); Monocytes % 11.6 %; Neutrophils # 2.53 10^3/uL (1.8-7.7); Nucleated Red Blood Cells % 0 %; Platelet Count 296 10^3/cmm (157-399); Red Blood Count 3.52 10^6/uL (3.85-5.65); Red Cell Distribution Width 13.6 % (12.1-15.1); White Blood Count 5.61 10^3/uL (3.29-11.43)
[2024-10-23 06:00] LABS: Anion Gap 13.6 (5-19); Blood Urea Nitrogen 10 mg/dL (8-23); Calcium 8.9 mg/dL (8.5-10.5); Carbon Dioxide 29 mmol/L (22-29); Chloride 97 mmol/L (98-107); Creatinine Clr Calc Pharmacy 58.2966; Glucose 111 mg/dL (65-115); Osmolality Calculated 282 mOsm/kg (285-295); Potassium 3.6 mmol/L (3.5-5.1); Sodium 136 mmol/L (136-145)
[2024-10-23 06:21] LABS: Glucose Point of Care 114 mg/dL (70-110)
[2024-10-23] MEDS: apixaban 5 mg Tablet 2.5 MG PO (08:16)
[2024-10-23] MEDS: citalopram 20 mg Tablet PO (08:16)
[2024-10-23] MEDS: metoprolol tartrate 25 mg Tablet PO ×2 (08:16→17:00)
[2024-10-23] MEDS: spironolactone 25 mg Tablet PO (08:16)
--- NOTE | 2024-10-23 11:31 | ECG_ITS ---
[facility] Test Date: 2024-10-23 Pat Name: Renee Atkins Department: Room: 267 Gender: Female Vulnerability Researcher: : 1945 Requested By: Jovanny Frias Order Number: [id number] Zoe MD: Rikki Somers M.D. Measurements Intervals Baxter Rate: 98 P: 66 CT: 134 QRS: 67 QRSD: 92 T: 72 QT: 368 QTc: 470 Interpretive Statements SINUS RHYTHM LOW QRS VOLTAGE IN PRECORDIAL LEADS [QRS DEFLECTION < 1.0 mV IN CHEST LEADS] MODERATE ST DEPRESSION [0.05+ mV ST DEPRESSION] Compared to ECG 09/25/2024 06:23:20 Low QRS voltage now present Left ventricular hypertrophy no longer present ST (T wave) deviation still present Electronically Signed On 10-27-2024 18:30:03 CDT by Rikki Somers M.D. [email or web address]
[2024-10-23] MEDS: insulin lispro 100 unit/1 mL SUBCUT (11:39)
--- NOTE | 2024-10-23 12:19 | PC.OT ---
OT TREATMENT ATTEMPTED. PATIENT AND FAMILY REQUEST HOLD THIS MORNING DUE TO INCREASED HR.
[2024-10-23 12:21] LABS: Glucose Point of Care 160 mg/dL (70-110)
[2024-10-23 13:37] LABS: Free T4 Free Thyroxine 1.03 ng/dL (0.82-1.77); T3 Free 2.6 PG/ML (2.0-4.4); Thyroid Stimulating Hormone 3.43 uIU/mL (0.27-4.20)
--- NOTE | 2024-10-23 15:01 | P.PN_ITS ---
Subjective 2 Subjective: Hospital course, labs appreciated. Seen with caregiver at bedside. Patient lying comfortably in bed. Denies any nausea, vomiting, headache. As per the physical therapist on minimal ambulation patient had tachycardia today. Patient was asymptomatic. Currently has tight stockings. Griffiths catheter in place. Medications: Reviewed: Yes Vitals/I&O/Wt Last Vital Signs Temp 98.2 F 10/23/24 11:53 Pulse 104 H 10/23/24 11:53 Resp 19 H 10/23/24 11:53 BP 115/61 10/23/24 11:53 Pulse Ox 93 10/23/24 11:53 O2 Del Method Room Air 10/23/24 11:53 O2 Flow Rate 2 10/22/24 20:00 10/23/24 10/23/24 10/23/24 06:59 14:59 22:59 Intake Total 200 / 440 600 / 600 Output Total 350 / 350 Balance -150 / 90 600 / 600 Weight last 48 hrs Weight 103.555 kg Weight 103.555 kg Weight 104.916 kg Weight 99.79 kg Physical Exam 2 Narrative: General; Alert, awake, NAD HEENT Grossly unremarkabl e Lungs: Decreased breath sounds bilaterally with no expiratory wheezes. on 2 L via NC CVS: RRR, NO M/R/G Extremities: Bilateral lower extremity edema. Neuro: No gross deficits. Data 10/23/24 04:32 10/23/24 04:32 Micro: Microbiology 10/21/24 14:00 Blood Culture - Preliminary Blood NEGATIVE TO DATE 10/21/24 14:04 Blood Culture - Preliminary Blood NEGATIVE TO DATE A&P Assessment and plan (1) Fall: (2) COPD (chronic obstructive pulmonary disease): (3) CHF (congestive heart failure): (4) Urinary retention: (5) Tachyarrhythmia: (6) Hx of pulmonary embolus: (7) Urinary tract infection: Qualifiers: Hematuria presence: with hematuria Urinary tract infection type: acute cystitis Qualified Code(s): N30.01 - Acute cystitis with hematuria Plan Acute Urinary Retention with Urinary Tract Infection - Patient presents with inability to urinate for approximately 48 hours. - Urinalysis is suggestive of a urinary tract infection. - Griffiths catheter placed at [facility] with initial output of 250 mL. Plan: 1. Continue Griffiths catheter and monitor urine output. 2. Follow up on culture results 3. Continue on Rocephin for now 4. Monitor renal function and electrolytes. Acute on Chronic HFpEF with increasing LE Edema - Noted bilateral lower extremity edema. - History of diuretic use (Lasix) which was reportedly discontinued at the residential. - 9-pound weight gain since 10/17/2024. Plan: 1. Lasix 20 mg IV x1 on . Currently soft pressures 2. Will start Lasix 20 mg daily 3. Monitor daily weights and intake and output. Chronic Obstructive Pulmonary Disease - Baseline oxygen requirement 3 L/min. - Reports dyspnea with movement, consistent with known COPD. Plan: 1. Continue current oxygen therapy. 2. DuoNeb ordered 3. Unfortunately Trelegy not on formulary or LABA Recent COVID-19 and Influenza Infection - Recently treated for COVID-19 and influenza. - Current chest x-ray shows some lower lung infiltrates. Plan: 1. Monitor for any signs of respiratory deterioration. 2. Continue current oxygen therapy. 3. Repeat chest x-ray if respiratory status worsens. Falls at [facility] - Patient reports two falls at the residential. Plan: 1. Assess gait and balance. 2. Physical therapy evaluation for strengthening and fall prevention strategies. Discharge Planning - Patient and family express desire to change nursing facilities. Plan: 1. D/w CM. working on alternative placement options. Plan for the day: Continue with Griffiths catheter. Patient will most likely be discharged on Griffiths catheter in place. Voiding trial as an outpatient. Will need to follow-up with urology as an outpatient. Start on Flomax 0.4 mg daily. Chronic hypoxia. Patient is on 3 L at baseline given COPD. Concern for diastolic congestive acute on chronic heart failure. Start on oral Lasix 20 mg daily. Hold off on spironolactone. Watch for hypokalemia and contraction alkalosis. Concern for tachyarrhythmia on minimal exertion as per physical therapy. Patient does have history of tachyarrhythmia and sinus tachycardia in the past. Continue with metoprolol 25 mg twice daily. Telemetry. Checking EKG. Hold off on as needed albuterol. Switch to Xopenex as needed. Continue with metoprolol 25 mg twice daily. Depending on the blood pressures will plan to increase metoprolol to 50 mg twice daily. Follow-up urine culture. So far growing yeast. Add fluconazole 200 mg oral daily. Continue with IV ceftriaxone 1 g daily for now. Follow-up blood cultures. Complaining of dizziness and multiple falls in the last 1 month. Could be in setting of significant deconditioning from recent COVID-19 versus hypoxia in setting of COPD and CHF versus orthostatic hypotension. Check orthostatics. Check cortisol level. Concern for low TSH and free T4 in the past. Repeat thyroid panel. Transaminitis: Seems to be chronic. Could be in setting of diastolic heart failure versus chronic PE. Hepatitis panel negative. Will check liver ultrasound. PDMP PDMP Reviewed: Not Reviewed Attestations 2 Medical Necessity Statement*: Requires further hospitalization for management of the UTI, urinary retention, diastolic heart failure with sinus tachycardia in a patient with significant deconditioning while safe discharge planning is sought Diagnoses Fall W19.XXXA COPD (chronic obstructive pulmonary disease) J44.9 CHF (congestive heart failure) I50.9 Urinary retention R33.9 Tachyarrhythmia R00.0 Hx of pulmonary embolus Z86.711 Urinary tract infection N30.01 Hematuria presence: with hematuria Urinary tract infection type: acute cystitis
--- NOTE | 2024-10-23 15:16 | USR_ITS ---
PROCEDURE INFORMATION: Exam: US Abdomen, Limited; Right Upper Quadrant Exam date and time: 10/23/2024 6:04 PM Age: 79 years old Clinical indication: Abnormal findings; Abnormal lab test; Elevated liver enzymes; Additional info: Transaminitis TECHNIQUE: Imaging protocol: Real time ultrasound of the abdomen with image documentation. Limited exam focused on the right upper quadrant. COMPARISON: US abdomen limited [id number] 09/24/2024 5:41 PM FINDINGS: Liver: There is diffuse increased echogenicity of the liver parenchyma and attenuation of sound in the deep portions of the liver obscuring fine hepatic detail, consistent with fatty infiltration. Gallbladder: The gallbladder is absent. Biliary ducts: The common bile duct is nondilated measuring 4 mm. Pancreas: The pancreas is largely obscured by overlying bowel gas. Right kidney: The right kidney is obscured by bowel gas. Aorta: The upper abdominal aorta is partially obscured by bowel gas and measures approximately 2.5 cm diameter. Portal venous: The main portal vein demonstrates hepatopetal flow. US/US liver [id number] IMPRESSION: Hepatic steatosis.
[2024-10-23 16:58] LABS: Glucose Point of Care 140 mg/dL (70-110)
[2024-10-23] MEDS: FUROsemide 20 mg Tablet PO (17:00)
[2024-10-23] MEDS: fluconazole 100 mg Tablet 200 MG PO (17:00)
[2024-10-23] MEDS: apixaban 5 mg Tablet PO (17:00)
[2024-10-23] MEDS: metoprolol tartrate 25 mg Tablet 12.5 MG PO (20:37)
[2024-10-23] MEDS: cefTRIAXone 1,000 mg SDV 1000 MG IVP (20:38)
[2024-10-23] MEDS: ALPRAZolam 0.5 mg Tablet PO (20:38)
[2024-10-24 00:13] LABS: Cortisol Random 5.75 ug/dL (2.47-19.5)
[2024-10-24 00:47] VITALS: BP 91/52; PULSE 85; RESP 17; TEMP 36.7; O2SAT 91
[2024-10-24 04:00] VITALS: BP 93/65; PULSE 88; RESP 17; TEMP 36.7; O2SAT 91
[2024-10-24 06:40] LABS: Glucose Point of Care 141 mg/dL (70-110)
[2024-10-24 06:53] LABS: Hematocrit 40.1 % (36-47); Mean Corpuscular HGB Conc 31.4 g/dL (30-55); Mean Corpuscular Hemoglobin 34.1 pg (27-33); Mean Corpuscular Volume 108.4 fl (85-98); Mean Platelet Volume 9.1 fL (7.4-10.4); Platelet Count 297 10^3/cmm (157-399); Red Cell Distribution Width 13.7 % (12.1-15.1); White Blood Count 5.63 10^3/uL (3.29-11.43)
[2024-10-24 08:17] VITALS: BP 117/86; PULSE 95; RESP 17; TEMP 36.8; O2SAT 94
[2024-10-24 08:18] LABS: Slide Review Slide Review Perform
[2024-10-24 08:19] LABS: Absolute Segmented Neutrophil 2.8 10/cmm (1.6-7.1); Segmented Neutrophils 50 %; Total Cells Counted 100 (0-100)
[2024-10-24 08:20] LABS: Absolute Eosinophils 0.4 10^3/cmm (0.0-0.7); Absolute Neutrophil 2.8 10^3/cmm (1.4-6.5); Eosinophils 7 %; Lymphocytes 33 %; Lymphocytes Absolute 1.9 10^3/cmm (1.2-3.4); Monocytes Absolute 0.4 10^3/cmm (0.1-0.6); Platelet Estimate Normal (Normal)
[2024-10-24 08:21] LABS: Macrocytosis 1+
[2024-10-24 09:09] VITALS: PULSE 105; RESP 20; O2SAT 93
[2024-10-24] MEDS: insulin lispro 100 unit/1 mL SUBCUT (09:20)
[2024-10-24] MEDS: FUROsemide 20 mg Tablet PO (09:21)
[2024-10-24] MEDS: fluconazole 100 mg Tablet 200 MG PO (09:21)
[2024-10-24] MEDS: metoprolol tartrate 25 mg Tablet 37.5 MG PO (09:21)
[2024-10-24] MEDS: apixaban 5 mg Tablet PO (09:21)
[2024-10-24] MEDS: citalopram 20 mg Tablet PO (09:21)
[2024-10-24] MEDS: tamsulosin 0.4 mg Capsule PO (09:21)
[2024-10-24] MEDS: acetaminophen 325 mg Tablet 650 MG PO (09:24)
[2024-10-24 11:36] LABS: Glucose Point of Care 130 mg/dL (70-110)
[2024-10-24 11:39] LABS: Alanine Aminotransferase 41 U/L (0-33); Albumin Level 2.9 g/dL (3.5-5.2); Alkaline Phosphatase 134 U/L (35-105); Anion Gap 13.4 (5-19); Aspartate Amino Transferase 72 U/L (0-32); Blood Urea Nitrogen 8 mg/dL (8-23); Calcium 8.6 mg/dL (8.5-10.5); Carbon Dioxide 31 mmol/L (22-29); Chloride 96 mmol/L (98-107); Creatinine Clr Calc Pharmacy 58.4317; Globulin 3.2 g/dL (1.3-4.6); Glucose 122 mg/dL (65-115); Osmolality Calculated 284 mOsm/kg (285-295); Potassium 3.4 mmol/L (3.5-5.1); Sodium 137 mmol/L (136-145); Total Bilirubin 0.5 mg/dL (0.15-1.2); Total Protein 6.1 g/dL (6.6-8.7)
[2024-10-24 11:45] VITALS: BP 117/84; PULSE 94; RESP 18; TEMP 36.7; O2SAT 92
--- NOTE | 2024-10-24 12:30 | PC.SOCIAL ---
IMM updated IMM dated and initialed, copy given to patient and copy placed in chart
--- NOTE | 2024-10-24 12:43 | P.DS_ITS ---
Discharge Providers Date of Admission: 10/21/24 20:06 Date of Discharge: October 24, 2024 Attending Provider at Admission: Bernardino Arciniega Attending Provider at Discharge: Jovanny Frias MD Primary Care Provider: Farhad Marquez MD Diagnoses at Discharge Discharge Diagnosis (1) Fall: Status: Acute (2) COPD (chronic obstructive pulmonary disease): Status: Acute (3) CHF (congestive heart failure): Status: Acute (4) Urinary retention: Status: Acute (5) Tachyarrhythmia: Status: Acute (6) Hx of pulmonary embolus: Status: Acute (7) Urinary tract infection: Status: Acute Qualifiers: Hematuria presence: with hematuria Urinary tract infection type: acute cystitis Qualified Code(s): N30.01 - Acute cystitis with hematuria Reason for Visit Reason for Visit: decreased urine output Hospital Course Hospital Course 79-year-old female with a past medical history of COVID-19, influenza, chronic respiratory failure with hypoxemia, chronic obstructive pulmonary disease, and congestive heart failure with preserved EF who presents with an inability to urinate and increasing lower extremity swelling. Patient was recently discharged from the hospital on 10/02/2024 after treatment for respiratory failure due to COPD treated with steroids, heart failure treated with IV Lasix and [place] [facility] [place] Patient reported difficulty urinating since 10/19/2024. She noted one urination Tuesday morning, then no further urination for the rest of the day and night. Similar pattern on 10/20/2024, with one urination around 11:00 AM and no further output. Prior to admission patient was unable to urinate at all. She denies burning sensation with urination. No reported fever, chills, nausea, or vomiting. Breathing difficulties are attributed to underlying COPD. Patient reports worsening dyspnea with movement or when her head is lowered. She denies recent worsening of respiratory symptoms or productive cough. Patient notes persistent lower extremity swelling in both legs and feet. She reports swelling initially improved after discharge from the hospital, but worsened after discontinuation of Lasix at the custodial. She has not sure of why her Lasix was discontinued however thinks it might be due to the fact that she was told she had renal failure. Patient fell twice at [facility]. Details of the falls are unclear, but she mentions difficulty walking and feeling unwell when asked to ambulate. Patient was admitted to the hospital further evaluation management. Griffiths catheter was placed and around 800 cc to 1 L of urine was evacuated. During hospitalization her blood cultures remain negative and urine culture was positive for yeast. After the patient she was on high-dose steroids which has been tapered over the last 6 weeks with last dose day prior to admission. Patient was found to be in sinus tachycardia during hospitalization, transaminitis with concerns for right-sided heart failure. Liver ultrasound was concerning for steatosis. CTA done recently were negative for PE but was consistent with significant emphysema. Echocardiogram done recently was poor window but showed normal EF without any comment on diastolic functions and right-sided heart functions. It is believed patient has right-sided heart dysfunction in setting of significant COPD/emphysema along with history of pulmonary embolism. She has been discharged in hemodynamically stable condition on oral fluconazole for next 7 days. Cardizem 30 mg 3 times daily has been added for tachycardia. Given her significant emphysema metoprolol has been discontinued. Albuterol has been changed to levo albuterol given tachycardia. She has been discharged on oral Lasix 20 mg daily with fluid restriction up to 1500 cc daily. She is advised to follow-up with the primary care provider within next 1 week. She will also benefit with follow-up with cardiology team as an outpatient for a possible right heart catheterization. She will follow-up with urology as an outpatient for voiding trial. Physical Exam Narrative: General; Alert, awake, NAD HEENT Grossly unremarkabl e Lungs: Decreased breath sounds bilaterally with no expiratory wheezes. on 2 L via NC CVS: RRR, NO M/R/G Extremities: Bilateral lower extremity edema. Neuro: No gross deficits. Discharge Data Studies Completed and Pending Completed Studies During Hospitalization Category Date Time Status XR chest 1V portable [id number] Stat Exams 10/21/24 11:48 Completed [place] liver [id number] Routine Ultrasound 10/23/24 15:16 Completed Pending at discharge Category Date Time Status Blood Culture Stat Lab 10/21/24 14:00 Results Urine Culture Stat Lab 10/21/24 12:06 Results Radiology Impressions Chest X-Ray 10/21/24 11:48 IMPRESSION: Mild bibasilar atelectasis/infiltrate. Liver Ultrasound 10/23/24 15:16 IMPRESSION: Hepatic steatosis. Microbiology 10/21/24 14:00 Blood Blood Culture - Preliminary NEGATIVE TO DATE 10/21/24 14:04 Blood Blood Culture - Preliminary NEGATIVE TO DATE 10/21/24 12:06 Urine,Clean Catch Urine Culture - Preliminary Yeast species Laboratory Results WBC 5.63 10^3/uL (3.29-11.43) 10/24/24 05:32 RBC 3.70 10^6/uL (3.85-5.65) L 10/24/24 05:32 Hgb 12.60 g/dL (11.27-16.99) 10/24/24 05:32 Hct 40.1 % (36-47) 10/24/24 05:32 MCV 108.4 fl (85-98) H 10/24/24 05:32 MCH 34.1 pg (27-33) H 10/24/24 05:32 MCHC 31.4 g/dL (30-55) 10/24/24 05:32 RDW 13.7 % (12.1-15.1) 10/24/24 05:32 Plt Count 297 10^3/cmm (157-399) 10/24/24 05:32 MPV 9.1 fL (7.4-10.4) 10/24/24 05:32 Neut % (Auto) 45.0 % 10/23/24 04:32 Lymph % (Auto) Not Reportable 10/24/24 05:32 Wilkes % (Auto) Not Reportable 10/24/24 05:32 Eos % (Auto) 5.5 % 10/23/24 04:32 Baso % (Auto) 1.1 % 10/23/24 04:32 Neut # (Auto) 2.53 10^3/uL (1.8-7.7) 10/23/24 04:32 Lymph # (Auto) Not Reportable 10/24/24 05:32 Wilkes # (Auto) Not Reportable 10/24/24 05:32 Eos # (Auto) 0.3 10^3/uL (0.0-0.8) 10/23/24 04:32 Baso # (Auto) 0.1 10^3/uL (0.0-0.1) 10/23/24 04:32 Nucleated RBC % (auto) 0 % 10/23/24 04:32 Total Counted 100 (0-100) 10/24/24 05:32 Atypical Lymphs % 0.0 % (0-5) 10/24/24 05:32 Absolute Neutrophils 2.8 10^3/cmm (1.4-6.5) 10/24/24 05:32 Segmented Neutrophils 50 % 10/24/24 05:32 Band Neutrophils 0.0 % 10/24/24 05:32 Absolute Lymphocytes 1.9 10^3/cmm (1.2-3.4) 10/24/24 05:32 Lymphocytes (Manual) 33 % 10/24/24 05:32 Monocytes (Manual) 7.0 % 10/24/24 05:32 Absolute Monocytes 0.4 10^3/cmm (0.1-0.6) 10/24/24 05:32 Eosinophils (Manual) 7 % 10/24/24 05:32 Absolute Eosinophils 0.4 10^3/cmm (0.0-0.7) 10/24/24 05:32 Basophils (Manual) 0.0 % 10/24/24 05:32 Absolute Basophils 0.0 10^3/cmm (0.0-0.2) 10/24/24 05:32 Metamyelocytes 1.0 % 10/24/24 05:32 Myelocytes 2.0 % 10/24/24 05:32 Nucleated RBCs # 0.0 /100WBC 10/23/24 04:32 Platelet Estimate Normal (Normal) 10/24/24 05:32 Macrocytosis 1+ H 10/24/24 05:32 Sodium 137 mmol/L (136-145) 10/24/24 11:14 Potassium 3.4 mmol/L (3.5-5.1) L 10/24/24 11:14 Chloride 96 mmol/L (98-107) L 10/24/24 11:14 Carbon Dioxide 31 mmol/L (22-29) H 10/24/24 11:14 Anion Gap 13.4 (5-19) 10/24/24 11:14 BUN 8 mg/dL (8-23) 10/24/24 11:14 Creatinine 1.0 mg/dL (0.5-0.9) H 10/24/24 11:14 GFR Calculation Not Reportable 10/24/24 11:14 Glucose 122 mg/dL (65-115) H 10/24/24 11:14 POC Glucose 130 mg/dL (70-110) H 10/24/24 10:52 Calculated Osmolality 284 mOsm/kg (285-295) L 10/24/24 11:14 Lactic Acid 2.1 mmol/L (0.5-2.2) 10/22/24 03:09 Lactic Acid (Sepsis) 1.7 mmol/L (0.5-2.2) 10/22/24 06:21 Calcium 8.6 mg/dL (8.5-10.5) 10/24/24 11:14 Phosphorus 2.8 mg/dL (2.5-4.5) 10/21/24 12:06 Magnesium 1.7 mg/dL (1.7-2.3) 10/21/24 12:06 Total Bilirubin 0.5 mg/dL (0.15-1.2) 10/24/24 11:14 AST 72 U/L (0-32) H 10/24/24 11:14 ALT 41 U/L (0-33) H 10/24/24 11:14 Alkaline Phosphatase 134 U/L (35-105) H 10/24/24 11:14 NT-Pro-B Natriuret Pep 126 pg/mL (0-450) 10/21/24 12:06 Total Protein 6.1 g/dL (6.6-8.7) L 10/24/24 11:14 Albumin 2.9 g/dL (3.5-5.2) L 10/24/24 11:14 Globulin 3.2 g/dL (1.3-4.6) 10/24/24 11:14 Procalcitonin 0.17 ng/mL (0-0.5) 10/21/24 12:06 TSH 3.43 uIU/mL (0.27-4.20) 10/23/24 04:32 Free T4 1.03 ng/dL (0.82-1.77) 10/23/24 04:32 Free T3 2.6 PG/ML (2.0-4.4) 10/23/24 04:32 Random Cortisol 5.75 ug/dL (2.47-19.5) 10/23/24 04:32 Urine Color Yellow (Yellow) 10/21/24 12:06 Urine Appearance Turbid (CLEAR) A 10/21/24 12:06 Urine pH 5 (5-7) 10/21/24 12:06 Ur Specific [place] 1.030 (1.005-1.030) 10/21/24 12:06 Urine Protein 2+ (Negative) H 10/21/24 12:06 Urine Glucose (UA) Trace (Normal) H 10/21/24 12:06 Urine Ketones 1+ (Negative) H 10/21/24 12:06 Urine Blood 3+ (Negative) H 10/21/24 12:06 Urine Nitrate Negative (Negative) 10/21/24 12:06 Urine Bilirubin 1+ (Negative) H 10/21/24 12:06 Urine Urobilinogen 4 mg/dL (Negative) H 10/21/24 12:06 Ur Leukocyte Esterase 2+ (Negative) H 10/21/24 12:06 Urine RBC >100 /hpf (0-2) H 10/21/24 12:06 Urine WBC >100 /hpf (0-5) H 10/21/24 12:06 Ur Squamous Epith Cells 5-10 /hpf (0-5) H 10/21/24 12:06 Amorphous Sediment Not Reportable 10/21/24 12:06 Urine Bacteria 1+ /hpf (NONE) H 10/21/24 12:06 Hyaline Casts 5-10 /lpf H 10/21/24 12:06 SARS-CoV-2 Ag (Rapid) Negative (Negative) 10/22/24 16:00 Vitals Last Vital Signs Temp 98.0 F 10/24/24 11:45 Pulse 94 10/24/24 11:45 Resp 18 10/24/24 11:45 BP 117/84 10/24/24 11:45 Pulse Ox 92 10/24/24 11:45 O2 Del Method Nasal Cannula 10/24/24 11:45 O2 Flow Rate 2 10/24/24 09:09 Discharge Plan Discharge Patient Disposition: Xfer SNF Condition: Stable Prescriptions: New diltiazem HCl [Cardizem] 30 mg tablet 30 mg PO TID Qty: 90 0RF levalbuterol HCl 0.63 mg/3 mL solution for nebulization 0.63 mg inhalation Q8H PRN (Reason: shortness of breath or wheezing) Qty: 72 0RF fluconazole 100 mg Tablet 200 mg PO DAILY Qty: 14 0RF Continued potassium chloride 10 mEq tablet extended release 10 meq PO DAILY Qty: 90 1RF citalopram 20 mg tablet 20 mg PO DAILY Qty: 90 2RF Trelegy Ellipta 100-62.5-25 mcg blister with device 1 inh inhalation DAILY Qty: 60 2RF (DME) Supplemental Oxygen @ 2-4l/m via nasal canula See Rx Instructions .Route .MEDSUPPLY Qty: 1 0RF Rx Instructions: As directed acetaminophen 325 mg Tablet 650 mg PO Q4H PRN (Reason: general discomfort) nystatin 100,000 unit/gram Powder 1 applic TOPICAL BID insulin lispro [Humalog KwikPen Insulin] 100 unit/mL Insulin Pen See Rx Instructions .ROUTE .COMPLEX Rx Instructions: Inject subcutaneously 4 times daily per sliding scale: bs 141-180=2 units, 181-220=4 units, 221-260=6 units, 261-300=8 units, 301-350=10 units, 351-400=12 units, 401-450=14 units. alprazolam [Xanax] 0.5 mg tablet 7.5 mg PO BEDTIME nicotine (polacrilex) 4 mg Lozenge 4 mg mucous membrane Q4H PRN (Reason: Nicotine Cravings) Qty: 90 0RF polyethylene glycol 3350 17 gram Powder In Packet 17 g PO DAILY Qty: 90 0RF Discontinued metoprolol tartrate 25 mg tablet 25 mg PO BID Qty: 90 2RF albuterol sulfate 90 mcg/actuation HFA aerosol inhaler 1 inh inhalation QID PRN (Reason: shortness of breath or wheezing) Qty: 8.5 0RF albuterol sulfate 2.5 mg /3 mL (0.083 %) Solution For Nebulization 2.5 mg INHALATION Q6H PRN (Reason: Shortness Of Breath) Eliquis 2.5 mg Tablet 2.5 mg PO BID spironolactone [Aldactone] 25 mg tablet 25 mg PO DAILY Qty: 30 0RF Discharge Orders: Discharge Order (Routine); Ordered 10/24/24 Ordered By: Jovanny Frias Referrals: Farhad Marquez MD [Primary Care Provider] - [facility] [Outside] - 2 weeks Libertad Betancourt NP [Nurse Practitioner] - 1 month (Concern for right-sided heart failure) Discharge Diet: Cardiac and Diabetic Discharge Activity: Resume usual activity and Increase activity as tolerated Patient Instructions: Diltiazem (By mouth), Fluconazole (By mouth), Levalbuterol (By breathing), Opioid Safety Activity Restrictions/Additional Instructions: Metoprolol has been discontinued. Instead take Cardizem 30 mg 3 times a day. Dose of Eliquis has been increased to 5 mg twice daily. Instead of albuterol as needed take levo albuterol as needed. Take fluconazole once daily for next 7 days. Continue taking Lasix 20 mg oral daily. Fluid restriction to less than 1500 cc. Follow-up with urology for voiding trial within next 2 weeks. If catheter remains in place for more than 1 month if should be replaced. Follow-up with cardiology team as an outpatient within next 1 month. Discharge Attestations Time Spent in Discharge Care*: greater than 30 min Specific Discharge Activities: educating patient, educating and/or supporting family/caregiver, discussing with pcp/other providers, discussing with complex case manager/social workers/dc planners, documenting/other paperwork and evaluating patient/reviewing data Status at Discharge: Cognitive status at discharge: cognitively intact , Behavioral status at discharge: cooperative , Functional status at discharge: uses cane/walker , Overall status at discharge: patient is progressing back to baseline Quality Metrics Clinical Quality Measures [ No reported AMI, CVA or VTE this stay] Coding Level of Care Code 30804 Total time (in minutes) for Discharge: 60 Diagnoses Fall W19.XXXA COPD (chronic obstructive pulmonary disease) J44.9 CHF (congestive heart failure) I50.9 Urinary retention R33.9 Tachyarrhythmia R00.0 Hx of pulmonary embolus Z86.711 Urinary tract infection N30.01 Hematuria presence: with hematuria Urinary tract infection type: acute cystitis
--- NOTE | 2024-10-24 13:23 | PC.NURSE ---
[facility] states they did not receive discharge orders yet. Attempted report x1.
--- NOTE | 2024-10-24 13:42 | PC.NURSE ---
Report called to Marlin
[2024-10-24 14:34] VITALS: BP 117/84; PULSE 94; RESP 18; TEMP 36.7; O2SAT 92
== END 2024-10-24 14:36 | disposition skilled nursing facility (03) | DRG 757 ==
LOC: ER 15:37 → MEDSURG 16:10
PROVIDERS: Admitting Provider Hospitalist; Emergency Provider Emergency Medicine; PCP Family Medicine; Visit Provider Student in an Organized Health Care Education/Training Program
DX: B37.41 Candidal cystitis and urethritis (principal); I50.33 Acute on chronic diastolic (congestive) heart failure; J96.11 Chronic respiratory failure with hypoxia; E87.21 Acute metabolic acidosis; J43.9 Emphysema, unspecified; Z86.16 Personal history of COVID-19; R33.9 Retention of urine, unspecified; R00.0 Tachycardia, unspecified; F41.9 Anxiety disorder, unspecified; I50.82 Biventricular heart failure; R31.9 Hematuria, unspecified; K76.0 Fatty (change of) liver, not elsewhere classified; R29.6 Repeated falls; Z86.711 Personal history of pulmonary embolism; Z99.81 Dependence on supplemental oxygen; Z79.899 Other long term (current) drug therapy; Z79.01 Long term (current) use of anticoagulants; Z79.4 Long term (current) use of insulin; Z88.8 Allergy status to other drugs, medicaments and biological substances; Z88.5 Allergy status to narcotic agent; Z88.0 Allergy status to penicillin; Z88.2 Allergy status to sulfonamides; Z79.51 Long term (current) use of inhaled steroids
CPT/HCPCS: 36415; 36416; 71045; 76705; 80048; 80053; 81001; 82533; 82962; 83605; 83735; 83880; 84100; 84145; 84439; 84443; 84481; 85007; 85025; 87040; 87086; 87106; 87426; 93005; 94640; 94664; 96365; 96372; 97110; 97161; 97167; 97530; 97535; 99285; G0378; J0696; J1650; J1815; J1940; J2405; J2543; J9999

== ENCOUNTER → 2024-12-04 12:39 | Outpatient (BNVA) | payer MEDICARE, OTHER, SELFPAY | PROVIDERS: PCP Family Medicine; Referring Provider Student in an Organized Health Care Education/Training Program; Visit Provider Internal Medicine Cardiovascular Disease | DX: I50.810 Right heart failure, unspecified (principal); Z09 Encounter for follow-up examination after completed treatment for conditions other than malignant neoplasm; J44.9 Chronic obstructive pulmonary disease, unspecified; F41.9 Anxiety disorder, unspecified; Z79.01 Long term (current) use of anticoagulants; Z87.891 Personal history of nicotine dependence | CPT/HCPCS: 99204 ==

== ENCOUNTER 2025-03-06 02:45 | Emergency (ER) | payer MEDICARE, OTHER, SELFPAY ==
--- OUTSIDE RECORDS SUMMARY | 2007-11-07 06:06 | XMS_ITS | Continuity of Care Document ---
Author Name [facility] Organization [facility] Care Team Providers Care Air Chief Marshal Name Role Phone [facility] Unavailable Unavailable Problems Combined list of problems from [facility] and [facility] facilities. It does not include entries that were removed or entered in error. Problem Status Onset Date Problem Type Date of Resolution Comments Source Cerebrovascular Accident (ICD-9-CM 436.) Active Condition [facility] DIVERTICULAR DISEASE Active Condition [facility] FAM HX, COLON CANCER Active Condition [facility] MYALGIA /FIBROMYALGIA NOS Active Condition [facility] Parox Atrial Tachycardia (ICD-9-CM 427.0) Active Condition [facility] Screening for Malignant Neoplasms of colon (ICD-9-CM V76.51) Active Condition [facility] Allergies, Adverse Reactions, Alerts Combined list of allergies from [facility] facilities. It does not include entries that were removed or entered in error. Substance Category Reaction Severity Reaction type Status Date Reported Comments Source CODEINE Propensity to adverse reactions to drug (finding) Urticaria active 8 [facility] PENICILLIN Propensity to adverse reactions to drug (finding) Urticaria active 8 [facility] SULFA DRUGS Propensity to adverse reactions to drug (finding) Eruption active 2 [facility] Immunizations Combined list of available immunizations from the [facility] and [facility] facilities. Immunization Series Date Given Administered By Site Reaction Lot Number CVX Code Drug Residential Direct Support Professional Status Comments Source PNEUMOCOCCAL, UNSPECIFIED FORMULATION 2002 109 complet ed IM Right Deltoid [facility] TD(ADULT) UNSPECIFIED FORMULATION 2002 139 complet ed IM Left Deltoid LOT #[id number] EXP 04/19/2004 [facility] TETANUS DIPHTHERIA-MS CCINE NOT AVAILABLE (HISTORICAL) 2001 complet ed [facility] Social History Combined list of available smoking, tobacco, and other social history from [facility] and [facility] facilities. Social History Type Response Date Comment Sour e Tobacco smoking status NHIS CURRENT SMOKER 06/30/2005 [facility] History of tobacco use CURRENT SMOKER 01/13/2005 [facility] History of tobacco use LIFETIME NON-SMOKER 07/04/2002 [facility]
--- OUTSIDE RECORDS SUMMARY | 2024-12-31 12:00 | XMS_ITS ---
Author Organization [facility] Address [address] [place] [address] Care Team Providers Care Neurodiagnostic Technologist Name Role Phone Carlos Sandoval Primary Care Provider VINAYAK Guillen [phone] REASON FOR VISIT Retention/ No Griffiths Encounters Encounter Location Date Provider Diagnosis [facility] [address] [place] [facility] [place] [address] 12/31/2024 VINAYAK PATEL Plan Of Treatment No Information Progress Notes * Renee SHELTONDOB: 7 (79 yo F)Acc No.[id number]:12/31/2024 Progress Notes Patient: Renee GAN Provider: ANDREA Wood :1945 A ge:79 Y S ex:Female Date:12/31/2024 Address:[address] [place] [facility] [id number] Pcp:Carlos Sandoval Subjective: * Chief Complaints: * 1 . Retention/ No Griffiths. * Medical History: Objective: * Vitals: Assessment: Plan: * Treatment: * Billing Information: * Visit Code: * Procedure Codes: * Electronic signature of VINAYAK PATEL APRN on 03/06/2025 at 09:14 AM CDT Sign off status: Pending * Provider: ANDREA Wood Date: 0 12/31/2024 Generated for Shamika contreras/Kaylyn/Rameshitting on: 03/06/2025 09:14 AM CDT
[2025-03-06 02:46] VITALS: BP 111/70; PULSE 77; RESP 17; TEMP 36.8; O2SAT 96; BMI 29.2
--- NOTE | 2025-03-06 02:50 | CTR_ITS ---
PROCEDURE INFORMATION: Exam: CT Head Without Contrast Exam date and time: 03/06/2025 3:02 AM Age: 79 years old Clinical indication: Injury or trauma; Fall; Concussion/head injury; With loss of consciousness; Not specified; Additional info: Fall, head injury TECHNIQUE: Imaging protocol: Computed tomography of the head without contrast. Radiation optimization: All CT scans at this facility use at least one of these dose optimization techniques: automated exposure control; mA and/or kV adjustment per patient size (includes targeted exams where dose is matched to clinical indication); or iterative reconstruction. COMPARISON: CT head wo con* [id number] 09/24/2024 12:05 PM RADIATION DOSE METRICS: Total DLP (mGy-cm): 1077.84 FINDINGS: Brain: There is mild small vessel disease. There is no evidence of acute parenchymal hemorrhage, extra-axial collection, or acute infarction. There is no mass effect, midline shift, or downward herniation. Cerebral ventricles: No ventriculomegaly. Paranasal sinuses: Visualized sinuses are unremarkable. No fluid levels. Mastoid air cells: Visualized mastoid air cells are well aerated. Bones: Unremarkable. No acute fracture. Soft tissues: There is left occipital scalp hematoma. CT/CT head wo con* [id number] IMPRESSION: Mild small vessel disease. No evidence of acute intracranial process.
--- NOTE | 2025-03-06 02:51 | PC.NURSE ---
pt unable to answer suicide risk assessment due to confusion.
--- NOTE | 2025-03-06 02:51 | W.ED.FALL ---
HPI - Fall General: Chief Complaint: Head Injury Stated Complaint: falls on blood thinners Time Seen by Provider: 03/06/25 02:48 History of Present Illness: 79-year-old female with history of pulmonary embolism, chronic anticoagulation on Eliquis, COPD, congestive heart failure, chronic hypoxemic respiratory failure on 4 L nasal cannula who is on hospice at long-term presents to the emergency room by ambulance after having multiple falls and having hit her head and concerns that she might be a little bit more confused. She is pleasantly confused on presentation. She does have a knot on the back of her head. She has got multiple skin tears on her hands. No reports of fever or vomiting. Related Data Home Medications ?Medication ?Instructions ?Recorded ?Confirmed alprazolam 0.5 mg tablet (Xanax) 7.5 mg PO BEDTIME 09/24/24 12/04/24 acetaminophen 325 mg tablet 650 mg PO Q4H PRN general 10/21/24 12/04/24 discomfort insulin lispro 100 unit/mL See Rx Instructions .Route .COMPLEX 10/21/24 12/04/24 subcutaneous pen (Humalog KwikPen (U-100) Insulin) nystatin 100,000 unit/gram topical 1 applic topical BID candidiasis 10/21/24 12/04/24 powder of skin/nail albuterol sulfate 2.5 mg/3 mL 2.5 mg inhalation Q8H PRN 12/04/24 12/04/24 (0.083 %) solution for nebulization apixaban 5 mg tablet (Eliquis) 5 mg PO BID 12/04/24 12/04/24 budesonide 0.25 mg/2 mL suspension 0.25 mg inhalation BID 12/04/24 12/04/24 for nebulization furosemide 40 mg tablet 40 mg PO DAILY 12/04/24 12/04/24 potassium chloride 10 mEq 20 meq PO DAILY 12/04/24 tablet,extended release Previous Rx's ?Medication ?Instructions ?Recorded Supplemental Oxygen @ 2-4l/m via #1 ea 07/12/24 nasal canula citalopram 20 mg tablet 20 mg PO DAILY #90 tabs 08/13/24 nicotine (polacrilex) 4 mg buccal 4 mg mucous membrane Q4H PRN 10/02/24 lozenge Nicotine Cravings #90 ea polyethylene glycol 3350 17 gram 17 g PO DAILY #90 ea 10/02/24 oral powder packet diltiazem HCl 30 mg tablet 30 mg PO TID #90 tabs 10/24/24 (Cardizem) potassium chloride 40 mEq/15 mL 40 meq (15 mL) PO DAILY 7 days 03/06/25 oral liquid #105 mL Allergies Allergy/AdvReac Type Severity Reaction Status Date / Time codeine Allergy ALGY-Hives Verified 12/04/24 13:09 Penicillins Allergy ALGY-Hives Verified 12/04/24 13:09 Sulfa (Sulfonamide Allergy hives Verified 12/04/24 13:09 Antibiotics) zolpidem (From Ambien) Allergy Unknown Verified 12/04/24 13:09 Review of Systems Narrative: Constitutional symptoms: Negative except as documented in HPI. Skin symptoms: Negative except as documented in HPI. Eye symptoms: Negative except as documented in HPI. ENMT symptoms: Negative except as documented in HPI. Respiratory symptoms: Negative except as documented in HPI. Cardiovascular symptoms: Negative except as documented in HPI. Gastrointestinal symptoms: Negative except as documented in HPI. Genitourinary symptoms: Negative except as documented in HPI. Musculoskeletal symptoms: Negative except as documented in HPI. Neurologic symptoms: Negative except as documented in HPI. Psychiatric symptoms: Negative except as documented in HPI. Endocrine symptoms: Negative except as documented in HPI. PFSH ED PFSH: Medical History (Updated 03/06/25 @ 04:16 by Liset Torrez MD) Sinus tachycardia New onset of congestive heart failure Edema Multiple falls Anxiety Chronic steroid use Recently tapered off 09/16 Hx of pulmonary embolus Tachyarrhythmia COPD (chronic obstructive pulmonary disease) Surgical History History of bilateral mastectomy History of breast reconstruction History of cholecystectomy History of appendectomy History of hysterectomy History of back surgery History of repair of rectocele History of bladder repair surgery History of foot surgery Family History Grandfather Arrhythmia Father Colon cancer Grandmother Breast cancer Mother Diabetes mellitus, type 2 Social History Smoking and tobacco/nicotine status: former use of tobacco/nicotine Alcohol intake: never Substance/Drug Use: never Physical Exam Narrative: EXAM NARRATIVE: General: Alert, no acute distress. Skin: Warm, dry. Head: Normocephalic, contusion on the back of the head. Neck: Supple, trachea midline. Eye: Extraocular movements are intact. Ears, nose, mouth and throat: mucosa moist. Cardiovascular: Regular, Normal peripheral perfusion. Respiratory: Lungs are clear to auscultation, respirations are non-labored, breath sounds are equal, Symmetrical chest wall expansion. Gastrointestinal: Soft, Nontender, Non distended Musculoskeletal: Normal ROM, no deformity. Neurological: Alert and oriented, No focal neurological deficit observed. Psychiatric: Cooperative, appropriate mood & affect. Course Vital Signs: Vital signs: Vital Signs Temperature 98.3 F 03/06/25 02:46 Pulse Rate 77 03/06/25 02:46 Respiratory Rate 17 03/06/25 02:46 Blood Pressure 111/70 03/06/25 02:46 Pulse Oximetry 96 03/06/25 02:46 Oxygen Delivery Me thod Nasal Cannula 03/06/25 02:46 Oxygen Flow Rate 4 03/06/25 02:46 MDM - Fall Medical Decision Making Medical decision making: Differential diagnosis for patient presenting with generalized weakness including but not limited to and based on the above HPI, review of systems and physical exam: Sepsis. Dehydration. Renal failure. Electrolyte abnormalities. Anemia. Congestive heart failure. Hypotension. Coronary syndrome. Hepatitis. Cirrhosis. Infections such as pneumonia, urinary tract infection, Tick bourne illness, Cellulitis, Viral infections including influenza and Covid-19. Workup: labwork and lab/exam driven imaging ordered to evaluate, rule in and rule out above pathologies. Lab Review: Laboratory results were reviewed and interpreted by myself the emergency room physician. No leukocytosis. No anemia. No renal failure. Potassium is low at 2.6. Urinalysis negative for infection. CT head: No acute intracranial process. no intracranial hemorrhage, no evidence of infarct. no evidence of acute fracture.This was reviewed and interpreted by myself the ER physician. I reviewed the patient's medical record. Reexamination: Patient remained stable. No increased work of breathing. No altered mental status. No focal motor deficits. Assessment and plan: Falls Head injury Hypokalemia ? 40 mEq potassium here and 7 days replacement at the long-term - Discharged home - Discussed plan with patient. Answered any questions. - Evaluation and treatment of this problem were appropriate in the emergency setting. Lab Data 03/06/25 03:23 03/06/25 03:[address] 03/06/25 02:50 IMPRESSION: Mild small vessel disease. No evidence of acute intracranial process. Laboratory Results WBC 10.52 10^3/uL (3.29-11.43) 03/06/25 03:23 RBC 5.10 10^6/uL (3.85-5.65) 03/06/25 03:23 Hgb 15.10 g/dL (11.27-16.99) 03/06/25 03:23 Hct 46.0 % (36-47) 03/06/25 03:23 MCV 90.2 fl (85-98) 03/06/25 03:23 MCH 29.6 pg (27-33) 03/06/25 03:23 MCHC 32.8 g/dL (30-55) 03/06/25 03:23 RDW 15.3 % (12.1-15.1) H 03/06/25 03:23 Plt Count 294 10^3/cmm (157-399) 03/06/25 03:23 MPV 8.5 fL (7.4-10.4) 03/06/25 03:23 Neut % (Auto) 60.5 % 03/06/25 03:23 Lymph % (Auto) 21.3 % 03/06/25 03:23 Baldwin % (Auto) 14.0 % 03/06/25 03:23 Eos % (Auto) 2.3 % 03/06/25 03:23 Baso % (Auto) 0.5 % 03/06/25 03:23 Neut # (Auto) 6.37 10^3/uL (1.8-7.7) 03/06/25 03:23 Lymph # (Auto) 2.2 10^3/uL (0.8-4.8) 03/06/25 03:23 Baldwin # (Auto) 1.5 10^3/uL (0.2-0.9) H 03/06/25 03:23 Eos # (Auto) 0.2 10^3/uL (0.0-0.8) 03/06/25 03:23 Baso # (Auto) 0.1 10^3/uL (0.0-0.1) 03/06/25 03:23 Nucleated RBC % (auto) 0 % 03/06/25 03:23 Nucleated RBCs # 0.0 /100WBC 03/06/25 03:23 Sodium 139 mmol/L (136-145) 03/06/25 03:23 Potassium 2.6 mmol/L (3.5-5.1) L* 03/06/25 03:23 Chloride 93 mmol/L (98-107) L 03/06/25 03:23 Carbon Dioxide 32 mmol/L (22-29) H 03/06/25 03:23 Anion Gap 16.6 (5-19) 03/06/25 03:23 BUN 7 mg/dL (8-23) L 03/06/25 03:23 Creatinine 0.9 mg/dL (0.5-0.9) 03/06/25 03:23 GFR Calculation Not Reportable 03/06/25 03:23 Glucose 111 mg/dL (65-115) 03/06/25 03:23 Calculated Osmolality 287 mOsm/kg (285-295) 03/06/25 03:23 Lactic Acid 1.1 mmol/L (0.5-2.2) 03/06/25 03:23 Calcium 9.5 mg/dL (8.5-10.5) 03/06/25 03:23 Total Bilirubin 1.0 mg/dL (0.15-1.2) 03/06/25 03:23 AST 36 U/L (0-32) H 03/06/25 03:23 ALT 26 U/L (0-33) 03/06/25 03:23 Alkaline Phosphatase 155 U/L (35-105) H 03/06/25 03:23 Total Protein 6.8 g/dL (6.6-8.7) 03/06/25 03:23 Albumin 3.5 g/dL (3.5-5.2) 03/06/25 03:23 Globulin 3.3 g/dL (1.3-4.6) 03/06/25 03:23 Urine Color Yellow (Yellow) 03/06/25 03:40 Urine Appearance Clear (CLEAR) 03/06/25 03:40 Urine pH 6.0 (5-7) 03/06/25 03:40 Ur Specific [place] 1.008 (1.005-1.030) 03/06/25 03:40 Urine Protein Negative (Negative) 03/06/25 03:40 Urine Glucose (UA) Negative (Normal) 03/06/25 03:40 Urine Ketones Negative (Negative) 03/06/25 03:40 Urine Blood Negative (Negative) 03/06/25 03:40 Urine Nitrate Negative (Negative) 03/06/25 03:40 Urine Bilirubin Negative (Negative) 03/06/25 03:40 Urine Urobilinogen 1.0 mg/dL (Negative) 03/06/25 03:40 Ur Leukocyte Esterase Negative (Negative) 03/06/25 03:40 Urine RBC 0-2 /hpf (0-2) 03/06/25 03:40 Urine WBC 0-5 /hpf (0-5) 03/06/25 03:40 Ur Squamous Epith Cells 0-5 /hpf (0-5) 03/06/25 03:40 Amorphous Sediment Not Reportable 03/06/25 03:40 Urine Bacteria None seen /hpf (NONE) 03/06/25 03:40 Hyaline Casts 0.81 /lpf 03/06/25 03:40 All radiology interpretation(s) finalized by discharge Discharge Plan Discharge Patient Disposition: Home Clinical Impression: Hypokalemia, Multiple falls, Head injury, Chronic anticoagulation Condition: Stable Prescriptions: New potassium chloride 40 mEq/15 mL liquid 40 meq PO DAILY 7 Days Qty: 105 0RF No Action furosemide 40 mg tablet 40 mg PO DAILY Eliquis 5 mg tablet 5 mg PO BID albuterol sulfate 2.5 mg /3 mL (0.083 %) solution for nebulization 2.5 mg inhalation Q8H PRN potassium chloride 10 mEq tablet extended release 20 meq PO DAILY budesonide 0.25 mg/2 mL suspension for nebulization 0.25 mg inhalation BID citalopram 20 mg tablet 20 mg PO DAILY Qty: 90 2RF (DME) Supplemental Oxygen @ 2-4l/m via nasal canula See Rx Instructions .Route .MEDSUPPLY Qty: 1 0RF Rx Instructions: As directed acetaminophen 325 mg Tablet 650 mg PO Q4H PRN (Reason: general discomfort) nystatin 100,000 unit/gram Powder 1 applic TOPICAL BID insulin lispro [Humalog KwikPen Insulin] 100 unit/mL Insulin Pen See Rx Instructions .ROUTE .COMPLEX Rx Instructions: Inject subcutaneously 4 times daily per sliding scale: bs 141-180=2 units, 181-220=4 units, 221-260=6 units, 261-300=8 units, 301-350=10 units, 351-400=12 units, 401-450=14 units. diltiazem HCl [Cardizem] 30 mg tablet 30 mg PO TID Qty: 90 0RF alprazolam [Xanax] 0.5 mg tablet 7.5 mg PO BEDTIME nicotine (polacrilex) 4 mg Lozenge 4 mg mucous membrane Q4H PRN (Reason: Nicotine Cravings) Qty: 90 0RF polyethylene glycol 3350 17 gram Powder In Packet 17 g PO DAILY Qty: 90 0RF Discharge Orders: Discharge ED (Routine); Ordered 03/06/25 Ordered By: Liset Torrez Referrals: Farhad Marquez MD [Primary Care Provider, Family Practice] Discharge Diet: Usual diet Discharge Activity: Increase activity as tolerated Patient Instructions: Hypokalemia (ED), Fall Prevention for Older Adults (ED), Opioid Safety, Pain Management, Patient Portal & Lucrecia Instructions Activity Restrictions/Additional Instructions: Thank you for choosing [facility] for your healthcare needs today. You have been screened and evaluated and felt safe for discharge. Health conditions do change or evolve sometimes and as such it is important that you follow up with your Primary Doctor to be re checked, 3-5 days is a general good time frame for follow up. You are always welcome to return to the ED for re assessment if your symptoms are worsening or you have new concerns Print Language: Kyrgyz Coding Level of Care Code ED Professional Nurse for Alee Weaver
[2025-03-06 03:33] LABS: Hematocrit 46.0 % (36-47); Hemoglobin 15.10 g/dL (11.27-16.99); Mean Corpuscular HGB Conc 32.8 g/dL (30-55); Mean Corpuscular Hemoglobin 29.6 pg (27-33); Mean Corpuscular Volume 90.2 fl (85-98); Nucleated Red Blood Cells % 0 %; Platelet Count 294 10^3/cmm (157-399); Red Blood Count 5.10 10^6/uL (3.85-5.65); White Blood Count 10.52 10^3/uL (3.29-11.43)
[2025-03-06 03:49] LABS: Glucose Urine UA Negative (Normal); Nitrate Urine Negative (Negative); Specific Gravity, Urine 1.008 (1.005-1.030)
[2025-03-06 03:55] LABS: Alanine Aminotransferase 26 U/L (0-33); Albumin Level 3.5 g/dL (3.5-5.2); Alkaline Phosphatase 155 U/L (35-105); Anion Gap 16.6 (5-19); Aspartate Amino Transferase 36 U/L (0-32); Blood Urea Nitrogen 7 mg/dL (8-23); Calcium 9.5 mg/dL (8.5-10.5); Carbon Dioxide 32 mmol/L (22-29); Chloride 93 mmol/L (98-107); Creatinine Clr Calc Pharmacy 58.5966; Globulin 3.3 g/dL (1.3-4.6); Glucose 111 mg/dL (65-115); Osmolality Calculated 287 mOsm/kg (285-295); Sodium 139 mmol/L (136-145); Total Protein 6.8 g/dL (6.6-8.7)
[2025-03-06 03:56] LABS: Lactic Sepsis W/Reflex 1.1 mmol/L (0.5-2.2)
[2025-03-06 03:58] LABS: Potassium 2.6 mmol/L (3.5-5.1)
[2025-03-06 04:22] LABS: Respiratory Syncytial Virus Ce NEGATIVE (Negative); SARS-CoV-2 PCR NEGATIVE (Negative)
[2025-03-06] MEDS: potassium chloride oral liq 20 mEq/15 mL UDC 40 MEQ PO (04:30)
[2025-03-06 05:12] VITALS: BP 147/61; PULSE 82; RESP 16; O2SAT 97
[2025-03-06] MEDS: LORazepam 1 MG/0.5 ML injection IVP (05:39)
[2025-03-06 08:48] VITALS: BP 147/50; PULSE 78; RESP 16; O2SAT 95
--- OUTSIDE RECORDS SUMMARY | 2025-03-06 18:35 | XMS_ITS | Encounter Summary ---
Author Organization [employer] [facility] Address [address] [place] [address] Care Team Providers Care Firestopper Installer Name Role Phone Unavailable Primary Care Provider Unavailabl e Encounter Details Date Type Department Care Team (Latest Contact Info) Description 05/24/2000 Outpatient Historical [facility] Pepe Ellison MD [address] [place] [id number] Sciatica (Primary Dx) Social History Tobacco Use Types Packs/Day Years Used Date Smoking Tobacco: Never Assessed Comments Unknown Sex and Gender Information Value Date Recorded Sex Assigned at Not on file 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
--- OUTSIDE RECORDS SUMMARY | 2025-03-06 18:35 | XMS_ITS | Encounter Summary ---
Author Organization [employer] [facility] Address [address] [place] [address] Care Team Providers Care Engineering Teacher Name Role Phone Unavailable Primary Care Provider Unavailabl e Encounter Details Date Type Department Care Team (Latest Contact Info) Description 04/26/2000 Outpatient Historical [facility] Pepe Ellison MD [address] [place] [id number] Acute sinusitis, unspecified (Primary Dx) Social History Tobacco Use Types Packs/Day Years Used Date Smoking Tobacco: Never Assessed Comments Unknown Sex and Gender Information Value Date Recorded Sex Assigned at Not on file 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
--- OUTSIDE RECORDS SUMMARY | 2025-03-06 18:35 | XMS_ITS | Continuity of Care Document ---
Author Organization [employer] ([facility]) Address [address] [place] [id number] Insurance Providers Payer Plan Claims Address Claims Phone Policy Number Group Number Relation Employer Guarantor Name Guarantor Guarantor Address Guarantor Phone [employer] [place] [address] [address], [place] [address] tel:[phone] Self Renee Atkins [address] [place] [address] [place] Medic are [address], [place] [address] tel:[phone] Self Renee Atkins [address] [place] [address] Problems Condition ICD9 code ICD10 code SNOMED code Start Date End Date S tatus Chronic obstructive pulmonary disease, unspecified J44.9 10/24/2024 Active Chronic respiratory failure with hypoxia J96.11 10/24/2024 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.51 10/24/2024 Activ e Tachycardia, unspecified R00.0 10/24/2024 Active Heart failure, unspecified I50.9 10/24/2024 Active Anxiety disorder, unspecified F41.9 10/24/2024 Active Retention of urine, unspecified R33.9 10/24/2024 Active History of falling Z91.81 10/24/2024 Ac tive detention (current) use of insulin Z79.4 10/24/2024 Active Muscle weakness (generalized) M62.81 10/25/2024 Active Difficulty in walking, not elsewhere classified R26.2 10/25/2024 Active Major depressive disorder, single episode, unspecified F32.9 10/25/2024 Active Pressure ulcer of sacral region, stage 2 L89.152 10/24/2024 Active Constipation, unspecified K59.00 10/25/2024 Active Do not resuscitate Z66 10/24/2024 Ac tive Type 2 diabetes mellitus without complications E11.9 10/25/2024 Act sloan Personal history of pulmonary embolism Z86.711 10/24/2024 Active 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 Refere nce Range Blood chemistry[015233020] Glucose [Mass/volume] in Serum or Plasma [2345-7] 11/19/2024 12:38 PM 108 mg/dL N Blood chemistry[[id number]] Glucose [Mass/volume] in Serum or Plasma [2345-7] 11/18/2024 12:09 PM 159 mg/dL N Blood chemistry[[id number]] Glucose [Mass/volume] in Serum or Plasma [2345-7] 11/18/2024 04:05 PM 109 mg/dL N Blood chemistry[[id number]] Glucose [Mass/volume] in Serum or Plasma [2345-7] 11/18/2024 12:10 PM 79 mg/dL N Blood chemistry[[id number]] Glucose [Mass/volume] in Serum or Plasma [2345-7] 11/17/2024 12:00 PM 157 mg/dL N Blood chemistry[[id number]] Glucose [Mass/volume] in Serum or Plasma [2345-7] 11/17/2024 04:02 PM 115 mg/dL N Blood chemistry[[id number]] Glucose [Mass/volume] in Serum or Plasma [2345-7] 11/17/2024 08:47 AM 124 mg/dL N Blood chemistry[[id number]] Glucose [Mass/volume] in Serum or Plasma [2345-7] 11/17/2024 01:05 PM 132 mg/dL N Blood chemistry[[id number]] Glucose [Mass/volume] in Serum or Plasma [2345-7] 11/16/2024 12:08 PM 129 mg/dL N Blood chemistry[[id number]] Glucose [Mass/volume] in Serum or Plasma [2345-7] 11/16/2024 09:46 AM 102 mg/dL N Blood chemistry[[id number]] Glucose [Mass/volume] in Serum or Plasma [2345-7] 11/16/2024 06:03 AM 142 mg/dL N Blood chemistry[[id number]] Glucose [Mass/volume] in Serum or Plasma [2345-7] 11/16/2024 12:51 PM 110 mg/dL N Blood chemistry[[id number]] Glucose [Mass/volume] in Serum or Plasma [2345-7] 11/15/2024 05:33 PM 138 mg/dL N Blood chemistry[[id number]] Glucose [Mass/volume] in Serum or Plasma [2345-7] 11/15/2024 10:14 AM 105 mg/dL N Blood chemistry[[id number]] Glucose [Mass/volume] in Serum or Plasma [2345-7] 11/15/2024 01:02 PM 105 mg/dL N Blood chemistry[[id number]] Glucose [Mass/volume] in Serum or Plasma [2345-7] 11/14/2024 04:13 PM 126 mg/dL N Blood chemistry[[id number]] Glucose [Mass/volume] in Serum or Plasma [2345-7] 11/14/2024 11:34 AM 111 mg/dL N Blood chemistry[[id number]] Glucose [Mass/volume] in Serum or Plasma [2345-7] 11/13/2024 12:03 PM 147 mg/dL N Blood chemistry[[id number]] Glucose [Mass/volume] in Serum or Plasma [2345-7] 11/13/2024 05:36 PM 120 mg/dL N Blood chemistry[[id number]] Glucose [Mass/volume] in Serum or Plasma [2345-7] 11/13/2024 09:57 AM 103 mg/dL N Blood chemistry[[id number]] Glucose [Mass/volume] in Serum or Plasma [2345-7] 11/13/2024 11:40 AM 128 mg/dL N Blood chemistry[[id number]] Glucose [Mass/volume] in Serum or Plasma [2345-7] 11/12/2024 09:54 AM 121 mg/dL N Blood chemistry[[id number]] Glucose [Mass/volume] in Serum or Plasma [2345-7] 11/12/2024 06:12 AM 129 mg/dL N Blood chemistry[[id number]] Glucose [Mass/volume] in Serum or Plasma [2345-7] 11/12/2024 11:54 AM 110 mg/dL N Blood chemistry[[id number]] Glucose [Mass/volume] in Serum or Plasma [2345-7] 11/11/2024 01:44 PM 121 mg/dL N Blood chemistry[[id number]] Glucose [Mass/volume] in Serum or Plasma [2345-7] 11/11/2024 11:03 AM 143 mg/dL N Blood chemistry[[id number]] Glucose [Mass/volume] in Serum or Plasma [2345-7] 11/11/2024 04:43 PM 143 mg/dL N Blood chemistry[[id number]] Glucose [Mass/volume] in Serum or Plasma [2345-7] 11/11/2024 12:50 PM 104 mg/dL N Blood chemistry[[id number]] Glucose [Mass/volume] in Serum or Plasma [2345-7] 11/10/2024 12:48 PM 157 mg/dL N Blood chemistry[[id number]] Glucose [Mass/volume] in Serum or Plasma [2345-7] 11/10/2024 04:41 PM 135 mg/dL N Blood chemistry[[id number]] Glucose [Mass/volume] in Serum or Plasma [2345-7] 11/10/2024 09:30 AM 127 mg/dL N Blood chemistry[[id number]] Glucose [Mass/volume] in Serum or Plasma [2345-7] 11/09/2024 11:27 AM 148 mg/dL N Blood chemistry[[id number]] Glucose [Mass/volume] in Serum or Plasma [2345-7] 11/09/2024 10:15 AM 52 mg/dL N Blood chemistry[[id number]] Glucose [Mass/volume] in Serum or Plasma [2345-7] 11/09/2024 12:06 PM 93 mg/dL N Blood chemistry[[id number]] Glucose [Mass/volume] in Serum or Plasma [2345-7] 11/08/2024 12:57 PM 135 mg/dL N Blood chemistry[[id number]] Glucose [Mass/volume] in Serum or Plasma [2345-7] 11/08/2024 10:41 AM 126 mg/dL N Blood chemistry[[id number]] Glucose [Mass/volume] in Serum or Plasma [2345-7] 11/08/2024 07:37 AM 131 mg/dL N Blood chemistry[[id number]] Glucose [Mass/volume] in Serum or Plasma [2345-7] 11/08/2024 02:07 PM 121 mg/dL N Blood chemistry[[id number]] Glucose [Mass/volume] in Serum or Plasma [2345-7] 11/07/2024 12:03 PM 195 mg/dL N Blood chemistry[[id number]] Glucose [Mass/volume] in Serum or Plasma [2345-7] 11/07/2024 04:11 PM 155 mg/dL N Blood chemistry[[id number]] Glucose [Mass/volume] in Serum or Plasma [2345-7] 11/07/2024 09:02 AM 162 mg/dL N Blood chemistry[[id number]] Glucose [Mass/volume] in Serum or Plasma [2345-7] 11/07/2024 11:26 AM 100 mg/dL N Blood chemistry[[id number]] Glucose [Mass/volume] in Serum or Plasma [2345-7] 11/06/2024 12:50 PM 173 mg/dL N Blood chemistry[[id number]] Glucose [Mass/volume] in Serum or Plasma [2345-7] 11/06/2024 05:24 PM 144 mg/dL N Blood chemistry[[id number]] Glucose [Mass/volume] in Serum or Plasma [2345-7] 11/06/2024 10:42 AM 134 mg/dL N Blood chemistry[[id number]] Glucose [Mass/volume] in Serum or Plasma [2345-7] 11/06/2024 12:46 PM 112 mg/dL N Blood chemistry[[id number]] Glucose [Mass/volume] in Serum or Plasma [2345-7] 11/05/2024 12:33 PM 179 mg/dL N Blood chemistry[[id number]] Glucose [Mass/volume] in Serum or Plasma [2345-7] 11/05/2024 10:59 AM 111 mg/dL N Blood chemistry[[id number]] Glucose [Mass/volume] in Serum or Plasma [2345-7] 11/05/2024 08:06 AM 131 mg/dL N Blood chemistry[[id number]] Glucose [Mass/volume] in Serum or Plasma [2345-7] 11/05/2024 01:11 PM 111 mg/dL N Blood chemistry[[id number]] Glucose [Mass/volume] in Serum or Plasma [2345-7] 11/04/2024 03:33 PM 136 mg/dL N Blood chemistry[[id number]] Glucose [Mass/volume] in Serum or Plasma [2345-7] 11/04/2024 05:15 PM 148 mg/dL N Blood chemistry[[id number]] Glucose [Mass/volume] in Serum or Plasma [2345-7] 11/04/2024 10:03 AM 137 mg/dL N Blood chemistry[[id number]] Glucose [Mass/volume] in Serum or Plasma [2345-7] 11/04/2024 11:54 AM 114 mg/dL N Blood chemistry[[id number]] Glucose [Mass/volume] in Serum or Plasma [2345-7] 11/03/2024 01:04 PM 175 mg/dL N Blood chemistry[[id number]] Glucose [Mass/volume] in Serum or Plasma [2345-7] 11/03/2024 03:56 PM 125 mg/dL N Blood chemistry[[id number]] Glucose [Mass/volume] in Serum or Plasma [2345-7] 11/03/2024 12:41 PM 113 mg/dL N Blood chemistry[[id number]] Glucose [Mass/volume] in Serum or Plasma [2345-7] 11/02/2024 04:39 PM 141 mg/dL N Blood chemistry[[id number]] Glucose [Mass/volume] in Serum or Plasma [2345-7] 11/02/2024 09:52 AM 131 mg/dL N Blood chemistry[[id number]] Glucose [Mass/volume] in Serum or Plasma [2345-7] 11/02/2024 07:36 AM 144 mg/dL N Blood chemistry[[id number]] Glucose [Mass/volume] in Serum or Plasma [2345-7] 11/02/2024 12:09 PM 98 mg/dL N Blood chemistry[[id number]] Glucose [Mass/volume] in Serum or Plasma [2345-7] 11/01/2024 12:12 PM 153 mg/dL N Blood chemistry[[id number]] Glucose [Mass/volume] in Serum or Plasma [2345-7] 11/01/2024 05:13 PM 137 mg/dL N Tuberculosis reaction wheal[ 37444-3] Tuberculosis reaction wheal [68894-5] 11/01/2024 05:00 PM See note TB test Blood chemistry[[id number]] Glucose [Mass/volume] in Serum or Plasma [2345-7] 11/01/2024 09:42 AM 156 mg/dL N Blood chemistry[[id number]] Glucose [Mass/volume] in Serum or Plasma [5-7] 11/01/2024 01:21 PM 102 mg/dL N Blood chemistry[[id number]] Glucose [Mass/volume] in Serum or Plasma [5-7] 10/31/2024 12:24 PM 151 mg/dL N Blood chemistry[[id number]] Glucose [Mass/volume] in Serum or Plasma [2345-7] 10/31/2024 05:36 PM 158 mg/dL N Blood chemistry[[id number]] Glucose [Mass/volume] in Serum or Plasma [2345-7] 10/31/2024 09:48 AM 123 mg/dL N Blood chemistry[[id number]] Glucose [Mass/volume] in Serum or Plasma [2345-7] 10/31/2024 12:46 PM 116 mg/dL N Blood chemistry[[id number]] Glucose [Mass/volume] in Serum or Plasma [2345-7] 10/30/2024 12:20 PM 150 mg/dL N Blood chemistry[[id number]] Glucose [Mass/volume] in Serum or Plasma [2345-7] 10/30/2024 04:35 PM 127 mg/dL N Blood chemistry[[id number]] Glucose [Mass/volume] in Serum or Plasma [2345-7] 10/30/2024 09:26 AM 120 mg/dL N Blood chemistry[[id number]] Glucose [Mass/volume] in Serum or Plasma [5-7] 10/30/2024 11:54 AM 94 mg/dL N Blood chemistry[[id number]] Glucose [Mass/volume] in Serum or Plasma [2345-7] 10/29/2024 01:09 PM 172 mg/dL N Blood chemistry[[id number]] Glucose [Mass/volume] in Serum or Plasma [2345-7] 10/29/2024 05:28 PM 164 mg/dL N Blood chemistry[[id number]] Glucose [Mass/volume] in Serum or Plasma [2344-7] 10/29/2024 10:17 AM 164 mg/dL N Blood chemistry[[id number]] Glucose [Mass/volume] in Serum or Plasma [2344-7] 10/29/2024 10:54 AM 145 mg/dL N Blood chemistry[[id number]] Glucose [Mass/volume] in Serum or Plasma [2344-7] 10/28/2024 03:59 PM 150 mg/dL N Blood chemistry[[id number]] Glucose [Mass/volume] in Serum or Plasma [2344-7] 10/28/2024 04:26 PM 148 mg/dL N Blood chemistry[[id number]] Glucose [Mass/volume] in Serum or Plasma [2344-7] 10/28/2024 11:25 AM 128 mg/dL N Blood chemistry[[id number]] Glucose [Mass/volume] in Serum or Plasma [2344-7] 10/27/2024 03:55 PM 136 mg/dL N Blood chemistry[[id number]] Glucose [Mass/volume] in Serum or Plasma [2344-7] 10/27/2024 04:57 PM 122 mg/dL N Blood chemistry[[id number]] Glucose [Mass/volume] in Serum or Plasma [2344-7] 10/27/2024 10:00 AM 164 mg/dL N Blood chemistry[[id number]] Glucose [Mass/volume] in Serum or Plasma [5-7] 10/26/2024 03:04 PM 168 mg/dL N Tuberculosis reaction wheal[ 86878-9] Tuberculosis reaction wheal [84831-8] 10/25/2024 01:10 PM 0 mm NEG Blood chemistry[[id number]] Glucose [Mass/volume] in Serum or Plasma [2345-7] 10/26/2024 05:07 PM 163 mg/dL N Blood chemistry[[id number]] Glucose [Mass/volume] in Serum or Plasma [2345-7] 10/26/2024 10:16 AM 157 mg/dL N Blood chemistry[[id number]] Glucose [Mass/volume] in Serum or Plasma [2345-7] 10/26/2024 09:03 AM 144 mg/dL N Blood chemistry[[id number]] Glucose [Mass/volume] in Serum or Plasma [2345-7] 10/25/2024 03:10 PM 169 mg/dL N Blood chemistry[[id number]] Glucose [Mass/volume] in Serum or Plasma [2345-7] 10/25/2024 05:06 PM 156 mg/dL N Blood chemistry[[id number]] Glucose [Mass/volume] in Serum or Plasma [2345-7] 10/25/2024 10:33 AM 126 mg/dL N Tuberculosis reaction wheal[ 28386-3] Tuberculosis reaction wheal [88686-5] 10/25/2024 01:10 PM See note TB test Blood chemistry[[id number]] Glucose [Mass/volume] in Serum or Plasma [2345-7] 10/25/2024 09:03 AM 130 mg/dL N Blood chemistry[[id number]] Glucose [Mass/volume] in Serum or Plasma [2345-7] 10/24/2024 03:11 PM 138 mg/dL N Blood chemistry[[id number]] Glucose [Mass/volume] in Serum or Plasma [2345-7] 10/24/2024 11:00 AM 153 mg/dL N Allergies, adverse reactions, alerts Substance Reaction Date Status Type Penicillins 10/02/2024 Non Drug codeine sulfate 10/02/2024 Non Drug Sulfa (Sulfonamide Antibiotics) 10/02/2024 Non Drug zolpidem 10/02/2024 Non Drug Immunizations Vaccine Route Date Status Pneumococcal Vaccine Unassigned Route of Administratio n 10/24/2024 Refused Medications Medication Instructions Route Dosage Frequency Start Date Stop Date Indications Status acetaminophen 325 mg tablet (acetaminophen ) 2 tabs (650 mg), oral, Every 4 Hours - PRN, For pain/fever oral 1.0 4.0 h 2024 Active albuterol sulfate 2.5 mg /3 mL (0.083 %) solution for nebulization (albuterol sulfate) 1 vial per nebulizer, inhalation, Every 8 Hours - PRN, For SOB/wheezing, TI for levalbuterol inhalation 1.0 8.0 h 11/19 Active alprazolam 0.5 mg tablet (alprazolam) 1 tab, oral, At Bedtime, Exempt F41.9 oral 1.0 2024 Active citalopram 20 mg tablet (citalopram) 1 tab, oral, Once A Day oral 1.0 1.0 d 2024 Active ClearLax (polyethylene glycol 3350) 17 gram/dose powder (ClearLax (polyethylene glycol 3350)) 17 gm, oral, Once A Day, mix in at least 4 oz of fluid of choice oral 1.0 1.0 d 11/19 Active diltiazem HCl 30 mg tablet (diltiazem HCl) 1 tab, oral, Three Times A Day oral 1.0 8.0 h 2024 Active Dulcolax (bisacodyl) (bisacodyl) 10 mg suppository (Dulcolax (bisacodyl) (bisacodyl)) 1 suppository, rectal, Once A Day - PRN, Give rectally if can't take p/o, if no results from MOM rectal 1.0 1.0 d 2024 Active fluconazole 200 mg tablet (fluconazole) 1 tab, oral, Once A Day, For 7 days oral 1.0 1.0 d 10/31 Active insulin lispro 100 unit/mL insulin pen (insulin lispro) Per Sliding Scale, subcutaneous, Four Times A Day, If Blood Sugar is less than 60, call MD.If Blood Sugar is 201 to 250, give 2 Units.If Blood Sugar is 251 to 300, give 4 Units.If Blood Sugar is 301 to 350, give 6 Units.If Blood Sugar is 351 to 400, give 8 Units. subcutaneou s 1.0 6.0 h 11/19 Active nicotine (polacrilex) 4 mg lozenge (nicotine (polacrilex)) 1 lozenge, buccal, Every 4 Hours - PRN, For nicotine cravings buccal 1.0 4.0 h 2024 Active nystatin 100,000 unit/gram powder (nystatin) 1 alisa, topical, Twice A Day topical 1.0 12.0 h 2024 Active potassium chloride 10 mEq tablet extended release (potassium chloride) 1 tab, oral, Once A Day oral 1.0 1.0 d 11/08 Active Triad Wound Dressing (wound dressings) - paste (Triad Wound Dressing (wound dressings)) as directed, topical, Every Shift, Buttock: cleanse skin with baby oil and gauze, apply triad and stephanie topical 1.0 8.0 h 10/24 Active Trelegy Ellipta (fluticasone-u meclidin-vilan ter) 100-62.5-25 mcg blister with device (Trelegy Ellipta (fluticasone-u meclidin-vilan ter)) 1 inhale, inhalation, Once A Day, Have pt rinse mouth with water and spit after use. inhalation 1.0 1.0 d 5 10/25 Active Tylenol (acetaminophen ) 325 mg tablet (Tylenol (acetaminophen )) 2 tabs/650mg, oral, Every 6 Hours - PRN, as needed for PRN pain/increase d tempMay give rectally if necessary oral 1.0 6.0 h 2024 Active Tubersol (tuberculin ppd) 5 tub. unit /0.1 mL solution (Tubersol (tuberculin ppd)) 0.1ml, intradermal, Once - One Time, Administer the morning after admission intradermal 1.0 5 10/03 Active Tubersol (tuberculin ppd) 5 tub. unit /0.1 mL solution (Tubersol (tuberculin ppd)) 0.1ml, intradermal, Once - One Time, Administer on the day shift intradermal 1.0 10/11 Active Tubersol (tuberculin ppd) 5 tub. unit /0.1 mL solution (Tubersol (tuberculin ppd)) 0.1ml, intradermal, Once - One Time, Administer the morning after admission intradermal 1.0 10/24 Active Tubersol (tuberculin ppd) 5 tub. unit /0.1 mL solution (Tubersol (tuberculin ppd)) 0.1ml, intradermal, Once - One Time, Administer the morning after admission intradermal 1.0 10/25 Active budesonide 0.25 mg/2 mL suspension for nebulization (budesonide) 1 vial, inhalation, Twice A Day, clinical indication: dyspnea inhalation 1.0 12.0 h 11/19 Active ipratropium bromide 0.02 % solution (ipratropium bromide) 1 vial, inhalation, Three Times A Day, clinical indication: dyspnea inhalation 1.0 8.0 h 11/19 Active Eliquis (apixaban) 5 mg tablet (Eliquis (apixaban)) 1, oral, Twice A Day oral 1.0 12.0 h 2024 Active Lasix (furosemide) 20 mg tablet (Lasix (furosemide)) 1, oral, Once A Day oral 1.0 1.0 d 10/29 Active Lasix (furosemide) 20 mg tablet (Lasix (furosemide)) 2 tabs, oral, Once A Day oral 1.0 1.0 d 10/30 Active furosemide 40 mg tablet (furosemide) 1 tab, oral, Once A Day oral 1.0 1.0 d 2024 Active Tubersol (tuberculin ppd) 5 tub. unit /0.1 mL solution (Tubersol (tuberculin ppd)) 0.1ml, intradermal, Once - One Time, Administer on the day shift intradermal 1.0 11/01 Active Benadryl (diphenhydrami ne hcl) 25 mg capsule (Benadryl (diphenhydrami ne hcl)) 1, oral, Every 6 Hours - PRN, Clinical Indication: Itching oral 1.0 6.0 h 2024 Active Sarna Sensitive (pramoxine) 1 % lotion (Sarna Sensitive (pramoxine)) as directed, topical, Every Shift - PRN, Apply to skin twice daily for itching topical 1.0 8.0 h 2024 Active potassium chloride 20 mEq tablet extended release (potassium chloride) 2, oral, Once - One Time oral 1.0 11/08 Active potassium chloride 20 mEq tablet extended release (potassium chloride) 1, oral, Once A Day oral 1.0 1.0 d 11/08 Active Triad Wound Dressing (wound dressings) - paste (Triad Wound Dressing (wound dressings)) as directed, topical, Every Shift, Buttock: cleanse skin with baby oil and gauze, apply triad and stephanie topical 1.0 8.0 h 11/16 Active Vital Signs Date Vital Result Comment 10/24/2024 07:25 PM Temperature (8310-5) 97.2 [degF] Oxygen Saturation (68049-5) 91 % Respiratory Rate (9279-1) 15 /min Heart Rate (8867-4) 105 /min Blood Pressure Systolic (8480-6) 106 mm[Hg] Blood Pressure Diastolic (8462-4) 57 mm[Hg] 10/24/2024 06:20 PM Oxygen Saturation (78534-2) 92 % 10/24/2024 06:16 PM Body mass index (BMI) [Ratio] (391 56-5) 0.0 kg/m2 Body Weight (03358-1) 231.4 [lb_av] Body Mass Index (91796-0) 36.24 kg/m2 10/25/2024 10:22 AM Temperature (8310-5) 98.7 [degF] Respiratory Rate (9279-1) 20 /min Heart Rate (8867-4) 113 /min Blood Pressure Systolic (8480-6) 151 mm[Hg] Blood Pressure Diastolic (8462-4) 71 mm[Hg] 10/25/2024 04:06 PM Body Weight (50889-6) 226.8 [lb_av ] Body Mass Index (14544-7) 35.52 kg/m2 10/25/2024 11:23 AM Body Height (8302-2) 67 [in_us] 10/25/2024 10:21 AM Oxygen Saturation (25996-7) 91 % 10/25/2024 07:12 PM Temperature (8310-5) 97.3 [degF] Respiratory Rate (9279-1) 19 /min Heart Rate (8867-4) 109 /min Blood Pressure Systolic (8480-6) 132 mm[Hg] Blood Pressure Diastolic (8462-4) 81 mm[Hg] 10/26/2024 01:47 PM Temperature (8310-5) 97.1 [degF] Respiratory Rate (9279-1) 17 /min Heart Rate (8867-4) 105 /min Blood Pressure Systolic (8480-6) 123 mm[Hg] Blood Pressure Diastolic (8462-4) 72 mm[Hg] 10/26/2024 01:46 PM Oxygen Saturation (48464-5) 93 % 10/26/2024 08:13 PM Temperature (8310-5) 97.9 [degF] Oxygen Saturation (44564-9) 98 % Respiratory Rate (9279-1) 22 /min Heart Rate (8867-4) 94 /min Blood Pressure Systolic (8480-6) 109 mm[Hg] Blood Pressure Diastolic (8462-4) 56 mm[Hg] 10/26/2024 08:12 PM Body Weight (22767-9) 228.2 [lb_av ] Body Mass Index (75188-6) 35.74 kg/m2 10/27/2024 03:45 PM Body Weight (44143-8) 227.2 [lb_av ] Body Mass Index (70659-0) 35.58 kg/m2 10/27/2024 03:46 PM Temperature (8310-5) 97.4 [degF] Oxygen Saturation (01807-5) 94 % Respiratory Rate (9279-1) 20 /min Heart Rate (8867-4) 114 /min Blood Pressure Systolic (8480-6) 138 mm[Hg] Blood Pressure Diastolic (8462-4) 76 mm[Hg] 10/27/2024 09:50 AM Oxygen Saturation (97889-7) 94 % 10/28/2024 12:10 AM Temperature (8310-5) 98 [degF] Oxygen Saturation (45188-3) 96 % Respiratory Rate (9279-1) 16 /min Heart Rate (8867-4) 80 /min Blood Pressure Systolic (8480-6) 112 mm[Hg] Blood Pressure Diastolic (8462-4) 88 mm[Hg] 10/27/2024 10:54 PM Oxygen Saturation (50611-0) 95 % 10/28/2024 08:33 AM Temperature (8310-5) 97.6 [degF] Oxygen Saturation (79543-1) 93 % Respiratory Rate (9279-1) 20 /min Heart Rate (8867-4) 80 /min Blood Pressure Systolic (8480-6) 130 mm[Hg] Blood Pressure Diastolic (8462-4) 62 mm[Hg] 10/28/2024 04:05 PM Body Weight (31032-0) 226.8 [lb_av ] Body Mass Index (76922-4) 35.52 kg/m2 10/28/2024 07:22 PM Temperature (8310-5) 97.7 [degF] Oxygen Saturation (05961-0) 95 % Respiratory Rate (9279-1) 21 /min Heart Rate (8867-4) 86 /min Blood Pressure Systolic (8480-6) 115 mm[Hg] Blood Pressure Diastolic (8462-4) 57 mm[Hg] 10/29/2024 04:04 PM Body Weight (95376-3) 227.4 [lb_av ] Body Mass Index (32711-8) 35.61 kg/m2 10/29/2024 11:11 AM Oxygen Saturation (59198-2) 97 % 10/29/2024 11:12 AM Temperature (8310-5) 98 [degF] Respiratory Rate (9279-1) 18 /min Heart Rate (8867-4) 93 /min Blood Pressure Systolic (8480-6) 115 mm[Hg] Blood Pressure Diastolic (8462-4) 70 mm[Hg] 10/29/2024 08:08 PM Temperature (8310-5) 97.3 [degF] Oxygen Saturation (34309-6) 94 % Respiratory Rate (9279-1) 17 /min Heart Rate (8867-4) 119 /min Blood Pressure Systolic (8480-6) 133 mm[Hg] Blood Pressure Diastolic (8462-4) 74 mm[Hg] 10/30/2024 08:29 AM Temperature (8310-5) 98.4 [degF] Oxygen Saturation (50958-9) 95 % Respiratory Rate (9279-1) 21 /min Heart Rate (8867-4) 110 /min Blood Pressure Systolic (8480-6) 139 mm[Hg] Blood Pressure Diastolic (8462-4) 83 mm[Hg] 10/30/2024 11:35 AM Body Weight (14312-7) 227 [lb_av] Body Mass Index (34339-6) 35.55 kg/m2 10/30/2024 07:06 PM Temperature (8310-5) 97.6 [degF] Respiratory Rate (9279-1) 19 /min Heart Rate (8867-4) 96 /min Blood Pressure Systolic (8480-6) 140 mm[Hg] Blood Pressure Diastolic (8462-4) 85 mm[Hg] 10/30/2024 07:05 PM Oxygen Saturation (14235-8) 97 % 10/31/2024 08:51 AM Temperature (8310-5) 98 [degF] Oxygen Saturation (20684-8) 98 % Respiratory Rate (9279-1) 20 /min Heart Rate (8867-4) 93 /min Blood Pressure Systolic (8480-6) 107 mm[Hg] Blood Pressure Diastolic (8462-4) 53 mm[Hg] 10/31/2024 12:37 PM Body Weight (17240-9) 227.2 [lb_av ] Body Mass Index (05217-1) 35.58 kg/m2 10/31/2024 06:52 PM Temperature (8310-5) 97.7 [degF] Oxygen Saturation (49128-2) 92 % Respiratory Rate (9279-1) 18 /min Heart Rate (8867-4) 97 /min Blood Pressure Systolic (8480-6) 132 mm[Hg] Blood Pressure Diastolic (8462-4) 73 mm[Hg] 11/01/2024 09:09 AM Body Weight (93471-0) 224.6 [lb_av ] Body Mass Index (25736-8) 35.17 kg/m2 11/01/2024 09:07 AM Temperature (8310-5) 98.3 [degF] Oxygen Saturation (96269-3) 96 % Respiratory Rate (9279-1) 20 /min Heart Rate (8867-4) 115 /min Blood Pressure Systolic (8480-6) 143 mm[Hg] Blood Pressure Diastolic (8462-4) 80 mm[Hg] 11/01/2024 07:05 PM Temperature (8310-5) 97 [degF] Oxygen Saturation (49256-3) 91 % Respiratory Rate (9279-1) 16 /min Heart Rate (8867-4) 64 /min Blood Pressure Systolic (8480-6) 130 mm[Hg] Blood Pressure Diastolic (8462-4) 78 mm[Hg] 11/02/2024 11:12 AM Temperature (8310-5) 96.8 [degF] Oxygen Saturation (23102-2) 97 % Respiratory Rate (9279-1) 17 /min Heart Rate (8867-4) 102 /min Blood Pressure Systolic (8480-6) 125 mm[Hg] Blood Pressure Diastolic (8462-4) 70 mm[Hg] 11/02/2024 04:00 PM Body Weight (24482-8) 221.8 [lb_av ] Body Mass Index (91108-8) 34.73 kg/m2 11/02/2024 11:59 AM Oxygen Saturation (58334-2) 97 % 11/02/2024 11:40 PM Oxygen Saturation (91096-6) 95 % 11/03/2024 02:15 AM Temperature (8310-5) 97 [degF] Oxygen Saturation (75717-7) 95 % Respiratory Rate (9279-1) 18 /min Heart Rate (8867-4) 80 /min Blood Pressure Systolic (8480-6) 110 mm[Hg] Blood Pressure Diastolic (8462-4) 88 mm[Hg] 11/03/2024 10:56 AM Body Weight (79147-3) 221.8 [lb_av ] Body Mass Index (69027-2) 34.73 kg/m2 11/03/2024 09:52 AM Temperature (8310-5) 97.7 [degF] Oxygen Saturation (47914-0) 95 % Respiratory Rate (9279-1) 19 /min Heart Rate (8867-4) 106 /min Blood Pressure Systolic (8480-6) 125 mm[Hg] Blood Pressure Diastolic (8462-4) 76 mm[Hg] 11/04/2024 06:55 AM Body Weight (55395-9) 222 [lb_av] Body Mass Index (19622-8) 34.77 kg/m2 11/04/2024 03:06 AM Temperature (8310-5) 98 [degF] Respiratory Rate (9279-1) 16 /min Heart Rate (8867-4) 88 /min Blood Pressure Systolic (8480-6) 132 mm[Hg] Blood Pressure Diastolic (8462-4) 78 mm[Hg] 11/04/2024 03:05 AM Oxygen Saturation (82555-4) 96 % 11/04/2024 10:12 AM Temperature (8310-5) 97.2 [degF] Oxygen Saturation (57109-8) 93 % Respiratory Rate (9279-1) 16 /min Heart Rate (8867-4) 99 /min Blood Pressure Systolic (8480-6) 145 mm[Hg] Blood Pressure Diastolic (8462-4) 68 mm[Hg] 11/05/2024 12:31 AM Temperature (8310-5) 98.3 [degF] Respiratory Rate (9279-1) 18 /min Heart Rate (8867-4) 70 /min Blood Pressure Systolic (8480-6) 122 mm[Hg] Blood Pressure Diastolic (8462-4) 88 mm[Hg] 11/04/2024 10:35 PM Oxygen Saturation (57852-5) 95 % 11/05/2024 09:09 AM Temperature (8310-5) 97.8 [degF] Respiratory Rate (9279-1) 19 /min Heart Rate (8867-4) 95 /min Blood Pressure Systolic (8480-6) 107 mm[Hg] Blood Pressure Diastolic (8462-4) 63 mm[Hg] 11/05/2024 09:08 AM Oxygen Saturation (51299-5) 95 % 11/05/2024 06:17 PM Temperature (8310-5) 97.7 [degF] Oxygen Saturation (74211-2) 95 % Respiratory Rate (9279-1) 18 /min Heart Rate (8867-4) 93 /min Blood Pressure Systolic (8480-6) 106 mm[Hg] Blood Pressure Diastolic (8462-4) 62 mm[Hg] 11/06/2024 09:13 AM Temperature (8310-5) 97.2 [degF] Respiratory Rate (9279-1) 18 /min Heart Rate (8867-4) 96 /min Blood Pressure Systolic (8480-6) 140 mm[Hg] Blood Pressure Diastolic (8462-4) 61 mm[Hg] 11/06/2024 09:12 AM Oxygen Saturation (65200-9) 96 % 11/06/2024 12:23 PM Body Weight (99448-7) 220.6 [lb_av ] Body Mass Index (81267-2) 34.55 kg/m2 11/07/2024 08:48 AM Temperature (8310-5) 97.3 [degF] Oxygen Saturation (90577-9) 98 % Respiratory Rate (9279-1) 17 /min Heart Rate (8867-4) 93 /min Blood Pressure Systolic (8480-6) 112 mm[Hg] Blood Pressure Diastolic (8462-4) 60 mm[Hg] 11/07/2024 04:25 AM Temperature (8310-5) 98.1 [degF] 11/06/2024 09:08 PM Temperature (8310-5) 97.8 [degF] Oxygen Saturation (28867-2) 95 % Respiratory Rate (9279-1) 24 /min Heart Rate (8867-4) 89 /min Blood Pressure Systolic (8480-6) 126 mm[Hg] Blood Pressure Diastolic (8462-4) 65 mm[Hg] 11/07/2024 08:47 AM Oxygen Saturation (67035-8) 98 % 11/07/2024 05:55 PM Temperature (8310-5) 98 [degF] 11/07/2024 03:46 PM Body Weight (65060-7) 221 [lb_av] Body Mass Index (51172-4) 34.61 kg/m2 11/07/2024 07:51 PM Temperature (8310-5) 98 [degF] Oxygen Saturation (95605-6) 94 % Respiratory Rate (9279-1) 20 /min Heart Rate (8867-4) 84 /min Blood Pressure Systolic (8480-6) 135 mm[Hg] Blood Pressure Diastolic (8462-4) 66 mm[Hg] 11/08/2024 05:43 PM Body Weight (96907-2) 220.6 [lb_av ] Body Mass Index (76341-1) 34.55 kg/m2 11/08/2024 05:42 PM Temperature (8310-5) 97.6 [degF] Oxygen Saturation (59953-3) 96 % Respiratory Rate (9279-1) 18 /min Heart Rate (8867-4) 89 /min Blood Pressure Systolic (8480-6) 112 mm[Hg] Blood Pressure Diastolic (8462-4) 73 mm[Hg] 11/08/2024 07:01 PM Temperature (8310-5) 97.8 [degF] Oxygen Saturation (24386-0) 97 % Respiratory Rate (9279-1) 16 /min Heart Rate (8867-4) 92 /min Blood Pressure Systolic (8480-6) 133 mm[Hg] Blood Pressure Diastolic (8462-4) 56 mm[Hg] 11/09/2024 08:59 AM Temperature (8310-5) 97.1 [degF] Oxygen Saturation (64204-2) 94 % Respiratory Rate (9279-1) 17 /min Heart Rate (8867-4) 80 /min Blood Pressure Systolic (8480-6) 114 mm[Hg] Blood Pressure Diastolic (8462-4) 59 mm[Hg] 11/09/2024 10:09 PM Oxygen Saturation (57785-4) 98 % 11/09/2024 10:10 PM Temperature (8310-5) 98.6 [degF] Respiratory Rate (9279-1) 23 /min Heart Rate (8867-4) 86 /min Blood Pressure Systolic (8480-6) 124 mm[Hg] Blood Pressure Diastolic (8462-4) 64 mm[Hg] 11/10/2024 12:55 PM Temperature (8310-5) 98.4 [degF] Oxygen Saturation (52568-1) 97 % Respiratory Rate (9279-1) 19 /min Heart Rate (8867-4) 96 /min Blood Pressure Systolic (8480-6) 140 mm[Hg] Blood Pressure Diastolic (8462-4) 70 mm[Hg] 11/10/2024 07:47 PM Temperature (8310-5) 96.8 [degF] Oxygen Saturation (47818-4) 96 % Respiratory Rate (9279-1) 18 /min Heart Rate (8867-4) 106 /min Blood Pressure Systolic (8480-6) 134 mm[Hg] Blood Pressure Diastolic (8462-4) 78 mm[Hg] 11/10/2024 05:38 PM Body Weight (30915-8) 217 [lb_av] Body Mass Index (36580-1) 33.98 kg/m2 11/11/2024 10:30 AM Temperature (8310-5) 97.8 [degF] Oxygen Saturation (08350-5) 95 % Respiratory Rate (9279-1) 18 /min Heart Rate (8867-4) 83 /min Blood Pressure Systolic (8480-6) 143 mm[Hg] Blood Pressure Diastolic (8462-4) 68 mm[Hg] 11/11/2024 08:00 PM Temperature (8310-5) 97.5 [degF] Oxygen Saturation (85059-9) 94 % Respiratory Rate (9279-1) 21 /min Heart Rate (8867-4) 90 /min Blood Pressure Systolic (8480-6) 124 mm[Hg] Blood Pressure Diastolic (8462-4) 83 mm[Hg] 11/11/2024 06:48 PM Body Weight (78617-1) 217 [lb_av] Body Mass Index (03729-4) 33.98 kg/m2 11/12/2024 08:19 AM Body Weight (85393-2) 217.2 [lb_av ] Body Mass Index (33076-7) 34.01 kg/m2 11/12/2024 08:18 AM Temperature (8310-5) 96.9 [degF] Oxygen Saturation (46817-7) 96 % Respiratory Rate (9279-1) 18 /min Heart Rate (8867-4) 80 /min Blood Pressure Systolic (8480-6) 120 mm[Hg] Blood Pressure Diastolic (8462-4) 67 mm[Hg] 11/12/2024 08:14 PM Temperature (8310-5) 98.1 [degF] Oxygen Saturation (88382-8) 94 % Respiratory Rate (9279-1) 17 /min Heart Rate (8867-4) 91 /min Blood Pressure Systolic (8480-6) 132 mm[Hg] Blood Pressure Diastolic (8462-4) 72 mm[Hg] 11/13/2024 08:35 AM Temperature (8310-5) 97.5 [degF] Oxygen Saturation (78831-0) 94 % Respiratory Rate (9279-1) 16 /min Heart Rate (8867-4) 91 /min Blood Pressure Systolic (8480-6) 120 mm[Hg] Blood Pressure Diastolic (8462-4) 64 mm[Hg] 11/13/2024 05:21 PM Body Weight (94695-7) 218 [lb_av] Body Mass Index (34496-4) 34.14 kg/m2 11/13/2024 07:24 PM Temperature (8310-5) 97.4 [degF] Oxygen Saturation (59011-7) 96 % Respiratory Rate (9279-1) 16 /min Heart Rate (8867-4) 86 /min Blood Pressure Systolic (8480-6) 132 mm[Hg] Blood Pressure Diastolic (8462-4) 79 mm[Hg] 11/14/2024 12:49 PM Temperature (8310-5) 96.4 [degF] Oxygen Saturation (23038-2) 97 % Respiratory Rate (9279-1) 16 /min Heart Rate (8867-4) 88 /min Blood Pressure Systolic (8480-6) 122 mm[Hg] Blood Pressure Diastolic (8462-4) 68 mm[Hg] 11/14/2024 03:38 PM Body Weight (50348-3) 217.6 [lb_av ] Body Mass Index (25402-6) 34.08 kg/m2 11/14/2024 07:02 PM Temperature (8310-5) 97.8 [degF] Respiratory Rate (9279-1) 16 /min Heart Rate (8867-4) 86 /min Blood Pressure Systolic (8480-6) 102 mm[Hg] Blood Pressure Diastolic (8462-4) 53 mm[Hg] 11/14/2024 07:01 PM Oxygen Saturation (94950-5) 93 % 11/15/2024 08:04 AM Temperature (8310-5) 98.2 [degF] Oxygen Saturation (93603-3) 97 % Respiratory Rate (9279-1) 16 /min Heart Rate (8867-4) 97 /min Blood Pressure Systolic (8480-6) 138 mm[Hg] Blood Pressure Diastolic (8462-4) 65 mm[Hg] 11/15/2024 03:02 PM Body Weight (81039-0) 215.6 [lb_av ] Body Mass Index (26548-1) 33.76 kg/m2 11/15/2024 06:45 PM Temperature (8310-5) 97.6 [degF] Oxygen Saturation (96397-6) 94 % Respiratory Rate (9279-1) 19 /min Heart Rate (8867-4) 92 /min Blood Pressure Systolic (8480-6) 117 mm[Hg] Blood Pressure Diastolic (8462-4) 62 mm[Hg] 11/16/2024 07:58 AM Temperature (8310-5) 96.6 [degF] Oxygen Saturation (34335-6) 93 % Respiratory Rate (9279-1) 15 /min Heart Rate (8867-4) 97 /min Blood Pressure Systolic (8480-6) 107 mm[Hg] Blood Pressure Diastolic (8462-4) 60 mm[Hg] 11/16/2024 01:46 PM Body Weight (67144-8) 215 [lb_av] Body Mass Index (65476-4) 33.67 kg/m2 11/16/2024 07:02 PM Temperature (8310-5) 99 [degF] Oxygen Saturation (64649-8) 94 % Respiratory Rate (9279-1) 23 /min Heart Rate (8867-4) 101 /min Blood Pressure Systolic (8480-6) 122 mm[Hg] Blood Pressure Diastolic (8462-4) 67 mm[Hg] 11/16/2024 06:54 PM Oxygen Saturation (05534-0) 94 % 11/17/2024 09:18 AM Temperature (8310-5) 97.9 [degF] Oxygen Saturation (76830-1) 95 % Respiratory Rate (9279-1) 20 /min Heart Rate (8867-4) 82 /min Blood Pressure Systolic (8480-6) 110 mm[Hg] Blood Pressure Diastolic (8462-4) 60 mm[Hg] 11/17/2024 09:02 AM Body Weight (64787-7) 213.6 [lb_av ] Body Mass Index (37740-6) 33.45 kg/m2 11/17/2024 06:35 PM Temperature (8310-5) 98.9 [degF] 11/18/2024 08:29 AM Temperature (8310-5) 97.7 [degF] Oxygen Saturation (26417-8) 96 % Respiratory Rate (9279-1) 19 /min Heart Rate (8867-4) 108 /min Blood Pressure Systolic (8480-6) 100 mm[Hg] Blood Pressure Diastolic (8462-4) 53 mm[Hg] 11/18/2024 07:12 AM Body Weight (91761-9) 214.4 [lb_av ] Body Mass Index (79938-8) 33.58 kg/m2 11/17/2024 07:18 PM Oxygen Saturation (86463-9) 95 % Respiratory Rate (9279-1) 23 /min Heart Rate (8867-4) 110 /min Blood Pressure Systolic (8480-6) 116 mm[Hg] Blood Pressure Diastolic (8462-4) 54 mm[Hg] 11/18/2024 07:21 PM Temperature (8310-5) 98.3 [degF] Oxygen Saturation (59261-4) 95 % Respiratory Rate (9279-1) 22 /min Heart Rate (8867-4) 97 /min Blood Pressure Systolic (8480-6) 119 mm[Hg] Blood Pressure Diastolic (8462-4) 58 mm[Hg] 11/18/2024 07:05 PM Oxygen Saturation (12498-3) 95 % 11/19/2024 07:57 AM Temperature (8310-5) 97.8 [degF] Oxygen Saturation (44132-9) 97 % Respiratory Rate (9279-1) 18 /min Heart Rate (8867-4) 93 /min Blood Pressure Systolic (8480-6) 119 mm[Hg] Blood Pressure Diastolic (8462-4) 68 mm[Hg] 11/19/2024 07:55 AM Body Weight (59855-9) 215 [lb_av] Body Mass Index (41556-3) 33.67 kg/m2 11/20/2024 01:13 AM Temperature (8310-5) 97.7 [degF] Oxygen Saturation (63095-7) 95 % Respiratory Rate (9279-1) 20 /min Heart Rate (8867-4) 84 /min Blood Pressure Systolic (8480-6) 123 mm[Hg] Blood Pressure Diastolic (8462-4) 66 mm[Hg] 11/20/2024 03:40 PM Temperature (8310-5) 98 [degF] Oxygen Saturation (88326-9) 95 % Respiratory Rate (9279-1) 20 /min Heart Rate (8867-4) 76 /min Blood Pressure Systolic (8480-6) 131 mm[Hg] Blood Pressure Diastolic (8462-4) 71 mm[Hg] 11/20/2024 04:58 PM Body Weight (20271-3) 215.2 [lb_av ] Body Mass Index (65180-1) 33.7 kg/m2 11/20/2024 01:31 PM Oxygen Saturation (99148-3) 95 % 11/20/2024 07:12 PM Temperature (8310-5) 97.4 [degF] Oxygen Saturation (95557-7) 95 % Respiratory Rate (9279-1) 19 /min Heart Rate (8867-4) 89 /min Blood Pressure Systolic (8480-6) 135 mm[Hg] Blood Pressure Diastolic (8462-4) 50 mm[Hg] 11/21/2024 12:32 PM Oxygen Saturation (64947-4) 95 % Body Weight (75290-5) 216 [lb_av] Body Mass Index (88852-4) 33.83 kg/m2 11/21/2024 12:31 PM Temperature (8310-5) 96.9 [degF] Oxygen Saturation (45793-0) 98 % Respiratory Rate (9279-1) 20 /min Heart Rate (8867-4) 86 /min Blood Pressure Systolic (8480-6) 114 mm[Hg] Blood Pressure Diastolic (8462-4) 61 mm[Hg] 11/21/2024 06:55 PM Temperature (8310-5) 97.4 [degF] Oxygen Saturation (40892-6) 92 % Respiratory Rate (9279-1) 14 /min Heart Rate (8867-4) 77 /min Blood Pressure Systolic (8480-6) 104 mm[Hg] Blood Pressure Diastolic (8462-4) 57 mm[Hg] 11/22/2024 03:19 PM Oxygen Saturation (54199-0) 94 % 11/22/2024 03:35 PM Temperature (8310-5) 97.3 [degF] Respiratory Rate (9279-1) 17 /min Heart Rate (8867-4) 62 /min Blood Pressure Systolic (8480-6) 114 mm[Hg] Blood Pressure Diastolic (8462-4) 52 mm[Hg] 11/22/2024 03:04 PM Body Weight (08493-4) 215 [lb_av] Body Mass Index (39630-0) 33.67 kg/m2 11/22/2024 08:33 PM Temperature (8310-5) 98.2 [degF] Respiratory Rate (9279-1) 16 /min Heart Rate (8867-4) 70 /min Blood Pressure Systolic (8480-6) 134 mm[Hg] Blood Pressure Diastolic (8462-4) 88 mm[Hg] 11/22/2024 08:32 PM Oxygen Saturation (03034-2) 95 % 11/23/2024 05:35 PM Body Weight (90253-9) 215.7 [lb_av ] Body Mass Index (11453-0) 33.78 kg/m2 11/23/2024 01:00 PM Oxygen Saturation (45252-8) 90 % Respiratory Rate (9279-1) 19 /min Heart Rate (8867-4) 89 /min Blood Pressure Systolic (8480-6) 110 mm[Hg] Blood Pressure Diastolic (8462-4) 64 mm[Hg] 11/23/2024 09:52 AM Temperature (8310-5) 97.8 [degF] 11/23/2024 07:30 PM Temperature (8310-5) 97.3 [degF] 11/23/2024 07:22 PM Temperature (8310-5) 97.3 [degF] Oxygen Saturation (45243-5) 100 % Respiratory Rate (9279-1) 23 /min Heart Rate (8867-4) 67 /min Blood Pressure Systolic (8480-6) 142 mm[Hg] Blood Pressure Diastolic (8462-4) 66 mm[Hg] 11/24/2024 08:36 AM Temperature (8310-5) 97 [degF] Oxygen Saturation (98682-6) 93 % Respiratory Rate (9279-1) 19 /min Heart Rate (8867-4) 84 /min Blood Pressure Systolic (8480-6) 106 mm[Hg] Blood Pressure Diastolic (8462-4) 60 mm[Hg] 11/24/2024 12:04 PM Body Weight (58945-9) 216 [lb_av] Body Mass Index (41185-1) 33.83 kg/m2 11/24/2024 07:24 PM Oxygen Saturation (39773-5) 97 % Respiratory Rate (9279-1) 20 /min Heart Rate (8867-4) 85 /min Blood Pressure Systolic (8480-6) 103 mm[Hg] Blood Pressure Diastolic (8462-4) 59 mm[Hg] 11/24/2024 07:15 PM Temperature (8310-5) 98.5 [degF] 11/25/2024 08:24 AM Temperature (8310-5) 98.7 [degF] Oxygen Saturation (54737-6) 97 % Respiratory Rate (9279-1) 16 /min Heart Rate (8867-4) 78 /min Blood Pressure Systolic (8480-6) 113 mm[Hg] Blood Pressure Diastolic (8462-4) 64 mm[Hg] 11/25/2024 10:52 AM Body Weight (29157-2) 215.2 [lb_av ] Body Mass Index (70930-5) 33.7 kg/m2 11/25/2024 07:23 PM Temperature (8310-5) 97.4 [degF] Respiratory Rate (9279-1) 21 /min Heart Rate (8867-4) 84 /min Blood Pressure Systolic (8480-6) 122 mm[Hg] Blood Pressure Diastolic (8462-4) 80 mm[Hg] 11/25/2024 07:22 PM Oxygen Saturation (01401-0) 96 % 11/26/2024 01:22 PM Temperature (8310-5) 96.9 [degF] Oxygen Saturation (83079-3) 97 % Respiratory Rate (9279-1) 20 /min Heart Rate (8867-4) 88 /min Blood Pressure Systolic (8480-6) 109 mm[Hg] Blood Pressure Diastolic (8462-4) 66 mm[Hg] 11/26/2024 01:21 PM Body Weight (66533-5) 215.4 [lb_av ] Body Mass Index (02735-2) 33.73 kg/m2 Social History No smoking Hx information available Encounters Type CPT Code Date Location Provider Indication s encounter report 10/24/2024 02:53 PM Roselyn Sandoval DO 01 Advance Directives Directive Description Verification Date Supporting Document(s) Resuscitation
--- OUTSIDE RECORDS SUMMARY | 2025-03-06 18:35 | XMS_ITS | Encounter Summary ---
Author Organization [facility] Address [address] [place] [address] Care Team Providers Care Manager Estate Name Role Phone Unavailable Primary Care Provider Unavailabl e Encounter Details Date Type Department Care Team (Latest Contact Info) Description 03/17/2000 Outpatient Historical [facility] Pepe Ellison MD [address] [place] [phone] Nonallopathic lesion of cervical region, not elsewhere classified (Primary Dx); Nonallopathic lesion of thoracic region, not elsewhere classified; Sprain of unspecified site of back; Depressive disorder, not elsewhere classified Social History Tobacco Use Types Packs/Day Years Used Date Smoking Tobacco: Never Assessed Comments Unknown Sex and Gender Information Value Date Recorded Sex Assigned at Not on file Legal 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
--- OUTSIDE RECORDS SUMMARY | 2025-03-06 18:35 | XMS_ITS | Encounter Summary ---
Author Organization [facility] Address [address] [place] [address] Care Team Providers Care Senior Piping Designer Name Role Phone Unavailable Primary Care Provider Unavailabl e Encounter Details Date Type Department Care Team (Late st Contact Info) Description 05/01/2002 Outpatient Historical [facility] Family Medicine [address] 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
--- OUTSIDE RECORDS SUMMARY | 2025-03-06 18:35 | XMS_ITS | Encounter Summary ---
Author Organization [facility] Address [address] [place]ao: [place] [address] Care Team Providers Care Beef Cattle Farm Manager Name Role Phone Unavailable Primary Care [...] on file Legal Sex Female 4:23 AM CLOTH ROLL WINDER Gender Identity Not on file Sexual Orientation Not on file documented as of this encounter Plan of Treatment Not on file documented as of this encounter Visit Diagnoses Not on filedocumented in this encounter
--- OUTSIDE RECORDS SUMMARY | 2025-03-06 18:35 | XMS_ITS | Encounter Summary ---
Author Organization [facility] Address [address] [place] [address] Care Team Providers Care Clinical Studies Specialist Name Role Phone Unavailable Primary Care Provider Unavailabl e Encounter Details Date Type Department Care Team (Latest Contact Info) Description 03/18/1998 Outpatient Historical [facility] Dermatology- [address] [place] [phone] Nathan Dye MD [address] [facility], 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
--- OUTSIDE RECORDS SUMMARY | 2025-03-06 18:35 | XMS_ITS | Encounter Summary ---
Author Organization [facility] Address [address] [place] [address] Care Team Providers Care Deputy Clerk Name Role Phone Unavailable Primary Care Provider Unavailabl e Encounter Details Date Type Department Care Team (Latest Contact Info) Description 10/29/2003 Outpatient Historical [facility] Rheumatology- [facility] [address] [place] [address] Milton Albright MD NO ADDRESS ON FILE RHEUMATISM NOS (Primary Dx); DEPRESSIVE DISORDER NEC Social History Tobacco Use Types Packs/Day Years Used Date Smoking Tobacco: Never Assessed Comments Unknown Sex and Gender Information Value Date Recorded Sex Assigned at Not on file Legal Sex Female 4: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
--- OUTSIDE RECORDS SUMMARY | 2025-03-06 18:35 | XMS_ITS | Encounter Summary ---
Author Organization [email or web address] [facility] Address [address] [place] [address] Care Team Providers Care Child Care Nurse Name Role Phone Unavailable Primary Care Provider Unavailabl e Encounter Details Date Type Department Care Team (Latest Contact Info) Description 12/06/2000 Outpatient Historical [facility] Pepe Ellison MD [address] [place] [phone] Acute upper respiratory infections of unspecified site (Primary Dx); Acute gastritis Social History Tobacco Use Types Packs/Day Years Used Date Smoking Tobacco: Never Assessed Comments Unknown Sex and Gender Information Value Date Recorded Sex Assigned at Not on file Legal Sex Female 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
--- OUTSIDE RECORDS SUMMARY | 2025-03-06 18:35 | XMS_ITS | Encounter Summary ---
Author Organization [email or web address] Address [address] [place] [address] Care Team Providers Care Aircraft Seat Upholsterer Name Role Phone Unavailable Primary Care Provider [...] on file Legal Sex Female 4:23 AM MARKETING FINANCE MANAGER Gender Identity Not on file Sexual Orientation Not on file documented as of this encounter Plan of Treatment Not on file documented as of this encounter Visit Diagnoses Diagnosis Other specified disorder of breast- Primary Mastodynia Scar condition and fibrosis of skin documented in this encounter
--- OUTSIDE RECORDS SUMMARY | 2025-03-06 18:35 | XMS_ITS | Encounter Summary ---
Author Organization [facility] Address [address] [place] [address] Care Team Providers Care Liquor Establishment Manager Name Role Phone Unavailable Primary Care Provider Unavailabl e Encounter Details Date Type Department Care Team (Latest Contact Info) Description 01/04/2002 Outpatient Historical [facility] Pepe Ellison MD [address] [place] [phone] URIN TRACT INFECTION NOS (Primary Dx); TOBACCO USE DISORDER Social History Tobacco Use Types Packs/Day Years Used Date Smoking Tobacco: Never Assessed Comments Unknown Sex and Gender Information Value Date Recorded Sex Assigned at Not on file Legal Sex Female 4:23 AM MUSIC PROFESSIONALS Gender Identity Not on file Sexual Orientation Not on file documented as of this encounter Plan of Treatment Not on file documented as of this encounter Visit Diagnoses Diagnosis Urinary tract infection, site not specified- Primary Tobacco use disorder documented in this encounter
--- OUTSIDE RECORDS SUMMARY | 2025-03-06 18:35 | XMS_ITS | Encounter Summary ---
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
--- OUTSIDE RECORDS SUMMARY | 2025-03-06 18:35 | XMS_ITS | Encounter Summary ---
Author Organization [facility] Address [address] [place] [address] Care Team Providers Care State Tested Nursing Assistant Name Role Phone Unavailable Primary Care Provider Unavailabl e Encounter Details Date Type Department Care Team (Latest Contact Info) Description 05/04/2002 Outpatient Historical [facility] Gen Spec S[place] [address] [facility] [address] [place] [phone] Justin Valenzuela MD NO ADDRESS ON FILE CHOLELITHIASIS NOS (Primary Dx) Social History Tobacco Use Types Packs/Day Years Used Date Smoking Tobacco: Never Assessed Comments Unknown Sex and Gender Information Value Date Recorded Sex Assigned at Not on file Legal Sex Female 4: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
--- OUTSIDE RECORDS SUMMARY | 2025-03-06 18:35 | XMS_ITS | Encounter Summary ---
Author Organization [employer] [facility] Address [address] [place] [address] Care Team Providers Care Driver Education Road Instructor Name Role Phone Unavailable Primary Care Provider Unavailabl e Encounter Details Date Type Department Care Team (Latest Contact Info) Description 04/20/2002 Outpatient Historical [facility] Pepe Ellison MD [address] [place] [phone] LUMBAGO (Primary Dx); STOMACH FUNCTION DIS NEC; SACROILIITIS NEC Social History Tobacco Use Types Packs/Day Years Used Date Smoking Tobacco: Never Assessed Comments Unknown Sex and Gender Information Value Date Recorded Sex Assigned at Not on file Legal Sex Female 4:23 AM BASE BRANDER Gender Identity Not on file Sexual Orientation Not on file documented as of this encounter Plan of Treatment Not on file documented as of this encounter Visit Diagnoses Diagnosis Lumbago- Primary Dyspepsia and other specified disorders of function of stomach Sacroiliitis, not elsewhere classified documented in this encounter
--- OUTSIDE RECORDS SUMMARY | 2025-03-06 18:35 | XMS_ITS | Encounter Summary ---
Author Organization [employer] [facility] Address [address] [place] [address] Care Team Providers Care Director Of Early Childhood Name Role Phone Unavailable Primary Care Provider Unavailabl e Encounter Details Date Type Department Care Team (Latest Contact Info) Description 02/01/2000 Outpatient Historical [facility] Pepe Ellison MD [address] [place] [phone] Depressive disorder, not elsewhere classified (Primary Dx); Insomnia, unspecified; General symptoms NEC Social History Tobacco Use Types Packs/Day Years Used Date Smoking Tobacco: Never Assessed Comments Unknown Sex and Gender Information Value Date Recorded Sex Assigned at Not on file Legal Sex Female 4:23 AM TIMBER MANAGEMENT SPECIALIST Gender Identity Not on file Sexual Orientation Not on file documented as of this encounter Plan of Treatment Not on file documented as of this encounter Visit Diagnoses Diagnosis Depressive disorder, not elsewhere classified- Primary Insomnia, unspecified General symptoms NEC Other general symptoms documented in this encounter
--- OUTSIDE RECORDS SUMMARY | 2025-03-06 18:35 | XMS_ITS | Encounter Summary ---
Author Organization [employer] Address [address] [place] [address] Care Team Providers Care Cdl Company Flatbed Driver Name Role Phone Unavailable Primary Care Provider Unavailabl e Encounter Details Date Type Department Care Team (Late st Contact Info) Description 06/02/2006 Outpatient Historical [facility] [place] [address] [place] [phone] Social History Tobacco Use Types Packs/Day Years Used Date Smoking Tobacco: Never Assessed Comments Unknown Sex and Gender Information Value Date Recorded Sex Assigned at Not on file Legal Sex Female 4:23 AM DIRECTOR BIOMEDICAL ENGINEERING Gender Identity Not on file Sexual Orientation Not on file documented as of this encounter Plan of Treatment Not on file documented as of this encounter Visit Diagnoses Not on filedocumented in this encounter
--- OUTSIDE RECORDS SUMMARY | 2025-03-06 18:35 | XMS_ITS | Encounter Summary ---
Author Organization [facility] Address [address] [place] [address] Care Team Providers Care Senior Teller Name Role Phone Unavailable Primary Care Provider Unavailabl e Encounter Details Date Type Department Care Team (Latest Contact Info) Description 07/28/2004 Outpatient Historical [facility] Rheumatology- [facility] [place] [address] [place] [address] Milton Albright MD NO ADDRESS ON FILE RHEUMATISM NOS (Primary Dx) Social History Tobacco Use Types Packs/Day Years Used Date Smoking Tobacco: Never Assessed Comments Unknown Sex and Gender Information Value Date Recorded Sex Assigned at Not on file Legal Sex Female 4:23 AM PIN MAKER Gender Identity Not on file Sexual Orientation Not on file documented as of this encounter Plan of Treatment Not on file documented as of this encounter Visit Diagnoses Diagnosis Rheumatism, unspecified and fibrositis- Primary documented in this encounter
--- OUTSIDE RECORDS SUMMARY | 2025-03-06 18:35 | XMS_ITS | Encounter Summary ---
Author Organization [facility] Address [address] [place] [address] Care Team Providers Care Guardian Family Member Name Role Phone Unavailable Primary Care Provider Unavailabl e Encounter Details Date Type Department Care Team (Late st Contact Info) Description 04/30/2003 Outpatient Historical [facility] Family [place] [address] [place] [address] Cyndee Wang MD NO ADDRESS ON FILE MYALGIA AND MYOSITIS NOS (Primary Dx); HYPERLIPIDEMIA NEC/NOS Social History Tobacco Use Types Packs/Day Years Used Date Smoking Tobacco: Never Assessed Comments Unknown Sex and Gender Information Value Date Recorded Sex Assigned at Not on file Legal Sex Female 4:23 AM MOTOR DRIVER Gender Identity Not on file Sexual Orientation Not on file documented as of this encounter Plan of Treatment Not on file documented as of this encounter Visit Diagnoses Diagnosis Myalgia and myositis, unspecified- Primary Mylagia and myositis, unspecified Other and unspecified hyperlipidemia documented in this encounter
--- OUTSIDE RECORDS SUMMARY | 2025-03-06 18:35 | XMS_ITS | Encounter Summary ---
Author Organization [facility] Address [address] [place] [address] Care Team Providers Care Link Trainer Teacher Name Role Phone Unavailable Primary Care Provider Unavailabl e Encounter Details Date Type Department Care Team (Latest Contact Info) Description 03/31/2004 Outpatient Historical [facility] Rheumatology- [facility] [place] [address] [place] [address] Milton Albright MD NO ADDRESS ON FILE RHEUMATISM NOS (Primary Dx) Social History Tobacco Use Types Packs/Day Years Used Date Smoking Tobacco: Never Assessed Comments Unknown Sex and Gender Information Value Date Recorded Sex Assigned at Not on file Legal Sex Female 4:23 AM RN INTERNSHIP Gender Identity Not on file Sexual Orientation Not on file documented as of this encounter Plan of Treatment Not on file documented as of this encounter Visit Diagnoses Diagnosis Rheumatism, unspecified and fibrositis- Primary documented in this encounter
--- OUTSIDE RECORDS SUMMARY | 2025-03-06 18:35 | XMS_ITS | Encounter Summary ---
Author Organization [facility] Address [address] [place] [address] Care Team Providers Care Senior Visual Designer Name Role Phone Unavailable Primary Care Provider Unavailabl e Encounter Details Date Type Department Care Team (Latest Contact Info) Description 07/11/2003 Outpatient Historical [facility] [address] [place] [phone] Cyndee Wang MD NO ADDRESS ON FILE HYPERTENSION NOS (Primary Dx); HYPERLIPIDEMIA NEC/NOS; MYALGIA AND MYOSITIS NOS; DEPRESSIVE DISORDER NEC Social History Tobacco Use Types Packs/Day Years Used Date Smoking Tobacco: Never Assessed Comments Unknown Sex and Gender Information Value Date Recorded Sex Assigned at Not on file Legal Sex Female 4:23 AM COMMUNITY HEALTH SPECIALIST Gender Identity Not on file Sexual Orientation Not on file documented as of this encounter Plan of Treatment Not on file documented as of this encounter Visit Diagnoses Diagnosis Unspecified essential hypertension- Primary Other and unspecified hyperlipidemia Myalgia and myositis, unspecified Mylagia and myositis, unspecified Depressive disorder, not elsewhere classified documented in this encounter
--- OUTSIDE RECORDS SUMMARY | 2025-03-06 18:35 | XMS_ITS | Encounter Summary ---
Author Organization [facility] Address [address] [place] [address] Care Team Providers Care Tree Climber Name Role Phone Unavailable Primary Care Provider Unavailabl e Encounter Details Date Type Department Care Team (Late st Contact Info) Description 10/01/2003 Outpatient Historical [facility] Family Medicine [address] [place] [phone] Cyndee Wang MD NO ADDRESS ON FILE MYALGIA AND MYOSITIS NOS (Primary Dx); URIN TRACT INFECTION NOS Social History Tobacco Use Types Packs/Day Years Used Date Smoking Tobacco: Never Assessed Comments Unknown Sex and Gender Information Value Date Recorded Sex Assigned at Not on file Legal Sex Female 4:23 AM ALBACORE FISHING BOAT CREWMAN Gender Identity Not on file Sexual Orientation Not on file documented as of this encounter Plan of Treatment Not on file documented as of this encounter Visit Diagnoses Diagnosis Myalgia and myositis, unspecified- Primary Mylagia and myositis, unspecified Urinary tract infection, site not specified documented in this encounter
--- OUTSIDE RECORDS SUMMARY | 2025-03-06 18:35 | XMS_ITS | Encounter Summary ---
Author Organization [employer] [facility] Address [address] [place] [address] Care Team Providers Care Underwater Photographer Name Role Phone Unavailable Primary Care Provider Unavailabl e Encounter Details Date Type Department Care Team (Latest Contact Info) Description 07/14/2001 Outpatient Historical [facility] Pepe Ellison MD [address] [place] [phone] ACUTE SINUSITIS NOS (Primary Dx); BRONCHITIS NOS Social History Tobacco Use Types Packs/Day Years Used Date Smoking Tobacco: Never Assessed Comments Unknown Sex and Gender Information Value Date Recorded Sex Assigned at Not on file Legal Sex Female 4:23 AM CATH LAB TECH Gender Identity Not on file Sexual Orientation Not on file documented as of this encounter Plan of Treatment Not on file documented as of this encounter Visit Diagnoses Diagnosis Acute sinusitis, unspecified- Primary Bronchitis, not specified as acute or chronic documented in this encounter
--- OUTSIDE RECORDS SUMMARY | 2025-03-06 18:35 | XMS_ITS | Encounter Summary ---
Author Organization [facility] Address [address] [place] [address] Care Team Providers Care Motor Expert Name Role Phone Unavailable Primary Care Provider Unavailabl e Encounter Details Date Type Department Care Team (Latest Contact Info) Description 08/01/2003 Outpatient Historical [facility] Rheumatology- [facility] [place] [address] [place] [address] Milton Albright MD NO ADDRESS ON FILE RHEUMATISM NOS (Primary Dx) Social History Tobacco Use Types Packs/Day Years Used Date Smoking Tobacco: Never Assessed Comments Unknown Sex and Gender Information Value Date Recorded Sex Assigned at Not on file Legal Sex Female 4:23 AM STRINGS TEACHER Gender Identity Not on file Sexual Orientation Not on file documented as of this encounter Plan of Treatment Not on file documented as of this encounter Visit Diagnoses Diagnosis Rheumatism, unspecified and fibrositis- Primary documented in this encounter
--- OUTSIDE RECORDS SUMMARY | 2025-03-06 18:35 | XMS_ITS | Patient Health Record ---
Author Organization [facility] Address [address] [place] [address] Care Team Providers Care Classification And Treatment Director Name Role Phone SandovalCarlos Primary Care Provider VINAYAK Guillen [phone] Reason For Referral No Information Encounters Encounter Location Date Provider Diagnosis [facility] [address] [place] [address] 11/12/2024 VINAYAK PATEL Plan Of Treatment No Information Insurance Providers Payer Name Payer Address Payer Phone Subscriber Number Group Number Insured Name Patient Relationship to Insured Coverage Start Date Coverage End Date [place] [address] [facility] [place], [place] [id number] Renee Atkins Self - patient is the insured
--- OUTSIDE RECORDS SUMMARY | 2025-03-06 18:35 | XMS_ITS | Encounter Summary ---
Author Organization [employer] [facility] Address [address] [place] [address] Care Team Providers Care Candy Catcher Name Role Phone Unavailable Primary Care Provider Unavailabl e Encounter Details Date Type Department Care Team (Latest Contact Info) Description 09/18/2001 Outpatient Historical [facility] Pepe Ellison MD [address] [place] [phone] CHRONIC AIRWAY OBSTRUCTION NEC (CMS/HCC) (Primary Dx); MENOPAUSAL DISORDER NEC; SACROILIITIS NEC; DEPRESSIVE DISORDER NEC Social History Tobacco Use Types Packs/Day Years Used Date Smoking Tobacco: Never Assessed Comments Unknown Sex and Gender Information Value Date Recorded Sex Assigned at Not on file Legal Sex Female 4:23 AM SAMPLE EXAMINER Gender Identity Not on file Sexual Orientation [...]
--- OUTSIDE RECORDS SUMMARY | 2025-03-06 18:35 | XMS_ITS | Encounter Summary ---
Author Organization [facility] Address [address] [place] [address] Care Team Providers Care Inspector Radar And Electronics Name Role Phone Unavailable Primary Care Provider Unavailabl e Encounter Details Date Type Department Care Team (Latest Contact Info) Description 11/16/2004 Outpatient Historical [facility] Rheumatology- [facility] [address] [place] [address] Milton Albright MD NO ADDRESS ON FILE RHEUMATISM NOS (Primary Dx) Social History Tobacco Use Types Packs/Day Years Used Date Smoking Tobacco: Never Assessed Comments Unknown Sex and Gender Information Value Date Recorded Sex Assigned at Not on file Legal Sex Female 4:23 AM FEED INSPECTION SUPERVISOR Gender Identity Not on file Sexual Orientation Not on file documented as of this encounter Plan of Treatment Not on file documented as of this encounter Visit Diagnoses Diagnosis Rheumatism, unspecified and fibrositis- Primary documented in this encounter
--- OUTSIDE RECORDS SUMMARY | 2025-03-06 18:35 | XMS_ITS | Encounter Summary ---
Author Organization [facility] Address [address] [place] [address] Care Team Providers Care Automotive Engineering Technician Name Role Phone Unavailable Primary Care Provider Unavailabl e Encounter Details Date Type Department Care Team (Late st Contact Info) Description 03/02/2004 Outpatient Historical [facility] Family Medicine [address] [place] [address] Cyndee Wang MD NO ADDRESS ON FILE MYALGIA AND MYOSITIS NOS (Primary Dx); URIN TRACT INFECTION NOS; HYPERLIPIDEMIA NEC/NOS; OTHER MALAISE AND FATIGUE Social History Tobacco Use Types Packs/Day Years Used Date Smoking Tobacco: Never Assessed Comments Unknown Sex and Gender Information Value Date Recorded Sex Assigned at Not on file Legal Sex Female 4:23 AM NURSE DISCHARGE Gender Identity Not on file Sexual Orientation Not on file documented as of this encounter Plan of Treatment Not on file documented as of this encounter Visit Diagnoses Diagnosis Myalgia and myositis, unspecified- Primary Mylagia and myositis, unspecified Urinary tract infection, site not specified Other and unspecified hyperlipidemia Other malaise and fatigue documented in this encounter
--- OUTSIDE RECORDS SUMMARY | 2025-03-06 18:35 | XMS_ITS | Encounter Summary ---
Author Organization [employer] [facility] Address [address] [place] [address] Care Team Providers Care Straw Hat Machine Operator Name Role Phone Unavailable Primary Care Provider Unavailabl e Encounter Details Date Type Department Care Team (Late st Contact Info) Description 06/02/[address] [facility] Neurology [address], [address] [place] [address] Mando Vergara MD [address] [place] [phone] Unspecified Myalgia and Myositis (Primary Dx) Social History Tobacco Use Types Packs/Day Years Used Date Smoking Tobacco: Never Assessed Comments Unknown Sex and Gender Information Value Date Recorded Sex Assigned at Not on file Legal Sex Female 4:23 AM STIFF LEG DERRICK OPERATOR Gender Identity Not on file Sexual Orientation Not on file documented as of this encounter Plan of Treatment Not on file documented as of this encounter Visit Diagnoses Diagnosis Myalgia and myositis, unspecified- Primary Mylagia and myositis, unspecified documented in this encounter
--- OUTSIDE RECORDS SUMMARY | 2025-03-06 18:35 | XMS_ITS | Encounter Summary ---
Author Organization [employer] [facility] Address [address] [place] [address] Care Team Providers Care Sleeve Fixer Name Role Phone Unavailable Primary Care Provider Unavailabl e Encounter Details Date Type Department Care Team (Latest Contact Info) Description 06/06/2000 Outpatient Historical [facility] Pepe Ellison MD [address] [place] [phone] Lumbago (Primary Dx) Social History Tobacco Use Types Packs/Day Years Used Date Smoking Tobacco: Never Assessed Comments Unknown Sex and Gender Information Value Date Recorded Sex Assigned at Not on file Legal Sex Female 4:23 AM BUILD TECHNICIAN Gender Identity Not on file Sexual Orientation Not on file documented as of this encounter Plan of Treatment Not on file documented as of this encounter Visit Diagnoses Diagnosis Lumbago- Primary documented in this encounter
--- OUTSIDE RECORDS SUMMARY | 2025-03-06 18:35 | XMS_ITS | Encounter Summary ---
Author Organization [facility] Address [address] [place] [address] Care Team Providers Care Door Frame Assembler Machine Name Role Phone Unavailable Primary Care Provider Unavailabl e Encounter Details Date Type Department Care Team (Late st Contact Info) Description 06/01/2002 Outpatient Historical [facility] Family Medicine [address] [place] [address] Cyndee Wang MD NO ADDRESS ON FILE ABDOMINAL PAIN UNSPEC SITE (Primary Dx); TOBACCO USE DISORDER Social History Tobacco Use Types Packs/Day Years Used Date Smoking Tobacco: Never Assessed Comments Unknown Sex and Gender Information Value Date Recorded Sex Assigned at Not on file Legal Sex Female 4:23 AM HOME ECONOMICS EXTENSION WORKER Gender Identity Not on file Sexual Orientation Not on file documented as of this encounter Plan of Treatment Not on file documented as of this encounter Visit Diagnoses Diagnosis Abdominal pain, unspecified site- Primary Tobacco use disorder documented in this encounter
--- OUTSIDE RECORDS SUMMARY | 2025-03-06 18:35 | XMS_ITS | Encounter Summary ---
Author Organization [email or web address] [facility] Address [address] [place] [address] Care Team Providers Care Pharmacy Clinical Specialist Name Role Phone Unavailable Primary Care Provider Unavailabl e Encounter Details Date Type Department Care Team (Latest Contact Info) Description 02/23/2001 Outpatient Historical [facility] Pepe Ellison MD [address] [place] [phone] Urinary tract infection, site not specified (Primary Dx); Unspecified urinary incontinence Social History Tobacco Use Types Packs/Day Years Used Date Smoking Tobacco: Never Assessed Comments Unknown Sex and Gender Information Value Date Recorded Sex Assigned at Not on file Legal Sex Female 4:23 AM NAVAL GUNFIRE LIAISON OFFICER Gender Identity Not on file Sexual Orientation Not on file documented as of this encounter Plan of Treatment Not on file documented as of this encounter Visit Diagnoses Diagnosis Urinary tract infection, site not specified- Primary Unspecified urinary incontinence documented in this encounter
--- OUTSIDE RECORDS SUMMARY | 2025-03-06 18:35 | XMS_ITS | Clinical Summary ---
Author Organization [facility] Address [address] Gao: Epic Prelude ADT [place] [address] Care Team Providers Care Systems Software Designer Name Role Phone Unavailable Primary Care Provider Unavailabl e Social History Tobacco Use Types Packs/Day Years Used Date Smoking Tobacco: Never Assessed Comments Unknown Sex and Gender Information Value Date Recorded Sex Assigned at Not on file Legal Sex Female 4:23 AM STATION AGENT Gender Identity Not on file Sexual Orientation Not on file Plan of Treatment Health Maintenance Due Date Last Done Comments DTAP/TDAP/TD VACCINES (1 - Tdap) 1966 PNEUMOCOCCAL VACCINE 50+ YEARS (1 of 1 - PCV) 04/16/19 97 ZOSTER VACCINE (1 of 2) 1997 OSTEOPOROSIS SCREENING 2012 RSV VACCINE (60+ or ) (1 - 1-dose 75+ series) 2022 INFLUENZA VACCINE (#1) 2025
--- OUTSIDE RECORDS SUMMARY | 2025-03-06 18:35 | XMS_ITS | Encounter Summary ---
Author Organization [employer] [facility] Address [address] [place] [address] Care Team Providers Care Machine I Cutter Name Role Phone Unavailable Primary Care Provider Unavailabl e Encounter Details Date Type Department Care Team (Latest Contact Info) Description 02/08/2000 Outpatient Historical [facility] Pepe Ellison MD [address] [place] [phone] Observation for unspecified suspected condition (Primary Dx) Social History Tobacco Use Types Packs/Day Years Used Date Smoking Tobacco: Never Assessed Comments Unknown Sex and Gender Information Value Date Recorded Sex Assigned at Not on file Legal Sex Female 4:23 AM CAFETERIA CLERK Gender Identity Not on file Sexual Orientation Not on file documented as of this encounter Plan of Treatment Not on file documented as of this encounter Visit Diagnoses Diagnosis Observation for unspecified suspected condition- Primary documented in this encounter
--- OUTSIDE RECORDS SUMMARY | 2025-03-06 18:35 | XMS_ITS | Encounter Summary ---
Author Organization [employer] [facility] Address [address] [place] [address] Care Team Providers Care Firewall Engineer Name Role Phone Unavailable Primary Care Provider Unavailabl e Encounter Details Date Type Department Care Team (Latest Contact Info) Description 10/10/2000 Outpatient Historical [facility] Pepe Ellison MD [address] [place] [phone] Insomnia, unspecified (Primary Dx); Depressive disorder, not elsewhere classified Social History Tobacco Use Types Packs/Day Years Used Date Smoking Tobacco: Never Assessed Comments Unknown Sex and Gender Information Value Date Recorded Sex Assigned at Not on file Legal Sex Female 4:23 AM RESIDENT SERVICES MANAGER Gender Identity Not on file Sexual Orientation Not on file documented as of this encounter Plan of Treatment Not on file documented as of this encounter Visit Diagnoses Diagnosis Insomnia, unspecified- Primary Depressive disorder, not elsewhere classified documented in this encounter
--- OUTSIDE RECORDS SUMMARY | 2025-03-06 18:35 | XMS_ITS | Encounter Summary ---
Author Organization [facility] Address [address] [place] [address] Care Team Providers Care Architecture Manager Name Role Phone Unavailable Primary Care Provider Unavailabl e Encounter Details Date Type Department Care Team (Late st Contact Info) Description 03/13/2001 Outpatient Historical [facility] Social History Tobacco Use Types Packs/Day Years Used Date Smoking Tobacco: Never Assessed Comments Unknown Sex and Gender Information Value Date Recorded Sex Assigned at Not on file Legal Sex Female 4:23 AM AGENCY SALES DEVELOPMENT ASSOCIATE Gender Identity Not on file Sexual Orientation Not on file documented as of this encounter Plan of Treatment Not on file documented as of this encounter Visit Diagnoses Not on filedocumented in this encounter
--- OUTSIDE RECORDS SUMMARY | 2025-03-06 18:35 | XMS_ITS | Encounter Summary ---
Author Organization [facility] Address [address] [place] [address] Care Team Providers Care Rim Fire Priming Tool Setter Name Role Phone Unavailable Primary Care Provider Unavailabl e Encounter Details Date Type Department Care Team (Latest Contact Info) Description 10/01/2003 Outpatient Historical [facility] Rheumatology- [facility] [place] [address] [place] [address] Milton Albright MD NO ADDRESS ON FILE RHEUMATISM NOS (Primary Dx) Social History Tobacco Use Types Packs/Day Years Used Date Smoking Tobacco: Never Assessed Comments Unknown Sex and Gender Information Value Date Recorded Sex Assigned at Not on file Legal Sex Female 4:23 AM WICKER WORKER Gender Identity Not on file Sexual Orientation Not on file documented as of this encounter Plan of Treatment Not on file documented as of this encounter Visit Diagnoses Diagnosis Rheumatism, unspecified and fibrositis- Primary documented in this encounter
--- OUTSIDE RECORDS SUMMARY | 2025-03-06 18:35 | XMS_ITS | Encounter Summary ---
Author Organization [facility] Address [address] Gao: [place] [address] Care Team Providers Care Rag Grader Name Role Phone Unavailable Primary Care Provider Unavailabl e Encounter Details Date Type Department Care Team (Late st Contact Info) Description 05/15/2002 Outpatient Historical Jusitn Valenzuela MD NO ADDRESS ON FILE Social History Tobacco Use Types Packs/Day Years Used Date Smoking Tobacco: Never Assessed Comments Unknown Sex and Gender Information Value Date Recorded Sex Assigned at Not on file Legal Sex Female 4:23 AM HEAD OF CONSERVATION Gender Identity Not on file Sexual Orientation Not on file documented as of this encounter Plan of Treatment Not on file documented as of this encounter Visit Diagnoses Not on filedocumented in this encounter
--- OUTSIDE RECORDS SUMMARY | 2025-03-06 18:35 | XMS_ITS | Encounter Summary ---
Author Organization [employer] [facility] Address [address] [place] [address] Care Team Providers Care Painter Helper Spray Name Role Phone Unavailable Primary Care Provider Unavailabl e Encounter Details Date Type Department Care Team (Latest Contact Info) Description 06/21/2001 Outpatient Historical [facility] Pepe Ellison MD [address] [place] [id number] ACUTE SINUSITIS NOS (Primary Dx) Social History Tobacco Use Types Packs/Day Years Used Date Smoking Tobacco: Never Assessed Comments Unknown Sex and Gender Information Value Date Recorded Sex Assigned at Not on file 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
--- OUTSIDE RECORDS SUMMARY | 2025-03-06 18:35 | XMS_ITS | Encounter Summary ---
Author Organization [facility] Address [address] [place] [address] Care Team Providers Care Kitchen Bath Designer Name Role Phone Unavailable Primary Care Provider Unavailabl e Encounter Details Date Type Department Care Team (Latest Contact Info) Description 05/23/2002 Outpatient Historical [facility] [address] [place] [phone] Justin Valenzuela MD NO ADDRESS ON FILE CHOLELITH W CHOLECYS NEC (Primary Dx); SURGERY FOLLOWUP, UNSPEC Social History Tobacco Use Types Packs/Day Years Used Date Smoking Tobacco: Never Assessed Comments Unknown Sex and Gender Information Value Date Recorded Sex Assigned at Not on file 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
--- OUTSIDE RECORDS SUMMARY | 2025-03-06 18:35 | XMS_ITS | Encounter Summary ---
Author Organization [facility] Address [address] [place] [address] Care Team Providers Care Car Sales Representative Name Role Phone Unavailable Primary Care Provider Unavailabl e Encounter Details Date Type Department Care Team (Latest Contact Info) Description 12/26/2003 Outpatient Historical [facility] Rheumatology- [facility] [place] [address] [place] [address] Milton Albright MD NO ADDRESS ON FILE RHEUMATISM NOS (Primary Dx) Social History Tobacco Use Types Packs/Day Years Used Date Smoking Tobacco: Never Assessed Comments Unknown Sex and Gender Information Value Date Recorded Sex Assigned at Not on file 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
--- OUTSIDE RECORDS SUMMARY | 2025-03-06 18:36 | XMS_ITS | Encounter Summary ---
Author Organization [facility] Address [address] [place] [address] Care Team Providers Care Waterproof Coating Machine Tender Name Role Phone Unavailable Primary Care Provider Unavailabl e Encounter Details Date Type Department Care Team (Latest Contact Info) Description 08/25/2005 Outpatient Historical [facility] Rheumatology- [facility] [place] [address] [place] [address] Milton Albright MD NO ADDRESS ON FILE RHEUMATISM NOS (Primary Dx) Social History Tobacco Use Types Packs/Day Years Used Date Smoking Tobacco: Never Assessed Comments Unknown Sex and Gender Information Value Date Recorded Sex Assigned at Not on file 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
== END 2025-03-06 08:49 | disposition home or self-care (01) ==
PROVIDERS: Emergency Provider Emergency Medicine; PCP Family Medicine
DX: S09.90XA Unspecified injury of head, initial encounter (principal); E87.6 Hypokalemia; R29.6 Repeated falls; Z79.01 Long term (current) use of anticoagulants; Z79.4 Long term (current) use of insulin; Z87.891 Personal history of nicotine dependence; J44.9 Chronic obstructive pulmonary disease, unspecified; W19.XXXA Unspecified fall, initial encounter
CPT/HCPCS: 36415; 70450; 80053; 81001; 83605; 85025; 87040; 87637; 96374; 99284; J2060; J9999

== ENCOUNTER 2025-04-18 06:11 | Emergency (ER) | payer OTHER, MEDICARE, SELFPAY ==
--- OUTSIDE RECORDS SUMMARY | 2024-12-31 12:00 | XMS_ITS ---
Author Organization [facility] Address [address] [place] [address] Care Team Providers Care Impact Hammer Operator Name Role Phone Carlos Sandoval Primary Care Provider VINAYAK Guillen [phone] REASON FOR VISIT Retention/ No Griffiths Encounters Encounter Location Date Provider Diagnosis [facility] [address] [place] [facility] [place] [address] 12/31/2024 VINAYAK PATEL Plan Of Treatment No Information Progress Notes * Renee SHELTONDOB: 7 (80 yo F)Acc No.[id number]:12/31/2024 Progress Notes Patient: Renee GAN Provider: ANDREA Wood :1945 A ge:79 Y S ex:Female Date:12/31/2024 Address:[address] [place] [facility] [id number] Pcp:Carlos Sandoval Subjective: * Chief Complaints: * 1 . Retention/ No Griffiths. * Medical History: Objective: * Vitals: Assessment: Plan: * Treatment: * Billing Information: * Visit Code: * Procedure Codes: * Electronic signature of VINAYAK PATEL APRN on 04/18/2025 at 06:23 AM CDT Sign off status: Pending * Provider: ANDREA Wood Date: 0 12/31/2024 Generated for Shamika contreras/Kaylyn/Rameshitting on: 04/18/2025 06:23 AM CDT
[2025-04-18 06:12] VITALS: BP 148/70; PULSE 92; RESP 16; TEMP 37.1; O2SAT 94; BMI 27.4
--- NOTE | 2025-04-18 06:14 | XR_ITS ---
WS: [id number] Exam: XR chest 1V portable [id number] Date/Time of Exam: 04/18/2025 6:14 AM Reason For Exam: dyspnea/cough Comparison 10/21/2024. The lungs are fully inflated and clear. Normal cardiomediastinal silhouette. Bony structures are intact. XR/XR chest 1V portable [id number] IMPRESSION: 1. Negative chest.
--- OUTSIDE RECORDS SUMMARY | 2025-04-18 06:23 | XMS_ITS | Encounter Summary ---
Author Organization [facility] Address [address] [place] [address] Care Team Providers Care Branch Account Executive Name Role Phone Unavailable Primary Care Provider Unavailabl e Encounter Details Date Type Department Care Team (Latest Contact Info) Description 03/18/1998 Outpatient Historical [facility] Dermatology- [address] [place] [address] Nathan Dye MD [address] 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
--- OUTSIDE RECORDS SUMMARY | 2025-04-18 06:23 | XMS_ITS | Continuity of Care Document ---
Author Organization [facility] Address [address] [place] [address] Care Team Providers Care Dirt Shoveler Name Role Phone Dr. Carlos Sandoval DO Attending Physician Medications Medication Frequency Instructions Diagnosis Start Date End Date Last Administered acetaminophen 500 mg tablet Four Times A Day - PRN 2 tabs (1,000 mg), oral, Four Times A Day - PRN, for pain / fever 02/26/20 25 03/17/2025 10:18 AM albuterol sulfate 90 mcg/actuation HFA aerosol inhaler Every 4 Hours - PRN 2 puffs, inhalation, Every 4 Hours - PRN, for COPD, SOB / wheezing 02/26/2002/27/2025 02:42 AM alprazolam 0.25 mg tablet At Bedtime 1, oral, At Bedtime 04/12/2004/15/2025 06:03 PM diltiazem HCl 30 mg tablet Three Times A Day 1 tab, oral, Three Times A Day 02/26/2004/15/2025 06:03 PM Dulcolax (bisacodyl) (bisacodyl) 10 mg suppository Once A Day - PRN 1 suppository, rectal, Once A Day - PRN, Give rectally if can't take p/o, if no results from [facility] 02/27/20 Eliquis (apixaban) 5 mg tablet Twice A Day 1 tab, oral, Twice A Day 02/26/20 25 04/15/2025 06:03 PM fentanyl 25 mcg/hr patch 72 hour Every 72 Hours 1 patch, transdermal, Every 72 Hours, Apply 1 patch topically every 72hrs 03/28/2004/15/2025 01:53 PM hydroxyzine HCl 25 mg tablet Every 4 Hours - PRN 1-2 tabs (25-50mg), oral, Every 4 Hours - PRN, for itching 02/26/2004/15/2025 08:48 PM ipratropium-albut aries 0.5 mg-3 mg(2.5 mg base)/ solution for nebulization Every 6 Hours - PRN 1 neb, inhalation, Every 6 Hours - PRN, for sob or wheezing 02/26/20 Macrobid (nitrofurantoin monohyd/m-cryst) 100 mg capsule Twice A Day 1, oral, Twice A Day 04/15/20 025 04/15/2025 06:11 PM morphine concentrate 100 mg/5 mL (20 mg/mL) solution Every 2 Hours - PRN 0.5-1 mL (10-20 mg), oral, Every 2 Hours - PRN, exempt R52, for pain or air hunger 02/26/2004/15/2025 08:48 PM ondansetron HCl 4 mg tablet Every 6 Hours - PRN 1 tab, oral, Every 6 Hours - PRN, for nausea / vomiting 02/26/2003/27/2025 06:23 PM Risperdal (risperidone) 0.5 mg tablet Once A Day 1, oral, Once A Day, Administer 4 pm do not ti time 04/11/2004/15/2025 03:47 PM tramadol 50 mg tablet Every 6 Hours - PRN 1 tab, oral, Every 6 Hours - PRN, Administer 1 tab Q6hrs PRN pain 03/25/20 25 04/15/2025 08:48 PM Trelegy Ellipta (fluticasone-umec lidin-vilanter) 100-62.5-25 mcg blister with device Once A Day 1 inhale, inhalation, Once A Day, Rinse mouth with water and spit after each use 02/26/2004/13/2025 08:14 AM alprazolam 0.5 mg tablet At Bedtime 1 tab, oral, At Bedtime, exempt F41.9 02/26/20 025 04/10/2025 07:53 PM alprazolam 0.5 mg tablet Once A Day - PRN 1 tab, oral, Once A Day - PRN, for anxiety, exempt F41.9 03/13/20 025 03/29/2025 10:00 AM alprazolam 0.5 mg tablet Twice A Day - PRN 1 tab, oral, Twice A Day - PRN, for anxiety, exempt F41.9 03/29/20 025 04/10/2025 01:14 PM nystatin 100,000 unit/gram powder Twice A Day - PRN 1 alisa, topical, Twice A Day - PRN, apply to areas of irritation 02/26/20 prednisone 20 mg tablet Once A Day 1 tab, oral, Once A Day 04/09/20 025 04/13/2025 03:05 PM sertraline 100 mg tablet At Bedtime 1 tab, oral, At Bedtime 02/26/20 025 04/10/2025 07:53 PM Problems Code Type Problem ICD Code Effective Date Status ICD-10 Chronic obstructive pulmonary disease, unspecified J44.9 02/26/2025 Active ICD-10 Encounter for palliative care Z51.5 2024 Active ICD-10 Chronic respiratory failure with hypoxia J96.11 02/26/2025 Active ICD-10 USP (current) use of inhaled steroids Z79 .51 02/26/2025 Active ICD-10 Dependence on supplemental oxygen Z99.81 Active ICD-10 Heart failure, unspecified I50.9 Active ICD-10 Tachycardia, unspecified R00.0 02/26/2025 Active ICD-10 Type 2 diabetes vahe itus with diabetic peripheral angiopathy without gangrene E11.51 02/26/2025 A ctive ICD-10 Unspecified dementia , unspecified severity, with mood disturbance F03.93 02/26/2025 Active ICD-10 Major depressive dis order, single episode, unspecified F32.9 02/26/2025 Active ICD-10 Unspecified dementia , unspecified severity, with anxiety F03.94 02/26/2025 Active ICD-10 Anxiety disorder, unspecified F41.9 2024 Active ICD-10 Hypokalemia E87.6 03/06/2025 Active ICD-10 History of falling Z91.81 03/06/2025 Active ICD-10 Personal history of pulmonary embolism Z86.711 02/26/2025 Active ICD-10 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 Z79.0 1 02/26/2025 Active ICD-10 Unvaccinated for COVID-19 Z28.310 02/26/2025 Active ICD-10 Do not resuscitate Z66 02/26/2025 Active Current Allergies and Intolerances Category Substance Type Reaction Severity Begin Date Status Drug allergy codeine sulfate Allergy 10/02/2024 Active Drug allergy Penicillins Allergy 10/02/2024 Acti ve Drug allergy Sulfa (Sulfonamide Antibiotics) Allergy 10/02/2024 Active Drug allergy zolpidem Allergy 10/02/2024 Active Vital Signs Height: 67.0 in Date / Time Temperature Pulse (per minute) Respirations (per minute) Systolic BP (mmHg) Diastolic BP (mmHg) O2 Saturation (%) Weight BMI 2024 11:21 AM 98.2 F 76 18 130 74 97.0 2024 01:50 PM 185.8 lbs 29.1 2024 11:34 AM 177.5 lbs 27.8 2024 10:17 AM 96.2 F 2024 02:34 PM 179.8 lbs 28.1 6 2024 11:59 AM 98.1 F 2024 01:55 PM 187.6 lbs 29.3 8 2024 05:33 AM 88 126 78 98.0 2024 05:32 AM 97.0 F 2024 09:01 AM 187.1 lbs 29.3 2024 08:56 AM 188.4 lbs 29.5 2024 08:23 PM 189.6 lbs 29.6 9 2024 08:22 PM 189.6 lbs 29.6 9 2024 02:57 PM 97.0 F 77 18 152 68 96.0 2024 12:57 PM 99.6 F 2024 12:26 AM 98.5 F 91 19 111 64 94.0 2024 06:37 PM 97.4 F 68 18 106 60 96.0 2024 06:12 PM 97.0 2024 02:05 PM 98.8 F 2024 08:37 PM 97.3 F 77 23 120 68 98.0 2024 08:33 PM 98.0 2024 07:05 AM 72 20 93 56 96.0 2024 07:22 PM 84 21 128 59 98.0 2024 07:12 AM 75 16 117 73 2024 07:35 PM 85 23 122 68 2024 06:58 AM 16 Advance Directives Directive Note Do Not Resuscitate (DNR) [facility]osp[facility] Insurance Providers Payer Policy type Group Name Group number Policy ID Address Phone Medicare Part A Medicare Part A [id number] Phone: Fax: Medicare Part B Medicare Part B [id number] Phone: Fax: Coinsurance A - [facility] Commercial Insurance [id number] [facility] Office of [facility], ATTN: Claims , [address] [address] [place] [address] Fax: Coinsurance B - [facility] Commercial Insurance [id number] [facility] Office of Community Care, ATTN: Claims , [address] [address] [place] [address] Fax: Medicaid [place] Medicaid ([facility]) [id number] Phone: Fax: [place] ([facility]) [id number] Phone: Fax: Medicaid [place] Pending Medicaid ([facility]) [id number] Phone: Fax: Hospice [place] Pending - [employer] Medicaid ([facility]) [id number] Phone: Fax: Private Private Phone: Fax: Private Interest Private Phone: Fax: Patient Liability Private Phone: Fax: Immunizations Vaccine Falsework Builder Date Status Dose Series Complete COVID-19 Vaccine 10/24/2024 Refused Influenza Vaccine 03/08/2025 Refused Pneumococcal Vaccine 10/24/2024 Refused RSV Vaccine 10/24/2024 Refused Procedures Not available for this record Results Not available for this record Goals Goal Date Will have a BM at least ever y 3 days for 120 days since update/last review AND/OR will not experience any complications r/t to colostomy for 120 days from update/ last review AND/OR Will not experience any GI complications for 120 days since update/last review AND/OR Will remain clean, dry between incontinent episodes thru 120days from update/last review 06/05/2025 Renee will maintain or improve nutrition al status through nest review 06/05/2025 ADL approaches will meet the resident?s needs to enhance ability, maintain abilities, or provide quality. 06/05/2025 Will participate in at least one group activity of preference weekly through next assessment 06/05/2025 Resident will remain free from falls. Advanced directives will be honored as outlined by patient/family on daily basis thru 120days from update/last review 06/05/2025 Resident's skin will remain intact. 05/25 Adverse drug reactions will be identified with interventions initiated for 120 days from update/last review 06/05/2025 Will have no abnormal bleedi ng within the next 120 days AND/OR Will have no s/sx of increased bleeding over the next 120 days. 06/05/2025 Encounters Admission Date Discharge Date Description MRN Visit Count 02/26/2025 11:18 LTPAC Admission [id number] 02
--- OUTSIDE RECORDS SUMMARY | 2025-04-18 06:23 | XMS_ITS | Continuity of Care Document ---
Author Organization [employer] [facility] ([facility]) Address [address] [place] [address] Insurance Providers Payer Plan Claims Address Claims Phone Policy Number Group Number Relation Employer Guarantor Name Guarantor Guarantor Address Guarantor Phone [facility] [address] [address], [place] [address] tel:[phone] [facility] [id number] Self Renee Atkins [address] [place] [id number] [place] Medic are [address], [place] [address] tel:[phone] Self Renee Atkins [address] [place] [id number] [place] [address] [facility] [address], [place] [address] tel:[phone] Self Renee Atkins [address] [place] [id number] Problems Condition ICD9 code ICD10 code SNOMED code Start Date End Date S tatus Chronic obstructive pulmonary disease, unspecified J44.9 10/24/2024 Active Chronic respiratory failure with hypoxia J96.11 10/24/2024 Acti ve halfway (current) use of inhaled steroids Z79.51 10/24/2024 Activ e Tachycardia, unspecified R00.0 10/24/2024 Active Heart failure, unspecified I50.9 10/24/2024 Active Anxiety disorder, unspecified F41.9 10/24/2024 Active Retention of urine, unspecified R33.9 10/24/2024 Active History of falling Z91.81 10/24/2024 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 10/24/2024 Active [...] history of pulmonary embolism Z86.711 10/24/2024 Active 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 Z79.01 10/26/2024 Active Unvaccinated for COVID-19 Z28.310 10/24/2024 Active Chronic obstructive pulmonary disease, unspecified J44.9 02/26/2025 Active Encounter for palliative care Z51.5 02/26/2025 Active Chronic respiratory failure with hypoxia J96.11 02/26/2025 Acti ve 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 Z79.51 02/26/2025 Activ e Dependence on supplemental oxygen Z99.81 02/26/2025 Activ e Heart failure, unspecified I50.9 02/26/2025 Active Tachycardia, unspecified R00.0 02/26/2025 Active Type 2 diabetes mellitus with diabetic peripheral angiopathy without gangrene E11.51 02/26/2025 Active Unspecified dementia, unspecified severity, with mood disturbance F03.93 02/26/2025 Act sloan Major depressive disorder, single episode, unspecified F32.9 02/26/2025 Active Unspecified dementia, unspecified severity, with anxiety F03.94 02/26/2025 Active Anxiety disorder, unspecified F41.9 02/26/2025 Active Hypokalemia E87.6 03/06/2025 Active History of falling Z91.81 03/06/2025 Ac tive Personal history of pulmonary embolism Z86.711 02/26/2025 Active 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 Refere nce Range Blood chemistry[925992178] Glucose [Mass/volume] in Serum or Plasma [2345-7] 11/19/2024 12:38 PM 108 mg/dL N Blood chemistry[[id number]] Glucose [Mass/volume] in Serum or Plasma [2345-7] 11/18/2024 12:09 PM 159 mg/dL N Blood chemistry[[id number]] Glucose [Mass/volume] in Serum or Plasma [2345-7] 11/18/2024 04:05 PM 109 mg/dL N Blood chemistry[[id number]] Glucose [Mass/volume] in Serum or Plasma [2345-7] 11/18/2024 12:10 PM 79 mg/dL N Blood chemistry[[id number]] Glucose [Mass/volume] in Serum or Plasma [2345-7] 11/17/2024 12:00 PM 157 mg/dL N Blood chemistry[[id number]] Glucose [Mass/volume] in Serum or Plasma [2345-7] 11/17/2024 04:02 PM 115 mg/dL N Blood chemistry[[id number]] Glucose [Mass/volume] in Serum or Plasma [2345-7] 11/17/2024 08:47 AM 124 mg/dL N Blood chemistry[[id number]] Glucose [Mass/volume] in Serum or Plasma [2345-7] 11/17/2024 01:05 PM 132 mg/dL N Blood chemistry[[id number]] Glucose [Mass/volume] in Serum or Plasma [2345-7] 11/16/2024 12:08 PM 129 mg/dL N Blood chemistry[[id number]] Glucose [Mass/volume] in Serum or Plasma [2345-7] 11/16/2024 09:46 AM 102 mg/dL N Blood chemistry[[id number]] Glucose [Mass/volume] in Serum or Plasma [2345-7] 11/16/2024 06:03 AM 142 mg/dL N Blood chemistry[[id number]] Glucose [Mass/volume] in Serum or Plasma [2345-7] 11/16/2024 12:51 PM 110 mg/dL N Blood chemistry[[id number]] Glucose [Mass/volume] in Serum or Plasma [2345-7] 11/15/2024 05:33 PM 138 mg/dL N Blood chemistry[[id number]] Glucose [Mass/volume] in Serum or Plasma [2345-7] 11/15/2024 10:14 AM 105 mg/dL N Blood chemistry[[id number]] Glucose [Mass/volume] in Serum or Plasma [2345-7] 11/15/2024 01:02 PM 105 mg/dL N Blood chemistry[[id number]] Glucose [Mass/volume] in Serum or Plasma [2345-7] 11/14/2024 04:13 PM 126 mg/dL N Blood chemistry[[id number]] Glucose [Mass/volume] in Serum or Plasma [2345-7] 11/14/2024 11:34 AM 111 mg/dL N Blood chemistry[[id number]] Glucose [Mass/volume] in Serum or Plasma [2345-7] 11/13/2024 12:03 PM 147 mg/dL N Blood chemistry[[id number]] Glucose [Mass/volume] in Serum or Plasma [2345-7] 11/13/2024 05:36 PM 120 mg/dL N Blood chemistry[[id number]] Glucose [Mass/volume] in Serum or Plasma [2345-7] 11/13/2024 09:57 AM 103 mg/dL N Blood chemistry[[id number]] Glucose [Mass/volume] in Serum or Plasma [2345-7] 11/13/2024 11:40 AM 128 mg/dL N Blood chemistry[[id number]] Glucose [Mass/volume] in Serum or Plasma [2345-7] 11/12/2024 09:54 AM 121 mg/dL N Blood chemistry[[id number]] Glucose [Mass/volume] in Serum or Plasma [2345-7] 11/12/2024 06:12 AM 129 mg/dL N Blood chemistry[[id number]] Glucose [Mass/volume] in Serum or Plasma [2345-7] 11/12/2024 11:54 AM 110 mg/dL N Blood chemistry[[id number]] Glucose [Mass/volume] in Serum or Plasma [2345-7] 11/11/2024 01:44 PM 121 mg/dL N Blood chemistry[[id number]] Glucose [Mass/volume] in Serum or Plasma [2345-7] 11/11/2024 11:03 AM 143 mg/dL N Blood chemistry[[id number]] Glucose [Mass/volume] in Serum or Plasma [2345-7] 11/11/2024 04:43 PM 143 mg/dL N Blood chemistry[[id number]] Glucose [Mass/volume] in Serum or Plasma [2345-7] 11/11/2024 12:50 PM 104 mg/dL N Blood chemistry[[id number]] Glucose [Mass/volume] in Serum or Plasma [2345-7] 11/10/2024 12:48 PM 157 mg/dL N Blood chemistry[[id number]] Glucose [Mass/volume] in Serum or Plasma [2345-7] 11/10/2024 04:41 PM 135 mg/dL N Blood chemistry[[id number]] Glucose [Mass/volume] in Serum or Plasma [2345-7] 11/10/2024 09:30 AM 127 mg/dL N Blood chemistry[[id number]] Glucose [Mass/volume] in Serum or Plasma [2345-7] 11/09/2024 11:27 AM 148 mg/dL N Blood chemistry[[id number]] Glucose [Mass/volume] in Serum or Plasma [2345-7] 11/09/2024 10:15 AM 52 mg/dL N Blood chemistry[[id number]] Glucose [Mass/volume] in Serum or Plasma [2345-7] 11/09/2024 12:06 PM 93 mg/dL N Blood chemistry[[id number]] Glucose [Mass/volume] in Serum or Plasma [2345-7] 11/08/2024 12:57 PM 135 mg/dL N Blood chemistry[[id number]] Glucose [Mass/volume] in Serum or Plasma [2345-7] 11/08/2024 10:41 AM 126 mg/dL N Blood chemistry[[id number]] Glucose [Mass/volume] in Serum or Plasma [2345-7] 11/08/2024 07:37 AM 131 mg/dL N Blood chemistry[[id number]] Glucose [Mass/volume] in Serum or Plasma [2345-7] 11/08/2024 02:07 PM 121 mg/dL N Blood chemistry[[id number]] Glucose [Mass/volume] in Serum or Plasma [2345-7] 11/07/2024 12:03 PM 195 mg/dL N Blood chemistry[[id number]] Glucose [Mass/volume] in Serum or Plasma [2345-7] 11/07/2024 04:11 PM 155 mg/dL N Blood chemistry[[id number]] Glucose [Mass/volume] in Serum or Plasma [2345-7] 11/07/2024 09:02 AM 162 mg/dL N Blood chemistry[[id number]] Glucose [Mass/volume] in Serum or Plasma [2345-7] 11/07/2024 11:26 AM 100 mg/dL N Blood chemistry[[id number]] Glucose [Mass/volume] in Serum or Plasma [2345-7] 11/06/2024 12:50 PM 173 mg/dL N Blood chemistry[[id number]] Glucose [Mass/volume] in Serum or Plasma [2345-7] 11/06/2024 05:24 PM 144 mg/dL N Blood chemistry[[id number]] Glucose [Mass/volume] in Serum or Plasma [2345-7] 11/06/2024 10:42 AM 134 mg/dL N Blood chemistry[[id number]] Glucose [Mass/volume] in Serum or Plasma [2345-7] 11/06/2024 12:46 PM 112 mg/dL N Blood chemistry[[id number]] Glucose [Mass/volume] in Serum or Plasma [2345-7] 11/05/2024 12:33 PM 179 mg/dL N Blood chemistry[[id number]] Glucose [Mass/volume] in Serum or Plasma [2345-7] 11/05/2024 10:59 AM 111 mg/dL N Blood chemistry[[id number]] Glucose [Mass/volume] in Serum or Plasma [2345-7] 11/05/2024 08:06 AM 131 mg/dL N Blood chemistry[[id number]] Glucose [Mass/volume] in Serum or Plasma [2345-7] 11/05/2024 01:11 PM 111 mg/dL N Blood chemistry[[id number]] Glucose [Mass/volume] in Serum or Plasma [2345-7] 11/04/2024 03:33 PM 136 mg/dL N Blood chemistry[[id number]] Glucose [Mass/volume] in Serum or Plasma [2345-7] 11/04/2024 05:15 PM 148 mg/dL N Blood chemistry[[id number]] Glucose [Mass/volume] in Serum or Plasma [2345-7] 11/04/2024 10:03 AM 137 mg/dL N Blood chemistry[[id number]] Glucose [Mass/volume] in Serum or Plasma [2345-7] 11/04/2024 11:54 AM 114 mg/dL N Blood chemistry[[id number]] Glucose [Mass/volume] in Serum or Plasma [2345-7] 11/03/2024 01:04 PM 175 mg/dL N Blood chemistry[[id number]] Glucose [Mass/volume] in Serum or Plasma [2345-7] 11/03/2024 03:56 PM 125 mg/dL N Blood chemistry[[id number]] Glucose [Mass/volume] in Serum or Plasma [2345-7] 11/03/2024 12:41 PM 113 mg/dL N Blood chemistry[[id number]] Glucose [Mass/volume] in Serum or Plasma [2345-7] 11/02/2024 04:39 PM 141 mg/dL N Blood chemistry[[id number]] Glucose [Mass/volume] in Serum or Plasma [2345-7] 11/02/2024 09:52 AM 131 mg/dL N Blood chemistry[[id number]] Glucose [Mass/volume] in Serum or Plasma [2345-7] 11/02/2024 07:36 AM 144 mg/dL N Blood chemistry[[id number]] Glucose [Mass/volume] in Serum or Plasma [2345-7] 11/02/2024 12:09 PM 98 mg/dL N Blood chemistry[[id number]] Glucose [Mass/volume] in Serum or Plasma [2345-7] 11/01/2024 12:12 PM 153 mg/dL N Blood chemistry[[id number]] Glucose [Mass/volume] in Serum or Plasma [2345-7] 11/01/2024 05:13 PM 137 mg/dL N Tuberculosis reaction wheal[ 05495-1] Tuberculosis reaction wheal [05157-8] 11/01/2024 05:00 PM See note TB test Blood chemistry[[id number]] Glucose [Mass/volume] in Serum or Plasma [2345-7] 11/01/2024 09:42 AM 156 mg/dL N Blood chemistry[[id number]] Glucose [Mass/volume] in Serum or Plasma [2345-7] 11/01/2024 01:21 PM 102 mg/dL N Blood chemistry[[id number]] Glucose [Mass/volume] in Serum or Plasma [2345-7] 10/31/2024 12:24 PM 151 mg/dL N Blood chemistry[[id number]] Glucose [Mass/volume] in Serum or Plasma [2345-7] 10/31/2024 05:36 PM 158 mg/dL N Blood chemistry[[id number]] Glucose [Mass/volume] in Serum or Plasma [2345-7] 10/31/2024 09:48 AM 123 mg/dL N Blood chemistry[[id number]] Glucose [Mass/volume] in Serum or Plasma [2345-7] 10/31/2024 12:46 PM 116 mg/dL N Blood chemistry[[id number]] Glucose [Mass/volume] in Serum or Plasma [2345-7] 10/30/2024 12:20 PM 150 mg/dL N Blood chemistry[[id number]] Glucose [Mass/volume] in Serum or Plasma [2345-7] 10/30/2024 04:35 PM 127 mg/dL N Blood chemistry[[id number]] Glucose [Mass/volume] in Serum or Plasma [2345-7] 10/30/2024 09:26 AM 120 mg/dL N Blood chemistry[[id number]] Glucose [Mass/volume] in Serum or Plasma [2345-7] 10/30/2024 11:54 AM 94 mg/dL N Blood chemistry[[id number]] Glucose [Mass/volume] in Serum or Plasma [2345-7] 10/29/2024 01:09 PM 172 mg/dL N Blood chemistry[[id number]] Glucose [Mass/volume] in Serum or Plasma [2345-7] 10/29/2024 05:28 PM 164 mg/dL N Blood chemistry[[id number]] Glucose [Mass/volume] in Serum or Plasma [2345-7] 10/29/2024 10:17 AM 164 mg/dL N Blood chemistry[[id number]] Glucose [Mass/volume] in Serum or Plasma [2345-7] 10/29/2024 10:54 AM 145 mg/dL N Blood chemistry[[id number]] Glucose [Mass/volume] in Serum or Plasma [2345-7] 10/28/2024 03:59 PM 150 mg/dL N Blood chemistry[[id number]] Glucose [Mass/volume] in Serum or Plasma [2345-7] 10/28/2024 04:26 PM 148 mg/dL N Blood chemistry[[id number]] Glucose [Mass/volume] in Serum or Plasma [2345-7] 10/28/2024 11:25 AM 128 mg/dL N Blood chemistry[[id number]] Glucose [Mass/volume] in Serum or Plasma [2345-7] 10/27/2024 03:55 PM 136 mg/dL N Blood chemistry[[id number]] Glucose [Mass/volume] in Serum or Plasma [2345-7] 10/27/2024 04:57 PM 122 mg/dL N Blood chemistry[[id number]] Glucose [Mass/volume] in Serum or Plasma [2345-7] 10/27/2024 10:00 AM 164 mg/dL N Blood chemistry[[id number]] Glucose [Mass/volume] in Serum or Plasma [2345-7] 10/26/2024 03:04 PM 168 mg/dL N Tuberculosis reaction wheal[ 32201-3] Tuberculosis reaction wheal [78566-7] 10/25/2024 01:10 PM 0 mm NEG Blood chemistry[[id number]] Glucose [Mass/volume] in Serum or Plasma [2345-7] 10/26/2024 05:07 PM 163 mg/dL N Blood chemistry[[id number]] Glucose [Mass/volume] in Serum or Plasma [2345-7] 10/26/2024 10:16 AM 157 mg/dL N Blood chemistry[[id number]] Glucose [Mass/volume] in Serum or Plasma [2345-7] 10/26/2024 09:03 AM 144 mg/dL N Blood chemistry[[id number]] Glucose [Mass/volume] in Serum or Plasma [2345-7] 10/25/2024 03:10 PM 169 mg/dL N Blood chemistry[[id number]] Glucose [Mass/volume] in Serum or Plasma [2345-7] 10/25/2024 05:06 PM 156 mg/dL N Blood chemistry[[id number]] Glucose [Mass/volume] in Serum or Plasma [2345-7] 10/25/2024 10:33 AM 126 mg/dL N Tuberculosis reaction wheal[ 71399-3] Tuberculosis reaction wheal [81364-8] 10/25/2024 01:10 PM See note TB test Blood chemistry[[id number]] Glucose [Mass/volume] in Serum or Plasma [2345-7] 10/25/2024 09:03 AM 130 mg/dL N Blood chemistry[[id number]] Glucose [Mass/volume] in Serum or Plasma [2345-7] 10/24/2024 03:11 PM 138 mg/dL N Blood chemistry[[id number]] Glucose [Mass/volume] in Serum or Plasma [2345-7] 10/24/2024 11:00 AM 153 mg/dL N Allergies, adverse reactions, alerts Substance Reaction Date Status Type Penicillins 10/02/2024 Non Drug codeine sulfate 10/02/2024 Non Drug Sulfa (Sulfonamide Antibiotics) 10/02/2024 Non Drug zolpidem 10/02/2024 Non Drug Immunizations Vaccine Route Date Status Pneumococcal Vaccine Unassigned Route of Administratio n 10/24/2024 Refused Influenza Vaccine Unassigned Route of Administration 0 03/08/2025 Refused Medications Medication Instructions Route Dosage Frequency [...] spit after use. inhalation 1.0 1.0 d 10/25 Active Tylenol (acetaminophen ) 325 mg tablet (Tylenol (acetaminophen )) 2 tabs/650mg, oral, Every 6 Hours - PRN, as needed for PRN pain/increase d tempMay give rectally if necessary oral 1.0 6.0 h 2024 Active Tubersol (tuberculin ppd) 5 tub. unit /0.1 mL solution (Tubersol (tuberculin ppd)) 0.1ml, intradermal, Once - One Time, Administer the morning after admission intradermal 1.0 10/03 Active Tubersol (tuberculin ppd) 5 tub. [...] stephanie topical 1.0 8.0 h 11/16 Active acetaminophen 500 mg tablet (acetaminophen ) 2 tabs (1,000 mg), oral, Four Times A Day - PRN, for pain / fever oral 1.0 6.0 h 2024 Active albuterol sulfate 90 mcg/actuation HFA aerosol inhaler (albuterol sulfate) 2 puffs, inhalation, Every 4 Hours - PRN, for COPD, SOB / wheezing inhalation 1.0 4.0 h 2024 Active alprazolam 0.5 mg tablet (alprazolam) 1 tab, oral, At Bedtime, exempt F41.9 oral 1.0 1.0 d 03/13 Active alprazolam 0.5 mg tablet (alprazolam) 1 tab, oral, Twice A Day - PRN, for anxiety, exempt F41.9 oral 1.0 12.0 h 04/11 Active diltiazem HCl 30 mg tablet (diltiazem HCl) 1 tab, oral, Three Times A Day oral 1.0 8.0 h 2024 Active Dulcolax (bisacodyl) (bisacodyl) 10 mg suppository (Dulcolax (bisacodyl) (bisacodyl)) 1 suppository, rectal, Once A Day - PRN, Give rectally if can't take p/o, if no results from MOM rectal 1.0 1.0 d 2024 Active Eliquis (apixaban) 5 mg tablet (Eliquis (apixaban)) 1 tab, oral, Twice A Day oral 1.0 12.0 h 2024 Active fentanyl 25 mcg/hr patch 72 hour (fentanyl) 1 patch, transdermal, Every 72 Hours, Apply 1 patch topically every 72hrs transdermal 1.0 72.0 h 2024 Active hydroxyzine HCl 25 mg tablet (hydroxyzine HCl) 1-2 tabs (25-50mg), oral, Every 4 Hours - PRN, for itching oral 1.0 4.0 h 2024 Active ipratropium-al buterol 0.5 mg-3 mg(2.5 mg base)/ solution for nebulization (ipratropium-a lbuterol) 1 neb, inhalation, Every 6 Hours - PRN, for sob or wheezing inhalation 1.0 6.0 h 2024 Active morphine concentrate 100 mg/5 mL (20 mg/mL) solution (morphine concentrate) 0.5-1 mL (10-20 mg), oral, Every 2 Hours - PRN, exempt R52, for pain or air hunger oral 1.0 2.0 h 2024 Active nystatin 100,000 unit/gram powder (nystatin) 1 alisa, topical, Twice A Day - PRN, apply to areas of irritation topical 1.0 12.0 h 04/15 Active ondansetron HCl 4 mg tablet (ondansetron HCl) 1 tab, oral, Every 6 Hours - PRN, for nausea / vomiting oral 1.0 6.0 h 2024 Active sertraline 100 mg tablet (sertraline) 1 tab, oral, At Bedtime oral 1.0 04/11 Active tramadol 50 mg tablet (tramadol) 1 tab, oral, Every 6 Hours - PRN, Administer 1 tab Q6hrs PRN pain oral 1.0 6.0 h 2024 Active Trelegy Ellipta (fluticasone-u meclidin-vilan ter) 100-62.5-25 mcg blister with device (Trelegy Ellipta (fluticasone-u meclidin-vilan ter)) 1 inhale, inhalation, Once A Day, Rinse mouth with water and spit after each use inhalation 1.0 1.0 d 2024 Active alprazolam 0.5 mg tablet (alprazolam) 1 tab, oral, Once A Day - PRN, for anxiety, exempt F41.9 oral 1.0 1.0 d 03/29 Active Cipro (ciprofloxacin hcl) 250 mg tablet (Cipro (ciprofloxacin hcl)) 1, oral, Twice A Day, Take 1 tab po BID for potential UTI, awaiting UA results. oral 1.0 12.0 h 03/06 Active furosemide 40 mg tablet (furosemide) 1 tab, oral, Once A Day oral 1.0 1.0 d 03/07 Active Macrobid (nitrofurantoi n monohyd/m-jer t) 100 mg capsule (Macrobid (nitrofurantoi n monohyd/m-jer t)) 1, oral, Twice A Day oral 1.0 12.0 h 03/02 Active potassium chloride 20 mEq tablet extended release (potassium chloride) 1 tab, oral, Once A Day, give with Lasix oral 1.0 1.0 d 03/07 Active potassium chloride 40 mEq/15 mL liquid (potassium chloride) 15ml, oral, Once A Day, 15ml daily x 7 days oral 1.0 1.0 d 03/07 Active prednisone 20 mg tablet (prednisone) 1 tab, oral, Once A Day oral 1.0 1.0 d 04/13 Active Risperdal (risperidone) 0.5 mg tablet (Risperdal (risperidone)) 1, oral, Once A Day, Administer 4 pm do not ti time oral 1.0 1.0 d 2024 Active alprazolam 0.5 mg tablet (alprazolam) 1 tab, oral, At Bedtime, exempt F41.9 oral 1.0 04/11 Active alprazolam 0.25 mg tablet (alprazolam) 1, oral, At Bedtime oral 1.0 2024 Active Macrobid (nitrofurantoi n monohyd/m-jer t) 100 mg capsule (Macrobid (nitrofurantoi n monohyd/m-jer t)) 1, oral, Twice A Day oral 1.0 12.0 h 04/20 Active Vital Signs Date Vital Result Comment 10/24/2024 07:25 PM Temperature (8310-5) 97.2 [degF] Oxygen Saturation (09074-4) 91 % Respiratory Rate (9279-1) 15 /min Heart Rate (8867-4) 105 /min Blood Pressure Systolic (8480-6) 106 mm[Hg] Blood Pressure Diastolic (8462-4) 57 mm[Hg] 10/24/2024 06:20 PM Oxygen Saturation (59758-1) 92 % 10/24/2024 06:16 PM Body mass index (BMI) [Ratio] (391 56-5) 0.0 kg/m2 Body Weight (91541-1) 231.4 [lb_av] Body Mass Index (51853-9) 36.24 kg/m2 10/25/2024 10:22 AM Temperature (8310-5) 98.7 [degF] Respiratory Rate (9279-1) 20 /min Heart Rate (8867-4) 113 /min Blood Pressure Systolic (8480-6) 151 mm[Hg] Blood Pressure Diastolic (8462-4) 71 mm[Hg] 10/25/2024 04:06 PM Body Weight (91607-9) 226.8 [lb_av ] Body Mass Index (24841-5) 35.52 kg/m2 10/25/2024 11:23 AM Body Height (8302-2) 67 [in_us] 10/25/2024 10:21 AM Oxygen Saturation (85927-9) 91 % 10/25/2024 07:12 PM Temperature (8310-5) [...] 72 mm[Hg] 10/26/2024 01:46 PM Oxygen Saturation (06286-7) 93 % 10/26/2024 08:13 PM Temperature (8310-5) 97.9 [degF] Oxygen Saturation (11662-8) 98 % Respiratory Rate (9279-1) 22 /min Heart Rate (8867-4) 94 /min Blood Pressure Systolic (8480-6) 109 mm[Hg] Blood Pressure Diastolic (8462-4) 56 mm[Hg] 10/26/2024 08:12 PM Body Weight (84120-8) 228.2 [lb_av ] Body Mass Index (67387-3) 35.74 kg/m2 10/27/2024 03:45 PM Body Weight (48674-2) 227.2 [lb_av ] Body Mass Index (58433-8) 35.58 kg/m2 10/27/2024 03:46 PM Temperature (8310-5) 97.4 [degF] Oxygen Saturation (57384-7) 94 % Respiratory Rate (9279-1) 20 /min Heart Rate (8867-4) 114 /min Blood Pressure Systolic (8480-6) 138 mm[Hg] Blood Pressure Diastolic (8462-4) 76 mm[Hg] 10/27/2024 09:50 AM Oxygen Saturation (70801-5) 94 % 10/28/2024 12:10 AM Temperature (8310-5) 98 [degF] Oxygen Saturation (76921-6) 96 % Respiratory Rate (9279-1) 16 /min Heart Rate (8867-4) 80 /min Blood Pressure Systolic (8480-6) 112 mm[Hg] Blood Pressure Diastolic (8462-4) 88 mm[Hg] 10/27/2024 10:54 PM Oxygen Saturation (58583-2) 95 % 10/28/2024 08:33 AM Temperature (8310-5) 97.6 [degF] Oxygen Saturation (86176-0) 93 % Respiratory Rate (9279-1) 20 /min Heart Rate (8867-4) 80 /min Blood Pressure Systolic (8480-6) 130 mm[Hg] Blood Pressure Diastolic (8462-4) 62 mm[Hg] 10/28/2024 04:05 PM Body Weight (31693-3) 226.8 [lb_av ] Body Mass Index (43397-3) 35.52 kg/m2 10/28/2024 07:22 PM Temperature (8310-5) 97.7 [degF] Oxygen Saturation (07238-3) 95 % Respiratory Rate (9279-1) 21 /min Heart Rate (8867-4) 86 /min Blood Pressure Systolic (8480-6) 115 mm[Hg] Blood Pressure Diastolic (8462-4) 57 mm[Hg] 10/29/2024 04:04 PM Body Weight (08990-4) 227.4 [lb_av ] Body Mass Index (82115-2) 35.61 kg/m2 10/29/2024 11:11 AM Oxygen Saturation (16187-1) 97 % 10/29/2024 11:12 AM Temperature (8310-5) 98 [degF] Respiratory Rate (9279-1) 18 /min Heart Rate (8867-4) 93 /min Blood Pressure Systolic (8480-6) 115 mm[Hg] Blood Pressure Diastolic (8462-4) 70 mm[Hg] 10/29/2024 08:08 PM Temperature (8310-5) 97.3 [degF] Oxygen Saturation (50285-9) 94 % Respiratory Rate (9279-1) 17 /min Heart Rate (8867-4) 119 /min Blood Pressure Systolic (8480-6) 133 mm[Hg] Blood Pressure Diastolic (8462-4) 74 mm[Hg] 10/30/2024 08:29 AM Temperature (8310-5) 98.4 [degF] Oxygen Saturation (17866-3) 95 % Respiratory Rate (9279-1) 21 /min Heart Rate (8867-4) 110 /min Blood Pressure Systolic (8480-6) 139 mm[Hg] Blood Pressure Diastolic (8462-4) 83 mm[Hg] 10/30/2024 11:35 AM Body Weight (62605-8) 227 [lb_av] Body Mass Index (48836-3) 35.55 kg/m2 10/30/2024 07:06 PM Temperature (8310-5) 97.6 [degF] Respiratory Rate (9279-1) 19 /min Heart Rate (8867-4) 96 /min Blood Pressure Systolic (8480-6) 140 mm[Hg] Blood Pressure Diastolic (8462-4) 85 mm[Hg] 10/30/2024 07:05 PM Oxygen Saturation (26317-1) 97 % 10/31/2024 08:51 AM Temperature (8310-5) 98 [degF] Oxygen Saturation (29035-0) 98 % Respiratory Rate (9279-1) 20 /min Heart Rate (8867-4) 93 /min Blood Pressure Systolic (8480-6) 107 mm[Hg] Blood Pressure Diastolic (8462-4) 53 mm[Hg] 10/31/2024 12:37 PM Body Weight (72277-9) 227.2 [lb_av ] Body Mass Index (56202-7) 35.58 kg/m2 10/31/2024 06:52 PM Temperature (8310-5) 97.7 [degF] Oxygen Saturation (19033-3) 92 % Respiratory Rate (9279-1) 18 /min Heart Rate (8867-4) 97 /min Blood Pressure Systolic (8480-6) 132 mm[Hg] Blood Pressure Diastolic (8462-4) 73 mm[Hg] 11/01/2024 09:09 AM Body Weight (39399-7) 224.6 [lb_av ] Body Mass Index (37179-2) 35.17 kg/m2 11/01/2024 09:07 AM Temperature (8310-5) 98.3 [degF] Oxygen Saturation (80180-6) 96 % Respiratory Rate (9279-1) 20 /min Heart Rate (8867-4) 115 /min Blood Pressure Systolic (8480-6) 143 mm[Hg] Blood Pressure Diastolic (8462-4) 80 mm[Hg] 11/01/2024 07:05 PM Temperature (8310-5) 97 [degF] Oxygen Saturation (81381-8) 91 % Respiratory Rate (9279-1) 16 /min Heart Rate (8867-4) 64 /min Blood Pressure Systolic (8480-6) 130 mm[Hg] Blood Pressure Diastolic (8462-4) 78 mm[Hg] 11/02/2024 11:12 AM Temperature (8310-5) 96.8 [degF] Oxygen Saturation (89223-4) 97 % Respiratory Rate (9279-1) 17 /min Heart Rate (8867-4) 102 /min Blood Pressure Systolic (8480-6) 125 mm[Hg] Blood Pressure Diastolic (8462-4) 70 mm[Hg] 11/02/2024 04:00 PM Body Weight (02992-0) 221.8 [lb_av ] Body Mass Index (49129-4) 34.73 kg/m2 11/02/2024 11:59 AM Oxygen Saturation (45368-8) 97 % 11/02/2024 11:40 PM Oxygen Saturation (88926-8) 95 % 11/03/2024 02:15 AM Temperature (8310-5) 97 [degF] Oxygen Saturation (54731-4) 95 % Respiratory Rate (9279-1) 18 /min Heart Rate (8867-4) 80 /min Blood Pressure Systolic (8480-6) 110 mm[Hg] Blood Pressure Diastolic (8462-4) 88 mm[Hg] 11/03/2024 10:56 AM Body Weight (34273-7) 221.8 [lb_av ] Body Mass Index (08075-7) 34.73 kg/m2 11/03/2024 09:52 AM Temperature (8310-5) 97.7 [degF] Oxygen Saturation (22283-9) 95 % Respiratory Rate (9279-1) 19 /min Heart Rate (8867-4) 106 /min Blood Pressure Systolic (8480-6) 125 mm[Hg] Blood Pressure Diastolic (8462-4) 76 mm[Hg] 11/04/2024 06:55 AM Body Weight (16695-0) 222 [lb_av] Body Mass Index (03274-7) 34.77 kg/m2 11/04/2024 03:06 AM Temperature (8310-5) 98 [degF] Respiratory Rate (9279-1) 16 /min Heart Rate (8867-4) 88 /min Blood Pressure Systolic (8480-6) 132 mm[Hg] Blood Pressure Diastolic (8462-4) 78 mm[Hg] 11/04/2024 03:05 AM Oxygen Saturation (36140-8) 96 % 11/04/2024 10:12 AM Temperature (8310-5) 97.2 [degF] Oxygen Saturation (44963-4) 93 % Respiratory Rate (9279-1) 16 /min Heart Rate (8867-4) 99 /min Blood Pressure Systolic (8480-6) 145 mm[Hg] Blood Pressure Diastolic (8462-4) 68 mm[Hg] 11/05/2024 12:31 AM Temperature (8310-5) 98.3 [degF] Respiratory Rate (9279-1) 18 /min Heart Rate (8867-4) 70 /min Blood Pressure Systolic (8480-6) 122 mm[Hg] Blood Pressure Diastolic (8462-4) 88 mm[Hg] 11/04/2024 10:35 PM Oxygen Saturation (75926-4) 95 % 11/05/2024 09:09 AM Temperature (8310-5) 97.8 [degF] Respiratory Rate (9279-1) 19 /min Heart Rate (8867-4) 95 /min Blood Pressure Systolic (8480-6) 107 mm[Hg] Blood Pressure Diastolic (8462-4) 63 mm[Hg] 11/05/2024 09:08 AM Oxygen Saturation (31596-3) 95 % 11/05/2024 06:17 PM Temperature (8310-5) 97.7 [degF] Oxygen Saturation (73669-8) 95 % Respiratory Rate (9279-1) 18 /min Heart Rate (8867-4) 93 /min Blood Pressure Systolic (8480-6) 106 mm[Hg] Blood Pressure Diastolic (8462-4) 62 mm[Hg] 11/06/2024 09:13 AM Temperature (8310-5) 97.2 [degF] Respiratory Rate (9279-1) 18 /min Heart Rate (8867-4) 96 /min Blood Pressure Systolic (8480-6) 140 mm[Hg] Blood Pressure Diastolic (8462-4) 61 mm[Hg] 11/06/2024 09:12 AM Oxygen Saturation (69931-3) 96 % 11/06/2024 12:23 PM Body Weight (69843-1) 220.6 [lb_av ] Body Mass Index (28599-6) 34.55 kg/m2 11/07/2024 08:48 AM Temperature (8310-5) 97.3 [degF] Oxygen Saturation (37233-6) 98 % Respiratory Rate (9279-1) 17 /min Heart Rate (8867-4) 93 /min Blood Pressure Systolic (8480-6) 112 mm[Hg] Blood Pressure Diastolic (8462-4) 60 mm[Hg] 11/07/2024 04:25 AM Temperature (8310-5) 98.1 [degF] 11/06/2024 09:08 PM Temperature (8310-5) 97.8 [degF] Oxygen Saturation (91261-2) 95 % Respiratory Rate (9279-1) 24 /min Heart Rate (8867-4) 89 /min Blood Pressure Systolic (8480-6) 126 mm[Hg] Blood Pressure Diastolic (8462-4) 65 mm[Hg] 11/07/2024 08:47 AM Oxygen Saturation (56972-4) 98 % 11/07/2024 05:55 PM Temperature (8310-5) 98 [degF] 11/07/2024 03:46 PM Body Weight (44625-9) 221 [lb_av] Body Mass Index (41955-5) 34.61 kg/m2 11/07/2024 07:51 PM Temperature (8310-5) 98 [degF] Oxygen Saturation (01311-7) 94 % Respiratory Rate (9279-1) 20 /min Heart Rate (8867-4) 84 /min Blood Pressure Systolic (8480-6) 135 mm[Hg] Blood Pressure Diastolic (8462-4) 66 mm[Hg] 11/08/2024 05:43 PM Body Weight (25735-7) 220.6 [lb_av ] Body Mass Index (23510-9) 34.55 kg/m2 11/08/2024 05:42 PM Temperature (8310-5) 97.6 [degF] Oxygen Saturation (94013-8) 96 % Respiratory Rate (9279-1) 18 /min Heart Rate (8867-4) 89 /min Blood Pressure Systolic (8480-6) 112 mm[Hg] Blood Pressure Diastolic (8462-4) 73 mm[Hg] 11/08/2024 07:01 PM Temperature (8310-5) 97.8 [degF] Oxygen Saturation (27279-1) 97 % Respiratory Rate (9279-1) 16 /min Heart Rate (8867-4) 92 /min Blood Pressure Systolic (8480-6) 133 mm[Hg] Blood Pressure Diastolic (8462-4) 56 mm[Hg] 11/09/2024 08:59 AM Temperature (8310-5) 97.1 [degF] Oxygen Saturation (35579-8) 94 % Respiratory Rate (9279-1) 17 /min Heart Rate (8867-4) 80 /min Blood Pressure Systolic (8480-6) 114 mm[Hg] Blood Pressure Diastolic (8462-4) 59 mm[Hg] 11/09/2024 10:09 PM Oxygen Saturation (34400-9) 98 % 11/09/2024 10:10 PM Temperature (8310-5) 98.6 [degF] Respiratory Rate (9279-1) 23 /min Heart Rate (8867-4) 86 /min Blood Pressure Systolic (8480-6) 124 mm[Hg] Blood Pressure Diastolic (8462-4) 64 mm[Hg] 11/10/2024 12:55 PM Temperature (8310-5) 98.4 [degF] Oxygen Saturation (29346-4) 97 % Respiratory Rate (9279-1) 19 /min Heart Rate (8867-4) 96 /min Blood Pressure Systolic (8480-6) 140 mm[Hg] Blood Pressure Diastolic (8462-4) 70 mm[Hg] 11/10/2024 07:47 PM Temperature (8310-5) 96.8 [degF] Oxygen Saturation (70636-3) 96 % Respiratory Rate (9279-1) 18 /min Heart Rate (8867-4) 106 /min Blood Pressure Systolic (8480-6) 134 mm[Hg] Blood Pressure Diastolic (8462-4) 78 mm[Hg] 11/10/2024 05:38 PM Body Weight (27736-6) 217 [lb_av] Body Mass Index (51429-9) 33.98 kg/m2 11/11/2024 10:30 AM Temperature (8310-5) 97.8 [degF] Oxygen Saturation (21638-4) 95 % Respiratory Rate (9279-1) 18 /min Heart Rate (8867-4) 83 /min Blood Pressure Systolic (8480-6) 143 mm[Hg] Blood Pressure Diastolic (8462-4) 68 mm[Hg] 11/11/2024 08:00 PM Temperature (8310-5) 97.5 [degF] Oxygen Saturation (47812-5) 94 % Respiratory Rate (9279-1) 21 /min Heart Rate (8867-4) 90 /min Blood Pressure Systolic (8480-6) 124 mm[Hg] Blood Pressure Diastolic (8462-4) 83 mm[Hg] 11/11/2024 06:48 PM Body Weight (27471-8) 217 [lb_av] Body Mass Index (30190-7) 33.98 kg/m2 11/12/2024 08:19 AM Body Weight (34024-1) 217.2 [lb_av ] Body Mass Index (15477-3) 34.01 kg/m2 11/12/2024 08:18 AM Temperature (8310-5) 96.9 [degF] Oxygen Saturation (05680-0) 96 % Respiratory Rate (9279-1) 18 /min Heart Rate (8867-4) 80 /min Blood Pressure Systolic (8480-6) 120 mm[Hg] Blood Pressure Diastolic (8462-4) 67 mm[Hg] 11/12/2024 08:14 PM Temperature (8310-5) 98.1 [degF] Oxygen Saturation (94760-5) 94 % Respiratory Rate (9279-1) 17 /min Heart Rate (8867-4) 91 /min Blood Pressure Systolic (8480-6) 132 mm[Hg] Blood Pressure Diastolic (8462-4) 72 mm[Hg] 11/13/2024 08:35 AM Temperature (8310-5) 97.5 [degF] Oxygen Saturation (16760-5) 94 % Respiratory Rate (9279-1) 16 /min Heart Rate (8867-4) 91 /min Blood Pressure Systolic (8480-6) 120 mm[Hg] Blood Pressure Diastolic (8462-4) 64 mm[Hg] 11/13/2024 05:21 PM Body Weight (63774-1) 218 [lb_av] Body Mass Index (72883-0) 34.14 kg/m2 11/13/2024 07:24 PM Temperature (8310-5) 97.4 [degF] Oxygen Saturation (96926-6) 96 % Respiratory Rate (9279-1) 16 /min Heart Rate (8867-4) 86 /min Blood Pressure Systolic (8480-6) 132 mm[Hg] Blood Pressure Diastolic (8462-4) 79 mm[Hg] 11/14/2024 12:49 PM Temperature (8310-5) 96.4 [degF] Oxygen Saturation (24753-3) 97 % Respiratory Rate (9279-1) 16 /min Heart Rate (8867-4) 88 /min Blood Pressure Systolic (8480-6) 122 mm[Hg] Blood Pressure Diastolic (8462-4) 68 mm[Hg] 11/14/2024 03:38 PM Body Weight (48930-1) 217.6 [lb_av ] Body Mass Index (20688-6) 34.08 kg/m2 11/14/2024 07:02 PM Temperature (8310-5) 97.8 [degF] Respiratory Rate (9279-1) 16 /min Heart Rate (8867-4) 86 /min Blood Pressure Systolic (8480-6) 102 mm[Hg] Blood Pressure Diastolic (8462-4) 53 mm[Hg] 11/14/2024 07:01 PM Oxygen Saturation (99066-2) 93 % 11/15/2024 08:04 AM Temperature (8310-5) 98.2 [degF] Oxygen Saturation (10936-8) 97 % Respiratory Rate (9279-1) 16 /min Heart Rate (8867-4) 97 /min Blood Pressure Systolic (8480-6) 138 mm[Hg] Blood Pressure Diastolic (8462-4) 65 mm[Hg] 11/15/2024 03:02 PM Body Weight (96653-9) 215.6 [lb_av ] Body Mass Index (17740-2) 33.76 kg/m2 11/15/2024 06:45 PM Temperature (8310-5) 97.6 [degF] Oxygen Saturation (30768-2) 94 % Respiratory Rate (9279-1) 19 /min Heart Rate (8867-4) 92 /min Blood Pressure Systolic (8480-6) 117 mm[Hg] Blood Pressure Diastolic (8462-4) 62 mm[Hg] 11/16/2024 07:58 AM Temperature (8310-5) 96.6 [degF] Oxygen Saturation (25804-1) 93 % Respiratory Rate (9279-1) 15 /min Heart Rate (8867-4) 97 /min Blood Pressure Systolic (8480-6) 107 mm[Hg] Blood Pressure Diastolic (8462-4) 60 mm[Hg] 11/16/2024 01:46 PM Body Weight (23371-3) 215 [lb_av] Body Mass Index (50287-9) 33.67 kg/m2 11/16/2024 07:02 PM Temperature (8310-5) 99 [degF] Oxygen Saturation (86785-0) 94 % Respiratory Rate (9279-1) 23 /min Heart Rate (8867-4) 101 /min Blood Pressure Systolic (8480-6) 122 mm[Hg] Blood Pressure Diastolic (8462-4) 67 mm[Hg] 11/16/2024 06:54 PM Oxygen Saturation (13301-6) 94 % 11/17/2024 09:18 AM Temperature (8310-5) 97.9 [degF] Oxygen Saturation (46094-4) 95 % Respiratory Rate (9279-1) 20 /min Heart Rate (8867-4) 82 /min Blood Pressure Systolic (8480-6) 110 mm[Hg] Blood Pressure Diastolic (8462-4) 60 mm[Hg] 11/17/2024 09:02 AM Body Weight (37472-1) 213.6 [lb_av ] Body Mass Index (51573-3) 33.45 kg/m2 11/17/2024 06:35 PM Temperature (8310-5) 98.9 [degF] 11/18/2024 08:29 AM Temperature (8310-5) 97.7 [degF] Oxygen Saturation (49721-2) 96 % Respiratory Rate (9279-1) 19 /min Heart Rate (8867-4) 108 /min Blood Pressure Systolic (8480-6) 100 mm[Hg] Blood Pressure Diastolic (8462-4) 53 mm[Hg] 11/18/2024 07:12 AM Body Weight (61262-8) 214.4 [lb_av ] Body Mass Index (07663-8) 33.58 kg/m2 11/17/2024 07:18 PM Oxygen Saturation (98923-3) 95 % Respiratory Rate (9279-1) 23 /min Heart Rate (8867-4) 110 /min Blood Pressure Systolic (8480-6) 116 mm[Hg] Blood Pressure Diastolic (8462-4) 54 mm[Hg] 11/18/2024 07:21 PM Temperature (8310-5) 98.3 [degF] Oxygen Saturation (51859-0) 95 % Respiratory Rate (9279-1) 22 /min Heart Rate (8867-4) 97 /min Blood Pressure Systolic (8480-6) 119 mm[Hg] Blood Pressure Diastolic (8462-4) 58 mm[Hg] 11/18/2024 07:05 PM Oxygen Saturation (65254-4) 95 % 11/19/2024 07:57 AM Temperature (8310-5) 97.8 [degF] Oxygen Saturation (59265-8) 97 % Respiratory Rate (9279-1) 18 /min Heart Rate (8867-4) 93 /min Blood Pressure Systolic (8480-6) 119 mm[Hg] Blood Pressure Diastolic (8462-4) 68 mm[Hg] 11/19/2024 07:55 AM Body Weight (34810-0) 215 [lb_av] Body Mass Index (44920-2) 33.67 kg/m2 11/20/2024 01:13 AM Temperature (8310-5) 97.7 [degF] Oxygen Saturation (72076-0) 95 % Respiratory Rate (9279-1) 20 /min Heart Rate (8867-4) 84 /min Blood Pressure Systolic (8480-6) 123 mm[Hg] Blood Pressure Diastolic (8462-4) 66 mm[Hg] 11/20/2024 03:40 PM Temperature (8310-5) 98 [degF] Oxygen Saturation (56533-7) 95 % Respiratory Rate (9279-1) 20 /min Heart Rate (8867-4) 76 /min Blood Pressure Systolic (8480-6) 131 mm[Hg] Blood Pressure Diastolic (8462-4) 71 mm[Hg] 11/20/2024 04:58 PM Body Weight (59415-3) 215.2 [lb_av ] Body Mass Index (58469-7) 33.7 kg/m2 11/20/2024 01:31 PM Oxygen Saturation (33856-6) 95 % 11/20/2024 07:12 PM Temperature (8310-5) 97.4 [degF] Oxygen Saturation (39123-6) 95 % Respiratory Rate (9279-1) 19 /min Heart Rate (8867-4) 89 /min Blood Pressure Systolic (8480-6) 135 mm[Hg] Blood Pressure Diastolic (8462-4) 50 mm[Hg] 11/21/2024 12:32 PM Oxygen Saturation (12828-2) 95 % Body Weight (62534-7) 216 [lb_av] Body Mass Index (00097-9) 33.83 kg/m2 11/21/2024 12:31 PM Temperature (8310-5) 96.9 [degF] Oxygen Saturation (97804-9) 98 % Respiratory Rate (9279-1) 20 /min Heart Rate (8867-4) 86 /min Blood Pressure Systolic (8480-6) 114 mm[Hg] Blood Pressure Diastolic (8462-4) 61 mm[Hg] 11/21/2024 06:55 PM Temperature (8310-5) 97.4 [degF] Oxygen Saturation (14231-5) 92 % Respiratory Rate (9279-1) 14 /min Heart Rate (8867-4) 77 /min Blood Pressure Systolic (8480-6) 104 mm[Hg] Blood Pressure Diastolic (8462-4) 57 mm[Hg] 11/22/2024 03:19 PM Oxygen Saturation (35004-0) 94 % 11/22/2024 03:35 PM Temperature (8310-5) 97.3 [degF] Respiratory Rate (9279-1) 17 /min Heart Rate (8867-4) 62 /min Blood Pressure Systolic (8480-6) 114 mm[Hg] Blood Pressure Diastolic (8462-4) 52 mm[Hg] 11/22/2024 03:04 PM Body Weight (92981-1) 215 [lb_av] Body Mass Index (22826-8) 33.67 kg/m2 11/22/2024 08:33 PM Temperature (8310-5) 98.2 [degF] Respiratory Rate (9279-1) 16 /min Heart Rate (8867-4) 70 /min Blood Pressure Systolic (8480-6) 134 mm[Hg] Blood Pressure Diastolic (8462-4) 88 mm[Hg] 11/22/2024 08:32 PM Oxygen Saturation (36218-4) 95 % 11/23/2024 05:35 PM Body Weight (65546-3) 215.7 [lb_av ] Body Mass Index (92100-8) 33.78 kg/m2 11/23/2024 01:00 PM Oxygen Saturation (19492-2) 90 % Respiratory Rate (9279-1) 19 /min Heart Rate (8867-4) 89 /min Blood Pressure Systolic (8480-6) 110 mm[Hg] Blood Pressure Diastolic (8462-4) 64 mm[Hg] 11/23/2024 09:52 AM Temperature (8310-5) 97.8 [degF] 11/23/2024 07:30 PM Temperature (8310-5) 97.3 [degF] 11/23/2024 07:22 PM Temperature (8310-5) 97.3 [degF] Oxygen Saturation (88797-9) 100 % Respiratory Rate (9279-1) 23 /min Heart Rate (8867-4) 67 /min Blood Pressure Systolic (8480-6) 142 mm[Hg] Blood Pressure Diastolic (8462-4) 66 mm[Hg] 11/24/2024 08:36 AM Temperature (8310-5) 97 [degF] Oxygen Saturation (02644-9) 93 % Respiratory Rate (9279-1) 19 /min Heart Rate (8867-4) 84 /min Blood Pressure Systolic (8480-6) 106 mm[Hg] Blood Pressure Diastolic (8462-4) 60 mm[Hg] 11/24/2024 12:04 PM Body Weight (84167-8) 216 [lb_av] Body Mass Index (76810-1) 33.83 kg/m2 11/24/2024 07:24 PM Oxygen Saturation (25463-4) 97 % Respiratory Rate (9279-1) 20 /min Heart Rate (8867-4) 85 /min Blood Pressure Systolic (8480-6) 103 mm[Hg] Blood Pressure Diastolic (8462-4) 59 mm[Hg] 11/24/2024 07:15 PM Temperature (8310-5) 98.5 [degF] 11/25/2024 08:24 AM Temperature (8310-5) 98.7 [degF] Oxygen Saturation (34302-2) 97 % Respiratory Rate (9279-1) 16 /min Heart Rate (8867-4) 78 /min Blood Pressure Systolic (8480-6) 113 mm[Hg] Blood Pressure Diastolic (8462-4) 64 mm[Hg] 11/25/2024 10:52 AM Body Weight (55541-9) 215.2 [lb_av ] Body Mass Index (44000-3) 33.7 kg/m2 11/25/2024 07:23 PM Temperature (8310-5) 97.4 [degF] Respiratory Rate (9279-1) 21 /min Heart Rate (8867-4) 84 /min Blood Pressure Systolic (8480-6) 122 mm[Hg] Blood Pressure Diastolic (8462-4) 80 mm[Hg] 11/25/2024 07:22 PM Oxygen Saturation (52001-1) 96 % 11/26/2024 01:22 PM Temperature (8310-5) 96.9 [degF] Oxygen Saturation (46364-0) 97 % Respiratory Rate (9279-1) 20 /min Heart Rate (8867-4) 88 /min Blood Pressure Systolic (8480-6) 109 mm[Hg] Blood Pressure Diastolic (8462-4) 66 mm[Hg] 11/26/2024 01:21 PM Body Weight (35959-3) 215.4 [lb_av ] Body Mass Index (00640-8) 33.73 kg/m2 03/04/2025 05:33 AM Oxygen Saturation (45997-8) 98 % Heart Rate (8867-4) 88 /min Blood Pressure Systolic (8480-6) 126 mm[Hg] Blood Pressure Diastolic (8462-4) 78 mm[Hg] 03/20/2025 11:34 AM Body Weight (36409-6) 177.5 [lb_av ] Body Mass Index (64858-3) 27.8 kg/m2 03/25/2025 01:50 PM Body Weight (32284-9) 185.8 [lb_av ] Body Mass Index (51326-9) 29.1 kg/m2 01/02/2025 02:57 PM Temperature (8310-5) 97 [degF] Oxygen Saturation (68563-9) 96 % Respiratory Rate (9279-1) 18 /min Heart Rate (8867-4) 77 /min Blood Pressure Systolic (8480-6) 152 mm[Hg] Blood Pressure Diastolic (8462-4) 68 mm[Hg] 03/17/2025 10:17 AM Temperature (8310-5) 96.2 [degF] 03/08/2025 11:59 AM Temperature (8310-5) 98.1 [degF] 01/02/2025 12:57 PM Temperature (8310-5) 99.6 [degF] 02/26/2025 08:22 PM Body Height (8302-2) 67 [in_us] Body Weight (06327-3) 189.6 [lb_av] Body Mass Index (58131-6) 29.69 kg/m2 01/01/2025 06:37 PM Temperature (8310-5) 97.4 [degF] Oxygen Saturation (56592-8) 96 % Respiratory Rate (9279-1) 18 /min Heart Rate (8867-4) 68 /min Blood Pressure Systolic (8480-6) 106 mm[Hg] Blood Pressure Diastolic (8462-4) 60 mm[Hg] Body Weight (10846-1) 197.8 [lb_av] Body Mass Index (71215-7) 30.98 kg/m2 02/27/2025 08:56 AM Body Weight (75750-3) 188.4 [lb_av ] Body Mass Index (54250-7) 29.5 kg/m2 03/04/2025 05:32 AM Temperature (8310-5) 97 [degF] 12/30/2024 07:22 PM Oxygen Saturation (61878-1) 98 % Respiratory Rate (9279-1) 21 /min Heart Rate (8867-4) 84 /min Blood Pressure Systolic (8480-6) 128 mm[Hg] Blood Pressure Diastolic (8462-4) 59 mm[Hg] 03/13/2025 02:34 PM Body Weight (80800-2) 179.8 [lb_av ] Body Mass Index (99448-2) 28.16 kg/m2 03/06/2025 01:55 PM Body Weight (80620-4) 187.6 [lb_av ] Body Mass Index (69473-1) 29.38 kg/m2 12/28/2024 11:41 PM Respiratory Rate (9279-1) 21 /min 02/28/2025 09:01 AM Body Weight (81953-4) 187.1 [lb_av ] Body Mass Index (30088-6) 29.3 kg/m2 02/26/2025 08:23 PM Body Weight (77609-2) 189.6 [lb_av ] Body Mass Index (90459-7) 29.69 kg/m2 01/01/2025 06:12 PM Oxygen Saturation (95149-1) 97 % 12/29/2024 06:58 AM Respiratory Rate (9279-1) 16 /min Heart Rate (8867-4) 82 /min Blood Pressure Systolic (8480-6) 136 mm[Hg] Blood Pressure Diastolic (8462-4) 73 mm[Hg] 12/31/2024 05:09 PM Body Weight (07365-3) 199.4 [lb_av ] Body Mass Index (35308-3) 31.23 kg/m2 12/31/2024 08:37 PM Temperature (8310-5) 97.3 [degF] Oxygen Saturation (54926-5) 98 % Respiratory Rate (9279-1) 23 /min Heart Rate (8867-4) 77 /min Blood Pressure Systolic (8480-6) 120 mm[Hg] Blood Pressure Diastolic (8462-4) 68 mm[Hg] 12/31/2024 07:05 AM Temperature (8310-5) 97.2 [degF] Oxygen Saturation (54223-5) 96 % Respiratory Rate (9279-1) 20 /min Heart Rate (8867-4) 72 /min Blood Pressure Systolic (8480-6) 93 mm[Hg] Blood Pressure Diastolic (8462-4) 56 mm[Hg] 12/29/2024 07:35 PM Respiratory Rate (9279-1) 23 /min Heart Rate (8867-4) 85 /min Blood Pressure Systolic (8480-6) 122 mm[Hg] Blood Pressure Diastolic (8462-4) 68 mm[Hg] 01/02/2025 04:23 PM Body Weight (97535-4) 157.5 [lb_av ] Body Mass Index (97362-1) 24.67 kg/m2 01/02/2025 12:26 AM Temperature (8310-5) 98.5 [degF] Oxygen Saturation (72121-4) 94 % Respiratory Rate (9279-1) 19 /min Heart Rate (8867-4) 91 /min Blood Pressure Systolic (8480-6) 111 mm[Hg] Blood Pressure Diastolic (8462-4) 64 mm[Hg] 01/01/2025 02:05 PM Temperature (8310-5) 98.8 [degF] 12/30/2024 02:01 PM Body Weight (13560-7) 200 [lb_av] Body Mass Index (25354-2) 31.32 kg/m2 12/30/2024 07:12 AM Oxygen Saturation (05116-6) 98 % Respiratory Rate (9279-1) 16 /min Heart Rate (8867-4) 75 /min Blood Pressure Systolic (8480-6) 117 mm[Hg] Blood Pressure Diastolic (8462-4) 73 mm[Hg] 12/31/2024 08:33 PM Oxygen Saturation (29337-2) 98 % 04/09/2025 11:21 AM Temperature (8310-5) 98.2 [degF] Oxygen Saturation (90011-3) 97 % Respiratory Rate (9279-1) 18 /min Heart Rate (8867-4) 76 /min Blood Pressure Systolic (8480-6) 130 mm[Hg] Blood Pressure Diastolic (8462-4) 74 mm[Hg] Social History No smoking Hx information available Encounters Type CPT Code Date Location Provider Indication s encounter report 10/24/2024 02:53 PM Roselyn Sandoval DO 01 encounter report 02/26/2025 11:18 AM Roselyn Sandoval DO 02 Advance Directives Directive Description Verification Date Supporting Document(s) Other Directive Resuscitation
--- OUTSIDE RECORDS SUMMARY | 2025-04-18 06:23 | XMS_ITS | Encounter Summary ---
Author Organization [employer] [facility] Address [address] [place] [address] Care Team Providers Care Electric Organ Assembler Name Role Phone Unavailable Primary Care Provider Unavailabl e Encounter Details Date Type Department Care Team (Latest Contact Info) Description 02/01/2000 Outpatient Historical [facility] Pepe Ellison MD [address] [place] [phone] Depressive disorder, not elsewhere classified (Primary Dx); Insomnia, unspecified; General symptoms NEC Social History Tobacco Use Types Packs/Day Years Used Date Smoking Tobacco: Never Assessed Comments Unknown Sex and Gender Information Value Date Recorded Sex Assigned at Not on file 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
--- OUTSIDE RECORDS SUMMARY | 2025-04-18 06:23 | XMS_ITS | Encounter Summary ---
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
--- OUTSIDE RECORDS SUMMARY | 2025-04-18 06:24 | XMS_ITS | Clinical Summary ---
Author Organization [facility] Address [address] 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
--- OUTSIDE RECORDS SUMMARY | 2025-04-18 06:24 | XMS_ITS | Encounter Summary ---
Author Organization [employer] [facility] Address [address] [place] [address] Care Team Providers Care Hydraulic Dredge Operator Name Role Phone Unavailable Primary Care Provider Unavailabl e Encounter Details Date Type Department Care Team (Latest Contact Info) Description 06/06/2000 Outpatient Historical HIS [facility] Pepe Ellison MD [address] [place] [phone] Lumbago (Primary Dx) Social History Tobacco Use Types Packs/Day Years Used Date Smoking Tobacco: Never Assessed Comments Unknown Sex and Gender Information Value Date Recorded Sex Assigned at Not on file 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
--- OUTSIDE RECORDS SUMMARY | 2025-04-18 06:24 | XMS_ITS | Encounter Summary ---
Author Organization [employer] [facility] Address [address] [place] [address] Care Team Providers Care Sterile Proc Tech Name Role Phone Unavailable Primary Care Provider Unavailabl e Encounter Details Date Type Department Care Team (Latest Contact Info) Description 12/06/2000 Outpatient Historical HIS [facility] Pepe Ellison MD [address] [place] [phone] Acute upper respiratory infections of unspecified site (Primary Dx); Acute gastritis Social History Tobacco Use Types Packs/Day Years Used Date Smoking Tobacco: Never Assessed Comments Unknown Sex and Gender Information Value Date Recorded Sex Assigned at Not on file 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
--- OUTSIDE RECORDS SUMMARY | 2025-04-18 06:24 | XMS_ITS | Encounter Summary ---
Author Organization [facility] Address [address] [place] [address] Care Team Providers Care Bridge Maintenance Worker Name Role Phone Unavailable Primary Care Provider Unavailabl e Encounter Details Date Type Department Care Team (Latest Contact Info) Description 11/16/2004 Outpatient Historical [facility] Rheumat[facility]- [facility] [place] [address] [place] [address] Milton Albright MD NO ADDRESS ON FILE RHEUMATISM NOS (Primary Dx) Social History Tobacco Use Types Packs/Day Years Used Date Smoking Tobacco: Never Assessed Comments Unknown Sex and Gender Information Value Date Recorded Sex Assigned at Not on file 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
--- OUTSIDE RECORDS SUMMARY | 2025-04-18 06:24 | XMS_ITS | Encounter Summary ---
Author Organization [facility] Address [address] [place] [address] Care Team Providers Care Strategic Planning Director Name Role Phone Unavailable Primary Care Provider Unavailabl e Encounter Details Date Type Department Care Team (Latest Contact Info) Description 10/29/2003 Outpatient Historical [facility] Rheumatology- [facility] [place] [address] [place] [address] Milton Albright MD NO ADDRESS ON FILE RHEUMATISM NOS (Primary Dx); DEPRESSIVE DISORDER NEC Social History Tobacco Use Types Packs/Day Years Used Date Smoking Tobacco: Never Assessed Comments Unknown Sex and Gender Information Value Date Recorded Sex Assigned at Not on file Legal Sex Female 4:23 AM PROP WORKER Gender Identity Not on file Sexual Orientation Not on file documented as of this encounter Plan of Treatment Not on file documented as of this encounter Visit Diagnoses Diagnosis Rheumatism, unspecified and fibrositis- Primary Depressive disorder, not elsewhere classified documented in this encounter
--- OUTSIDE RECORDS SUMMARY | 2025-04-18 06:24 | XMS_ITS | Encounter Summary ---
Author Organization [employer] [facility] [facility] Address [address] [place] [address] Care Team Providers Care Buckle Frame Shaper Name Role Phone Unavailable Primary Care Provider Unavailabl e Encounter Details Date Type Department Care Team (Latest Contact Info) Description 07/14/2001 Outpatient Historical [facility] Pepe Ellison MD [address] [place] [phone] ACUTE SINUSITIS NOS (Primary Dx); BRONCHITIS NOS Social History Tobacco Use Types Packs/Day Years Used Date Smoking Tobacco: Never Assessed Comments Unknown Sex and Gender Information Value Date Recorded Sex Assigned at Not on file Legal Sex Female 4:23 AM ASSISTANT PRESS OPERATOR OFFSET Gender Identity Not on file Sexual Orientation Not on file documented as of this encounter Plan of Treatment Not on file documented as of this encounter Visit Diagnoses Diagnosis Acute sinusitis, unspecified- Primary Bronchitis, not specified as acute or chronic documented in this encounter
--- OUTSIDE RECORDS SUMMARY | 2025-04-18 06:24 | XMS_ITS | Encounter Summary ---
Author Organization [facility] Address [address] [place] [address] Care Team Providers Care Oleomargarine Maker Name Role Phone Unavailable Primary Care Provider Unavailabl e Encounter Details Date Type Department Care Team (Late st Contact Info) Description 03/13/2001 Outpatient Historical HIS [facility] Social History Tobacco Use Types Packs/Day Years Used Date Smoking Tobacco: Never Assessed Comments Unknown Sex and Gender Information Value Date Recorded Sex Assigned at Not on file Legal Sex Female 4:23 AM ACCOUNT CLASSIFICATION CLERK Gender Identity Not on file Sexual Orientation Not on file documented as of this encounter Plan of Treatment Not on file documented as of this encounter Visit Diagnoses Not on filedocumented in this encounter
--- OUTSIDE RECORDS SUMMARY | 2025-04-18 06:24 | XMS_ITS | Encounter Summary ---
Author Organization [facility] Address [address] [place] [address] Care Team Providers Care Hoseman Name Role Phone Unavailable Primary Care Provider Unavailabl e Encounter Details Date Type Department Care Team (Latest Contact Info) Description 08/25/2005 Outpatient Historical [facility] Rheumatology- [facility] [place] [address] [place] [address] Milton Albright MD NO ADDRESS ON FILE RHEUMATISM NOS (Primary Dx) Social History Tobacco Use Types Packs/Day Years Used Date Smoking Tobacco: Never Assessed Comments Unknown Sex and Gender Information Value Date Recorded Sex Assigned at Not on file Legal Sex Female 4:23 AM STOVE BOTTOM WORKER Gender Identity Not on file Sexual Orientation Not on file documented as of this encounter Plan of Treatment Not on file documented as of this encounter Visit Diagnoses Diagnosis Rheumatism, unspecified and fibrositis- Primary documented in this encounter
--- OUTSIDE RECORDS SUMMARY | 2025-04-18 06:24 | XMS_ITS | Encounter Summary ---
Author Organization [employer] [facility] Address [address] [place] [address] Care Team Providers Care Med Surg Nurse Name Role Phone Unavailable Primary Care Provider Unavailabl e Encounter Details Date Type Department Care Team (Late st Contact Info) Description 06/02/2006 Outpatient Historical [facility] [address], [address] [place] [address] Mando Vergara MD [address] [place] [phone] Unspecified Myalgia and Myositis (Primary Dx) Social History Tobacco Use Types Packs/Day Years Used Date Smoking Tobacco: Never Assessed Comments Unknown Sex and Gender Information Value Date Recorded Sex Assigned at Not on file Legal Sex Female 4:23 AM OUTREACH ANALYST Gender Identity Not on file Sexual Orientation Not on file documented as of this encounter Plan of Treatment Not on file documented as of this encounter Visit Diagnoses Diagnosis Myalgia and myositis, unspecified- Primary Mylagia and myositis, unspecified documented in this encounter
--- OUTSIDE RECORDS SUMMARY | 2025-04-18 06:24 | XMS_ITS | Encounter Summary ---
Author Organization [facility] Address [address] [place] [address] Care Team Providers Care Applique Cutter Name Role Phone Unavailable Primary Care Provider Unavailabl e Encounter Details Date Type Department Care Team (Latest Contact Info) Description 12/26/2003 Outpatient Historical [facility] Rheumatology- [facility] [place] [address] [place] [address] Milton Albright MD NO ADDRESS ON FILE RHEUMATISM NOS (Primary Dx) Social History Tobacco Use Types Packs/Day Years Used Date Smoking Tobacco: Never Assessed Comments Unknown Sex and Gender Information Value Date Recorded Sex Assigned at Not on file Legal Sex Female 4:23 AM BALLOON TESTER Gender Identity Not on file Sexual Orientation Not on file documented as of this encounter Plan of Treatment Not on file documented as of this encounter Visit Diagnoses Diagnosis Rheumatism, unspecified and fibrositis- Primary documented in this encounter
--- OUTSIDE RECORDS SUMMARY | 2025-04-18 06:24 | XMS_ITS | Encounter Summary ---
Author Organization [employer] [facility] Address [address] [place] [address] Care Team Providers Care Sport Shoe Spike Assembler Name Role Phone Unavailable Primary Care Provider Unavailabl e Encounter Details Date Type Department Care Team (Latest Contact Info) Description 06/21/2001 Outpatient Historical [facility] Pepe Ellison MD [address] [place] [phone] ACUTE SINUSITIS NOS (Primary Dx) Social History Tobacco Use Types Packs/Day Years Used Date Smoking Tobacco: Never Assessed Comments Unknown Sex and Gender Information Value Date Recorded Sex Assigned at Not on file Legal Sex Female 4:23 AM ADVENTURE CHALLENGE INSTRUCTOR Gender Identity Not on file Sexual Orientation Not on file documented as of this encounter Plan of Treatment Not on file documented as of this encounter Visit Diagnoses Diagnosis Acute sinusitis, unspecified- Primary documented in this encounter
--- OUTSIDE RECORDS SUMMARY | 2025-04-18 06:24 | XMS_ITS | Encounter Summary ---
Author Organization [facility] Address [address] [place] [address] Care Team Providers Care Water Systems Engineer Name Role Phone Unavailable Primary Care Provider Unavailabl e Encounter Details Date Type Department Care Team (Latest Contact Info) Description 10/01/2003 Outpatient Historical [facility] Rheumatology- [facility] [place] [address] [place] [address] Milton Albright MD NO ADDRESS ON FILE RHEUMATISM NOS (Primary Dx) Social History Tobacco Use Types Packs/Day Years Used Date Smoking Tobacco: Never Assessed Comments Unknown Sex and Gender Information Value Date Recorded Sex Assigned at Not on file Legal Sex Female 4:23 AM CRYSTAL REPORT DEVELOPER Gender Identity Not on file Sexual Orientation Not on file documented as of this encounter Plan of Treatment Not on file documented as of this encounter Visit Diagnoses Diagnosis Rheumatism, unspecified and fibrositis- Primary documented in this encounter
--- OUTSIDE RECORDS SUMMARY | 2025-04-18 06:24 | XMS_ITS | Encounter Summary ---
Author Organization [facility] Address [address] [place] [address] Care Team Providers Care Manager Process Excellence Name Role Phone Unavailable Primary Care Provider Unavailabl e Encounter Details Date Type Department Care Team (Late st Contact Info) Description 04/30/2003 Outpatient Historical [facility] Family Medicine [address] [place] [phone] Cyndee Wang MD NO ADDRESS ON FILE MYALGIA AND MYOSITIS NOS (Primary Dx); HYPERLIPIDEMIA NEC/NOS Social History Tobacco Use Types Packs/Day Years Used Date Smoking Tobacco: Never Assessed Comments Unknown Sex and Gender Information Value Date Recorded Sex Assigned at Not on file Legal Sex Female 4:23 AM INFANT CAREGIVER Gender Identity Not on file Sexual Orientation Not on file documented as of this encounter Plan of Treatment Not on file documented as of this encounter Visit Diagnoses Diagnosis Myalgia and myositis, unspecified- Primary Mylagia and myositis, unspecified Other and unspecified hyperlipidemia documented in this encounter
--- OUTSIDE RECORDS SUMMARY | 2025-04-18 06:24 | XMS_ITS | Encounter Summary ---
Author Organization [facility] Address [address] [place]ao: [place] [address] Care Team Providers Care Sorting Livestock Worker Name Role Phone Unavailable Primary Care [...] on file Legal Sex Female 4:23 AM INFRASTRUCTURE MANAGER Gender Identity Not on file Sexual Orientation Not on file documented as of this encounter Plan of Treatment Not on file documented as of this encounter Visit Diagnoses Not on filedocumented in this encounter
--- OUTSIDE RECORDS SUMMARY | 2025-04-18 06:24 | XMS_ITS | Encounter Summary ---
Author Organization [employer] [facility] Address [address] [place] [address] Care Team Providers Care Still Operator Gin Name Role Phone Unavailable Primary Care Provider Unavailabl e Encounter Details Date Type Department Care Team (Latest Contact Info) Description 04/20/2002 Outpatient Historical HIS [facility] Pepe Ellison MD [address] [place] [phone] LUMBAGO (Primary Dx); STOMACH FUNCTION DIS NEC; SACROILIITIS NEC Social History Tobacco Use Types Packs/Day Years Used Date Smoking Tobacco: Never Assessed Comments Unknown Sex and Gender Information Value Date Recorded Sex Assigned at Not on file Legal Sex Female 4:23 AM SKIVER OPERATOR Gender Identity Not on file Sexual Orientation Not on file documented as of this encounter Plan of Treatment Not on file documented as of this encounter Visit Diagnoses Diagnosis Lumbago- Primary Dyspepsia and other specified disorders of function of stomach Sacroiliitis, not elsewhere classified documented in this encounter
--- OUTSIDE RECORDS SUMMARY | 2025-04-18 06:24 | XMS_ITS | Encounter Summary ---
Author Organization [employer] [facility] Address [address] [place] [address] Care Team Providers Care Electrical Research Engineer Name Role Phone Unavailable Primary Care Provider Unavailabl e Encounter Details Date Type Department Care Team (Latest Contact Info) Description 10/10/2000 Outpatient Historical HIS [facility] Pepe Ellison MD [address] [place] [phone] Insomnia, unspecified (Primary Dx); Depressive disorder, not elsewhere classified Social History Tobacco Use Types Packs/Day Years Used Date Smoking Tobacco: Never Assessed Comments Unknown Sex and Gender Information Value Date Recorded Sex Assigned at Not on file Legal Sex Female 4:23 AM TEACHER VOCAL Gender Identity Not on file Sexual Orientation Not on file documented as of this encounter Plan of Treatment Not on file documented as of this encounter Visit Diagnoses Diagnosis Insomnia, unspecified- Primary Depressive disorder, not elsewhere classified documented in this encounter
--- OUTSIDE RECORDS SUMMARY | 2025-04-18 06:24 | XMS_ITS | Encounter Summary ---
Author Organization [employer] [facility] Address [address] [place] [address] Care Team Providers Care Solution Engineer Name Role Phone Unavailable Primary Care Provider Unavailabl e Encounter Details Date Type Department Care Team (Latest Contact Info) Description 02/23/2001 Outpatient Historical HIS [facility] Pepe Ellison MD [address] [place] [phone] Urinary tract infection, site not specified (Primary Dx); Unspecified urinary incontinence Social History Tobacco Use Types Packs/Day Years Used Date Smoking Tobacco: Never Assessed Comments Unknown Sex and Gender Information Value Date Recorded Sex Assigned at Not on file Legal Sex Female 4:23 AM GROCERY CARRIER Gender Identity Not on file Sexual Orientation Not on file documented as of this encounter Plan of Treatment Not on file documented as of this encounter Visit Diagnoses Diagnosis Urinary tract infection, site not specified- Primary Unspecified urinary incontinence documented in this encounter
--- OUTSIDE RECORDS SUMMARY | 2025-04-18 06:24 | XMS_ITS | Encounter Summary ---
Author Organization [employer] [facility] Address [address] [place] [address] Care Team Providers Care Disability Representative Name Role Phone Unavailable Primary Care Provider Unavailabl e Encounter Details Date Type Department Care Team (Latest Contact Info) Description 04/26/2000 Outpatient Historical [facility] Pepe Ellison MD [address] [place] [phone] Acute sinusitis, unspecified (Primary Dx) Social History Tobacco Use Types Packs/Day Years Used Date Smoking Tobacco: Never Assessed Comments Unknown Sex and Gender Information Value Date Recorded Sex Assigned at Not on file Legal Sex Female 4:23 AM AIRCRAFT ACCESSORIES MECHANIC Gender Identity Not on file Sexual Orientation Not on file documented as of this encounter Plan of Treatment Not on file documented as of this encounter Visit Diagnoses Diagnosis Acute sinusitis, unspecified- Primary documented in this encounter
--- OUTSIDE RECORDS SUMMARY | 2025-04-18 06:24 | XMS_ITS | Encounter Summary ---
Author Organization [facility] Address [address] [place] [address] Care Team Providers Care Institute Director Name Role Phone Unavailable Primary Care Provider Unavailabl e Encounter Details Date Type Department Care Team (Late st Contact Info) Description 06/02/[address] [facility] [place] [address] [place] [phone] Social History Tobacco Use Types Packs/Day Years Used Date Smoking Tobacco: Never Assessed Comments Unknown Sex and Gender Information Value Date Recorded Sex Assigned at Not on file Legal Sex Female 4:23 AM INSTRUMENT STERILIZER Gender Identity Not on file Sexual Orientation Not on file documented as of this encounter Plan of Treatment Not on file documented as of this encounter Visit Diagnoses Not on filedocumented in this encounter
--- OUTSIDE RECORDS SUMMARY | 2025-04-18 06:24 | XMS_ITS | Encounter Summary ---
Author Organization [employer] [facility] Address [address] [place] [address] Care Team Providers Care Die Cut Operator Name Role Phone Unavailable Primary Care [...] file Legal Sex Female 4:23 AM MEDICAL SERVICES MANAGER Gender Identity Not on file Sexual Orientation Not on file documented as of this encounter Plan of Treatment Not on file documented as of this encounter Visit Diagnoses Diagnosis Other specified disorder of breast- Primary Mastodynia Scar condition and fibrosis of skin documented in this encounter
--- OUTSIDE RECORDS SUMMARY | 2025-04-18 06:24 | XMS_ITS | Encounter Summary ---
Author Organization [facility] Address [address] [place] [address] Care Team Providers Care Power Digger Operator Name Role Phone Unavailable Primary Care Provider Unavailabl e Encounter Details Date Type Department Care Team (Latest Contact Info) Description 05/04/2002 Outpatient Historical [facility] Gen Spec Surg [place] [address] [place] [phone] Justin Valenzuela MD NO ADDRESS ON FILE CHOLELITHIASIS NOS (Primary Dx) Social History Tobacco Use Types Packs/Day Years Used Date Smoking Tobacco: Never Assessed Comments Unknown Sex and Gender Information Value Date Recorded Sex Assigned at Not on file Legal Sex Female 4:23 AM MANAGEMENT SME Gender Identity Not on file Sexual Orientation Not on file documented as of this encounter Plan of Treatment Not on file documented as of this encounter Visit Diagnoses Diagnosis Calculus of gallbladder without mention of cholecystitis or obstruction- Primary documented in this encounter
--- OUTSIDE RECORDS SUMMARY | 2025-04-18 06:24 | XMS_ITS | Encounter Summary ---
Author Organization [employer] [facility] Address [address] [place] [address] Care Team Providers Care Tractor Expert Name Role Phone Unavailable Primary Care Provider Unavailabl e Encounter Details Date Type Department Care Team (Latest Contact Info) Description 05/24/2000 Outpatient Historical HIS [facility] Pepe Ellison MD [address] [place] [phone] Sciatica (Primary Dx) Social History Tobacco Use Types Packs/Day Years Used Date Smoking Tobacco: Never Assessed Comments Unknown Sex and Gender Information Value Date Recorded Sex Assigned at Not on file Legal Sex Female 4:23 AM COMPLIANCE CONSULTANT Gender Identity Not on file Sexual Orientation Not on file documented as of this encounter Plan of Treatment Not on file documented as of this encounter Visit Diagnoses Diagnosis Sciatica- Primary documented in this encounter
--- OUTSIDE RECORDS SUMMARY | 2025-04-18 06:24 | XMS_ITS | Encounter Summary ---
Author Organization [employer] [facility] Address [address] [place] [address] Care Team Providers Care High School Hvac R Instructor Name Role Phone Unavailable Primary Care Provider Unavailabl e Encounter Details Date Type Department Care Team (Latest Contact Info) Description 01/04/2002 Outpatient Historical HIS [facility] Pepe Ellison MD [address] [place] [address] URIN TRACT INFECTION NOS (Primary Dx); TOBACCO USE DISORDER Social History Tobacco Use Types Packs/Day Years Used Date Smoking Tobacco: Never Assessed Comments Unknown Sex and Gender Information Value Date Recorded Sex Assigned at Not on file Legal Sex Female 4:23 AM PRODUCT MARKETING PROGRAMS MANAGER Gender Identity Not on file Sexual Orientation Not on file documented as of this encounter Plan of Treatment Not on file documented as of this encounter Visit Diagnoses Diagnosis Urinary tract infection, site not specified- Primary Tobacco use disorder documented in this encounter
--- OUTSIDE RECORDS SUMMARY | 2025-04-18 06:24 | XMS_ITS | Encounter Summary ---
Author Organization [facility] Address [address] [place] [address] Care Team Providers Care Paper Coating Machine Operator Name Role Phone Unavailable Primary Care Provider Unavailabl e Encounter Details Date Type Department Care Team (Late st Contact Info) Description 03/02/2004 Outpatient Historical [facility] Family Medicine [address] [place] [address] Cyndee Wang MD NO ADDRESS ON FILE MYALGIA AND MYOSITIS NOS (Primary Dx); URIN TRACT INFECTION NOS; HYPERLIPIDEMIA NEC/NOS; OTHER MALAISE AND FATIGUE Social History Tobacco Use Types Packs/Day Years Used Date Smoking Tobacco: Never Assessed Comments Unknown Sex and Gender Information Value Date Recorded Sex Assigned at Not on file Legal Sex Female 4:23 AM PRINTING FILM STRIPPER Gender Identity Not on file Sexual Orientation Not on file documented as of this encounter Plan of Treatment Not on file documented as of this encounter Visit Diagnoses Diagnosis Myalgia and myositis, unspecified- Primary Mylagia and myositis, unspecified Urinary tract infection, site not specified Other and unspecified hyperlipidemia Other malaise and fatigue documented in this encounter
--- OUTSIDE RECORDS SUMMARY | 2025-04-18 06:24 | XMS_ITS | Encounter Summary ---
Author Organization [facility] Address [address] [place] [address] Care Team Providers Care Clinical Pharmacy Technician Name Role Phone Unavailable Primary Care Provider Unavailabl e Encounter Details Date Type Department Care Team (Latest Contact Info) Description 05/23/2002 Outpatient Historical [facility] Gen Spec Surg [place] [address] [place] [address] Justin Valenzuela MD NO ADDRESS ON FILE CHOLELITH W CHOLECYS NEC (Primary Dx); SURGERY FOLLOWUP, UNSPEC Social History Tobacco Use Types Packs/Day Years Used Date Smoking Tobacco: Never Assessed Comments Unknown Sex and Gender Information Value Date Recorded Sex Assigned at Not on file Legal Sex Female 4:23 AM AIRSET MOLDER Gender Identity Not on file Sexual Orientation Not on file documented as of this encounter Plan of Treatment Not on file documented as of this encounter Visit Diagnoses Diagnosis Calculus of gallbladder with other cholecystitis, without mention of obstruction- Primary Follow-up examination, following unspecified surgery documented in this encounter
--- OUTSIDE RECORDS SUMMARY | 2025-04-18 06:24 | XMS_ITS | Encounter Summary ---
Author Organization [employer] [facility] Address [address] [place] [address] Care Team Providers Care Aircraft Life Support Fitter Name Role Phone Unavailable Primary Care Provider Unavailabl e Encounter Details Date Type Department Care Team (Latest Contact Info) Description 03/17/2000 Outpatient Historical HIS [facility] Pepe Ellison MD [address] [place] [phone] Nonallopathic lesion of cervical region, not elsewhere classified (Primary Dx); Nonallopathic lesion of thoracic region, not elsewhere classified; Sprain of unspecified site of back; Depressive disorder, not elsewhere classified Social History Tobacco Use Types Packs/Day Years Used Date Smoking Tobacco: Never Assessed Comments Unknown Sex and Gender Information Value Date Recorded Sex Assigned at Not on file Legal Sex Female 4:23 AM TUNNEL DRIER OPERATOR Gender Identity Not on file Sexual [...]
--- OUTSIDE RECORDS SUMMARY | 2025-04-18 06:24 | XMS_ITS | Encounter Summary ---
Author Organization [facility] Address [address] [place] [address] Care Team Providers Care Hand Binder Stripper Name Role Phone Unavailable Primary Care Provider Unavailabl e Encounter Details Date Type Department Care Team (Latest Contact Info) Description 07/28/[address] [facility] Rheumatology- [facility] [place] [address] [place] [address] Milton Albright MD NO ADDRESS ON FILE RHEUMATISM NOS (Primary Dx) Social History Tobacco Use Types Packs/Day Years Used Date Smoking Tobacco: Never Assessed Comments Unknown Sex and Gender Information Value Date Recorded Sex Assigned at Not on file Legal Sex Female 4:23 AM RAIL GRINDER Gender Identity Not on file Sexual Orientation Not on file documented as of this encounter Plan of Treatment Not on file documented as of this encounter Visit Diagnoses Diagnosis Rheumatism, unspecified and fibrositis- Primary documented in this encounter
--- OUTSIDE RECORDS SUMMARY | 2025-04-18 06:24 | XMS_ITS | Patient Health Record ---
Author Organization [facility] Address [address] [place] [address] Care Team Providers Care Edgerman Name Role Phone SandovalCarlos Primary Care Provider VINAYAK Guillen [phone] Reason For Referral No Information Encounters Encounter Location Date Provider Diagnosis [facility] [address] [place] [address] 11/12/2024 VINAYAK PATEL Plan Of Treatment No Information Insurance Providers Payer Name Payer Address Payer Phone Subscriber Number Group Number Insured Name Patient Relationship to Insured Coverage Start Date Coverage End Date [place] [address] [facility] [place], [place] [id number] [phone] [id number] Renee Atkins Self - patient is the insured
--- OUTSIDE RECORDS SUMMARY | 2025-04-18 06:24 | XMS_ITS | Encounter Summary ---
Author Organization [facility] Address [address] [place] [address] Care Team Providers Care Cocktail Lounge Manager Name Role Phone Unavailable Primary Care Provider Unavailabl e Encounter Details Date Type Department Care Team (Late st Contact Info) Description 06/01/2002 Outpatient Historical [facility] Family Medicine [address] 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
--- OUTSIDE RECORDS SUMMARY | 2025-04-18 06:24 | XMS_ITS | Encounter Summary ---
Author Organization [facility] Address [address] [place] [address] Care Team Providers Care Bank Vault Clerk Name Role Phone Unavailable Primary Care Provider Unavailabl e Encounter Details Date Type Department Care Team (Latest Contact Info) Description 07/11/2003 Outpatient Historical [facility] Family Medicine [address] [place] [phone] Cyndee Wang MD NO ADDRESS ON FILE HYPERTENSION NOS (Primary Dx); HYPERLIPIDEMIA NEC/NOS; MYALGIA AND MYOSITIS NOS; DEPRESSIVE DISORDER NEC Social History Tobacco Use Types Packs/Day Years Used Date Smoking Tobacco: Never Assessed Comments Unknown Sex and Gender Information Value Date Recorded Sex Assigned at Not on file Legal Sex Female 4:23 AM BEAN SNAPPER Gender Identity Not on file Sexual Orientation Not on file documented as of this encounter Plan of Treatment Not on file documented as of this encounter Visit Diagnoses Diagnosis Unspecified essential hypertension- Primary Other and unspecified hyperlipidemia Myalgia and myositis, unspecified Mylagia and myositis, unspecified Depressive disorder, not elsewhere classified documented in this encounter
--- OUTSIDE RECORDS SUMMARY | 2025-04-18 06:24 | XMS_ITS | Encounter Summary ---
Author Organization [facility] Address [address] [place] [address] Care Team Providers Care Subway Car Repairer Name Role Phone Unavailable Primary Care Provider Unavailabl e Encounter Details Date Type Department Care Team (Late st Contact Info) Description 05/01/2002 Outpatient Historical [facility] Family Medicine [address] 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
--- OUTSIDE RECORDS SUMMARY | 2025-04-18 06:24 | XMS_ITS | Encounter Summary ---
Author Organization [facility] Address [address] [place] [address] Care Team Providers Care Bracelet Form Coverer Name Role Phone Unavailable Primary Care Provider Unavailabl e Encounter Details Date Type Department Care Team (Latest Contact Info) Description 08/01/2003 Outpatient Historical [facility] Rheumatology- [facility] [address] [place] [address] Milton Albright MD NO ADDRESS ON FILE RHEUMATISM NOS (Primary Dx) Social History Tobacco Use Types Packs/Day Years Used Date Smoking Tobacco: Never Assessed Comments Unknown Sex and Gender Information Value Date Recorded Sex Assigned at Not on file Legal Sex Female 4:23 AM MANAGER CCU Gender Identity Not on file Sexual Orientation Not on file documented as of this encounter Plan of Treatment Not on file documented as of this encounter Visit Diagnoses Diagnosis Rheumatism, unspecified and fibrositis- Primary documented in this encounter
--- OUTSIDE RECORDS SUMMARY | 2025-04-18 06:24 | XMS_ITS | Encounter Summary ---
Author Organization [facility] Address [address] [place] [address] Care Team Providers Care Client Development Manager Name Role Phone Unavailable Primary Care Provider Unavailabl e Encounter Details Date Type Department Care Team (Late st Contact Info) Description 10/01/2003 Outpatient Historical [facility] Family Medicine [address] [place] [phone] Cyndee Wang MD NO ADDRESS ON FILE MYALGIA AND MYOSITIS NOS (Primary Dx); URIN TRACT INFECTION NOS Social History Tobacco Use Types Packs/Day Years Used Date Smoking Tobacco: Never Assessed Comments Unknown Sex and Gender Information Value Date Recorded Sex Assigned at Not on file Legal Sex Female 4:23 AM CABLE RIGGER Gender Identity Not on file Sexual Orientation Not on file documented as of this encounter Plan of Treatment Not on file documented as of this encounter Visit Diagnoses Diagnosis Myalgia and myositis, unspecified- Primary Mylagia and myositis, unspecified Urinary tract infection, site not specified documented in this encounter
--- OUTSIDE RECORDS SUMMARY | 2025-04-18 06:24 | XMS_ITS | Encounter Summary ---
Author Organization [facility] Address [address] [place] [address] Care Team Providers Care Telecommunications Professional Name Role Phone Unavailable Primary Care Provider Unavailabl e Encounter Details Date Type Department Care Team (Latest Contact Info) Description 09/18/2001 Outpatient Historical [facility] Pepe Ellison MD [address] [place] [phone] CHRONIC AIRWAY OBSTRUCTION NEC (CMS/HCC) (Primary Dx); MENOPAUSAL DISORDER NEC; SACROILIITIS NEC; DEPRESSIVE DISORDER NEC Social History Tobacco Use Types Packs/Day Years Used Date Smoking Tobacco: Never Assessed Comments Unknown Sex and Gender Information Value Date Recorded Sex Assigned at Not on file Legal Sex Female 4:23 AM VIDEO CONTROL OPERATOR Gender Identity Not on file Sexual [...]
--- OUTSIDE RECORDS SUMMARY | 2025-04-18 06:24 | XMS_ITS | Encounter Summary ---
Author Organization [facility] Address [address] Gao: [place] [address] Care Team Providers Care Leveler Name Role Phone Unavailable Primary Care Provider [...] on file Legal Sex Female 4:23 AM ORGAN GRINDER Gender Identity Not on file Sexual Orientation Not on file documented as of this encounter Plan of Treatment Not on file documented as of this encounter Visit Diagnoses Not on filedocumented in this encounter
--- OUTSIDE RECORDS SUMMARY | 2025-04-18 06:24 | XMS_ITS | Encounter Summary ---
Author Organization [facility] Address [address] [place] [address] Care Team Providers Care Dog Races Manager Name Role Phone Unavailable Primary Care Provider Unavailabl e Encounter Details Date Type Department Care Team (Latest Contact Info) Description 03/31/2004 Outpatient Historical [facility] Rheumatology- [facility] [address] [place] [address] Milton Albright MD NO ADDRESS ON FILE RHEUMATISM NOS (Primary Dx) Social History Tobacco Use Types Packs/Day Years Used Date Smoking Tobacco: Never Assessed Comments Unknown Sex and Gender Information Value Date Recorded Sex Assigned at Not on file Legal Sex Female 4:23 AM SALESPERSON DRIVER Gender Identity Not on file Sexual Orientation Not on file documented as of this encounter Plan of Treatment Not on file documented as of this encounter Visit Diagnoses Diagnosis Rheumatism, unspecified and fibrositis- Primary documented in this encounter
--- OUTSIDE RECORDS SUMMARY | 2025-04-18 06:24 | XMS_ITS | Encounter Summary ---
Author Organization [employer] [facility] Address [address] [place] [address] Care Team Providers Care Stone Layer Name Role Phone Unavailable Primary Care Provider Unavailabl e Encounter Details Date Type Department Care Team (Latest Contact Info) Description 02/08/2000 Outpatient Historical [facility] Pepe Ellison MD [address] [place] [phone] Observation for unspecified suspected condition (Primary Dx) Social History Tobacco Use Types Packs/Day Years Used Date Smoking Tobacco: Never Assessed Comments Unknown Sex and Gender Information Value Date Recorded Sex Assigned at Not on file Legal Sex Female 4:23 AM PHYSICIAN CODER Gender Identity Not on file Sexual Orientation Not on file documented as of this encounter Plan of Treatment Not on file documented as of this encounter Visit Diagnoses Diagnosis Observation for unspecified suspected condition- Primary documented in this encounter
--- NOTE | 2025-04-18 06:30 | W.ED.GENADLT ---
HPI - General Adult General: Chief complaint: Psychiatric Symptoms Stated complaint: combative Time Seen by Provider: 04/18/25 06:13 History of Present Illness: 80-year-old female presents to the emergency room [facility]. Per the [facility] report from EMS she has been putting kicking spitting and threatening to staff. She does have some dementia. When I talked to her ask her what was going on and why she was here she goes into a very long story that is quite delusional. She states her 100+-year-old parents were recently in [place] and were shot to of their. She believes that that a conspiracy because her father was never going to fly again or return to [place] after served in [place] War II she also goes through a drawnout story about how she met someone who offered a job and then refused to pay her after working for 2 weeks leading into another story about a man she met on the side of the road. All this while she scrolling through a cell phone that is nonfunctioning. While here she has not made any violent outbursts. She has not been combative. She answers questions freely but is delusional. She is not aware that she lives in a [facility]pc. She tells me that she lives at home on her own and that she is still driving. Associated symptoms: Deny chest pain, dyspnea or rash Related Data Home Medications ?Medication ?Instructions ?Recorded ?Confirmed acetaminophen 325 mg tablet 650 mg PO Q4H PRN general 10/21/24 04/18/25 discomfort apixaban 5 mg tablet (Eliquis) 5 mg PO BID 12/04/24 04/18/25 alprazolam 0.25 mg tablet 0.25 mg PO BEDTIME 04/18/25 04/18/25 bisacodyl 10 mg rectal suppository 10 mg HI DAILY PRN Constipation 04/18/25 04/18/25 ipratropium 0.5 mg-albuterol 3 mg 3 ml inhalation Q6H PRN Shortness 04/18/25 04/18/25 (2.5 mg base)/3 mL nebulization Of Breath Or Wheezing soln nitrofurantoin 100 mg PO BID 04/18/25 04/18/25 monohydrate/macrocrystals 100 mg capsule ondansetron HCl 4 mg tablet 4 mg PO Q6H PRN Nausea And Vomiting 04/18/25 04/18/25 risperidone 0.5 mg tablet 0.5 mg PO .DAILY@4PM 04/18/25 04/18/25 Previous Rx's ?Medication ?Instructions ?Recorded Supplemental Oxygen @ 2-4l/m via #1 ea 07/12/24 nasal canula diltiazem HCl 30 mg tablet 30 mg PO TID #90 tabs 10/24/24 (Cardizem) Allergies Allergy/AdvReac Type Severity Reaction Status Date / Time codeine Allergy ALGY-Hives Verified 12/04/24 13:09 Penicillins Allergy ALGY-Hives Verified 12/04/24 13:09 Sulfa (Sulfonamide Allergy hives Verified 12/04/24 13:09 Antibiotics) zolpidem (From Ambien) Allergy Unknown Verified 12/04/24 13:09 Review of Systems Const: Denies: fever(s) or chills Card: Denies: chest pain Resp: Denies: dyspnea GI: Denies: abdominal pain : Denies: dysuria, urinary frequency or urinary urgency Musc: Denies: neck pain or back pain Skin/Breast: Denies: rash PFSH ED PFSH: Medical History Sinus tachycardia New onset of congestive heart failure Edema Multiple falls Anxiety Chronic steroid use Recently tapered off 09/16 Hx of pulmonary embolus Tachyarrhythmia COPD (chronic obstructive pulmonary disease) Surgical History History of bilateral mastectomy History of breast reconstruction History of cholecystectomy History of appendectomy History of hysterectomy History of back surgery History of repair of rectocele History of bladder repair surgery History of foot surgery Family History Grandfather Arrhythmia Father Colon cancer Grandmother Breast cancer Mother Diabetes mellitus, type 2 Social History Smoking and tobacco/nicotine status: former use of tobacco/nicotine Alcohol intake: never Substance/Drug Use: never Physical Exam Const: COMMON NORMALS: no acute distress GENERAL APPEARANCE: cooperative and comfortable ORIENTATION/CONSCIOUSNESS: Yes awake HENMT: COMMON NORMALS: normocephalic, atraumatic and hearing grossly normal bilaterally HEAD & SCALP: normocephalic and atraumatic Resp: COMMON NORMALS: normal respiratory effort, No retractions, No use of accessory muscles and clear to auscultation bilaterally AUSCULTATION: clear to auscultation bilaterally Cardio: COMMON NORMALS: regular rate, regular rhythm and No murmurs present (Cardio) RATE: regular rate RHYTHM: regular rhythm GI: COMMON NORMALS: Soft to palpation and No hepatosplenomegaly present AUSCULTATION: Yes normoactive bowel sounds PALPATION: Yes Soft to palpation, No Tenderness to palpation present (GI), No Guarding due to palpation present (GI) and Yes No hepatosplenomegaly present Extremity: COMMON NORMALS: normal to inspection, capillary refill normal, no clubbing, cyanosis or edema, no calf tenderness and no pedal edema Skin: COMMON NORMALS: no rashes or lesions noted GENERAL SKIN EXAM: no rashes or lesions noted Course Vital Signs: Vital signs: Vital Signs Temperature 98.7 F 04/18/25 06:12 Pulse Rate 85 04/18/25 12:32 Respiratory Rate 16 04/18/25 06:12 Blood Pressure 145/70 04/18/25 12:32 Pulse Oximetry 98 04/18/25 12:32 Oxygen Delivery Me thod Nasal Cannula 04/18/25 12:32 Oxygen Flow Rate 3 04/18/25 12:32 [facility] - General Adult Medical Decision Making Patient medically cleared for admission to psych I do think she would benefit from psychiatric evaluation and adjustment of medications. She is currently on Risperdal but family relates that she has not been taking it. After discussion with family ultimately decided that we would transfer patient to geriatric psychiatry. Patient previously had hypokalemia and hypomagnesemia which was corrected. Patient is stable at this time is not needed any medications for behaviors she is easily redirected. Staff is searching for inpatient options. Patient is agreeable for admission. Medical Records I reviewed the patient's medical records. Lab Data I reviewed the patient's lab results. 04/18/25 06:30 04/18/25 10:23 Radiology Impressions Chest X-Ray 04/18/25 06:14 IMPRESSION: 1. Negative chest. Head CT 04/18/25 06:48 IMPRESSION: Mild small vessel disease. No evidence of acute intracranial process. Laboratory Results WBC 8.39 10^3/uL (3.29-11.43) 04/18/25 06:30 RBC 4.50 10^6/uL (3.85-5.65) 04/18/25 06:30 Hgb 14.00 g/dL (11.27-16.99) 04/18/25 06:30 Hct 44.0 % (36-47) 04/18/25 06:30 MCV 97.8 fl (85-98) 04/18/25 06:30 MCH 31.1 pg (27-33) 04/18/25 06:30 MCHC 31.8 g/dL (30-55) 04/18/25 06:30 RDW 17.5 % (12.1-15.1) H 04/18/25 06:30 Plt Count 309 10^3/cmm (157-399) 04/18/25 06:30 MPV 8.7 fL (7.4-10.4) 04/18/25 06:30 Neut % (Auto) 63.1 % 04/18/25 06:30 Lymph % (Auto) 22.1 % 04/18/25 06:30 Calloway % (Auto) 11.4 % 04/18/25 06:30 Eos % (Auto) 1.9 % 04/18/25 06:30 Baso % (Auto) 0.5 % 04/18/25 06:30 Neut # (Auto) 5.30 10^3/uL (1.8-7.7) 04/18/25 06:30 Lymph # (Auto) 1.9 10^3/uL (0.8-4.8) 04/18/25 06:30 Calloway # (Auto) 1.0 10^3/uL (0.2-0.9) H 04/18/25 06:30 Eos # (Auto) 0.2 10^3/uL (0.0-0.8) 04/18/25 06:30 Baso # (Auto) 0.0 10^3/uL (0.0-0.1) 04/18/25 06:30 Nucleated RBC % (auto) 0 % 04/18/25 06:30 Nucleated RBCs # 0.0 /100WBC 04/18/25 06:30 Sodium 140 mmol/L (136-145) 04/18/25 10:23 Potassium 3.3 mmol/L (3.5-5.1) L 04/18/25 10:23 Chloride 97 mmol/L (98-107) L 04/18/25 10:23 Carbon Dioxide 31 mmol/L (22-29) H 04/18/25 10:23 Anion Gap 15.3 (5-19) 04/18/25 10:23 BUN 5 mg/dL (8-23) L 04/18/25 10:23 Creatinine 0.5 mg/dL (0.5-0.9) 04/18/25 10:23 GFR Calculation Not Reportable 04/18/25 10:23 Glucose 145 mg/dL (65-115) H 04/18/25 10:23 Calculated Osmolality 290 mOsm/kg (285-295) 04/18/25 10:23 Calcium 9.1 mg/dL (8.5-10.5) 04/18/25 10:23 Magnesium 1.6 mg/dL (1.7-2.3) L 04/18/25 06:30 Total Bilirubin 1.0 mg/dL (0.15-1.2) 04/18/25 06:30 AST 30 U/L (0-32) 04/18/25 06:30 ALT 18 U/L (0-33) 04/18/25 06:30 Alkaline Phosphatase 138 U/L (35-105) H 04/18/25 06:30 Total Protein 6.7 g/dL (6.6-8.7) 04/18/25 06:30 Albumin 3.3 g/dL (3.5-5.2) L 04/18/25 06:30 Globulin 3.4 g/dL (1.3-4.6) 04/18/25 06:30 Urine Color [place] (Yellow) A 04/18/25 07:02 Urine Appearance Cloudy (CLEAR) A 04/18/25 07:02 Urine pH 6.0 (5-7) 04/18/25 07:02 Ur Specific [place] 1.017 (1.005-1.030) 04/18/25 07:02 Urine Protein 1+ (Negative) A 04/18/25 07:02 Urine Glucose (UA) Negative (Normal) 04/18/25 07:02 Urine Ketones 3+ (Negative) H 04/18/25 07:02 Urine Blood Trace (Negative) A 04/18/25 07:02 Urine Nitrate Negative (Negative) 04/18/25 07:02 Urine Bilirubin 1+ (Negative) H 04/18/25 07:02 Urine Urobilinogen 1.0 mg/dL (Negative) 04/18/25 07:02 Ur Leukocyte Esterase 3+ (Negative) A 04/18/25 07:02 Urine RBC 0-2 /hpf (0-2) 04/18/25 07:02 Urine WBC >100 /hpf (0-5) H 04/18/25 07:02 Ur Squamous Epith Cells 0-5 /hpf (0-5) 04/18/25 07:02 Amorphous Sediment Not Reportable 04/18/25 07:02 Urine Bacteria None seen /hpf (NONE) 04/18/25 07:02 Hyaline Casts 5.36 /lpf 04/18/25 07:02 Salicylates < 0.3 mg/dL (3-10) L 04/18/25 06:30 Urine Opiates Screen Positive ng/mL (Negative) H 04/18/25 07:02 Acetaminophen < 5.0 ug/mL (10-30) L 04/18/25 06:30 Ur Barbiturates Screen Negative ng/mL (Negative) 04/18/25 07:02 Ur Phencyclidine Scrn Negative ng/mL (Negative) 04/18/25 07:02 Ur Amphetamines Screen Negative ng/mL (Negative) 04/18/25 07:02 U Benzodiazepines Scrn Positive ng/mL (Negative) H 04/18/25 07:02 Urine Cocaine Screen Negative ng/mL (Negative) 04/18/25 07:02 U Marijuana (THC) Screen Negative ng/mL (Negative) 04/18/25 07:02 Ethyl Alcohol < 10 mg/dL (0-10) 04/18/25 06:30 Influenza A (PCR) Negative (Negative) 04/18/25 06:58 Influenza Type B (PCR) Negative (Negative) 04/18/25 06:58 RSV (PCR) Negative (Negative) 04/18/25 06:58 SARS-CoV-2 (PCR) Negative (Negative) 04/18/25 06:58 All radiology interpretation(s) finalized by discharge Discharge Plan Discharge Patient Disposition: Xfer Psychiatric Hosp Clinical Impression: Dementia, Intermittent explosive behavioral outbursts Condition: Stable Referrals: Farhad Marquez MD [Primary Care Provider, Family Practice] Print Language: Malay Coding Level of Care Code ED Accounts Receivable Processor for Alee Weaver
[2025-04-18 06:48] LABS: Hematocrit 44.0 % (36-47); Hemoglobin 14.00 g/dL (11.27-16.99); Mean Corpuscular HGB Conc 31.8 g/dL (30-55); Mean Corpuscular Hemoglobin 31.1 pg (27-33); Mean Corpuscular Volume 97.8 fl (85-98); Nucleated Red Blood Cells % 0 %; Platelet Count 309 10^3/cmm (157-399); Red Blood Count 4.50 10^6/uL (3.85-5.65); White Blood Count 8.39 10^3/uL (3.29-11.43)
--- NOTE | 2025-04-18 06:48 | CTR_ITS ---
PROCEDURE INFORMATION: Exam: CT Head Without Contrast Exam date and time: 04/18/2025 7:06 AM Age: 80 years old Clinical indication: Altered mental status/memory loss; Additional info: Altered mental status multiple falls TECHNIQUE: Imaging protocol: Computed tomography of the head without contrast. Radiation optimization: All CT scans at this facility use at least one of these dose optimization techniques: automated exposure control; mA and/or kV adjustment per patient size (includes targeted exams where dose is matched to clinical indication); or iterative reconstruction. COMPARISON: CT head wo con* [id number] 03/06/2025 3:02 AM RADIATION DOSE METRICS: Total DLP (mGy-cm): 1168.97 FINDINGS: Brain: There is mild small vessel disease. There is no evidence of acute parenchymal hemorrhage, extra-axial collection, or acute infarction. There is no mass effect, midline shift, or downward herniation. Cerebral ventricles: No ventriculomegaly. Paranasal sinuses: Visualized sinuses are unremarkable. No fluid levels. Mastoid air cells: Visualized mastoid air cells are well aerated. Bones: Unremarkable. No acute fracture. Soft tissues: Unremarkable. CT/CT head wo con* [id number] IMPRESSION: Mild small vessel disease. No evidence of acute intracranial process.
--- NOTE | 2025-04-18 06:55 | ECG_ITS ---
[employer] Test Date: 2025-04-18 Pat Name: Renee Atkins Department: Room: Gender: Female Ribber: : 1945 Requested By: Ryan Mac Order Number: [id number] Reading MD: MAU SOTO Measurements Intervals [place] Rate: 90 P: 74 WA: 148 QRS: 64 QRSD: 90 T: 38 QT: 372 QTc: 456 Interpretive Statements SINUS RHYTHM LOW QRS VOLTAGE IN PRECORDIAL LEADS [QRS DEFLECTION < 1.0 mV IN CHEST LEADS] NONSPECIFIC ST & T-WAVE ABNORMALITY Compared to ECG 10/23/2024 11:31:12 T-wave abnormality now present ST (T wave) deviation no longer present Electronically Signed On 04-20-2025 21:37:22 CDT by MAU SOTO [email or web address]
--- NOTE | 2025-04-18 06:56 | PC.PHAR ---
Pt is from [facility]
[2025-04-18 07:10] LABS: Alanine Aminotransferase 18 U/L (0-33); Albumin Level 3.3 g/dL (3.5-5.2); Alkaline Phosphatase 138 U/L (35-105); Anion Gap 17.5 (5-19); Aspartate Amino Transferase 30 U/L (0-32); Blood Urea Nitrogen 5 mg/dL (8-23); Calcium 9.2 mg/dL (8.5-10.5); Carbon Dioxide 31 mmol/L (22-29); Chloride 95 mmol/L (98-107); Creatinine Clr Calc Pharmacy 62.9286; Globulin 3.4 g/dL (1.3-4.6); Glucose 112 mg/dL (65-115); Osmolality Calculated 290 mOsm/kg (285-295); Sodium 141 mmol/L (136-145); Total Protein 6.7 g/dL (6.6-8.7)
[2025-04-18 07:18] LABS: Acetaminophen < 5.0 ug/mL (10-30); Alcohol Level < 10 mg/dL (0-10); Potassium 2.5 mmol/L (3.5-5.1); Salicylate < 0.3 mg/dL (3-10)
[2025-04-18 07:22] LABS: PCP Screen Urine Negative (Negative)
[2025-04-18] MEDS: potassium chloride oral liq 20 mEq/15 mL UDC 40 MEQ PO ×2 (07:22→09:53)
[2025-04-18 07:25] VITALS: PULSE 91; O2SAT 95
[2025-04-18 07:38] LABS: Respiratory Syncytial Virus Ce NEGATIVE (Negative); SARS-CoV-2 PCR NEGATIVE (Negative)
[2025-04-18 07:42] LABS: Glucose Urine UA Negative (Normal); Nitrate Urine Negative (Negative); Specific Gravity, Urine 1.017 (1.005-1.030)
[2025-04-18 07:44] LABS: Add Urine Microscopic? YES
[2025-04-18 07:50] LABS: Magnesium 1.6 mg/dL (1.7-2.3)
[2025-04-18 07:56] LABS: UA Slide Review UA Slide Review Perf
[2025-04-18 08:00] VITALS: BP 111/69; PULSE 92; O2SAT 95
[2025-04-18] MEDS: magnesium sulfate premix 2 GM/50 ML PIGGYBACK IV (08:10)
--- NOTE | 2025-04-18 10:23 | PC.NURSE ---
LAB ATTEMPTED TO DRAW REPEAT POTASSIUM LEVEL. PT REFUSED. THIS NURSE EDUCATED PT ON THE NEED TO OBTAIN REPEAT LAB VALUE. PT WAS AGREEABLE TO REPEAT LAB VALUE BUT REFUSED TO BE POKED. REPEAT LAB DRAW WAS PULLED FROM IV. PT STATED I HAVE THE RIGHT TO REFUSE IN THE STATE OF [place]. THIS NURSE INFORMED PT THAT SHE WAS NOT IN [place]. PT STATED SHE DID NOT WANT TO BE HERE AND WAS GOING TO GO HOME.
[2025-04-18 10:46] LABS: Anion Gap 15.3 (5-19); Blood Urea Nitrogen 5 mg/dL (8-23); Calcium 9.1 mg/dL (8.5-10.5); Carbon Dioxide 31 mmol/L (22-29); Chloride 97 mmol/L (98-107); Creatinine Clr Calc Pharmacy 62.9286; Glucose 145 mg/dL (65-115); Osmolality Calculated 290 mOsm/kg (285-295); Potassium 3.3 mmol/L (3.5-5.1); Sodium 140 mmol/L (136-145)
[2025-04-18 12:32] VITALS: BP 145/70; PULSE 85; O2SAT 98
--- NOTE | 2025-04-18 13:00 | PC.NURSE ---
PT DAUGHTER VERBALIZED TO THIS NURSE THAT SHE WAS NOT SURE IF SHE WANTED PT TO BE TRANSFERRED. PROVIDER NOTIFIED. VERBAL ORDERS TO CALL THE LONG TERM AND SEE IF PT WAS TO BE DISCHARGED IF THE LONG TERM WOULD ACCEPT PT BACK. THIS NURSE SPOKE TO DON AT [facility] AND WAS TOLD THAT PT WOULD BE ACCEPTED BACK IF DISCHARGED.
--- NOTE | 2025-04-18 13:40 | PC.NURSE ---
AFTER DISCUSSING SITUATION WITH DAUGHTER AND HOSPICE NURSE, DECISION WAS MADE TO PROCEED WITH TRANSFER.
--- NOTE | 2025-04-18 16:08 | PC.NURSE ---
[facility] CALLED REQUESTING UPDATE ON PT. [facility] DON NOTIFIED THIS NURSE THAT PT DAUGHTER STATED THAT SHE WAS TOLD PT COULD NOT COME BACK TO ALF AFTER DISCHARGE FROM THE ED. [facility] DON NOTIFIED THIS NURSE THAT PT COULD COME BACK IF SHE WAS DISCHARGED. THIS NURSE VERBALIZED UNDERSTANDING AND INFORMED DON THAT SHE HAD NEVER TOLD THE PT FAMILY THAT [facility] WOULD NOT ACCEPT PT BACK AND THAT THERE MUST HAVE BEEN A MISCOMMUNICATION SOMEWHERE. [facility] WAS NOTIFIED THAT PT CHART HAD BEEN SENT OUT TO MULTIPLE FACILITIES FOR [facility] PLACEMENT AND THAT IF SOMETHING WAS TO CHANGE AGAIN THIS NURSE WOULD NOTIFY [facility].
[2025-04-18 16:31] VITALS: BP 120/62; PULSE 96; RESP 17; O2SAT 96
--- NOTE | 2025-04-18 16:42 | PC.NURSE ---
REPORT CALLED TO GREG BOND AT [facility].
[2025-04-18 18:37] VITALS: BP 150/71; PULSE 104; O2SAT 93
== END 2025-04-18 18:41 ==
PROVIDERS: Emergency Provider Family Medicine; PCP Family Medicine
DX: F63.81 Intermittent explosive disorder (principal); F03.918 Unspecified dementia, unspecified severity, with other behavioral disturbance; Z11.52 Encounter for screening for COVID-19; Z87.891 Personal history of nicotine dependence; J44.9 Chronic obstructive pulmonary disease, unspecified; I50.9 Heart failure, unspecified
CPT/HCPCS: 36415; 70450; 71045; 80048; 80053; 80306; 80307; 81001; 83735; 85025; 87086; 87637; 93005; 96365; 96366; 99285; J3475; J9999